=== PATIENT | male | born 1970 | race Caucasian/White ===

== ENCOUNTER 2022-10-04 13:44 | Inpatient (IN) | payer OTHER ==
--- OUTSIDE RECORDS SUMMARY | 2022-10-04 14:03 | XMS REPORT | Continuity of Care Document ---
:1970 Author Organization [facility] t Address [address] [place] [address] Care Team Providers Name Role Phone NOLOCAL, PRIMARY CARE DOC Primary Care Physician Unavailable ROLANDO GREEN Attending Clinician Unavailable SHABNAM WISEMAN Attending Clinician Unavailable Physician, No Primary or Family Admitting Clinician Unavaila ble ROLANDO GREEN Admitting Clinician Unavailable BRIAN KESSLER Admitting Clinician Unavailable Payers Payer Name Policy Type Policy Effective Date Expiration Date Sour ce Number MEDICAID NA [facility] Problems Condition Condition Condition Status Onset Resolution Last Treating Co mments Source Name Details Category Date Date Treatment Clinician Date Alcohol Alcohol Problem [facility] ([facility]F/LI V/SA) Alcohol Alcohol Problem Active [facility] intoxicati intoxicati 03-15 Ayaz kes on on 00:00: [facility] 00 [facility] (LUF/LI V/SA) Alcohol Alcohol Problem Active [facility] (LUF/LI V/SA) Allergies, Adverse Reactions, Alerts Allergy Allergy Status Severity Reaction(s) Onset Inactive Treating Comm ents Source Name Type Date Date Clinician Sulfa DA Active U [facility] ([facility]ulf[facility] 8[facility]16 [place] [facility] e Antibiot 00 [facility] ics[facility] Sulfa DA Active U UNKNOWN 2019-0 [facility] No Known DA Active U 2019-0 [facility] Allergie 8-02 [place] [facility] 00:00: [facility]a 00 [facility] No Known DA Active U 2019- [facility] Allergie 8- [place] [facility] 00:00: Regiona [facility] No Known DA Active U 2007- [facility] Contrast 7 [place] Allergie 00:00: Regiona s [facility], [facility] No Known DA Active U [facility] Drug 02-13 [place] Allergie 00:00: Regiona s [facility], [facility] No Known DA Active U [facility] Food 02-13 [place] Allergie 00:00: Regiona s [facility], [facility] No Known DA Active U 2007- [facility] Other 02-13 [place] Allergie 00:00: Regiona s [facility], [facility] Penicill DA Active Unknown [facility] (LUF[facility]LI V/SA) Social History Social Habit Start Date Stop Date Quantity Comments Source Sex Assigned At [birth year] Male Zully [facility] 00:00:00 00:00:00 Hospital Smoking Status Start Date Stop Date Source Current every day smoker [facility] (LUF/CHRISTINE/SA) Medications Ordered Filled Start Stop Current Ordering Indication Dosage Frequency Signature Comments Components Source Medication Medication Date Date Medication? Clinician (SIG) Name Name Folic Acid Folic Acid Yes [address] [facility] 1 MG Oral 1 MG Oral ONCE A DAY [facility] Tablet Tablet (DO NOT Memoria CRUSH) l (LUF/LI V/SA) multivitami multivitami Yes [address] [facility] n n ONCE A DAY [facility] (THERAGRAN (THERAGRAN Mem oria or or l STRESSTAB) STRESSTAB) (AYAZ F/LI V/SA) THIAMINE THIAMINE Yes [address] [facility] HCL HCL ONCE A DAY [facility] (LUF/LI V/SA) Vital Signs Vital Name Observation Time Observation Value Comments Source Height 2020-03-14 22:25:00 180.34 CM Weight 2020-03-14 22:25:00 82 KG Height 2020-03-07 17:29:00 180.34 CM Weight 2020-03-07 17:29:00 95.25 KG Body Temperature 2020-03-15 02:45:00 98.1 [degF] [facility] (LUF/CHRISTINE/SA) Pulse Rate 2020-03-15 02:45:00 88 /min [facility] (LUF/CHRISTINE/SA) Respiratory Rate 2020-03-15 02:45:00 16 /min [facility] ([facility]/CHRISTINE/SA) O2% BldC Oximetry 2020-03-15 02:45:00 94 % [facility] (LUF/CHRISTINE/SA) BP Systolic 2020-03-15 02:45:00 118 mm[Hg] [facility] (F/CHRISTINE/SA) BP Diastolic 2020-03-15 02:45:00 78 mm[Hg] [facility] (F/CHRISTINE/SA) Height 2020-03-14 22:25:00 71 [in_i] [facility] ([facility]/CHRISTINE/SA) Weight 2020-03-14 22:25:00 82 kg [facility] (F/CHRISTINE/SA) BMI (Body Mass Index) 2020-03-14 22:25:00 25.3 kg/m2 [facility] ([facility]/CHRISTINE/SA) Procedures Procedure Date / Time Performing Clinician Source Performed [id number] 2020-04-02 00:00:00 [facility] [id number] 2020-03-20 00:00:00 [facility] [id number] 2020-03-20 00:00:00 [facility] CBCA W/PLT & AUTO 2020-03-17 00:00:00 [facility] COMPREHENSIVE METABOLIC 2020-03-17 00:00:00 [facility] UA COMPLETE W/CULTURE 2020-03-17 00:00:00 [facility] PROTIME 2020-03-17 00:00:00 [facility] PTT 2020-03-17 00:00:00 [facility] URINE DRUG 2020-03-17 00:00:00 [facility] THYROID STIMULATING 2020-03-17 00:00:00 [facility] SERUM DRUG SCREEN 2020-03-17 00:00:00 [facility] COVID-VIRUS PCR TEST 2020-03-17 00:00:00 [facility] LIPASE 2020-03-17 00:00:00 [facility] CHEST 1 VIEW (AP) 2020-03-17 00:00:00 [facility] CT ABD & PELVIS W 2020-03-17 00:00:00 [facility] Encounters Start End Encounter Admission Attending Care Care Encounter Source Date/Time Date/Time Type Type Clinicians Facility Department ID 2022-09-04 2022-09-04 Outpatient SFA SFA [id number] Adriano 13:24:25 13:24:25 21509 F Phu 2020-08-15 2020-08-18 Inpatient [facility] [id number] [facility] 03:54:00 03:49:[address] [facility] 2020-03-17 2020-04-24 Inpatient [facility] MC [id number] [facility] 08:40:00 00:58:22 72 [facility] 2020-03-16 2020-03-17 Departed [facility] [id number] [facility] 21:25:00 02:41:[address] [facility] 2020-03-14 2020-03-15 ALCOHOL E NORMA, [facility] [id number] 22:25:00 03:49:00 [facility]END [facility] W/INTOX N, [address], (LUF[place] [address] 2020-03-07 2020-03-07 Emergency 1 STLML EMD [id number] 17:11:00 17[facility]11[facility]00 [facility]F/LI [facility]/SA) Results Test Description Test Time Test Comments Results Result Comments Source D-DIMER 2022-09-05 12:32:27 Test Item Value Reference Range Interpretation Comme nts D-DIMER (test code 0.41 UG/ML FEU See_Comment NOTE: Provided reference range is = 1405) established for evaluation of Deep Venous Thrombos is/Pulmonary Embolus (DVT/PE). Resul ts below cutoff value of <=0.49 UG/ML FEU have a high negative predic tive value forDVT/PE. No reference ra nge is established for disseminatedint ra-vascular coagulation (DI C). [Automated message] The sy stem which generated this result tra nsmitted reference range: <=0.49. The reference range was not used to interpret this result as normal/abnor mal. [id number] 06:24:48 Test Item Value Reference Range Interpretation Comments NT-proBNP 648 PG/ML SEE BELOW If NT-ProBNP i s less than 300 (test code = PG/ML, heart fa ilure is unlikely 18182) for allages. Age............ .....Heart Failure Likely <50 Years.......... .>=450 PG/ML 50-75 Years.... .....>=900 PG/ML > 75 Years..... .....>=1800 PG/ML Methodology: Ro mónica Kenyatta [employer]chem[employer] inescense Immunoassay UNL ESS OTHERWISE INDICATED, ALL TESTING PERFORMED ATCLINICAL PATH [employer] [facility], [facility]. [address] [place] [address] 4 BEAM SEALER: Axel MILLER [id number] CAP ACCREDITATION N O. [id number] 13:14:00 Test Item Value Reference Range Interpretation Comments PHOSPHORUS (test code = PHOS) 2.6 mg/dL 2.5-4.9 N [id number] 13:14:00 Test Item Value Reference Range Interpretation Comments AMYLASE (test code = JAMAAL) 54 Unit/L 25-115 N [id number] 13:14:00 Test Item Value Reference Range Interpretation Comments MAGNESIUM (test code = MAG) 1.3 mg/dL 1.8-2.4 L VITAMIN [id number] 13:14:00 Test Item Value Reference Range Interpretation Comments VITAMIN B12 (test code = VITB12) 740 pg/mL 193-986 N FOLIC [id number] 13:14:00 Test Item Value Reference Range Interpretation Comments FOLIC ACID (test code = FOL) 2.7 ng/mL 3.10-17.50 L [id number] 13:14:00 Test Item Value Reference Range Interpretation Comments ALCOHOL (test code < 3 mg/dL 0.0-3.0 N --------- --------INTERPRE = ALC) TIVE DATA NOTE: POSITIVE SCREEN ING RESULTS SHOULD BE CONSIDERED PRESUMPTIVE.WHE N COLLECTED FOR M EDICAL PURPOSES ONLY. SPECIMEN WILL NOTBE JOHNSON ECTED BY CHAIN OF CUSTOD Y.IF A CONFIRMATION OF POSITIVE RESULTS IS YAEL RED, ACONFIRMATION T EST MUST BE REQUESTED BY THE PHYSICIAN AT AN ADDITIONAL CHARGE TO THE P [facility]. [id number] 12:52:00 Test Item Value Reference Range Interpretation Comments TROPONIN-I (test 0.061 ng/mL 0-0.045 HH Results princess led to code = TROPI) [id number] by V.L AB.DC 08/15/20 1252Cr itical results verifie d and read back by Nu rse? Y COMMENTS TO SHADE HANGER: COLLECT 3 HOURS AFTER PREVIOUS SAMPLELACTIC ACID 2020-08-15 12:50:00 Test Item Value Reference Range Interpretation Comments LACTIC ACID (test code = LACT) 1.5 mmol/L 0.4-1.9 N [id number] 12:49:00 Test Item Value Reference Range Interpretation Comments AMMONIA (test code = AMM) 52 umol/L 11-32 H [id number] 10:31:00 Test Item Value Reference Range Interpretation Comments TROPONIN-I (test 0.053 ng/mL 0-0.045 HH Results princess led to code = TROPI) [id number] by V.L AB.DC 08/15/20 1031Cr itical results verifie d and read back by Nu rse? Y COMMENTS TO SHADE HANGER: COLLECT 3 HOURS AFTER PREVIOUS SAMPLEDRUGS OF ABUSE SCREEN [id number] 09:35:00 Test Item Value Reference Range Interpretation Comments UA PH DIPSTICK (test code = YINA) 6.0 5.0-8.0 URN COCAINE (test code = COCAURN) NEGATIVE <300 ng/mL URN CANNABINOIDS (test code = NEGATIVE <50 ng/mL CANNABURN) URN AMPHETAMINE (test code = NEGATIVE <1000 ng/mL AMPHETURN) URN BARBITURATE (test code = NEGATIVE <200 ng/mL BARBITURN) URN BENZODIAZEPINE (test code = NEGATIVE <200 ng/mL BENZOURN) URN OPIATES (test code = OPIATURN) NEGATIVE <300 ng/mL URN PHENCYCLIDINE (PCP) (test code = NEGATIVE <25 ng/mL PHENCURN) URN METHADONE (test code = METHAURN) NEGATIVE <300 ng/mL DRUGS OF ABUSE SCREEN [id number] 07:31:00 Test Item Value Reference Range Interpretation Comments UA PH DIPSTICK (test code = YINA) 5.0-8.0 URN COCAINE (test code = COCAURN) NEGATIVE <300 ng/mL URN CANNABINOIDS (test code = NEGATIVE <50 ng/mL CANNABURN) URN AMPHETAMINE (test code = NEGATIVE <1000 ng/mL AMPHETURN) URN BARBITURATE (test code = NEGATIVE <200 ng/mL BARBITURN) URN BENZODIAZEPINE (test code = NEGATIVE <200 ng/mL BENZOURN) URN OPIATES (test code = OPIATURN) NEGATIVE <300 ng/mL URN PHENCYCLIDINE (PCP) (test code = NEGATIVE <25 ng/mL PHENCURN) URN METHADONE (test code = METHAURN) NEGATIVE <300 ng/mL COVID 19 INHOUSE [id number] 07:23:00 Test Item Value Reference Range Interpretation Comments COVID 19 INHOUSE AG (test code = NEGATIVE [id number]) B-TYPE NATRIURETIC [id number] 06:17:00 Test Item Value Reference Range Interpretation Comments B-TYPE NATRIURETIC PEPTIDE 31.78 pgram/mL 0-100 N (test code = BNP) - CTA [id number] 05:59:00 [facility]Name: SIDNEY HALL Mila : 1970 Sex: M Name: SIDNEY HALL [facility] : 1970 Age/S: 49 / M [address] [facility] Unit #: [id number] Loc: [place] [address] Phys: Carlos Taylor MD Acct: [id number] Dis Date: Status: REG ER PHONE #: [phone] Exam Date: 08/15/2020 0594 FAX #: [phone] Reason: chest pain EXAMS: CPTCODE: [id number] CTA CHEST 16056 DICTATION LOCATION: H48 HISTORY: Male, 49 years of age with chest pain EXAM: CT ANGIOGRAPHY OF THE CHEST COMPARISON: Chest x-ray performed one hour ago TECHNIQUE: Helical axial images were obtained from thoracic inlet to upper abdomen with nonionic IV contrast using theCT angiography protocol. Image post processing with MIP and multiplanar reconstruction were performed at the advanced workstation. One or more of the following dose reduction techniques were used: Automated exposure control; adjustment of the mA and/or kV according to the patient size; and/or use of iterative reconstruction technique. STATEMENT: Exam quality is acceptable. Images are somewhat degraded by patient motion. FINDINGS: AORTA: No aneurysm or dissection. PULMONARY ARTERIES: Within normal limits size and moderately enhanced. No obvious central or subcentral pulmonary artery filling defect.Distal pulmonary arteries not well assessed due to motion and hemodilution. HEART: Heart is enlarged. Coronary artery calcifications are noted. No significant pericardial effusion. MEDIASTINUM: No pathologically enlarged lymph nodes by CT criteria. Visualized portions of thyroid gland unremarkable. PLEURA: No pleural effusions. LUNGS: Patchy reticulonodular opacities are seen in right upper lobe, right middle lobe, lingula, and both lower lobes. No diamond lobar consolidation. No significant emphysema. No tracheobronchial filling defect. OTHER: Cuts through the upper abdomen are unremarkable. IMPRESSION: 1. No obvious central or subcentral pulmonary embolism. 2. No aortic aneurysm or dissection. 3. Multilobar pneumonia, predominantly in right upper lobe and right middle lobe. PAGE 1 Signed Report (CONTINUED) Name: SIDNEY HALL [facility] : 1970 Age/S: 49 / M [address] Unit #: [id number] Loc: [place] [address] Phys: Carlos Taylor MD Acct: [id number] Dis Date: Status: REG ER PHONE #: [phone] Exam Date: 08/15/2020 0540 FAX #: [phone] Reason: chest pain EXAMS: CPT CODE: [id number] CTA CHEST 34115 <Continued> Electronically Signed by Eunice Porter 08/15/2020 at 0559 Reported and signed by: Eunice Manriquez MD CC: Carlos Taylor MD Technologist:JESSICA BLISS RT; RENATO AT CTDI: DLP: Trnscb Date/Time: 08/15/2020 (0559) [email or web address] Orig Print D/T: S: 08/15/2020 (0602) PAGE 2 Signed ReportPROTHROMBIN [id number] 05:16:00 Test Item Value Reference Range Interpretation Comments PROTHROMBIN TIME 12.1 seconds 9.0-14.0 N PATIENT (test code = PTP) INTERNATIONAL NORMAL 1.1 0.8-1.2 N The the rapeutic range RATIO (test code = for oral INR) anticoagulant t herapy formost indicat ions is an internati onal normalized rati o (INR)of between 2.0 and 3.0. The recommended therapeutic INR range for various cli nical situations is l isted below: Clinical Situat ion INR range Pulmonary embol ism treatment (2.0-3.0)Venous thrombosis treatmentVenous thrombosis prophylaxis (hi gh risk surgery)Prevent ion of systemic emboli sm from: Acute myocardial infa rction Valvular heart disease Atrial fibrillation Mechanical pros thetic heart valves (2.5-3.5) IS PATIENT ON ANTICOAGULANTS? NTHROMBOPLASTIN TIME [id number] 05:16:00 Test Item Value Reference Range Interpretation Comments THROMBOPLASTIN TIME PARTIAL 29.7 seconds 23.0-37.0 N (test code = PTT) IS PATIENT ON ANTICOAGULANTS? [id number] 05:16:00 Test Item Value Reference Range Interpretation Comments D-DIMER (test 1589.00 0-500 HH Results called to [id number] code = DDIMER) ng/mLFEU by V.LAB.GP 1 0516Critical re sults verified and re ad back by Nurse? YClinica l Cut-off value for D-Dim er is 500 ng/mL FEU. Comm ent: The 12Bis D-Dim er assay is intended for use asan aid in the diag nosis of venous thromboe mbolism (VTE)[deep vein thrombosis (DVT ) or pulmonary embol ism (PE)].The measu rement of D-Dimer should not be used as an aid inthe diagnosis of VT E, in patient with: -Therapeutic do se anticoagulant t herapy for >24 hours -Fibr inolytic therapy within previous 7 days -Trauma or surgery within previous 4 weeks -Disseminated malignancies -A ortic aneurysm -Sepsi s, severe infections, pne umonia, severe skin inf ections -Liver cirrhosi s - IS PATIENT ON ANTICOAGULANTS? NBASIC METABOLIC [id number] 05:14:00 Test Item Value Reference Range Interpretation Comments SODIUM (test code = 140 mmol/L 136-145 N NA) POTASSIUM (test code 4.2 mmol/L 3.5-5.1 N = K) CHLORIDE (test code = 106.0 mmol/L 98-107 N CL) CARBON DIOXIDE (test 23.0 mmol/L 21-32 N code = CO2) ANION GAP (test code 15.2 10-20 N = GAP) GLUCOSE (test code = 181 mg/dL 74-106 H GLU) BLOOD UREA NITROGEN 8 mg/dL 7-18 N (test code = BUN) GLOMERULAR FILTRATION > 60 mL/min >=60 Estima domitila GFR by RATE (test code = using Annie fied MDRD GFR) formula.Chronic kidney disease is defined as ei er kidney damageor GFR <60 mL/min/1.73 m2 for >3 months. CREATININE (test code 0.80 mg/dL 0.7-1.3 N = CREAT) BUN/CREATININE RATIO 10.2 10-20 N (test code = BUN/CREA) CALCIUM (test code = 7.9 mg/dL 8.5-10.1 L CA) HEPATIC FUNCTION [id number] 05:14:00 Test Item Value Reference Range Interpretation Comments TOTAL PROTEIN (test 7.0 gram/dL 6.4-8.2 N code = PROT) ALBUMIN (test code = 3.0 g/dL 3.4-5.0 L ALB) GLOBULIN (test code = 4.0 gram/dL 2.7-4.2 N GLOB) ALBUMIN/GLOBULIN RATIO 0.8 0.75-1.50 N (test code = A/G) BILIRUBIN TOTAL (test 0.50 mg/dL 0.0-1.0 N code = BILT) BILIRUBIN DIRECT (test 0.07 mg/dL 0.0-0.20 N code = BILD) SGOT/AST (test code = 32 IUnit/L 15-37 N AST) SGPT/ALT (test code = 18 IUnit/L 12-78 N ALT) ALKALINE PHOSPHATASE 92 IUnit/L 45-117 N Note change in TOTAL (test code = reference range due ALKP) to change in reagent. [id number] 05:14:00 Test Item Value Reference Range Interpretation Comments LIPASE (test code = LIP) 279 U/L 73.0-393.0 N [id number] 05:14:00 Test Item Value Reference Range Interpretation Comments MAGNESIUM (test code = MAG) 1.6 mg/dL 1.8-2.4 L [id number] 05:14:00 Test Item Value Reference Range Interpretation Comments TROPONIN-I (test code = TROPI) 0.027 ng/mL 0-0.045 N CBC W/O [id number] 04:56:00 Test Item Value Reference Range Interpretation Comments WHITE BLOOD CELL (test code = 13.6 K/mm3 4.5-12.5 H WBC) RED BLOOD CELL (test code = 5.12 mill/mm3 4.0-5.8 N RBC) HEMOGLOBIN (test code = HGB) 15.6 gram/dL 13.0-17.5 N HEMATOCRIT (test code = HCT) 46.7 % 42.0-52.0 N MEAN CELL VOLUME (test code = 91.2 fL 80-98 N MCV) MEAN CELL HGB (test code = MCH) 30.5 picogram 27.0-33.0 N MEAN CELL HGB CONCETRATION 33.4 gram/dL 33.0-36.0 N (test code = MCHC) RED CELL DISTRIBUTION WIDTH 15.0 % 11.6-16.2 N (test code = RDW) PLATELET COUNT (test code = 115 K/mm3 150-450 L PLT) MEAN PLATELET VOLUME (test code 10.1 fL 6.7-11.0 N = MPV) - XR CHEST 1 [id number] 04:46:00 [facility]Name: JENNIFERKAYSIDNEY : 1970 Sex: M FAX: Carlos Taylor MD [place]: [address]: REG Name: SIDNEY HALL [facility] : 1970 Age/S: 49/M Benjamin [facility] Unit #: [id number] Loc: [place] [address] Phys: Carlos Taylor MD Acct: [id number] Dis Date: Status: REG ER PHONE #: [phone] Exam Date: 08/15/2020424 FAX #: [phone] Reason: CHEST PAIN EXAMS: CPT CODE: [id number] XR CHEST 1 V 86337 DICTATION LOCATION: 8 HISTORY: Male, 49 years of age with CHEST PAIN EXAM: CHEST X-RAY, ONE VIEW COMPARISON: 04/22/2020 COMMENT: Frontal view of the chest is provided. Interstitial opacities are present in right perihilar distribution. Left lung is clear. No consolidation or effusion. Cardiac silhouette is enlarged and calcified plaque noted in aorta. No acute bony abnormalities. IMPRESSION: Right perihilar interstitial opacities are new since prior study. Unilateral pulmonary edema versus pneumonia. at 0446 Reported and signed by: Eunice Manriquez MD CC: Carlos Taylor MD [facility] hnologist: Lolis Go Trnmtrd Date/Time/By: 08/15/2020 (0446) : By: JoeCLW Orig Print D/T: S: 08/15/2020 (0441) PAGE 1 Signed Report- XR CHEST 1 V 2020-04-22 09:37:00 FAX: Maegan Vazquez MD [phone] [place]: St: [facility] FAX: Suly Talbot NP [phone] FAX: Sindi Cedillo [phone] FAX: Carina Francis MD [phone] Patient Name: SIDNEY HALL Unit No: [id number] EXAMS: CPT CODE: [id number] XR CHEST 1 V 10781 EXAM: - XR CHEST 1 V LOCATION: C3 HISTORY: SOB COMPARISON: 04/19/2020 FINDINGS: Single view of the chest. No indwelling lines or tubes. No pneumothorax. Improving mild right basilar infiltrate. The mediastinal contours are unremarkable/unchanged. No acute osseous findings are present. IMPRESSION: Improving mild right basilar infiltrate. at 0937 Reported and signed by: Gilles Raymond MD CC: Maegan Vazquez MD; Suly Smith NP; Sindi Gomez Dictated Date/Time: 04/22/2020 (09)Technologist: Aleksandra Esteves Transcribed Date/Time: 04/22/2020 (936) By: [email or web address] Orig Print D/T: S: 04/22/2020 (0940) E[place]NESTINE [place] NAME: SIDNEY HALL [facility] PHYS: Suly Brock NP [address] [place] [address] BLVD : 1970 AGE: 49 SEX: Chintan SCHAFFER, [place] [address] LOC: B.333 W PHONE #: [phone] EXAM DATE: 04/22/2020 STATUS: ADM IN FAX #: [phone] RADNO: DEEJAY Dt: PAGE 1 Signed ReportBASIC METABOLIC [id number] 05:54:00 Test Item Value Reference Range Interpretation Comments SODIUM (test code = 137.0 mmol/L 133-144 N NA) POTASSIUM (test code 3.5 mmol/L 3.5-5.1 N = K) CHLORIDE (test code 106 mmol/L 95-105 H = CL) CARBON DIOXIDE (test 27 mmol/L 21-32 N code = CO2) ANION GAP (test code 4.0 GAP calc 4.0-15.0 N = GAP) GLUCOSE (test code = 77 MG/DL 70-110 N GLU) BLOOD UREA NITROGEN 10 MG/DL 7-18 N (test code = BUN) CREATININE (test 0.50 MG/DL 0.55-1.30 L Results may be code = CREAT) depressed if patient is takingN-Acetylc yste ine (NAC) and Metamizole (Dipyrone). CALCIUM (test code = 8.9 MG/DL 8.5-10.1 N CA) INDEX HEMOLYSIS 1 NORMAL <10 MG 1 NORMAL (test code = Index/DL HEMINDEX) INDEX ICTERIC (test 1 NORMAL <2 MG 1 NORMAL code = ICTINDEX) Index/DL INDEX LIPEMIA (test 1 NORMAL <50 MG 1 NORMAL code = LIPINDEX) Index/DL CBC W/AUTO [id number] 05:50:00 Test Item Value Reference Range Interpretation Comments WHITE BLOOD CELL (test code = 7.4 K/mm3 4.1-12.1 N WBC) RED BLOOD CELL (test code = RBC) 3.58 M/mm3 3.8-5.5 L HEMOGLOBIN (test code = HGB) 11.5 G/DL 10.6-15.8 N HEMATOCRIT (test code = HCT) 36.0 % 31.8-47.4 N MEAN CELL VOLUME (test code = 100.6 fL 80.1-101.1 N MCV) MEAN CELL HGB (test code = MCH) 32.1 pg 25.3-35.3 N MEAN CELL HGB CONCETRATION (test 31.9 G/DL 32.7-35.1 L code = MCHC) RED CELL DISTRIBUTION WIDTH 11.7 % 12.2-16.4 L (test code = RDW) RED CELL DISTRIBUTION WIDTH 43.2 fL 35.1-43.9 N (test code = RDW-SD) PLATELET COUNT (test code = PLT) 230 K/mm3 155-337 N MEAN PLATELET VOLUME (test code 10.3 fL 7.6-10.4 N = MPV) GRANULOCYTE % (test code = GR%) 60.2 % 37.8-82.6 N IMMATURE GRANULOCYTE % (test 0.3 % 0.0-2.0 N code = IG%) LYMPHOCYTE % (test code = LY%) 24.9 % 14.1-45.4 N MONOCYTE % (test code = MO%) 12.4 % 2.5-11.7 H EOSINOPHIL % (test code = EO%) 1.8 % 0.0-6.2 N BASOPHIL % (test code = BA%) 0.4 % 0.0-2.6 N NUCLEATED RBC % (test code = 0.0 /100WBC% 0.0-1.0 N NRBC%) GRANULOCYTE # (test code = GR#) 4.44 k/mm3 2.0-13.7 N IMMATURE GRANULOCYTE # (test 0.02 K/mm3 0.00-0.03 N code = IG#) LYMPHOCYTE # (test code = LY#) 1.83 K/mm3 0.6-3.8 N MONOCYTE # (test code = MO#) 0.91 K/mm3 0.11-0.59 H EOSINOPHIL # (test code = EO#) 0.13 K/mm3 0.0-0.4 N BASOPHIL # (test code = BA#) 0.03 K/mm3 0.0-0.1 N NUCLEATED RBC # (test code = 0.00 K/mm3 0.00-0.05 N NRBC#) BASIC METABOLIC [id number] 08:26:00 Test Item Value Reference Range Interpretation Comments SODIUM (test code = 141.0 mmol/L 133-144 N NA) POTASSIUM (test code 3.6 mmol/L 3.5-5.1 N = K) CHLORIDE (test code 109 mmol/L 95-105 H = CL) CARBON DIOXIDE (test 28 mmol/L 21-32 N code = CO2) ANION GAP (test code 4.0 GAP calc 4.0-15.0 N = GAP) GLUCOSE (test code = 69 MG/DL 70-110 L GLU) BLOOD UREA NITROGEN 10 MG/DL 7-18 N (test code = BUN) CREATININE (test 0.51 MG/DL 0.55-1.30 L Results may be code = CREAT) depressed if patient is takingN-Acetylc yste ine (NAC) and Metamizole (Dipyrone). CALCIUM (test code = 9.1 MG/DL 8.5-10.1 N CA) INDEX HEMOLYSIS 1 NORMAL <10 MG 1 NORMAL (test code = Index/DL HEMINDEX) INDEX ICTERIC (test 1 NORMAL <2 MG 1 NORMAL code = ICTINDEX) Index/DL INDEX LIPEMIA (test 1 NORMAL <50 MG 1 NORMAL code = LIPINDEX) Index/DL CBC W/AUTO [id number] 08:14:00 Test Item Value Reference Range Interpretation Comments WHITE BLOOD CELL (test code = 8.2 K/mm3 4.1-12.1 N WBC) RED BLOOD CELL (test code = RBC) 3.91 M/mm3 3.8-5.5 N HEMOGLOBIN (test code = HGB) 12.8 G/DL 10.6-15.8 N HEMATOCRIT (test code = HCT) 40.6 % 31.8-47.4 N MEAN CELL VOLUME (test code = 103.8 fL 80.1-101.1 H MCV) MEAN CELL HGB (test code = MCH) 32.7 pg 25.3-35.3 N MEAN CELL HGB CONCETRATION (test 31.5 G/DL 32.7-35.1 L code = MCHC) RED CELL DISTRIBUTION WIDTH 11.9 % 12.2-16.4 L (test code = RDW) RED CELL DISTRIBUTION WIDTH 45.1 fL 35.1-43.9 H (test code = RDW-SD) PLATELET COUNT (test code = PLT) 234 K/mm3 155-337 N MEAN PLATELET VOLUME (test code 10.8 fL 7.6-10.4 H = MPV) GRANULOCYTE % (test code = GR%) 62.2 % 37.8-82.6 N IMMATURE GRANULOCYTE % (test 0.4 % 0.0-2.0 N code = IG%) LYMPHOCYTE % (test code = LY%) 23.7 % 14.1-45.4 N MONOCYTE % (test code = MO%) 11.0 % 2.5-11.7 N EOSINOPHIL % (test code = EO%) 2.2 % 0.0-6.2 N BASOPHIL % (test code = BA%) 0.5 % 0.0-2.6 N NUCLEATED RBC % (test code = 0.0 /100WBC% 0.0-1.0 N NRBC%) GRANULOCYTE # (test code = GR#) 5.13 k/mm3 2.0-13.7 N IMMATURE GRANULOCYTE # (test 0.03 K/mm3 0.00-0.03 N code = IG#) LYMPHOCYTE # (test code = LY#) 1.95 K/mm3 0.6-3.8 N MONOCYTE # (test code = MO#) 0.91 K/mm3 0.11-0.59 H EOSINOPHIL # (test code = EO#) 0.18 K/mm3 0.0-0.4 N BASOPHIL # (test code = BA#) 0.04 K/mm3 0.0-0.1 N NUCLEATED RBC # (test code = 0.00 K/mm3 0.00-0.05 N NRBC#) - XR CHEST 1 [id number] 12:01:00 FAX: Maegan Vazquez MD [phone] [place]: St: ADM FAX: Suly Talbot NP [phone] FAX: Sindi Cedillo [phone] FAX: Carina Francis MD [phone] Patient Name: SIDNEY HALL Unit No: [id number] EXAMS: CPT CODE: [id number] XR CHEST 1 V [id number] CHEST 1 VIEW CLINICAL INFORMATION: COUGH COMPARISON: April 12, 2020 FINDINGS: The lung volumes are decreased. Subsegmental atelectasis is seen in the left midlung. There is a patchy alveolar opacity in the right lower lobe as well. No pneumothorax or large pleural effusion is present. The cardiac silhouette is mildly enlarged but stable. The bones are grossly intact. IMPRESSION: 1. Shallow inspiration. 2. Subsegmental atelectasis in the left mid lung. 3.Patchy opacity in the right lung base may reflect additional atelectasis or pneumonia. LOCATION: B2 at 1201 Reported and signed by: Bret Ward MD CC: Maegan Vazquez MD; Suly Smith NP; Sindi Gomez Dictated Date/Time: 04/19/2020 (1201)Technologist: Tello Campo Transcribed Date/Time: 04/19/2020 (1201) By: [email or web address] Orig Print D/T: S: 04/19/2020 ([id number]) [facility] [place] NAME: SIDNEY HALL MEDICAL IMAGING PHYS: Suly Brock WOODWORKING MACHINIST [address] : 1970 AGE: 49 SEX: Chintan SCHAFFER, JASMYNE Castro304 LOC: Sahil Zaragoza PHONE #: [phone] EXAM DATE: 04/19/2020 STATUS: ADM IN FAX #: [phone] RAD NO: DC Dt: PAGE 1 Signed ReportBASIC METABOLIC [id number] 04:55:00 Test Item Value Reference Range Interpretation Comments SODIUM (test code = 140.0 mmol/L 133-144 N NA) POTASSIUM (test code 3.6 mmol/L 3.5-5.1 N = K) CHLORIDE (test code 107 mmol/L 95-105 H = CL) CARBON DIOXIDE (test 26 mmol/L 21-32 N code = CO2) ANION GAP (test code 7.0 GAP calc 4.0-15.0 N = GAP) GLUCOSE (test code = 76 MG/DL 70-110 N GLU) BLOOD UREA NITROGEN 16 MG/DL 7-18 N (test code = BUN) CREATININE (test 0.68 MG/DL 0.55-1.30 N Results may be code = CREAT) depressed if patient is takingN-Acetylc yste ine (NAC) and Metamizole (Dipyrone). CALCIUM (test code = 9.2 MG/DL 8.5-10.1 N CA) INDEX HEMOLYSIS 1 NORMAL <10 MG 1 NORMAL (test code = Index/DL HEMINDEX) INDEX ICTERIC (test 1 NORMAL <2 MG 1 NORMAL code = ICTINDEX) Index/DL INDEX LIPEMIA (test 1 NORMAL <50 MG 1 NORMAL code = LIPINDEX) Index/DL COMPREHENSIVE METABOLIC [id number] 04:55:00 Test Item Value Reference Range Interpretation Comments GLOMERULAR FILTRATION 123 estGFR >60 The es timated RATE (test code = glomerular filtration GFR) rate is compute d usingpatient ra ce, age, sex, and s juju creatinine. If any of theneeded data elements are mi ssing the Laboratory can notcompute an estimation of t he glomerular filt ration rate.The GFR va lue units = ml/min/ 1.73 meter squared. EstimatedGFR va lues above 60 should be interpreted as >60, not anexact num suzy.--- DRUG DOSAGE JOSELINE RT --- Drug dosage adjustments uti lize different calculationpara meters. TOTAL PROTEIN (test 7.3 G/DL 6.4-8.2 N code = PROT) ALBUMIN (test code = 3.5 G/DL 3.4-5.0 N ALB) ALBUMIN/GLOBULIN 0.9 RATIO 1.2-2.2 L RATIO (test code = A/G) BILIRUBIN TOTAL (test 0.74 MG/DL 0.00-1.00 N code = BILT) BILIRUBIN DIRECT 0.30 MG/DL 0.00-0.30 N (test code = BILD) BILIRUBIN INDIRECT 0.44 MG/DL 0.2-1.3 N (test code = BILIND) SGOT/AST (test code = 20 Unit/L 15-37 N AST) SGPT/ALT (test code = 32 Unit/L 12-78 N ALT) ALKALINE PHOSPHATASE 60 Unit/L 45-117 N TOTAL (test code = ALKP) [id number] 04:55:00 Test Item Value Reference Range Interpretation Comments LIPASE (test code = LIP) 256 Unit/L 114-286 N BASIC METABOLIC [id number] 04:49:00 Test Item Value Reference Range Interpretation Comments SODIUM (test code = NA) 140.0 mmol/L 133-144 N POTASSIUM (test code = K) 3.6 mmol/L 3.5-5.1 N CHLORIDE (test code = CL) 107 mmol/L 95-105 H CARBON DIOXIDE (test code mmol/L 21-32 = CO2) ANION GAP (test code = GAP calc 4.0-15.0 GAP) GLUCOSE (test code = GLU) MG/DL 70-110 BLOOD UREA NITROGEN (test MG/DL 7-18 code = BUN) CREATININE (test code = MG/DL 0.55-1.30 CREAT) CALCIUM (test code = CA) MG/DL 8.5-10.1 INDEX HEMOLYSIS (test 1 NORMAL <10 MG 1 NORMAL code = HEMINDEX) Index/DL INDEX ICTERIC (test code 1 NORMAL <2 MG 1 NORMAL = ICTINDEX) Index/DL INDEX LIPEMIA (test code 1 NORMAL <50 MG 1 NORMAL = LIPINDEX) Index/DL COMPREHENSIVE METABOLIC [id number] 04:49:00 Test Item Value Reference Range Interpretation Comments TOTAL PROTEIN (test code = PROT) G/DL 6.4-8.2 ALBUMIN (test code = ALB) G/DL 3.4-5.0 ALBUMIN/GLOBULIN RATIO (test code = RATIO 1.2-2.2 A/G) BILIRUBIN TOTAL (test code = BILT) MG/DL 0.00-1.00 BILIRUBIN DIRECT (test code = BILD) MG/DL 0.00-0.30 BILIRUBIN INDIRECT (test code = MG/DL 0.2-1.3 BILIND) SGOT/AST (test code = AST) Unit/L 15-37 SGPT/ALT (test code = ALT) Unit/L 12-78 ALKALINE PHOSPHATASE TOTAL (test code Unit/L 45-117 = ALKP) [id number] 04:49:00 Test Item Value Reference Range Interpretation Comments LIPASE (test code = LIP) Unit/L 114-286 CBC W/AUTO [id number] 04:26:00 Test Item Value Reference Range Interpretation Comments WHITE BLOOD CELL (test code = 7.5 K/mm3 4.1-12.1 N WBC) RED BLOOD CELL (test code = RBC) 3.74 M/mm3 3.8-5.5 L HEMOGLOBIN (test code = HGB) 12.3 G/DL 10.6-15.8 N HEMATOCRIT (test code = HCT) 37.6 % 31.8-47.4 N MEAN CELL VOLUME (test code = 100.5 fL 80.1-101.1 N MCV) MEAN CELL HGB (test code = MCH) 32.9 pg 25.3-35.3 N MEAN CELL HGB CONCETRATION (test 32.7 G/DL 32.7-35.1 N code = MCHC) RED CELL DISTRIBUTION WIDTH 11.5 % 12.2-16.4 L (test code = RDW) RED CELL DISTRIBUTION WIDTH 42.3 fL 35.1-43.9 N (test code = RDW-SD) PLATELET COUNT (test code = PLT) 246 K/mm3 155-337 N MEAN PLATELET VOLUME (test code 10.6 fL 7.6-10.4 H = MPV) GRANULOCYTE % (test code = GR%) 64.2 % 37.8-82.6 N IMMATURE GRANULOCYTE % (test 0.3 % 0.0-2.0 N code = IG%) LYMPHOCYTE % (test code = LY%) 22.2 % 14.1-45.4 N MONOCYTE % (test code = MO%) 10.5 % 2.5-11.7 N EOSINOPHIL % (test code = EO%) 2.4 % 0.0-6.2 N BASOPHIL % (test code = BA%) 0.4 % 0.0-2.6 N NUCLEATED RBC % (test code = 0.0 /100WBC% 0.0-1.0 N NRBC%) GRANULOCYTE # (test code = GR#) 4.84 k/mm3 2.0-13.7 N IMMATURE GRANULOCYTE # (test 0.02 K/mm3 0.00-0.03 N code = IG#) LYMPHOCYTE # (test code = LY#) 1.67 K/mm3 0.6-3.8 N MONOCYTE # (test code = MO#) 0.79 K/mm3 0.11-0.59 H EOSINOPHIL # (test code = EO#) 0.18 K/mm3 0.0-0.4 N BASOPHIL # (test code = BA#) 0.03 K/mm3 0.0-0.1 N NUCLEATED RBC # (test code = 0.00 K/mm3 0.00-0.05 N NRBC#) COMPREHENSIVE METABOLIC [id number] 09:02:00 Test Item Value Reference Range Interpretation Comments SODIUM (test code = 140.0 mmol/L 133-144 N NA) POTASSIUM (test code 3.2 mmol/L 3.5-5.1 L = K) CHLORIDE (test code 106 mmol/L 95-105 H = CL) CARBON DIOXIDE (test 29 mmol/L 21-32 N code = CO2) ANION GAP (test code 5.0 GAP calc 4.0-15.0 N = GAP) GLUCOSE (test code = 87 MG/DL 70-110 N GLU) BLOOD UREA NITROGEN 19 MG/DL 7-18 H (test code = BUN) GLOMERULAR 125 estGFR >60 The estimated FILTRATION RATE glomerular (test code = GFR) filtration rate is computed usingpatient ra ce, age, sex, and s juju creatinine. If any of theneeded da ta elements are mi ssing the Laboratory can notcompute an estimation of t he glomerular filtration rate .The GFR value units = ml/min/1.73 met er squared. EstimatedGFR va lues above 60 should be interpreted as >60, not anexact number.--- DRUG DOSAGE ALERT -- - Drug dosage adjustments uti lize different calculationpara meter s. CREATININE (test 0.67 MG/DL 0.55-1.30 N Results may be code = CREAT) depressed if p atient is takingN-Acetylc ystei ne (NAC) and Metamizole (Dipyrone). TOTAL PROTEIN (test 6.7 G/DL 6.4-8.2 N code = PROT) ALBUMIN (test code = 3.0 G/DL 3.4-5.0 L ALB) ALBUMIN/GLOBULIN 0.8 RATIO 1.2-2.2 L RATIO (test code = A/G) CALCIUM (test code = 9.3 MG/DL 8.5-10.1 N CA) BILIRUBIN TOTAL 0.60 MG/DL 0.00-1.00 N (test code = BILT) BILIRUBIN DIRECT 0.23 MG/DL 0.00-0.30 N (test code = BILD) BILIRUBIN INDIRECT 0.37 MG/DL 0.2-1.3 N (test code = BILIND) SGOT/AST (test code 20 Unit/L 15-37 N = AST) SGPT/ALT (test code 31 Unit/L 12-78 N = ALT) ALKALINE PHOSPHATASE 56 Unit/L 45-117 N TOTAL (test code = ALKP) INDEX HEMOLYSIS 1 NORMAL <10 1 NORMAL (test code = MG Index/DL HEMINDEX) INDEX ICTERIC (test 1 NORMAL <2 MG 1 NORMAL code = ICTINDEX) Index/DL INDEX LIPEMIA (test 1 NORMAL <50 1 NORMAL code = LIPINDEX) MG Index/DL COMPREHENSIVE METABOLIC [id number] 09:00:00 Test Item Value Reference Range Interpretation Comments SODIUM (test code = 140.0 mmol/L 133-144 N NA) POTASSIUM (test code 3.2 mmol/L 3.5-5.1 L = K) CHLORIDE (test code 106 mmol/L 95-105 H = CL) CARBON DIOXIDE (test 29 mmol/L 21-32 N code = CO2) ANION GAP (test code 5.0 GAP calc 4.0-15.0 N = GAP) GLUCOSE (test code = 87 MG/DL 70-110 N GLU) BLOOD UREA NITROGEN 19 MG/DL 7-18 H (test code = BUN) GLOMERULAR 125 estGFR >60 The estimated FILTRATION RATE glomerular (test code = GFR) filtration rate is computed usingpatient ra ce, age, sex, and s juju creatinine. If any of theneeded da ta elements are mi ssing the Laboratory can notcompute an estimation of t he glomerular filtration rate .The GFR value units = ml/min/1.73 met er squared. EstimatedGFR va lues above 60 should be interpreted as >60, not anexact number.--- DRUG DOSAGE ALERT -- - Drug dosage adjustments uti lize different calculationpara meter s. CREATININE (test 0.67 MG/DL 0.55-1.30 N Results may be code = CREAT) depressed if p atient is takingN-Acetylc ystei ne (NAC) and Metamizole (Dipyrone). TOTAL PROTEIN (test G/DL 6.4-8.2 code = PROT) ALBUMIN (test code = 3.0 G/DL 3.4-5.0 L ALB) ALBUMIN/GLOBULIN RATIO 1.2-2.2 RATIO (test code = A/G) CALCIUM (test code = 9.3 MG/DL 8.5-10.1 N CA) BILIRUBIN TOTAL MG/DL 0.00-1.00 (test code = BILT) BILIRUBIN DIRECT 0.23 MG/DL 0.00-0.30 N (test code = BILD) BILIRUBIN INDIRECT MG/DL 0.2-1.3 (test code = BILIND) SGOT/AST (test code 20 Unit/L 15-37 N = AST) SGPT/ALT (test code 31 Unit/L 12-78 N = ALT) ALKALINE PHOSPHATASE Unit/L 45-117 TOTAL (test code = ALKP) INDEX HEMOLYSIS 1 NORMAL <10 1 NORMAL (test code = MG Index/DL HEMINDEX) INDEX ICTERIC (test 1 NORMAL <2 MG 1 NORMAL code = ICTINDEX) Index/DL INDEX LIPEMIA (test 1 NORMAL <50 1 NORMAL code = LIPINDEX) MG Index/DL CBC W/MANUAL [id number] 06:05:00 Test Item Value Reference Range Interpretation Comments WHITE BLOOD CELL (test code = 6.6 K/mm3 4.1-12.1 N WBC) RED BLOOD CELL (test code = RBC) 3.59 M/mm3 3.8-5.5 L HEMOGLOBIN (test code = HGB) 12.1 G/DL 10.6-15.8 N HEMATOCRIT (test code = HCT) 37.1 % 31.8-47.4 N MEAN CELL VOLUME (test code = 103.3 fL 80.1-101.1 H MCV) MEAN CELL HGB (test code = MCH) 33.7 pg 25.3-35.3 N MEAN CELL HGB CONCETRATION (test 32.6 G/DL 32.7-35.1 L code = MCHC) RED CELL DISTRIBUTION WIDTH 11.5 % 12.2-16.4 L (test code = RDW) RED CELL DISTRIBUTION WIDTH 43.9 fL 35.1-43.9 N (test code = RDW-SD) PLATELET COUNT (test code = PLT) 212 K/mm3 155-337 N MEAN PLATELET VOLUME (test code 10.3 fL 7.6-10.4 N = MPV) GRANULOCYTE % (test code = GR%) 55.3 % 37.8-82.6 N IMMATURE GRANULOCYTE % (test 0.3 % 0.0-2.0 N code = IG%) LYMPHOCYTE % (test code = LY%) 25.9 % 14.1-45.4 N MONOCYTE % (test code = MO%) 12.9 % 2.5-11.7 H EOSINOPHIL % (test code = EO%) 5.0 % 0.0-6.2 N BASOPHIL % (test code = BA%) 0.6 % 0.0-2.6 N NUCLEATED RBC % (test code = 0.0 /100WBC% 0.0-1.0 N NRBC%) GRANULOCYTE # (test code = GR#) 3.63 k/mm3 2.0-13.7 N IMMATURE GRANULOCYTE # (test 0.02 K/mm3 0.00-0.03 N code = IG#) LYMPHOCYTE # (test code = LY#) 1.70 K/mm3 0.6-3.8 N MONOCYTE # (test code = MO#) 0.85 K/mm3 0.11-0.59 H EOSINOPHIL # (test code = EO#) 0.33 K/mm3 0.0-0.4 N BASOPHIL # (test code = BA#) 0.04 K/mm3 0.0-0.1 N NUCLEATED RBC # (test code = 0.00 K/mm3 0.00-0.05 N NRBC#) COMPREHENSIVE METABOLIC [id number] 09:27:00 Test Item Value Reference Range Interpretation Comments SODIUM (test code = 141.0 mmol/L 133-144 N NA) POTASSIUM (test code 3.4 mmol/L 3.5-5.1 L = K) CHLORIDE (test code 107 mmol/L 95-105 H = CL) CARBON DIOXIDE (test 28 mmol/L 21-32 N code = CO2) ANION GAP (test code 6.0 GAP calc 4.0-15.0 N = GAP) GLUCOSE (test code = 88 MG/DL 70-110 N GLU) BLOOD UREA NITROGEN 26 MG/DL 7-18 H (test code = BUN) GLOMERULAR 105 estGFR >60 The estimated FILTRATION RATE glomerular (test code = GFR) filtration rate is computed usingpatient ra ce, age, sex, and s juju creatinine. If any of theneeded da ta elements are mi ssing the Laboratory can notcompute an estimation of t he glomerular filtration rate .The GFR value units = ml/min/1.73 met er squared. EstimatedGFR va lues above 60 should be interpreted as >60, not anexact number.--- DRUG DOSAGE ALERT -- - Drug dosage adjustments uti lize different calculationpara meter s. CREATININE (test 0.78 MG/DL 0.55-1.30 N Results may be code = CREAT) depressed if p atient is takingN-Acetylc ystei ne (NAC) and Metamizole (Dipyrone). TOTAL PROTEIN (test 7.5 G/DL 6.4-8.2 N code = PROT) ALBUMIN (test code = 3.5 G/DL 3.4-5.0 N ALB) ALBUMIN/GLOBULIN 0.9 RATIO 1.2-2.2 L RATIO (test code = A/G) CALCIUM (test code = 9.5 MG/DL 8.5-10.1 N CA) BILIRUBIN TOTAL 0.74 MG/DL 0.00-1.00 N (test code = BILT) BILIRUBIN DIRECT 0.34 MG/DL 0.00-0.30 H (test code = BILD) BILIRUBIN INDIRECT 0.40 MG/DL 0.2-1.3 N (test code = BILIND) SGOT/AST (test code 21 Unit/L 15-37 N = AST) SGPT/ALT (test code 41 Unit/L 12-78 N = ALT) ALKALINE PHOSPHATASE 65 Unit/L 45-117 N TOTAL (test code = ALKP) INDEX HEMOLYSIS 1 NORMAL <10 1 NORMAL (test code = MG Index/DL HEMINDEX) INDEX ICTERIC (test 1 NORMAL <2 MG 1 NORMAL code = ICTINDEX) Index/DL INDEX LIPEMIA (test 1 NORMAL <50 1 NORMAL code = LIPINDEX) MG Index/DL COMPREHENSIVE METABOLIC [id number] 09:23:00 Test Item Value Reference Range Interpretation Comments SODIUM (test code = NA) 141.0 mmol/L 133-144 N POTASSIUM (test code = K) 3.4 mmol/L 3.5-5.1 L CHLORIDE (test code = CL) 107 mmol/L 95-105 H CARBON DIOXIDE (test code 28 mmol/L 21-32 N = CO2) ANION GAP (test code = 6.0 GAP calc 4.0-15.0 N GAP) GLUCOSE (test code = GLU) 88 MG/DL 70-110 N BLOOD UREA NITROGEN (test 26 MG/DL 7-18 H code = BUN) CREATININE (test code = MG/DL 0.55-1.30 CREAT) TOTAL PROTEIN (test code G/DL 6.4-8.2 = PROT) ALBUMIN (test code = ALB) 3.5 G/DL 3.4-5.0 N ALBUMIN/GLOBULIN RATIO RATIO 1.2-2.2 (test code = A/G) CALCIUM (test code = CA) 9.5 MG/DL 8.5-10.1 N BILIRUBIN TOTAL (test MG/DL 0.00-1.00 code = BILT) BILIRUBIN DIRECT (test MG/DL 0.00-0.30 code = BILD) BILIRUBIN INDIRECT (test MG/DL 0.2-1.3 code = BILIND) SGOT/AST (test code = Unit/L 15-37 AST) SGPT/ALT (test code = Unit/L 12-78 ALT) ALKALINE PHOSPHATASE Unit/L 45-117 TOTAL (test code = ALKP) INDEX HEMOLYSIS (test 1 NORMAL <10 MG 1 NORMAL code = HEMINDEX) Index/DL INDEX ICTERIC (test code 1 NORMAL <2 MG 1 NORMAL = ICTINDEX) Index/DL INDEX LIPEMIA (test code 1 NORMAL <50 MG 1 NORMAL = LIPINDEX) Index/DL CBC W/MANUAL [id number] 09:04:00 Test Item Value Reference Range Interpretation Comments WHITE BLOOD CELL (test code = 6.6 K/mm3 4.1-12.1 N WBC) RED BLOOD CELL (test code = RBC) 3.80 M/mm3 3.8-5.5 N HEMOGLOBIN (test code = HGB) 12.5 G/DL 10.6-15.8 N HEMATOCRIT (test code = HCT) 38.0 % 31.8-47.4 N MEAN CELL VOLUME (test code = 100.0 fL 80.1-101.1 N MCV) MEAN CELL HGB (test code = MCH) 32.9 pg 25.3-35.3 N MEAN CELL HGB CONCETRATION (test 32.9 G/DL 32.7-35.1 N code = MCHC) RED CELL DISTRIBUTION WIDTH 11.4 % 12.2-16.4 L (test code = RDW) RED CELL DISTRIBUTION WIDTH 41.9 fL 35.1-43.9 N (test code = RDW-SD) PLATELET COUNT (test code = PLT) 207 K/mm3 155-337 N MEAN PLATELET VOLUME (test code 10.0 fL 7.6-10.4 N = MPV) GRANULOCYTE % (test code = GR%) 65.6 % 37.8-82.6 N IMMATURE GRANULOCYTE % (test 0.5 % 0.0-2.0 N code = IG%) LYMPHOCYTE % (test code = LY%) 18.7 % 14.1-45.4 N MONOCYTE % (test code = MO%) 10.2 % 2.5-11.7 N EOSINOPHIL % (test code = EO%) 4.4 % 0.0-6.2 N BASOPHIL % (test code = BA%) 0.6 % 0.0-2.6 N NUCLEATED RBC % (test code = 0.0 /100WBC% 0.0-1.0 N NRBC%) GRANULOCYTE # (test code = GR#) 4.31 k/mm3 2.0-13.7 N IMMATURE GRANULOCYTE # (test 0.03 K/mm3 0.00-0.03 N code = IG#) LYMPHOCYTE # (test code = LY#) 1.23 K/mm3 0.6-3.8 N MONOCYTE # (test code = MO#) 0.67 K/mm3 0.11-0.59 H EOSINOPHIL # (test code = EO#) 0.29 K/mm3 0.0-0.4 N BASOPHIL # (test code = BA#) 0.04 K/mm3 0.0-0.1 N NUCLEATED RBC # (test code = 0.00 K/mm3 0.00-0.05 N NRBC#) COMPREHENSIVE METABOLIC [id number] 06:25:00 Test Item Value Reference Range Interpretation Comments SODIUM (test code = 137.0 mmol/L 133-144 N NA) POTASSIUM (test code 3.6 mmol/L 3.5-5.1 N = K) CHLORIDE (test code 101 mmol/L 95-105 N = CL) CARBON DIOXIDE (test 32 mmol/L 21-32 N code = CO2) ANION GAP (test code 4.0 GAP calc 4.0-15.0 N = GAP) GLUCOSE (test code = 70 MG/DL 70-110 N GLU) BLOOD UREA NITROGEN 25 MG/DL 7-18 H (test code = BUN) GLOMERULAR 121 estGFR >60 The estimated FILTRATION RATE glomerular (test code = GFR) filtration rate is computed usingpatient ra ce, age, sex, and s juju creatinine. If any of theneeded da ta elements are mi ssing the Laboratory can notcompute an estimation of t he glomerular filtration rate .The GFR value units = ml/min/1.73 met er squared. EstimatedGFR va lues above 60 should be interpreted as >60, not anexact number.--- DRUG DOSAGE ALERT -- - Drug dosage adjustments uti lize different calculationpara meter s. CREATININE (test 0.69 MG/DL 0.55-1.30 N Results may be code = CREAT) depressed if p atient is takingN-Acetylc ystei ne (NAC) and Metamizole (Dipyrone). TOTAL PROTEIN (test 8.0 G/DL 6.4-8.2 N code = PROT) ALBUMIN (test code = 3.5 G/DL 3.4-5.0 N ALB) ALBUMIN/GLOBULIN 0.8 RATIO 1.2-2.2 L RATIO (test code = A/G) CALCIUM (test code = 9.6 MG/DL 8.5-10.1 N CA) BILIRUBIN TOTAL 0.72 MG/DL 0.00-1.00 N (test code = BILT) BILIRUBIN DIRECT 0.34 MG/DL 0.00-0.30 H (test code = BILD) BILIRUBIN INDIRECT 0.38 MG/DL 0.2-1.3 N (test code = BILIND) SGOT/AST (test code 27 Unit/L 15-37 N = AST) SGPT/ALT (test code 45 Unit/L 12-78 N = ALT) ALKALINE PHOSPHATASE 70 Unit/L 45-117 N TOTAL (test code = ALKP) INDEX HEMOLYSIS 1 NORMAL <10 1 NORMAL (test code = MG Index/DL HEMINDEX) INDEX ICTERIC (test 1 NORMAL <2 MG 1 NORMAL code = ICTINDEX) Index/DL INDEX LIPEMIA (test 1 NORMAL <50 1 NORMAL code = LIPINDEX) MG Index/DL COMPREHENSIVE METABOLIC [id number] 06:22:00 Test Item Value Reference Range Interpretation Comments SODIUM (test code = NA) 137.0 mmol/L 133-144 N POTASSIUM (test code = K) 3.6 mmol/L 3.5-5.1 N CHLORIDE (test code = CL) 101 mmol/L 95-105 N CARBON DIOXIDE (test code mmol/L 21-32 = CO2) ANION GAP (test code = GAP calc 4.0-15.0 GAP) GLUCOSE (test code = GLU) 70 MG/DL 70-110 N BLOOD UREA NITROGEN (test 25 MG/DL 7-18 H code = BUN) CREATININE (test code = MG/DL 0.55-1.30 CREAT) TOTAL PROTEIN (test code G/DL 6.4-8.2 = PROT) ALBUMIN (test code = ALB) 3.5 G/DL 3.4-5.0 N ALBUMIN/GLOBULIN RATIO RATIO 1.2-2.2 (test code = A/G) CALCIUM (test code = CA) 9.6 MG/DL 8.5-10.1 N BILIRUBIN TOTAL (test MG/DL 0.00-1.00 code = BILT) BILIRUBIN DIRECT (test 0.34 MG/DL 0.00-0.30 H code = BILD) BILIRUBIN INDIRECT (test MG/DL 0.2-1.3 code = BILIND) SGOT/AST (test code = Unit/L 15-37 AST) SGPT/ALT (test code = Unit/L 12-78 ALT) ALKALINE PHOSPHATASE Unit/L 45-117 TOTAL (test code = ALKP) INDEX HEMOLYSIS (test 1 NORMAL <10 MG 1 NORMAL code = HEMINDEX) Index/DL INDEX ICTERIC (test code 1 NORMAL <2 MG 1 NORMAL = ICTINDEX) Index/DL INDEX LIPEMIA (test code 1 NORMAL <50 MG 1 NORMAL = LIPINDEX) Index/DL CBC W/MANUAL [id number] 06:04:00 Test Item Value Reference Range Interpretation Comments WHITE BLOOD CELL (test code = 8.7 K/mm3 4.1-12.1 N WBC) RED BLOOD CELL (test code = RBC) 3.85 M/mm3 3.8-5.5 N HEMOGLOBIN (test code = HGB) 12.9 G/DL 10.6-15.8 N HEMATOCRIT (test code = HCT) 40.0 % 31.8-47.4 N MEAN CELL VOLUME (test code = 103.9 fL 80.1-101.1 H MCV) MEAN CELL HGB (test code = MCH) 33.5 pg 25.3-35.3 N MEAN CELL HGB CONCETRATION (test 32.3 G/DL 32.7-35.1 L code = MCHC) RED CELL DISTRIBUTION WIDTH 11.7 % 12.2-16.4 L (test code = RDW) RED CELL DISTRIBUTION WIDTH 44.3 fL 35.1-43.9 H (test code = RDW-SD) PLATELET COUNT (test code = PLT) 230 K/mm3 155-337 N MEAN PLATELET VOLUME (test code 10.0 fL 7.6-10.4 N = MPV) GRANULOCYTE % (test code = GR%) 70.2 % 37.8-82.6 N IMMATURE GRANULOCYTE % (test 0.6 % 0.0-2.0 N code = IG%) LYMPHOCYTE % (test code = LY%) 14.5 % 14.1-45.4 N MONOCYTE % (test code = MO%) 8.4 % 2.5-11.7 N EOSINOPHIL % (test code = EO%) 5.6 % 0.0-6.2 N BASOPHIL % (test code = BA%) 0.7 % 0.0-2.6 N NUCLEATED RBC % (test code = 0.0 /100WBC% 0.0-1.0 N NRBC%) GRANULOCYTE # (test code = GR#) 6.12 k/mm3 2.0-13.7 N IMMATURE GRANULOCYTE # (test 0.05 K/mm3 0.00-0.03 H code = IG#) LYMPHOCYTE # (test code = LY#) 1.26 K/mm3 0.6-3.8 N MONOCYTE # (test code = MO#) 0.73 K/mm3 0.11-0.59 H EOSINOPHIL # (test code = EO#) 0.49 K/mm3 0.0-0.4 H BASOPHIL # (test code = BA#) 0.06 K/mm3 0.0-0.1 N NUCLEATED RBC # (test code = 0.00 K/mm3 0.00-0.05 N NRBC#) GLUCOSE BEDSIDE [id number] 20:20:00 Test Item Value Reference Range Interpretation Comments GLUCOSE BEDSIDE TESTING (test code = 72 MG/DL 70-119 N GLUBED) GLUCOSE BEDSIDE [id number] 16:59:00 Test Item Value Reference Range Interpretation Comments GLUCOSE BEDSIDE TESTING (test code 100 MG/DL 70-119 N = GLUBED) - XR CHEST 1 [id number] 14:19:00 FAX: Hossein Bradley MD [phone] [place]: St: [facility] FAX: Na Carnes MD [phone] FAX: Sindi Cedillo [phone] FAX: Carina Francis MD [phone] Patient Name: SIDNEY HALL Unit No: [id number] EXAMS: CPT CODE: [id number] XR CHEST 1 V [id number] EXAM: - XR CHEST 1 V Location code:C3 HISTORY: INCREASE O2 DE JUANA COMPARISON: 04/11/2020 FINDINGS: Single AP view of the chest is provided. Heart size and vascularity are within normal limits. The lungs are clear of focal consolidation. No effusion, pneumothorax, or acute osseous abnormality. IMPRESSION: 1. No radiographic evidence of acute cardiopulmonary process. at 1419 Reported and signed by: Devaughn Martines M.D. CC: Hossein Blandon MD; Sindi Gomez Dictated Date/Time: 04/12/2020 (2452)Technologist: Aldo Arellano Transcribed Date/Time: 04/12/2020 (141) By: [email or web address] Orig Print D/T: S: 04/12/2020 (4881) EARNESTINE Schaffer NAME: SIDNEY HALL [facility] PHYS: Hossein Higuera MD [address] [place] [address] : 1970 AGE: 49 SEX: Chintan SCHAFFER, [place] [id number] LOC: B.308 W PHONE #: [phone] EXAM DATE: 04/12/2020 STATUS: ADM IN FAX #: [phone] RAD NO: DC Dt: PAGE 1 Signed ReportGLUCOSE BEDSIDE [id number] 14:07:00 Test Item Value Reference Range Interpretation Comments GLUCOSE BEDSIDE TESTING (test code 116 MG/DL 70-119 N = GLUBED) COMPREHENSIVE METABOLIC [id number] 08:54:00 Test Item Value Reference Range Interpretation Comments SODIUM (test code = 137.0 mmol/L 133-144 N NA) POTASSIUM (test code 3.6 mmol/L 3.5-5.1 N = K) CHLORIDE (test code 101 mmol/L 95-105 N = CL) CARBON DIOXIDE (test 31 mmol/L 21-32 code = CO2) ANION GAP (test code 5.0 GAP calc 4.0-15.0 = GAP) GLUCOSE (test code = 80 MG/DL 70-110 N GLU) BLOOD UREA NITROGEN 22 MG/DL 7-18 H (test code = BUN) GLOMERULAR 113 estGFR >60 The estimated FILTRATION RATE glomerular (test code = GFR) filtration rate is computed usingpatient ra ce, age, sex, and s juju creatinine. If any of theneeded da ta elements are mi ssing the Laboratory can notcompute an estimation of t he glomerular filtration rate .The GFR value units = ml/min/1.73 met er squared. EstimatedGFR va lues above 60 should be interpreted as >60, not anexact number.--- DRUG DOSAGE ALERT -- - Drug dosage adjustments uti lize different calculationpara meter s. CREATININE (test 0.73 MG/DL 0.55-1.30 N Results may be code = CREAT) depressed if p atient is takingN-Acetylc ystei ne (NAC) and Metamizole (Dipyrone). TOTAL PROTEIN (test 8.2 G/DL 6.4-8.2 N code = PROT) ALBUMIN (test code = 3.5 G/DL 3.4-5.0 N ALB) ALBUMIN/GLOBULIN 0.7 RATIO 1.2-2.2 L RATIO (test code = A/G) CALCIUM (test code = 9.6 MG/DL 8.5-10.1 N CA) BILIRUBIN TOTAL 0.78 MG/DL 0.00-1.00 N (test code = BILT) BILIRUBIN DIRECT 0.34 MG/DL 0.00-0.30 H (test code = BILD) BILIRUBIN INDIRECT 0.44 MG/DL 0.2-1.3 N (test code = BILIND) SGOT/AST (test code 25 Unit/L 15-37 N = AST) SGPT/ALT (test code 43 Unit/L 12-78 N = ALT) ALKALINE PHOSPHATASE 67 Unit/L 45-117 N TOTAL (test code = ALKP) INDEX HEMOLYSIS 1 NORMAL <10 1 NORMAL (test code = MG Index/DL HEMINDEX) INDEX ICTERIC (test 1 NORMAL <2 MG 1 NORMAL code = ICTINDEX) Index/DL INDEX LIPEMIA (test 1 NORMAL <50 1 NORMAL code = LIPINDEX) MG Index/DL CBC W/MANUAL [id number] 08:24:00 Test Item Value Reference Range Interpretation Comments WHITE BLOOD CELL (test code = 8.9 K/mm3 4.1-12.1 N WBC) RED BLOOD CELL (test code = RBC) 3.34 M/mm3 3.8-5.5 L HEMOGLOBIN (test code = HGB) 11.2 G/DL 10.6-15.8 N HEMATOCRIT (test code = HCT) 34.8 % 31.8-47.4 N MEAN CELL VOLUME (test code = 104.2 fL 80.1-101.1 H MCV) MEAN CELL HGB (test code = MCH) 33.5 pg 25.3-35.3 N MEAN CELL HGB CONCETRATION (test 32.2 G/DL 32.7-35.1 L code = MCHC) RED CELL DISTRIBUTION WIDTH 11.8 % 12.2-16.4 L (test code = RDW) RED CELL DISTRIBUTION WIDTH 44.8 fL 35.1-43.9 H (test code = RDW-SD) PLATELET COUNT (test code = PLT) 251 K/mm3 155-337 N MEAN PLATELET VOLUME (test code 10.2 fL 7.6-10.4 N = MPV) GRANULOCYTE % (test code = GR%) 68.2 % 37.8-82.6 N IMMATURE GRANULOCYTE % (test 0.4 % 0.0-2.0 N code = IG%) LYMPHOCYTE % (test code = LY%) 18.5 % 14.1-45.4 N MONOCYTE % (test code = MO%) 7.6 % 2.5-11.7 N EOSINOPHIL % (test code = EO%) 5.0 % 0.0-6.2 N BASOPHIL % (test code = BA%) 0.3 % 0.0-2.6 N NUCLEATED RBC % (test code = 0.0 /100WBC% 0.0-1.0 N NRBC%) GRANULOCYTE # (test code = GR#) 6.09 k/mm3 2.0-13.7 N IMMATURE GRANULOCYTE # (test 0.04 K/mm3 0.00-0.03 H code = IG#) LYMPHOCYTE # (test code = LY#) 1.65 K/mm3 0.6-3.8 N MONOCYTE # (test code = MO#) 0.68 K/mm3 0.11-0.59 H EOSINOPHIL # (test code = EO#) 0.45 K/mm3 0.0-0.4 H BASOPHIL # (test code = BA#) 0.03 K/mm3 0.0-0.1 N NUCLEATED RBC # (test code = 0.00 K/mm3 0.00-0.05 N NRBC#) GLUCOSE BEDSIDE [id number] 05:51:00 Test Item Value Reference Range Interpretation Comments GLUCOSE BEDSIDE TESTING (test code = 83 MG/DL 70-119 N GLUBED) GLUCOSE BEDSIDE [id number] 20:41:00 Test Item Value Reference Range Interpretation Comments GLUCOSE BEDSIDE TESTING (test code = 90 MG/DL 70-119 N GLUBED) COMPREHENSIVE METABOLIC [id number] 18:56:00 Test Item Value Reference Range Interpretation Comments SODIUM (test code = 135.0 mmol/L 133-144 N NA) POTASSIUM (test code 4.3 mmol/L 3.5-5.1 N = K) CHLORIDE (test code 101 mmol/L 95-105 N = CL) CARBON DIOXIDE (test 17 mmol/L 21-32 L code = CO2) ANION GAP (test code 17.0 GAP calc 4.0-15.0 H = GAP) GLUCOSE (test code = 103 MG/DL 70-110 N GLU) BLOOD UREA NITROGEN 21 MG/DL 7-18 H (test code = BUN) GLOMERULAR 121 estGFR >60 The estimated FILTRATION RATE glomerular (test code = GFR) filtration rate is computed usingpatient ra ce, age, sex, and s juju creatinine. If any of theneeded da ta elements are mi ssing the Laboratory can notcompute an estimation of t he glomerular filtration rate .The GFR value units = ml/min/1.73 met er squared. EstimatedGFR va lues above 60 should be interpreted as >60, not anexact number.--- DRUG DOSAGE ALERT -- - Drug dosage adjustments uti lize different calculationpara meter s. CREATININE (test 0.69 MG/DL 0.55-1.30 N Results may be code = CREAT) depressed if p atient is takingN-Acetylc ystei ne (NAC) and Metamizole (Dipyrone). TOTAL PROTEIN (test 8.0 G/DL 6.4-8.2 N code = PROT) ALBUMIN (test code = 3.5 G/DL 3.4-5.0 N ALB) ALBUMIN/GLOBULIN 0.8 RATIO 1.2-2.2 L RATIO (test code = A/G) CALCIUM (test code = 9.9 MG/DL 8.5-10.1 N CA) BILIRUBIN TOTAL 0.76 MG/DL 0.00-1.00 N (test code = BILT) BILIRUBIN DIRECT 0.33 MG/DL 0.00-0.30 H (test code = BILD) BILIRUBIN INDIRECT 0.43 MG/DL 0.2-1.3 N (test code = BILIND) SGOT/AST (test code 24 Unit/L 15-37 N = AST) SGPT/ALT (test code 45 Unit/L 12-78 N = ALT) ALKALINE PHOSPHATASE 65 Unit/L 45-117 N TOTAL (test code = ALKP) INDEX HEMOLYSIS 1 NORMAL <10 1 NORMAL (test code = MG Index/DL HEMINDEX) INDEX ICTERIC (test 1 NORMAL <2 MG 1 NORMAL code = ICTINDEX) Index/DL INDEX LIPEMIA (test 1 NORMAL <50 1 NORMAL code = LIPINDEX) MG Index/DL COMPREHENSIVE METABOLIC [id number] 18:52:00 Test Item Value Reference Range Interpretation Comments SODIUM (test code = 135.0 mmol/L 133-144 N NA) POTASSIUM (test code 4.3 mmol/L 3.5-5.1 N = K) CHLORIDE (test code 101 mmol/L 95-105 N = CL) CARBON DIOXIDE (test 17 mmol/L 21-32 L code = CO2) ANION GAP (test code 17.0 GAP calc 4.0-15.0 H = GAP) GLUCOSE (test code = 103 MG/DL 70-110 N GLU) BLOOD UREA NITROGEN 21 MG/DL 7-18 H (test code = BUN) GLOMERULAR 121 estGFR >60 The estimated FILTRATION RATE glomerular (test code = GFR) filtration rate is computed usingpatient ra ce, age, sex, and s juju creatinine. If any of theneeded da ta elements are mi ssing the Laboratory can notcompute an estimation of t he glomerular filtration rate .The GFR value units = ml/min/1.73 met er squared. EstimatedGFR va lues above 60 should be interpreted as >60, not anexact number.--- DRUG DOSAGE ALERT -- - Drug dosage adjustments uti lize different calculationpara meter s. CREATININE (test 0.69 MG/DL 0.55-1.30 N Results may be code = CREAT) depressed if p atient is takingN-Acetylc ystei ne (NAC) and Metamizole (Dipyrone). TOTAL PROTEIN (test G/DL 6.4-8.2 code = PROT) ALBUMIN (test code = 3.5 G/DL 3.4-5.0 N ALB) ALBUMIN/GLOBULIN RATIO 1.2-2.2 RATIO (test code = A/G) CALCIUM (test code = 9.9 MG/DL 8.5-10.1 N CA) BILIRUBIN TOTAL MG/DL 0.00-1.00 (test code = BILT) BILIRUBIN DIRECT 0.33 MG/DL 0.00-0.30 H (test code = BILD) BILIRUBIN INDIRECT MG/DL 0.2-1.3 (test code = BILIND) SGOT/AST (test code 24 Unit/L 15-37 N = AST) SGPT/ALT (test code Unit/L 12-78 = ALT) ALKALINE PHOSPHATASE Unit/L 45-117 TOTAL (test code = ALKP) INDEX HEMOLYSIS 1 NORMAL <10 1 NORMAL (test code = MG Index/DL HEMINDEX) INDEX ICTERIC (test 1 NORMAL <2 MG 1 NORMAL code = ICTINDEX) Index/DL INDEX LIPEMIA (test 1 NORMAL <50 1 NORMAL code = LIPINDEX) MG Index/DL CBC W/MANUAL [id number] 18:32:00 Test Item Value Reference Range Interpretation Comments WHITE BLOOD CELL (test code = 10.5 K/mm3 4.1-12.1 N WBC) RED BLOOD CELL (test code = RBC) 3.76 M/mm3 3.8-5.5 L HEMOGLOBIN (test code = HGB) 12.7 G/DL 10.6-15.8 N HEMATOCRIT (test code = HCT) 39.2 % 31.8-47.4 N MEAN CELL VOLUME (test code = 104.3 fL 80.1-101.1 H MCV) MEAN CELL HGB (test code = MCH) 33.8 pg 25.3-35.3 N MEAN CELL HGB CONCETRATION (test 32.4 G/DL 32.7-35.1 L code = MCHC) RED CELL DISTRIBUTION WIDTH 11.6 % 12.2-16.4 L (test code = RDW) RED CELL DISTRIBUTION WIDTH 44.5 fL 35.1-43.9 H (test code = RDW-SD) PLATELET COUNT (test code = PLT) 277 K/mm3 155-337 N MEAN PLATELET VOLUME (test code 9.9 fL 7.6-10.4 N = MPV) GRANULOCYTE % (test code = GR%) 89.3 % 37.8-82.6 H IMMATURE GRANULOCYTE % (test 0.6 % 0.0-2.0 N code = IG%) LYMPHOCYTE % (test code = LY%) 6.1 % 14.1-45.4 L MONOCYTE % (test code = MO%) 3.5 % 2.5-11.7 N EOSINOPHIL % (test code = EO%) 0.2 % 0.0-6.2 N BASOPHIL % (test code = BA%) 0.3 % 0.0-2.6 N NUCLEATED RBC % (test code = 0.0 /100WBC% 0.0-1.0 N NRBC%) GRANULOCYTE # (test code = GR#) 9.33 k/mm3 2.0-13.7 N IMMATURE GRANULOCYTE # (test 0.06 K/mm3 0.00-0.03 H code = IG#) LYMPHOCYTE # (test code = LY#) 0.64 K/mm3 0.6-3.8 N MONOCYTE # (test code = MO#) 0.37 K/mm3 0.11-0.59 N EOSINOPHIL # (test code = EO#) 0.02 K/mm3 0.0-0.4 N BASOPHIL # (test code = BA#) 0.03 K/mm3 0.0-0.1 N NUCLEATED RBC # (test code = 0.00 K/mm3 0.00-0.05 N NRBC#) - CHEST 1 [id number] 18:23:00 FAX: Na Carnes MD [phone] [place]: St: [facility] FAX: Sindi Cedillo [phone] FAX: Carina Francis MD [phone] Patient Name: SIDNEY HALL Unit No: [id number] EXAMS: CPT CODE: [id number] XR CHEST 1 V [id number] - XR CHEST 1 V INDICATION:Intubated, aspiration LOCATION: T18 Comparison 04/10/[address] Mild cardiomegaly. Feeding tube has been removed. Mild atelectasis or infiltrates in lower lobes with trace left-sided effusion. Bony thorax unremarkable. IMPRESSION: Mild atelectasis or infiltrates lower lobes with trace left effusion. at 1823 Reported and signed by: Anatoliy Peña D.O. CC: Na Olsen MD; Sindi Gomez Dictated Date/Time: 04/11/2020 (1822)Technologist: Collette Springer Transcribed Date/Time: 04/11/2020 (1822) By: Denny Orig Print D/T: S: 04/11/2020 (1825) RAINA BlakeME: [facility] PHYS: Na Harris MD [address] [place] [address] BLVD : 1970 AGE: 49 SEX: Chintan SCHAFFRE, [place] [address] LOC: B.308 W PHONE #: [phone] EXAM DATE: 04/11/2020 STATUS: ADM IN FAX #: [phone] RAD NO: DC Dt: PAGE 1 Signed ReportGLUCOSE BEDSIDE [id number] 16:23:00 Test Item Value Reference Range Interpretation Comments GLUCOSE BEDSIDE TESTING (test code 128 MG/DL 70-119 H = GLUBED) GLUCOSE BEDSIDE [id number] 11:59:00 Test Item Value Reference Range Interpretation Comments GLUCOSE BEDSIDE TESTING (test code 100 MG/DL 70-119 N = GLUBED) GLUCOSE BEDSIDE [id number] 06:10:00 Test Item Value Reference Range Interpretation Comments GLUCOSE BEDSIDE TESTING (test code 112 MG/DL 70-119 N = GLUBED) GLUCOSE BEDSIDE [id number] 20:42:00 Test Item Value Reference Range Interpretation Comments GLUCOSE BEDSIDE TESTING (test code 120 MG/DL 70-119 H = GLUBED) GLUCOSE BEDSIDE [id number] 16:43:00 Test Item Value Reference Range Interpretation Comments GLUCOSE BEDSIDE TESTING 115 MG/DL 70-119 N Yovany vanessa Nurse~ (test code = GLUBED) - XR ABDOMEN 1 [id number] 14:40:00 FAX: Na Carnes MD [phone] [place]: St: ADM FAX: Sindi Cedillo [phone] FAX: Carina Francis MD [phone] Patient Name: SIDNEY HALL Unit No: [id number] EXAMS: CPT CODE: [id number] XR ABDOMEN 1 V 76962 REASON FOR EXAM: Dobbhoff feeding tube placement. Abdomen, single view. A Dobbhoff feeding tube is seen in the stomach with its tip pointed towards fundus. Gas pattern appearing to be intact with contrast media in the upper small bowel. Linear structure near the transverse process of the L2 lev el, of unclear significance. No free air seen. No unusual calcifications. IMPRESSION: Dobbhoff feeding tube in the upper stomach. Nondistended contrast- filled small bowel loops likely from a recent barium swallow. Wires in densities overlie the abdomen. Location: U 19 at 1440 Reported and signed by: Hugh Puentes M.D CC: Na Olsen MD; Sindi Gomez Dictated Date/Time: 04/10/2020 (7990)Technologist: Aleksandra Esteves Transcribed Date/Time: 04/10/2020 (1440) By: [email or web address] Orig Print D/T: S: 04/10/2020 (8708) EARNESTINE Schaffer NAME: S[facility] PHYS: Na Harris MD [address] [place] [address] BLVD : 04/1971 AGE: 49 SEX: Chintan SCHAFFER, [place] [address] LOC: BRossana308 W PHONE #: [phone] EXAM DATE: 04/10/2020 STATUS: ADM IN FAX #: [phone] RAD NO: DC Dt: PAGE 1 Signed Report- XR SWLW FUNC W/C [id number] 12:47:00 FAX: Na Carnes MD [phone] [place]: St: ADM FAX: Sindi Cedillo [phone] FAX: Carina Francis MD [phone] Patient Name: ISABELSIDNEY Unit No: [id number] EXAMS: CPT CODE: [id number] XR SWLW [facility] W/C V 09455 Modified barium swallow LOCATION: T18 INDICATION: Dysphagia The patient was given various consistencies of barium to swallow under fluoroscopic observation and with video recording. There wasno laryngeal penetration or aspiration. Recommendations will be made by the speech pathologist, who was present during the examination. 2 images obtained Fluoroscopy time 84 secs Cumulative dose 8.2 mGy at 1247 Reported and signed by: Anatoliy Peña D.O. CC: Na Olsen MD; Sindi Gomez Dictated Date/Time: 04/10/2020 (1840)Technologist: Aleksandra Esteves Transcribed Date/Time: 04/10/2020 (5858) By: Denny Orig Print D/T: S: 04/10/2020 (7126) [facility] Sarbjit NAME: [facility] PHYS: Na Harris MD [address] [place] [address] BLVD : 1970 AGE: 49 SEX: Chintan SCHAFFER, JASMYNE Morse LOC: B.308 W PHONE #: [phone] EXAM DATE: 04/10/2020 STATUS: ADM IN FAX #: [phone] RAD NO: DC Dt: PAGE 1 Signed ReportGLUCOSE BEDSIDE [id number] 12:41:00 Test Item Value Reference Range Interpretation Comments GLUCOSE BEDSIDE TESTING (test code 134 MG/DL 70-119 H = GLUBED) - XR CHEST 1 [id number] 12:19:00 FAX: Na Carnes MD [phone] [place]: St: ADM FAX: Sindi Cedillo [phone] FAX: Carina Francis MD [phone] Patient Name: SIDNEY HALL Unit No: [id number] EXAMS: CPT CODE: [id number] XR CHEST 1 V 81904 INDICATIONS: infiltrates COMPARISON: Comparison is made with prior study of 04/09/2020 Location: C3 A single portable AP view of the chest demonstrates tracheostomy tube above the bernabe. Nasogastric feeding tube extends the stomach. The heart is at the upper limits of normal to slightly enlarged acalcified elongated aorta. Mild vascular congestion is unchanged. No apparent pleural effusion nor pneumothorax. The visualized bony structures are unremarkable. IMPRESSIONS: 1. Pulmonary vascular congestion, unchanged. at 1219 Reported and signed by: Sebastien Paulino MD CC: Na Olsen MD; Sindi Gomez Dictated Date/Time: 04/10/2020 (1219)Technologist: Leo Goodwin Transcribed Date/Time: 04/10/2020 (6382) By: [email or web address] OrigPrint D/T: S: 04/10/2020 (0995) EARNESTINE Schaffer NAME: SIDNEY HALL [facility] PHYS: Na Harris MD [address] [place] [address] BLVD : 1970 AGE: 49 SEX: Chintan [place]AFFER, [place] [address] LOC: B.308 W PHONE #: [phone] EXAM DATE: 04/10/2020 STATUS: ADM IN FAX #: [phone] RADNO: DC Dt: PAGE 1 Signed Report COMPREHENSIVE METABOLIC [id number] 07:58:00 Test Item Value Reference Range Interpretation Comments SODIUM (test code = 136.0 mmol/L 133-144 N NA) POTASSIUM (test code 4.6 mmol/L 3.5-5.1 N = K) CHLORIDE (test code 103 mmol/L 95-105 N = CL) CARBON DIOXIDE (test 29 mmol/L 21-32 N code = CO2) ANION GAP (test code 4.0 GAP calc 4.0-15.0 N = GAP) GLUCOSE (test code = 91 MG/DL 70-110 N GLU) BLOOD UREA NITROGEN 22 MG/DL 7-18 H (test code = BUN) GLOMERULAR 134 estGFR >60 The estimated FILTRATION RATE glomerular (test code = GFR) filtration rate is computed usingpatient ra ce, age, sex, and s juju creatinine. If any of theneeded da ta elements are mi ssing the Laboratory can notcompute an estimation of t he glomerular filtration rate .The GFR value units = ml/min/1.73 met er squared. EstimatedGFR va lues above 60 should be interpreted as >60, not anexact number.--- DRUG DOSAGE ALERT -- - Drug dosage adjustments uti lize different calculationpara meter s. CREATININE (test 0.63 MG/DL 0.55-1.30 N Results may be code = CREAT) depressed if p atient is takingN-Acetylc ystei ne (NAC) and Metamizole (Dipyrone). TOTAL PROTEIN (test 7.2 G/DL 6.4-8.2 N code = PROT) ALBUMIN (test code = 3.3 G/DL 3.4-5.0 L ALB) ALBUMIN/GLOBULIN 0.8 RATIO 1.2-2.2 L RATIO (test code = A/G) CALCIUM (test code = 9.4 MG/DL 8.5-10.1 N CA) BILIRUBIN TOTAL 0.42 MG/DL 0.00-1.00 N (test code = BILT) BILIRUBIN DIRECT 0.22 MG/DL 0.00-0.30 N (test code = BILD) BILIRUBIN INDIRECT 0.20 MG/DL 0.2-1.3 N (test code = BILIND) SGOT/AST (test code 24 Unit/L 15-37 N = AST) SGPT/ALT (test code 44 Unit/L 12-78 N = ALT) ALKALINE PHOSPHATASE 63 Unit/L 45-117 N TOTAL (test code = ALKP) INDEX HEMOLYSIS 3 SMALL 25-50 1 NORMAL (test code = MG Index/DL HEMINDEX) INDEX ICTERIC (test 1 NORMAL <2 MG 1 NORMAL code = ICTINDEX) Index/DL INDEX LIPEMIA (test 1 NORMAL <50 1 NORMAL code = LIPINDEX) MG Index/DL COMPREHENSIVE METABOLIC [id number] 07:52:00 Test Item Value Reference Range Interpretation Comments SODIUM (test code = NA) 136.0 mmol/L 133-144 N POTASSIUM (test code = K) 4.6 mmol/L 3.5-5.1 N CHLORIDE (test code = CL) 103 mmol/L 95-105 N CARBON DIOXIDE (test code mmol/L 21-32 = CO2) ANION GAP (test code = GAP calc 4.0-15.0 GAP) GLUCOSE (test code = GLU) MG/DL 70-110 BLOOD UREA NITROGEN (test MG/DL 7-18 code = BUN) CREATININE (test code = MG/DL 0.55-1.30 CREAT) TOTAL PROTEIN (test code G/DL 6.4-8.2 = PROT) ALBUMIN (test code = ALB) G/DL 3.4-5.0 ALBUMIN/GLOBULIN RATIO RATIO 1.2-2.2 (test code = A/G) CALCIUM (test code = CA) MG/DL 8.5-10.1 BILIRUBIN TOTAL (test MG/DL 0.00-1.00 code = BILT) BILIRUBIN DIRECT (test MG/DL 0.00-0.30 code = BILD) BILIRUBIN INDIRECT (test MG/DL 0.2-1.3 code = BILIND) SGOT/AST (test code = Unit/L 15-37 AST) SGPT/ALT (test code = Unit/L 12-78 ALT) ALKALINE PHOSPHATASE Unit/L 45-117 TOTAL (test code = ALKP) INDEX HEMOLYSIS (test 3 SMALL 25-50 MG 1 NORMAL code = HEMINDEX) Index/DL INDEX ICTERIC (test code 1 NORMAL <2 MG 1 NORMAL = ICTINDEX) Index/DL INDEX LIPEMIA (test code 1 NORMAL <50 MG 1 NORMAL = LIPINDEX) Index/DL CBC W/MANUAL [id number] 07:30:00 Test Item Value Reference Range Interpretation Comments WHITE BLOOD CELL (test code = 10.6 K/mm3 4.1-12.1 N WBC) RED BLOOD CELL (test code = RBC) 3.30 M/mm3 3.8-5.5 L HEMOGLOBIN (test code = HGB) 11.2 G/DL 10.6-15.8 N HEMATOCRIT (test code = HCT) 35.2 % 31.8-47.4 N MEAN CELL VOLUME (test code = 106.7 fL 80.1-101.1 H MCV) MEAN CELL HGB (test code = MCH) 33.9 pg 25.3-35.3 N MEAN CELL HGB CONCETRATION (test 31.8 G/DL 32.7-35.1 L code = MCHC) RED CELL DISTRIBUTION WIDTH 12.0 % 12.2-16.4 L (test code = RDW) RED CELL DISTRIBUTION WIDTH 47.4 fL 35.1-43.9 H (test code = RDW-SD) PLATELET COUNT (test code = PLT) 317 K/mm3 155-337 N MEAN PLATELET VOLUME (test code 10.4 fL 7.6-10.4 N = MPV) GRANULOCYTE % (test code = GR%) 73.4 % 37.8-82.6 N IMMATURE GRANULOCYTE % (test 0.7 % 0.0-2.0 N code = IG%) LYMPHOCYTE % (test code = LY%) 14.3 % 14.1-45.4 N MONOCYTE % (test code = MO%) 6.0 % 2.5-11.7 N EOSINOPHIL % (test code = EO%) 5.1 % 0.0-6.2 N BASOPHIL % (test code = BA%) 0.5 % 0.0-2.6 N NUCLEATED RBC % (test code = 0.0 /100WBC% 0.0-1.0 N NRBC%) GRANULOCYTE # (test code = GR#) 7.78 k/mm3 2.0-13.7 N IMMATURE GRANULOCYTE # (test 0.07 K/mm3 0.00-0.03 H code = IG#) LYMPHOCYTE # (test code = LY#) 1.51 K/mm3 0.6-3.8 N MONOCYTE # (test code = MO#) 0.64 K/mm3 0.11-0.59 H EOSINOPHIL # (test code = EO#) 0.54 K/mm3 0.0-0.4 H BASOPHIL # (test code = BA#) 0.05 K/mm3 0.0-0.1 N NUCLEATED RBC # (test code = 0.00 K/mm3 0.00-0.05 N NRBC#) GLUCOSE BEDSIDE [id number] 05:59:00 Test Item Value Reference Range Interpretation Comments GLUCOSE BEDSIDE TESTING (test code 107 MG/DL 70-119 N = GLUBED) GLUCOSE BEDSIDE [id number] 21:00:00 Test Item Value Reference Range Interpretation Comments GLUCOSE BEDSIDE TESTING (test code 110 MG/DL 70-119 N = GLUBED) GLUCOSE BEDSIDE [id number] 16:23:00 Test Item Value Reference Range Interpretation Comments GLUCOSE BEDSIDE TESTING 104 MG/DL 70-119 N Noti fied Nurse~ (test code = GLUBED) - XR ABDOMEN 1 [id number] 15:12:00 FAX: Na Carnes MD [phone] [place]: [facility]: [facility] FAX: Sindi Cedillo [phone] FAX: Carina Francis MD [phone] Patient Name: SIDNEY HALL Unit No: [id number] EXAMS: CPT CODE: [id number] XR ABDOMEN 1 V 98464 EXAM: Abdominal x-ray Dictation location: B2 INDICATION: Dobbhoff placement COMPARISON: Abdominal x-ray performed earlier today DISCUSSION: A frontal view of the upper abdomen is submitted. TheDobbhoff tube has been advanced, with tip curling over the gastric fundus. This is adequate positioning if further advancement by several centimeters is not feasible or desired. Otherwise, no interval change. IMPRESSION: The Dobbhoff tube has been advanced, with tip curling over the gastric fundus. This is adequate positioning. at 1512 Reported and signed by: Lenny Estrada M.D. CC: Na Olsen MD; Sindi Gomez DictatedDate/Time: 04/09/2020 (1511)Technologist: Geraldine Anderson Transcribed Date/Time: 04/09/2020 (1511) By:[email or web address] Orig Print D/T: S: 04/09/2020 (1514) [facility] Sarbjit NAME: [facility] PHYS: Na Harris MD [address] [place] [address] : 1970 AGE: 49 SEX: Chintan SCHAFFER, [place] [id number] LOC: B.308 W PHONE #: [phone] EXAM DATE: 04/09/2020 STATUS: ADM IN FAX #: [phone] RAD NO: DC Dt: PAGE 1 Signed Report- XR ABDOMEN 1 [id number] 13:37:00 FAX: Na Carnes MD [phone] [place]: C St: ADM FAX: Sindi Cedillo [phone] FAX: Carina Francis MD [phone] Patient Name: SIDNEY HALL Unit No: [id number] EXAMS: CPT CODE: [id number] XR ABDOMEN 1 [id number] EXAM: Abdominal x-ray Dictation location: B2 INDICATION: Recheck NG tube placement COMPARISON:KUB performed earlier the same day DISCUSSION: Frontal views of the abdomen are submitted. The upperenteric tube tip overlies the gastric fundus, advancement by 4 to 5 cm could be considered for more optimal positioning. No gross evidence of intra-abdominal free air is seen. No acute bony abnormalities are identified. There is a prominent air- filled colon loop overlying the right mid abdomen, possibly the cecum. This is grossly unchanged from the prior exam. IMPRESSION: 1. The upper enteric tube tip overlies the gastric fundus. Advancement by 4 to 5 cm could be considered for more optimal positioning. 2. A prominent air-filled colonic loop overlies the right side of the abdomen, possibly the cecum. This is grossly unchanged from the prior exam. No gross evidence of intra-abdominal free air is seen. at 1337 Reported and signed by: Lenny Estrada M.D. CC: Na Olsen MD; Sindi Gomez Dictated Date/Time: 04/09/2020 (5364)Technologist: Bennie Forman Transcribed Date/Time: 04/09/2020 (5766) By: [email or web address] Orig PrintD/T: S: 04/09/2020 (2488) EARNESTINE Schaffer NAME: [facility] PHYS: Na Harris MD [address] [place] [address] BLVD : 1970 AGE: 49 SEX: Chintan [place], [place] [address] : [id number] PHONE #: [phone] EXAM DATE: 04/09/2020 STATUS: ADM IN FAX #: [phone] RAD NO: DC Dt: PAGE 1 Signed Report- XR CHEST 1 [id number] 11:39:00 FAX: Na Carnes MD [phone] [place]: St: ADM FAX: Sindi Cedillo [phone] FAX: Carina Francis MD [phone] Patient Name: SIDNEY HALL Unit No: [id number] EXAMS: CPT CODE: [id number] XR CHEST 1 V [id number] EXAM: - XR CHEST 1 V INDICATION: PLACEMENT OF NGTUBE Location: T 18. COMPARISON: 04/08/2020 TECHNIQUE: Frontal view of the chest. FINDINGS: Feeding tube appears to be advanced, now coiled over the gastric fundus. Tip projects just beyond the GE junction region. Small amount of bilateral lower lungopacities. Cardiomediastinal silhouette and osseous structures appear unremarkable. Unchanged appearance of tracheostomy tube. IMPRESSION: Feeding tube appears to be coiled over the gastric fundus, tipprojecting just beyond the GE junction region. Small amount of bilateral lower lung opacities, suggesting at 1139 Reported and signed by: MD Bart CC: Na Olsen MD; Sindi Gomez Dictated Date/Time: 04/09/2020 (3806)Technologist: Aleksandra Esteves Transcribed Date/Time: 04/09/2020 (1139) By: [email or web address] Orig Print D/T: S: 04/09/2020 (3885) EARNESTINE Schaffer NAME: [facility] PHYS: Na Harris MD [address] [place] [address] BLVD : 1970 AGE: 49 SEX: Chintan SCHAFFER, [place] [address] LOC: B.308 W PHONE #: [phone] EXAM DATE: 04/09/2020 STATUS: ADM IN FAX #: [phone] RAD NO: DC Dt: PAGE 1 Signed ReportGLUCOSE BEDSIDE [id number] 11:34:00 Test Item Value Reference Range Interpretation Comments GLUCOSE BEDSIDE TESTING (test code 103 MG/DL 70-119 N = GLUBED) GLUCOSE BEDSIDE [id number] 03:21:00 Test Item Value Reference Range Interpretation Comments GLUCOSE BEDSIDE TESTING (test code 108 MG/DL 70-119 N = GLUBED) - XR ABDOMEN 1 [id number] 00:51:00 FAX: Tom Garcia MD [phone] [place]: St: ADM FAX: Sindi Cedillo [phone] FAX: Carina Francis MD [phone] Patient Name: SIDNEY HALL Unit No: [id number] EXAMS: CPT CODE: [id number] XR ABDOMEN 1 V [id number] Examination: One view abdomen Location code: H60 Comparison: None Discussion: Clinical history is remarkable for nasogastric tube placement. Nasogastric tube is identified with its tip below left hemidiaphragm and presumably within stomach. There is a distended loop of bowel identified in the right lower quadrant. Abdominal series would be suggested for further evaluation. Impression: 1. Nasogastric tube identified with its tip below left hemidiaphragm and presumably coiled within the stomach. Please see above. at 0051 Reported and si gned by: Aakash Peralta MD CC: Tom Garcia MD; Sindi Gomez Dictated Date/Time: 04/09/2020(50)Technologist: Ashwin Reed Transcribed Date/Time: 04/09/2020 (50) By: [email or web address] Orig PrintD/T: S: 04/09/2020 (53) EARNESTINE Schaffer NAME: SIDNEY HALL [facility] PHYS: Tom Jackson MD [address] [place] [address] BLVD : 1970 AGE: 49 SEX: [place]MY[place] OLSEN LOC: BRossana308 W PHONE #: [phone] EXAM DATE: 04/09/2020 STATUS: ADM IN FAX #: [phone] RAD NO: DC Dt: PAGE 1 Signed ReportGLUCOSE BEDSIDE [id number] 16:39:00 Test Item Value Reference Range Interpretation Comments GLUCOSE BEDSIDE TESTING 171 MG/DL 70-119 H Noti fied Nurse~ (test code = GLUBED) GLUCOSE BEDSIDE [id number] 11:46:00 Test Item Value Reference Range Interpretation Comments GLUCOSE BEDSIDE TESTING 136 MG/DL 70-119 H Noti fied Nurse~ (test code = GLUBED) URINALYSIS [id number] 10:05:00 Test Item Value Reference Range Interpretation Comments UA COLOR (test code = YELLOW DESCRIPT YELLOW COLU) UA APPEARANCE (test code TURBID (1+)HAZY-CLDY CLEAR A = APPU) DESCRIPT UA GLUCOSE DIPSTICK (test NORMAL (0) mg/dL 0 (NORMAL) code = DGLUU) UA BILIRUBIN DIPSTICK NEGATIVE (0.0) mg/dL (NEG) 0 (test code = BILU) UA KETONE DIPSTICK (test NEGATIVE (0) mg/dL (NEG) 0 code = KETU) UA SPECIFIC GRAVITY (test 1.030 SG 1.001-1.035 code = SGU) UA BLOOD DIPSTICK (test 0.50 (2+) mg/dL 0 (NEG) A code = BREANA) UA PH DIPSTICK (test code 6.0 pH UNITS 4.6-8.0 = YINA) UA PROTEIN DIPSTICK (test 30 (1+) mg/dL <30 (1+) A code = PROU) UA UROBILINIOGEN DIPSTICK 3 (1+) mg/Dl <2.0 (1+) A (test code = URO) UA NITRITE DIPSTICK (test NEGATIVE (0) SCREEN NEG code = DOMINICK) UA LEUKOCYTE ESTERASE 75 Leuk/mcL (NEG) 0 A DIPSTICK (test code = LEUU) UA RBC (test code = RBCU) #RBC/HPF 0-3 URINALYSIS [id number] 10:05:00 Test Item Value Reference Range Interpretation Comments UA COLOR (test code = YELLOW DESCRIPT YELLOW COLU) UA APPEARANCE (test code TURBID (1+)HAZY-CLDY CLEAR A = APPU) DESCRIPT UA GLUCOSE DIPSTICK (test NORMAL (0) mg/dL 0 (NORMAL) code = DGLUU) UA BILIRUBIN DIPSTICK NEGATIVE (0.0) mg/dL (NEG) 0 (test code = BILU) UA KETONE DIPSTICK (test NEGATIVE (0) mg/dL (NEG) 0 code = KETU) UA SPECIFIC GRAVITY (test 1.030 SG 1.001-1.035 code = SGU) UA BLOOD DIPSTICK (test 0.50 (2+) mg/dL 0 (NEG) A code = BREANA) UA PH DIPSTICK (test code 6.0 pH UNITS 4.6-8.0 = YINA) UA PROTEIN DIPSTICK (test 30 (1+) mg/dL <30 (1+) A code = PROU) UA UROBILINIOGEN DIPSTICK 3 (1+) mg/Dl <2.0 (1+) A (test code = URO) UA NITRITE DIPSTICK (test NEGATIVE (0) SCREEN NEG code = DOMINICK) UA LEUKOCYTE ESTERASE 75 Leuk/mcL (NEG) 0 A DIPSTICK (test code = LEUU) UA WBC (test code = WBCU) 20-30 #WBC/HPF 0-3 A UA RBC (test code = RBCU) >100 #RBC/HPF 0-3 A UA BACTERIA (test code = FEW >1 /HPF NONE-FEW BACU) UA SQUAMOUS CELLS (test RARE >0 /UL NONE-SQepi code = SQU) UA MUCUS (test code = MOD /LPF NONE A MUCU) - XR CHEST 1 [id number] 09:11:00 FAX: Tom Garcia MD [phone] [place]: C St: ADM FAX: Sindi Cedillo [phone] FAX: Carina Francis MD [phone] Patient Name: SIDNEY HALL Unit No: [id number] EXAMS: CPT CODE: [id number] XR CHEST 1 V 42504 EXAM: - XR CHEST 1 V INDICATION: FEVER Location: T 18. COMPARISON: Chest x-ray on 04/04/2020. TECHNIQUE: Frontal view of the chest. FINDINGS: Tracheostomy tube tip projects 4.5 cm above the bernabe. Small amount of bibasilar opacity seen, decreased. Cardiomediastinal silhouette and osseous structures appear unremarkable. No pleural effusion appreciated. IMPRESSION: Small amount of bibasilar opacities, decreased, suggesting improving atelectasis or pneumonia. at 0911 Reported and signed by: Seth Willoughby MD CC: Tom Garcia MD; Sindi Gomez Dictated Date/Time: 04/08/2020 (910)Technologist: Aldo Arellano Transcribed Date/Time: 04/08/2020 (910) By: [email or web address] Orig Print D/T: S: 04/08/2020 (09) EARNESTINE Schaffer NAME: SIDNEY [facility]ALL [facility] PHYS: Tom Jackson MD [address] [place] [address] : 1970 AGE: 49 SEX: Chintan SCHAFFER, [place] [address] LOC: B.308 W PHONE #: [phone] EXAM DATE: 04/08/2020 STATUS: ADM IN FAX #: [phone] RAD NO: DC Dt: PAGE 1 Signed ReportGLUCOSE BEDSIDE [id number] 08:31:00 Test Item Value Reference Range Interpretation Comments GLUCOSE BEDSIDE TESTING (test code 100 MG/DL 70-119 N = GLUBED) BASIC METABOLIC [id number] 05:12:00 Test Item Value Reference Range Interpretation Comments SODIUM (test code = 138.0 mmol/L 133-144 N NA) POTASSIUM (test code 3.9 mmol/L 3.5-5.1 N = K) CHLORIDE (test code 103 mmol/L 95-105 N = CL) CARBON DIOXIDE (test 30 mmol/L 21-32 N code = CO2) ANION GAP (test code 5.0 GAP calc 4.0-15.0 N = GAP) GLUCOSE (test code = 111 MG/DL 70-110 H GLU) BLOOD UREA NITROGEN 21 MG/DL 7-18 H (test code = BUN) CREATININE (test 0.62 MG/DL 0.55-1.30 N Results may be code = CREAT) depressed if patient is takingN-Acetylc yste ine (NAC) and Metamizole (Dipyrone). CALCIUM (test code = 9.0 MG/DL 8.5-10.1 N CA) INDEX HEMOLYSIS 2 TRACE 10-25 1 NORMAL (test code = MG Index/DL HEMINDEX) INDEX ICTERIC (test 1 NORMAL <2 MG 1 NORMAL code = ICTINDEX) Index/DL INDEX LIPEMIA (test 1 NORMAL <50 MG 1 NORMAL code = LIPINDEX) Index/DL BASIC METABOLIC [id number] 05:11:00 Test Item Value Reference Range Interpretation Comments SODIUM (test code = NA) 138.0 mmol/L 133-144 N POTASSIUM (test code = K) 3.9 mmol/L 3.5-5.1 N CHLORIDE (test code = CL) 103 mmol/L 95-105 N CARBON DIOXIDE (test code 30 mmol/L 21-32 N = CO2) ANION GAP (test code = 5.0 GAP calc 4.0-15.0 N GAP) GLUCOSE (test code = GLU) 111 MG/DL 70-110 H BLOOD UREA NITROGEN (test 21 MG/DL 7-18 H code = BUN) CREATININE (test code = MG/DL 0.55-1.30 CREAT) CALCIUM (test code = CA) 9.0 MG/DL 8.5-10.1 N INDEX HEMOLYSIS (test 2 TRACE 10-25 MG 1 NORMAL code = HEMINDEX) Index/DL INDEX ICTERIC (test code 1 NORMAL <2 MG 1 NORMAL = ICTINDEX) Index/DL INDEX LIPEMIA (test code 1 NORMAL <50 MG 1 NORMAL = LIPINDEX) Index/DL CBC W/AUTO [id number] 05:01:00 Test Item Value Reference Range Interpretation Comments WHITE BLOOD CELL (test code = 12.1 K/mm3 4.1-12.1 N WBC) RED BLOOD CELL (test code = RBC) 3.36 M/mm3 3.8-5.5 L HEMOGLOBIN (test code = HGB) 11.3 G/DL 10.6-15.8 N HEMATOCRIT (test code = HCT) 35.5 % 31.8-47.4 N MEAN CELL VOLUME (test code = 105.7 fL 80.1-101.1 H MCV) MEAN CELL HGB (test code = MCH) 33.6 pg 25.3-35.3 N MEAN CELL HGB CONCETRATION (test 31.8 G/DL 32.7-35.1 L code = MCHC) RED CELL DISTRIBUTION WIDTH 12.3 % 12.2-16.4 N (test code = RDW) RED CELL DISTRIBUTION WIDTH 47.9 fL 35.1-43.9 H (test code = RDW-SD) PLATELET COUNT (test code = PLT) 346 K/mm3 155-337 H MEAN PLATELET VOLUME (test code 10.9 fL 7.6-10.4 H = MPV) GRANULOCYTE % (test code = GR%) 77.3 % 37.8-82.6 N IMMATURE GRANULOCYTE % (test 0.5 % 0.0-2.0 N code = IG%) LYMPHOCYTE % (test code = LY%) 14.6 % 14.1-45.4 N MONOCYTE % (test code = MO%) 5.2 % 2.5-11.7 N EOSINOPHIL % (test code = EO%) 2.2 % 0.0-6.2 N BASOPHIL % (test code = BA%) 0.2 % 0.0-2.6 N NUCLEATED RBC % (test code = 0.0 /100WBC% 0.0-1.0 N NRBC%) GRANULOCYTE # (test code = GR#) 9.33 k/mm3 2.0-13.7 N IMMATURE GRANULOCYTE # (test 0.06 K/mm3 0.00-0.03 H code = IG#) LYMPHOCYTE # (test code = LY#) 1.77 K/mm3 0.6-3.8 N MONOCYTE # (test code = MO#) 0.63 K/mm3 0.11-0.59 H EOSINOPHIL # (test code = EO#) 0.27 K/mm3 0.0-0.4 N BASOPHIL # (test code = BA#) 0.03 K/mm3 0.0-0.1 N NUCLEATED RBC # (test code = 0.00 K/mm3 0.00-0.05 N NRBC#) GLUCOSE BEDSIDE [id number] 21:35:00 Test Item Value Reference Range Interpretation Comments GLUCOSE BEDSIDE TESTING (test code 109 MG/DL 70-119 N = GLUBED) GLUCOSE BEDSIDE [id number] 16:59:00 Test Item Value Reference Range Interpretation Comments GLUCOSE BEDSIDE TESTING (test code 121 MG/DL 70-119 H = GLUBED) BASIC METABOLIC [id number] 06:58:00 Test Item Value Reference Range Interpretation Comments SODIUM (test code = 137.0 mmol/L 133-144 N NA) POTASSIUM (test code 3.7 mmol/L 3.5-5.1 N = K) CHLORIDE (test code 104 mmol/L 95-105 N = CL) CARBON DIOXIDE (test 29 mmol/L 21-32 N code = CO2) ANION GAP (test code 4.0 GAP calc 4.0-15.0 N = GAP) GLUCOSE (test code = 126 MG/DL 70-110 H GLU) BLOOD UREA NITROGEN 23 MG/DL 7-18 H (test code = BUN) CREATININE (test 0.54 MG/DL 0.55-1.30 L Results may be code = CREAT) depressed if patient is takingN-Acetylc yste ine (NAC) and Metamizole (Dipyrone). CALCIUM (test code = 8.9 MG/DL 8.5-10.1 N CA) INDEX HEMOLYSIS 2 TRACE 10-25 1 NORMAL (test code = MG Index/DL HEMINDEX) INDEX ICTERIC (test 1 NORMAL <2 MG 1 NORMAL code = ICTINDEX) Index/DL INDEX LIPEMIA (test 1 NORMAL <50 MG 1 NORMAL code = LIPINDEX) Index/DL GLUCOSE BEDSIDE [id number] 06:47:00 Test Item Value Reference Range Interpretation Comments GLUCOSE BEDSIDE TESTING 133 MG/DL 70-119 H Noti fied Nurse~ (test code = GLUBED) CBC W/AUTO [id number] 06:47:00 Test Item Value Reference Range Interpretation Comments WHITE BLOOD CELL (test code = 11.8 K/mm3 4.1-12.1 N WBC) RED BLOOD CELL (test code = RBC) 3.02 M/mm3 3.8-5.5 L HEMOGLOBIN (test code = HGB) 10.4 G/DL 10.6-15.8 L HEMATOCRIT (test code = HCT) 32.4 % 31.8-47.4 N MEAN CELL VOLUME (test code = 107.3 fL 80.1-101.1 H MCV) MEAN CELL HGB (test code = MCH) 34.4 pg 25.3-35.3 N MEAN CELL HGB CONCETRATION (test 32.1 G/DL 32.7-35.1 L code = MCHC) RED CELL DISTRIBUTION WIDTH 12.3 % 12.2-16.4 N (test code = RDW) RED CELL DISTRIBUTION WIDTH 47.9 fL 35.1-43.9 H (test code = RDW-SD) PLATELET COUNT (test code = PLT) 325 K/mm3 155-337 N MEAN PLATELET VOLUME (test code 10.4 fL 7.6-10.4 N = MPV) GRANULOCYTE % (test code = GR%) 76.5 % 37.8-82.6 N IMMATURE GRANULOCYTE % (test 0.5 % 0.0-2.0 N code = IG%) LYMPHOCYTE % (test code = LY%) 14.3 % 14.1-45.4 N MONOCYTE % (test code = MO%) 5.9 % 2.5-11.7 N EOSINOPHIL % (test code = EO%) 2.5 % 0.0-6.2 N BASOPHIL % (test code = BA%) 0.3 % 0.0-2.6 N NUCLEATED RBC % (test code = 0.0 /100WBC% 0.0-1.0 N NRBC%) GRANULOCYTE # (test code = GR#) 9.03 k/mm3 2.0-13.7 N IMMATURE GRANULOCYTE # (test 0.06 K/mm3 0.00-0.03 H code = IG#) LYMPHOCYTE # (test code = LY#) 1.69 K/mm3 0.6-3.8 N MONOCYTE # (test code = MO#) 0.70 K/mm3 0.11-0.59 H EOSINOPHIL # (test code = EO#) 0.30 K/mm3 0.0-0.4 N BASOPHIL # (test code = BA#) 0.04 K/mm3 0.0-0.1 N NUCLEATED RBC # (test code = 0.00 K/mm3 0.00-0.05 N NRBC#) ARTERIAL BLOOD [id number] 05:06:00 Test Item Value Reference Range Interpretation Comments ARTERIAL BLOOD GAS PH (test 7.52 pH units 7.35-7.45 H code = PHA) ARTERIAL BLOOD GAS PCO2 35 mmHg 35-45 N (test code = PCO2A) ARTERIAL BLOOD GAS PO2 64 mmHg 80-100 L (test code = PO2A) BICARBONATE TOTAL HCO3 28.4 mmol/L 22.0-26.0 H (test code = HCO3) BASE EXCESS (test code = 5.5 mmol/L -3.0-3.0 H REX) FIO2 (test code = FIO2A) 50 % (calc) 21-100 N MODALITY (test code = MOD) CPAP COMMENT DESCRIPTION ABG PEEP (test code = 5.0 cm H20 0.0-99.9 PEEPA) ABG PRESSURE SUPPORT (test 16.0 cm H20 >0 code = PSABG) ABG SITE (test code = RT RADIAL ARTKIT DESCRIPTION SITEA) MODIFIED ANICETO'S (test code POSITIVE Circ.CHK POSITIVE = MODALL) O2 SATURATION (test code = 95 % (calc) 95-100 N O2S/C) GLUCOSE BEDSIDE [id number] 06:50:00 Test Item Value Reference Range Interpretation Comments GLUCOSE BEDSIDE TESTING 134 MG/DL 70-119 H Noti fied Nurse~ (test code = GLUBED) GLUCOSE BEDSIDE [id number] 22:44:00 Test Item Value Reference Range Interpretation Comments GLUCOSE BEDSIDE TESTING (test code 126 MG/DL 70-119 H = GLUBED) GLUCOSE BEDSIDE [id number] 17:45:00 Test Item Value Reference Range Interpretation Comments GLUCOSE BEDSIDE TESTING (test code 136 MG/DL 70-119 H = GLUBED) GLUCOSE BEDSIDE [id number] 08:00:00 Test Item Value Reference Range Interpretation Comments GLUCOSE BEDSIDE TESTING (test code 118 MG/DL 70-119 N = GLUBED) BASIC METABOLIC [id number] 06:48:00 Test Item Value Reference Range Interpretation Comments SODIUM (test code = 139.0 mmol/L 133-144 N NA) POTASSIUM (test code 3.3 mmol/L 3.5-5.1 L = K) CHLORIDE (test code 108 mmol/L 95-105 H = CL) CARBON DIOXIDE (test 26 mmol/L 21-32 N code = CO2) ANION GAP (test code 5.0 GAP calc 4.0-15.0 N = GAP) GLUCOSE (test code = 123 MG/DL 70-110 H GLU) BLOOD UREA NITROGEN 25 MG/DL 7-18 H (test code = BUN) CREATININE (test 0.56 MG/DL 0.55-1.30 N Results may be code = CREAT) depressed if patient is takingN-Acetylc yste ine (NAC) and Metamizole (Dipyrone). CALCIUM (test code = 9.0 MG/DL 8.5-10.1 N CA) INDEX HEMOLYSIS 1 NORMAL <10 MG 1 NORMAL (test code = Index/DL HEMINDEX) INDEX ICTERIC (test 1 NORMAL <2 MG 1 NORMAL code = ICTINDEX) Index/DL INDEX LIPEMIA (test 1 NORMAL <50 MG 1 NORMAL code = LIPINDEX) Index/DL CBC W/AUTO [id number] 06:43:00 Test Item Value Reference Range Interpretation Comments WHITE BLOOD CELL (test code = 15.8 K/mm3 4.1-12.1 H WBC) RED BLOOD CELL (test code = RBC) 3.26 M/mm3 3.8-5.5 L HEMOGLOBIN (test code = HGB) 11.1 G/DL 10.6-15.8 N HEMATOCRIT (test code = HCT) 34.9 % 31.8-47.4 N MEAN CELL VOLUME (test code = 107.1 fL 80.1-101.1 H MCV) MEAN CELL HGB (test code = MCH) 34.0 pg 25.3-35.3 N MEAN CELL HGB CONCETRATION (test 31.8 G/DL 32.7-35.1 L code = MCHC) RED CELL DISTRIBUTION WIDTH 12.5 % 12.2-16.4 N (test code = RDW) RED CELL DISTRIBUTION WIDTH 49.2 fL 35.1-43.9 H (test code = RDW-SD) PLATELET COUNT (test code = PLT) 348 K/mm3 155-337 H MEAN PLATELET VOLUME (test code 10.9 fL 7.6-10.4 H = MPV) GRANULOCYTE % (test code = GR%) 79.9 % 37.8-82.6 N IMMATURE GRANULOCYTE % (test 0.6 % 0.0-2.0 N code = IG%) LYMPHOCYTE % (test code = LY%) 7.7 % 14.1-45.4 L MONOCYTE % (test code = MO%) 10.0 % 2.5-11.7 N EOSINOPHIL % (test code = EO%) 1.5 % 0.0-6.2 N BASOPHIL % (test code = BA%) 0.3 % 0.0-2.6 N NUCLEATED RBC % (test code = 0.0 /100WBC% 0.0-1.0 N NRBC%) GRANULOCYTE # (test code = GR#) 12.62 k/mm3 2.0-13.7 N IMMATURE GRANULOCYTE # (test 0.09 K/mm3 0.00-0.03 H code = IG#) LYMPHOCYTE # (test code = LY#) 1.22 K/mm3 0.6-3.8 N MONOCYTE # (test code = MO#) 1.58 K/mm3 0.11-0.59 H EOSINOPHIL # (test code = EO#) 0.23 K/mm3 0.0-0.4 N BASOPHIL # (test code = BA#) 0.05 K/mm3 0.0-0.1 N NUCLEATED RBC # (test code = 0.00 K/mm3 0.00-0.05 N NRBC#) ARTERIAL BLOOD [id number] 03:23:00 Test Item Value Reference Range Interpretation Comments ARTERIAL BLOOD GAS 7.50 pH units 7.35-7.45 H PH (test code = PHA) ARTERIAL BLOOD GAS 31 mmHg 35-45 L PCO2 (test code = PCO2A) ARTERIAL BLOOD GAS 60 mmHg 80-100 L ON AT PO2 (test code = 0323, B.CPS .MTM1 PO2A) CALLED TO DANK DE JESUS RN. seb report was confirmed by re ad back protocols Y,N: Y. BICARBONATE TOTAL 24.4 mmol/L 22.0-26.0 HCO3 (test code = HCO3) BASE EXCESS (test 1.3 mmol/L -3.0-3.0 N code = REX) FIO2 (test code = 60 % (calc) 21-100 N FIO2A) MODALITY (test code CPAP COMMENT DESCRIPTION = MOD) ABG L/M (test code = 0 L/MIN >0 L/M) ABG PEEP (test code 5.0 cm H20 0.0-99.9 = PEEPA) ABG PRESSURE SUPPORT 16.0 cm H20 >0 (test code = PSABG) ABG SITE (test code RT RADIAL ARTKIT DESCRIPTION = SITEA) MODIFIED ANICETO'S POSITIVE Circ.CHK POSITIVE (test code = MODALL) O2 SATURATION (test 94 % (calc) 95-100 L code = O2S/C) GLUCOSE BEDSIDE [id number] 22:04:00 Test Item Value Reference Range Interpretation Comments GLUCOSE BEDSIDE TESTING (test code 107 MG/DL 70-119 N = GLUBED) GLUCOSE BEDSIDE [id number] 14:31:00 Test Item Value Reference Range Interpretation Comments GLUCOSE BEDSIDE TESTING (test code 136 MG/DL 70-119 H = GLUBED) [id number] 08:23:00 Test Item Value Reference Range Interpretation Comments POTASSIUM (test code = K) 3.7 mmol/L 3.5-5.1 N GLUCOSE BEDSIDE [id number] 08:20:00 Test Item Value Reference Range Interpretation Comments GLUCOSE BEDSIDE TESTING (test code 118 MG/DL 70-119 N = GLUBED) - XR CHEST 1 [id number] 08:16:00 FAX: Hossein Bradley MD [phone] [place]: St: ADM FAX: Alyssa Lyon MD FAX: Sindi Cedillo [phone] FAX: Carina Francis MD [phone] Patient Name: SIDNEY HALL Unit No: [id number] EXAMS: CPT CODE: [id number] XR CHEST 1 V [id number] EXAM: - XR CHEST 1 V INDICATION: PT VENTED Location: T 18. COMP ARISON: radiograph performed the previous day TECHNIQUE: Frontal view of the chest. FINDINGS: Small amount of bibasilar opacities, slightly increased. Cardiomediastinal silhouette and osseous structures appear unremarkable. No pleural effusion appreciated. Unchanged appearance of tracheostomy tube, right- sided central line, and NG tube. IMPRESSION: Bibasilar opacities, either atelectasis or pneumonia, slightly. at 0816 Reported and signed by: Seth Willoughby MD CC: Hossein Blandon MD; Sindi Gomez Dictated Date/Time: 04/04/2020 (08)Technologist: Francois Ring Transcribed Date/Time: 04/04/2020 (815) By: [email or web address] Orig Print D/T: S: 04/04/2020 (08) EARNESTINE Schaffer NAME: SIDNEY HALL [facility] PHYS: Hossein Higuera MD [address] [place] [address] BLVD : 1970 AGE: 49 SEX: Chintan SCHAFFER, [place] [address] LOC: B.CCU32 D PHONE #: [phone] EXAM DATE: 04/04/2020 STATUS: ADM IN FAX #: [phone] RAD NO: DCDt: PAGE 1 Signed [id number] 05:45:00 Test Item Value Reference Range Interpretation Comments MAGNESIUM (test code = MAG) 2.1 MG/DL 1.6-2.6 N Specimen comments: PLEASE USE AM BLOOD IN LAB THANKSARTERIAL BLOOD [id number] 04:28:00 Test Item Value Reference Range Interpretation Comments ARTERIAL BLOOD GAS 7.47 pH units 7.35-7.45 H PH (test code = PHA) ARTERIAL BLOOD GAS 37 mmHg 35-45 N PCO2 (test code = PCO2A) ARTERIAL BLOOD GAS 58 mmHg 80-100 LL ON AT PO2 (test code = 0427, B.CPS .KP1 PO2A) CALLED TO RO MOTA. Th e report was confirmed by re ad back protocols Y,N: Y. BICARBONATE TOTAL 26.6 mmol/L 22.0-26.0 H HCO3 (test code = HCO3) BASE EXCESS (test 2.9 mmol/L -3.0-3.0 N code = REX) FIO2 (test code = 60 % (calc) 21-100 N FIO2A) MODALITY (test code CPAP COMMENT DESCRIPTION = MOD) ABG PEEP (test code 5.0 cm H20 0.0-99.9 = PEEPA) ABG PRESSURE SUPPORT 16.0 cm H20 >0 (test code = PSABG) ABG SITE (test code RT BRACHIAL DESCRIPTION = SITEA) ARTKIT MODIFIED ANICETO'S POSITIVE Circ.CHK POSITIVE (test code = MODALL) O2 SATURATION (test 92 % (calc) 95-100 L code = O2S/C) HOLD IN OE? NCAMPUS: CIs this a LINE draw? NBASIC METABOLIC [id number] 03:48:00 Test Item Value Reference Range Interpretation Comments SODIUM (test code = 139.0 mmol/L 133-144 N NA) POTASSIUM (test code 3.5 mmol/L 3.5-5.1 N = K) CHLORIDE (test code 107 mmol/L 95-105 H = CL) CARBON DIOXIDE (test 29 mmol/L 21-32 N code = CO2) ANION GAP (test code 3.0 GAP calc 4.0-15.0 L = GAP) GLUCOSE (test code = 106 MG/DL 70-110 N GLU) BLOOD UREA NITROGEN 26 MG/DL 7-18 H (test code = BUN) CREATININE (test 0.52 MG/DL 0.55-1.30 L Results may be code = CREAT) depressed if patient is takingN-Acetylc yste ine (NAC) and Metamizole (Dipyrone). CALCIUM (test code = 9.1 MG/DL 8.5-10.1 N CA) INDEX HEMOLYSIS 1 NORMAL <10 MG 1 NORMAL (test code = Index/DL HEMINDEX) INDEX ICTERIC (test 1 NORMAL <2 MG 1 NORMAL code = ICTINDEX) Index/DL INDEX LIPEMIA (test 1 NORMAL <50 MG 1 NORMAL code = LIPINDEX) Index/DL CBC W/AUTO [id number] 03:27:00 Test Item Value Reference Range Interpretation Comments WHITE BLOOD CELL (test code = 21.6 K/mm3 4.1-12.1 H WBC) RED BLOOD CELL (test code = RBC) 3.36 M/mm3 3.8-5.5 L HEMOGLOBIN (test code = HGB) 11.6 G/DL 10.6-15.8 N HEMATOCRIT (test code = HCT) 36.7 % 31.8-47.4 N MEAN CELL VOLUME (test code = 109.2 fL 80.1-101.1 H MCV) MEAN CELL HGB (test code = MCH) 34.5 pg 25.3-35.3 N MEAN CELL HGB CONCETRATION (test 31.6 G/DL 32.7-35.1 L code = MCHC) RED CELL DISTRIBUTION WIDTH 12.9 % 12.2-16.4 N (test code = RDW) RED CELL DISTRIBUTION WIDTH 51.6 fL 35.1-43.9 H (test code = RDW-SD) PLATELET COUNT (test code = PLT) 329 K/mm3 155-337 N MEAN PLATELET VOLUME (test code 10.8 fL 7.6-10.4 H = MPV) GRANULOCYTE % (test code = GR%) 83.4 % 37.8-82.6 H IMMATURE GRANULOCYTE % (test 0.9 % 0.0-2.0 N code = IG%) LYMPHOCYTE % (test code = LY%) 6.8 % 14.1-45.4 L MONOCYTE % (test code = MO%) 7.7 % 2.5-11.7 N EOSINOPHIL % (test code = EO%) 1.0 % 0.0-6.2 N BASOPHIL % (test code = BA%) 0.2 % 0.0-2.6 N NUCLEATED RBC % (test code = 0.0 /100WBC% 0.0-1.0 N NRBC%) GRANULOCYTE # (test code = GR#) 18.00 k/mm3 2.0-13.7 H IMMATURE GRANULOCYTE # (test 0.19 K/mm3 0.00-0.03 H code = IG#) LYMPHOCYTE # (test code = LY#) 1.46 K/mm3 0.6-3.8 N MONOCYTE # (test code = MO#) 1.67 K/mm3 0.11-0.59 H EOSINOPHIL # (test code = EO#) 0.21 K/mm3 0.0-0.4 N BASOPHIL # (test code = BA#) 0.05 K/mm3 0.0-0.1 N NUCLEATED RBC # (test code = 0.00 K/mm3 0.00-0.05 N NRBC#) GLUCOSE BEDSIDE [id number] 21:14:00 Test Item Value Reference Range Interpretation Comments GLUCOSE BEDSIDE TESTING (test code = 96 MG/DL 70-119 N GLUBED) GLUCOSE BEDSIDE [id number] 18:39:00 Test Item Value Reference Range Interpretation Comments GLUCOSE BEDSIDE TESTING (test code 124 MG/DL 70-119 H = GLUBED) - XR CHEST 1 [id number] 12:43:00 FAX: Mark Levi [phone] [place]: St: ADM FAX: Alyssa Lyon MD FAX:Sindi Cedillo [phone] FAX: Carina Francis MD [phone] Patient Name: SIDNEY HALL Unit No: [id number] EXAMS: CPT CODE: [id number] XR CHEST 1 V [id number] Site ID: [id number] EXAMINATION: - XR CHEST 1 V. HISTORY: VENT. COMPARISON: One day earlier. Findings: Feeding tube projects over the stomach. There is an ET tube and right IJ line and both are stable. There is bibasilar atelectasis or infiltrate similar to the previous exam. There is left basilar infiltrate or atelectasis. The heart size is at the upper limitsof normal. There is no effusion or pneumothorax. The mediastinum and narinder appear unremarkable. Impression: Bibasilar infiltrates or atelectasis. at 1243 Reported and signed by: Anthony Guzman CC: Mark Sagastume MD; Sindi Gomez Dictated Date/Time: 04/03/2020 (9503)Technologist: Wilner Fitzpatrick Transcribed Date/Time: 04/03/2020 (3267) By: Yola Orig Print D/T: S: 04/03/2020 (6733) EARNESTINE Schaffer NAME: SIDNEY HALL [facility] PHYS: Mark De La Cruz [address] : 1970 AGE: 49 SEX: Chintan [place], [place] [id number] LOC: [id number] D PHONE #: [phone] EXAM DATE: 04/03/2020 STATUS: ADM IN FAX #: [phone] RAD NO: DC Dt: PAGE 1 Signed ReportGLUCOSE BEDSIDE TESTING 2020-04-03 12:17:00 Test Item Value Reference Range Interpretation Comments GLUCOSE BEDSIDE TESTING (test code 151 MG/DL 70-119 H = GLUBED) GLUCOSE BEDSIDE [id number] 08:41:00 Test Item Value Reference Range Interpretation Comments GLUCOSE BEDSIDE TESTING (test code 143 MG/DL 70-119 H = GLUBED) CBC W/AUTO [id number] 05:51:00 Test Item Value Reference Range Interpretation Comments WHITE BLOOD CELL (test 26.7 K/mm3 4.1-12.1 H code = WBC) RED BLOOD CELL (test code 3.52 M/mm3 3.8-5.5 L = RBC) HEMOGLOBIN (test code = 12.1 G/DL 10.6-15.8 N HGB) HEMATOCRIT (test code = 37.3 % 31.8-47.4 N HCT) MEAN CELL VOLUME (test 106.0 fL 80.1-101.1 H code = MCV) MEAN CELL HGB (test code 34.4 pg 25.3-35.3 N = MCH) MEAN CELL HGB 32.4 G/DL 32.7-35.1 L CONCETRATION (test code = MCHC) RED CELL DISTRIBUTION 13.3 % 12.2-16.4 N WIDTH (test code = RDW) RED CELL DISTRIBUTION 51.5 fL 35.1-43.9 H WIDTH (test code = RDW-SD) PLATELET COUNT (test code 339 K/mm3 155-337 H = PLT) MEAN PLATELET VOLUME 10.9 fL 7.6-10.4 H (test code = MPV) GRANULOCYTE % (test code 86.8 % 37.8-82.6 H = GR%) IMMATURE GRANULOCYTE % 0.9 % 0.0-2.0 N (test code = IG%) LYMPHOCYTE % (test code = 4.5 % 14.1-45.4 L LY%) MONOCYTE % (test code = 6.9 % 2.5-11.7 N MO%) EOSINOPHIL % (test code = 0.7 % 0.0-6.2 N EO%) BASOPHIL % (test code = 0.2 % 0.0-2.6 N BA%) NUCLEATED RBC % (test 0.0 /100WBC% 0.0-1.0 N code = NRBC%) GRANULOCYTE # (test code 23.14 k/mm3 2.0-13.7 H = GR#) IMMATURE GRANULOCYTE # 0.24 K/mm3 0.00-0.03 H (test code = IG#) LYMPHOCYTE # (test code = 1.20 K/mm3 0.6-3.8 N LY#) MONOCYTE # (test code = 1.85 K/mm3 0.11-0.59 H MO#) EOSINOPHIL # (test code = 0.19 K/mm3 0.0-0.4 N EO#) BASOPHIL # (test code = 0.06 K/mm3 0.0-0.1 N BA#) NUCLEATED RBC # (test 0.00 K/mm3 0.00-0.05 N code = NRBC#) MANUAL DIFF REQUIRED CRITERIA (SCAN) CRITERIA (test code = MDIFF) DIFF/SCN DIFFERENTIAL [id number] 05:51:00 Test Item Value Reference Range Interpretation Comments DIFFERENTIAL COMMENT AUTO DIFF CONFIRMED SCAN COMM (test code = DC) COMMENT POLYCHROMASIA (test code SLIGHT ON SCAN NONE = POLC) HYPOCHROMIA (test code = SLIGHT ON SCAN NONE HYPO) MACROCYTOSIS (test code = SLIGHT ON SCAN NONE MACR) STOMATOCYTES (test code = FEW ON SCAN NONE STO) DOHLE BODIES (test code = SLIGHT ON SCAN NONE A DB) PLATELET ESTIMATE (test SL INCR ON SCAN ADEQUATE code = PLTEST) ARTERIAL BLOOD [id number] 04:34:00 Test Item Value Reference Range Interpretation Comments ARTERIAL BLOOD GAS PH (test 7.51 pH units 7.35-7.45 H code = PHA) ARTERIAL BLOOD GAS PCO2 33 mmHg 35-45 L (test code = PCO2A) ARTERIAL BLOOD GAS PO2 123 mmHg 80-100 H (test code = PO2A) BICARBONATE TOTAL HCO3 26.3 mmol/L 22.0-26.0 H (test code = HCO3) BASE EXCESS (test code = 3.2 mmol/L -3.0-3.0 H REX) FIO2 (test code = FIO2A) 60 % (calc) 21-100 N MODALITY (test code = MOD) CMV COMMENT DESCRIPTION ABG PATIENT RESP RATE (test 14 /MIN PT RespRate code = RRPATA) ABG TIDAL VOLUME (test code 500 ML = TVA) ABG PEEP (test code = 5.0 cm H20 0.0-99.9 PEEPA) ABG SITE (test code = RT RADIAL ARTKIT DESCRIPTION SITEA) MODIFIED ANICETO'S (test code POSITIVE Circ.CHK POSITIVE = MODALL) O2 SATURATION (test code = 92 % (calc) 95-100 L O2S/C) HOLD IN OE? NCAMPUS: CIs this a LINE draw? NBASIC METABOLIC [id number] 03:24:00 Test Item Value Reference Range Interpretation Comments SODIUM (test code = 142.0 mmol/L 133-144 N NA) POTASSIUM (test code 3.5 mmol/L 3.5-5.1 N = K) CHLORIDE (test code 107 mmol/L 95-105 H = CL) CARBON DIOXIDE (test 29 mmol/L 21-32 N code = CO2) ANION GAP (test code 6.0 GAP calc 4.0-15.0 N = GAP) GLUCOSE (test code = 122 MG/DL 70-110 H GLU) BLOOD UREA NITROGEN 27 MG/DL 7-18 H (test code = BUN) CREATININE (test 0.60 MG/DL 0.55-1.30 N Results may be code = CREAT) depressed if patient is takingN-Acetylc yste ine (NAC) and Metamizole (Dipyrone). CALCIUM (test code = 9.0 MG/DL 8.5-10.1 N CA) INDEX HEMOLYSIS 1 NORMAL <10 MG 1 NORMAL (test code = Index/DL HEMINDEX) INDEX ICTERIC (test 1 NORMAL <2 MG 1 NORMAL code = ICTINDEX) Index/DL INDEX LIPEMIA (test 1 NORMAL <50 MG 1 NORMAL code = LIPINDEX) Index/DL THROMBOPLASTIN TIME [id number] 03:17:00 Test Item Value Reference Interpretation Comments Range THROMBOPLASTIN TIME 40.2 SECONDS 24-37.7 H THERAPEU TIC RANGE FOR PARTIAL (test code UNFRACTIO NATED HEPARIN = = PTT) 50.5-83.6 SEC T his test is not recommen ded to monitor low molecularweight heparin or danaparoid. Order LMWH test COLLECTION THROUGH LINES THAT HAVE BEEN PREVIOUSLY FLUS HEDWITH HEPARIN SHOULD BE AVOIDED DUE TO POSSIBLE HEPARINCONTAMIN ATION Is this a LINE draw? YANTICOAGULANT THERAPY [Y,N]: YESANTICOAGULANT [H,C]: HEPARINCBC W/AUTO [id number] 03:15:00 Test Item Value Reference Range Interpretation Comments WHITE BLOOD CELL (test 26.7 K/mm3 4.1-12.1 H code = WBC) RED BLOOD CELL (test code 3.52 M/mm3 3.8-5.5 L = RBC) HEMOGLOBIN (test code = 12.1 G/DL 10.6-15.8 N HGB) HEMATOCRIT (test code = 37.3 % 31.8-47.4 N HCT) MEAN CELL VOLUME (test 106.0 fL 80.1-101.1 H code = MCV) MEAN CELL HGB (test code 34.4 pg 25.3-35.3 N = MCH) MEAN CELL HGB 32.4 G/DL 32.7-35.1 L CONCETRATION (test code = MCHC) RED CELL DISTRIBUTION 13.3 % 12.2-16.4 N WIDTH (test code = RDW) RED CELL DISTRIBUTION 51.5 fL 35.1-43.9 H WIDTH (test code = RDW-SD) PLATELET COUNT (test code 339 K/mm3 155-337 H = PLT) MEAN PLATELET VOLUME 10.9 fL 7.6-10.4 H (test code = MPV) GRANULOCYTE % (test code 86.8 % 37.8-82.6 H = GR%) IMMATURE GRANULOCYTE % 0.9 % 0.0-2.0 N (test code = IG%) LYMPHOCYTE % (test code = 4.5 % 14.1-45.4 L LY%) MONOCYTE % (test code = 6.9 % 2.5-11.7 N MO%) EOSINOPHIL % (test code = 0.7 % 0.0-6.2 N EO%) BASOPHIL % (test code = 0.2 % 0.0-2.6 N BA%) NUCLEATED RBC % (test 0.0 /100WBC% 0.0-1.0 N code = NRBC%) GRANULOCYTE # (test code 23.14 k/mm3 2.0-13.7 H = GR#) IMMATURE GRANULOCYTE # 0.24 K/mm3 0.00-0.03 H (test code = IG#) LYMPHOCYTE # (test code = 1.20 K/mm3 0.6-3.8 N LY#) MONOCYTE # (test code = 1.85 K/mm3 0.11-0.59 H MO#) EOSINOPHIL # (test code = 0.19 K/mm3 0.0-0.4 N EO#) BASOPHIL # (test code = 0.06 K/mm3 0.0-0.1 N BA#) NUCLEATED RBC # (test 0.00 K/mm3 0.00-0.05 N code = NRBC#) MANUAL DIFF REQUIRED CRITERIA (SCAN) CRITERIA (test code = MDIFF) DIFF/SCN DIFFERENTIAL [id number] 03:15:00 Test Item Value Reference Range Interpretation Comments MORPHOLOGY COMMENT (test code = MOC) ON SCAN NORMAL RBCS PLATELET ESTIMATE (test code = ON SCAN ADEQUATE PLTEST) CBC W/AUTO [id number] 03:15:00 Test Item Value Reference Range Interpretation Comments WHITE BLOOD CELL (test 26.7 K/mm3 4.1-12.1 H code = WBC) RED BLOOD CELL (test code 3.52 M/mm3 3.8-5.5 L = RBC) HEMOGLOBIN (test code = 12.1 G/DL 10.6-15.8 N HGB) HEMATOCRIT (test code = 37.3 % 31.8-47.4 N HCT) MEAN CELL VOLUME (test 106.0 fL 80.1-101.1 H code = MCV) MEAN CELL HGB (test code 34.4 pg 25.3-35.3 N = MCH) MEAN CELL HGB 32.4 G/DL 32.7-35.1 L CONCETRATION (test code = MCHC) RED CELL DISTRIBUTION 13.3 % 12.2-16.4 N WIDTH (test code = RDW) RED CELL DISTRIBUTION 51.5 fL 35.1-43.9 H WIDTH (test code = RDW-SD) PLATELET COUNT (test code 339 K/mm3 155-337 H = PLT) MEAN PLATELET VOLUME 10.9 fL 7.6-10.4 H (test code = MPV) GRANULOCYTE % (test code 86.8 % 37.8-82.6 H = GR%) IMMATURE GRANULOCYTE % 0.9 % 0.0-2.0 N (test code = IG%) LYMPHOCYTE % (test code = 4.5 % 14.1-45.4 L LY%) MONOCYTE % (test code = 6.9 % 2.5-11.7 N MO%) EOSINOPHIL % (test code = 0.7 % 0.0-6.2 N EO%) BASOPHIL % (test code = 0.2 % 0.0-2.6 N BA%) NUCLEATED RBC % (test 0.0 /100WBC% 0.0-1.0 N code = NRBC%) GRANULOCYTE # (test code 23.14 k/mm3 2.0-13.7 H = GR#) IMMATURE GRANULOCYTE # 0.24 K/mm3 0.00-0.03 H (test code = IG#) LYMPHOCYTE # (test code = 1.20 K/mm3 0.6-3.8 N LY#) MONOCYTE # (test code = 1.85 K/mm3 0.11-0.59 H MO#) EOSINOPHIL # (test code = 0.19 K/mm3 0.0-0.4 N EO#) BASOPHIL # (test code = 0.06 K/mm3 0.0-0.1 N BA#) NUCLEATED RBC # (test 0.00 K/mm3 0.00-0.05 N code = NRBC#) MANUAL DIFF REQUIRED CRITERIA (SCAN) CRITERIA (test code = MDIFF) DIFF/SCN DIFFERENTIAL [id number] 03:15:00 Test Item Value Reference Range Interpretation Comments MORPHOLOGY COMMENT (test code = MOC) ON SCAN NORMAL RBCS PLATELET ESTIMATE (test code = ON SCAN ADEQUATE PLTEST) GLUCOSE BEDSIDE [id number] 01:25:00 Test Item Value Reference Range Interpretation Comments GLUCOSE BEDSIDE TESTING (test code 129 MG/DL 70-119 H = GLUBED) GLUCOSE BEDSIDE [id number] 21:32:00 Test Item Value Reference Range Interpretation Comments GLUCOSE BEDSIDE TESTING (test code = 76 MG/DL 70-119 N GLUBED) THROMBOPLASTIN TIME [id number] 20:09:00 Test Item Value Reference Interpretation Comments Range THROMBOPLASTIN TIME 26.7 SECONDS 24-37.7 N THERAPEU TIC RANGE FOR PARTIAL (test code UNFRACTIO NATED HEPARIN = = PTT) 50.5-83.6 SEC T his test is not recommen ded to monitor low molecularweight heparin or danaparoid. Order LMWH test COLLECTION THROUGH LINES THAT HAVE BEEN PREVIOUSLY FLUS HEDWITH HEPARIN SHOULD BE AVOIDED DUE TO POSSIBLE HEPARINCONTAMIN ATION Is this a LINE draw? YANTICOAGULANT THERAPY [Y,N]: NOGLUCOSE BEDSIDE TESTING 2020-04-02 15:06:00 Test Item Value Reference Range Interpretation Comments GLUCOSE BEDSIDE TESTING 120 MG/DL 70-119 H Noti fied Nurse~ (test code = GLUBED) - XR ABDOMEN 1 [id number] 14:01:00 FAX: Hossein Bradley MD [phone] [place]: St: ADM FAX: Alyssa Lyon MD FAX: Sindi Cedillo [phone] FAX: Carina Francis MD [phone] Patient Name: SIDNEY HALL Unit No: [id number] EXAMS: CPT CODE: [id number] XR ABDOMEN 1 V [id number] LOCATION: T18 EXAM: - XR ABDOMEN 1 V INDICATION: DUBHOFF TUBE PLACEMENT, COMPARISON: Chest x-ray April 02, 2020. TECHNIQUE: AP radiographs of the abdomen FINDINGS: Dobbhoff tube placed with tip in stomach. Bowel gas pattern is within normal limits. No bowel obstruction is seen. IMPRESSION: Dobbhoff tube tip within stomach. at 1401 Reported and signed by: Sukhdev Sutton MD CC: Hossein Blandon MD; Sindi Gomez Dictated Date/Time: 04/02/2020 (4497)Technologist: Bennie Forman Transcribed Date/Time: 04/02/2020 (8521) By: [email or web address] Orig Print D/T: S: 04/02/2020 (5273) EARNESTINE Schaffer NAME: SIDNEY HALL [facility] PHYS: Hossein Higuera MD [address] [place] [address] BLVD : 1970 AGE: 49 SEX: Chintan SCHAFFER, [place] [address] LOC: B.[id number] D PHONE #: [phone] EXAM DATE: 04/02/2020 STATUS: ADM IN FAX #: [phone] RAD NO: DC Dt: PAGE 1 Signed ReportGLUCOSE BEDSIDE [id number] 08:37:00 Test Item Value Reference Range Interpretation Comments GLUCOSE BEDSIDE TESTING 142 MG/DL 70-119 H Noti fied Nurse~ (test code = GLUBED) - XR CHEST 1 [id number] 07:04:00 FAX: Mark Levi [phone] [place]: St: ADM FAX: Alyssa Lyon MD FAX:Sindi Cedillo [phone] FAX: Carina Francis MD [phone] Patient Name: ISABELSIDNEY Unit No: [id number] EXAMS: CPT CODE: [id number] XR CHEST 1 V [id number] EXAM: - XR CHEST 1 V INDICATION: VENT Location: T 18. COMPARISON: radiograph performed the previous day TECHNIQUE: Frontal view of the chest. FINDINGS: Unchanged appearance of endotracheal tube, right-sided central line, and visualized NG tube. Slightly increased bilateral lower lung opacities. Cardiomediastinal silhouette and osseous structures appear unremarkable. IMPRESSION: Bilateral opacities again seen, slightly increased. at 0704 Reported and signed by: Seth Willoughby MD CC: Mark Sagastume MD; Sindi Gomez Dictated Date/Time: 04/02/2020 (703)Technologist: Francois Ring Transcribed Date/Time: 04/02/2020 (703) By: [email or web address] Orig Print D/T: S: 04/02/2020 (706) [facility] [place] NAME: SIDNEY HALL [facility] PHYS: Mark De La Cruz [address] [place], [place] [address]BLVD : 1970 AGE: 49 SEX: Chintan SCHAFFER, [place] [address] LOC: B.CCU32 D PHONE #: [phone] EXAM DATE: 04/02/2020 STATUS: ADM IN FAX #: [phone] RAD NO: DC Dt: PAGE 1 SignedReportBASIC METABOLIC [id number] 06:29:00 Test Item Value Reference Range Interpretation Comments SODIUM (test code = 143.0 mmol/L 133-144 N NA) POTASSIUM (test code 3.5 mmol/L 3.5-5.1 N = K) CHLORIDE (test code 109 mmol/L 95-105 H = CL) CARBON DIOXIDE (test 30 mmol/L 21-32 N code = CO2) ANION GAP (test code 4.0 GAP calc 4.0-15.0 N = GAP) GLUCOSE (test code = 104 MG/DL 70-110 N GLU) BLOOD UREA NITROGEN 26 MG/DL 7-18 H (test code = BUN) CREATININE (test 0.54 MG/DL 0.55-1.30 L Results may be code = CREAT) depressed if patient is takingN-Acetylc yste ine (NAC) and Metamizole (Dipyrone). CALCIUM (test code = 8.7 MG/DL 8.5-10.1 N CA) INDEX HEMOLYSIS 1 NORMAL <10 MG 1 NORMAL (test code = Index/DL HEMINDEX) INDEX ICTERIC (test 1 NORMAL <2 MG 1 NORMAL code = ICTINDEX) Index/DL INDEX LIPEMIA (test 1 NORMAL <50 MG 1 NORMAL code = LIPINDEX) Index/DL CBC W/AUTO [id number] 06:17:00 Test Item Value Reference Range Interpretation Comments WHITE BLOOD CELL (test code = 15.3 K/mm3 4.1-12.1 H WBC) RED BLOOD CELL (test code = RBC) 3.38 M/mm3 3.8-5.5 L HEMOGLOBIN (test code = HGB) 11.4 G/DL 10.6-15.8 N HEMATOCRIT (test code = HCT) 35.8 % 31.8-47.4 N MEAN CELL VOLUME (test code = 105.9 fL 80.1-101.1 H MCV) MEAN CELL HGB (test code = MCH) 33.7 pg 25.3-35.3 N MEAN CELL HGB CONCETRATION (test 31.8 G/DL 32.7-35.1 L code = MCHC) RED CELL DISTRIBUTION WIDTH 13.2 % 12.2-16.4 N (test code = RDW) RED CELL DISTRIBUTION WIDTH 51.2 fL 35.1-43.9 H (test code = RDW-SD) PLATELET COUNT (test code = PLT) 282 K/mm3 155-337 N MEAN PLATELET VOLUME (test code 11.3 fL 7.6-10.4 H = MPV) GRANULOCYTE % (test code = GR%) 76.7 % 37.8-82.6 N IMMATURE GRANULOCYTE % (test 1.2 % 0.0-2.0 N code = IG%) LYMPHOCYTE % (test code = LY%) 11.6 % 14.1-45.4 L MONOCYTE % (test code = MO%) 8.6 % 2.5-11.7 N EOSINOPHIL % (test code = EO%) 1.8 % 0.0-6.2 N BASOPHIL % (test code = BA%) 0.1 % 0.0-2.6 N NUCLEATED RBC % (test code = 0.0 /100WBC% 0.0-1.0 N NRBC%) GRANULOCYTE # (test code = GR#) 11.75 k/mm3 2.0-13.7 N IMMATURE GRANULOCYTE # (test 0.19 K/mm3 0.00-0.03 H code = IG#) LYMPHOCYTE # (test code = LY#) 1.78 K/mm3 0.6-3.8 N MONOCYTE # (test code = MO#) 1.32 K/mm3 0.11-0.59 H EOSINOPHIL # (test code = EO#) 0.28 K/mm3 0.0-0.4 N BASOPHIL # (test code = BA#) 0.02 K/mm3 0.0-0.1 N NUCLEATED RBC # (test code = 0.00 K/mm3 0.00-0.05 N NRBC#) ARTERIAL BLOOD [id number] 04:46:00 Test Item Value Reference Range Interpretation Comments ARTERIAL BLOOD GAS 7.44 pH units 7.35-7.45 N PH (test code = PHA) ARTERIAL BLOOD GAS 43 mmHg 35-45 N PCO2 (test code = PCO2A) ARTERIAL BLOOD GAS 60 mmHg 80-100 L ON AT PO2 (test code = 0444, B.CPS .JTW PO2A) CALLED TO [facility] RN. The report was confirmed by re ad back protocols Y,N: Y. BICARBONATE TOTAL 29.0 mmol/L 22.0-26.0 H HCO3 (test code = HCO3) BASE EXCESS (test 4.8 mmol/L -3.0-3.0 H code = REX) FIO2 (test code = 75 % (calc) 21-100 N FIO2A) MODALITY (test code CMV COMMENT DESCRIPTION = MOD) ABG PATIENT RESP 18 /MIN PT RespRate RATE (test code = RRPATA) ABG TIDAL VOLUME 600 ML (test code = TVA) ABG PEEP (test code 5.0 cm H20 0.0-99.9 = PEEPA) ABG SITE (test code RT RADIAL ARTKIT DESCRIPTION = SITEA) MODIFIED ANICETO'S POSITIVE Circ.CHK POSITIVE (test code = MODALL) O2 SATURATION (test 92 % (calc) 95-100 L code = O2S/C) GLUCOSE BEDSIDE [id number] 01:23:00 Test Item Value Reference Range Interpretation Comments GLUCOSE BEDSIDE TESTING (test code = 97 MG/DL 70-119 N GLUBED) GLUCOSE BEDSIDE [id number] 21:02:00 Test Item Value Reference Range Interpretation Comments GLUCOSE BEDSIDE TESTING (test code = 83 MG/DL 70-119 N GLUBED) COVID 19 Asymptomatic IH [id number] 20:46:00 Test Item Value Reference Range Interpretation Comments COVID 19 Asymptomatic IH AG (test Negative Neg code = COVNONPUIAG) PT AND [id number] 13:01:00 Test Item Value Reference Interpretation Comments Range PT PATIENT (test 13.1 SECONDS 9.4-12.5 H code = PTP) INTERNATIONAL 1.14 INR 0.88-1.13 H NORMAL RATIO (test Unit --------- code = INR) ---------Therap eutic range for INR i s dependent upon the situation.2.0-3 .0 Prophylaxis / v enous thromboembolism , Treatment of DV T, Acute myocardial infa rction stroke preventi on, Systemic emboli sm prevention in fibrillation3.0 -4.5 AMI recurrence prev ention, Systemic emboli sm prevention in p rosthetic heart 3.0-5.4 A MO mortality reduc tion THROMBOPLASTIN TIME 45.0 SECONDS 24-37.7 H THERAPEU TIC RANGE FOR PARTIAL (test code UNFRACTIO NATED HEPARIN = = PTT) 50.5-83.6 SEC T his test is not recommen ded to monitor low molecularweight heparin or danaparoid. Order LMWH test COLLECTION THROUGH LINES THAT HAVE BEEN PREVIOUSLY FLUS HEDWITH HEPARIN SHOULD BE AVOIDED DUE TO POSSIBLE HEPARINCONTAMIN ATION ANTICOAGULANT THERAPY [Y,N]: YESANTICOAGULANT [H,C]: HEPARINGLUCOSE BEDSIDE [id number] 12:21:00 Test Item Value Reference Range Interpretation Comments GLUCOSE BEDSIDE TESTING (test code 167 MG/DL 70-119 H = GLUBED) - XR CHEST 1 [id number] 09:52:00 FAX: Fransico Begum MD [phone] [place]: C St: ADM FAX: Mark Levi [phone] FAX: Sindi Cedillo [phone] FAX: Carina Francis MD [phone] Patient Name: SIDNEY HALL Unit No: [id number] EXAMS: CPT CODE: [id number] XR CHEST 1 V [id number] EXAM: - XR CHEST 1 V INDICATION: VENT Location: T 18. COMPARISON: Chest CT on 03/31/2020. TECHNIQUE: Frontal view of the chest. FINDINGS: Bibasilar opacities, as well as a rounded opacity in the right lung base laterally appear unchanged, consistent with known combination of consolidation or pleural effusions. Cardiomediastinal silhouette and osseous structures appear unremarkable. Right-sided central line, endotracheal tube, and NG tube appear un changed. IMPRESSION: Unchanged bilateral opacities. at 0952 Reported and signed by: Seth Willoughby MD CC: Fransico Boogie MD; Mark Sagastuem MD; Sindi Gomez Dictated Date/Time: 04/01/2020 (951)Technologist: Aldo Arellano Transcribed Date/Time: 04/01/2020 (951) By: [email or web address] Orig Print D/T: S: 04/01/2020 (0956) EARNESTINE Sarbjit NAME: SIDNEY HALL [facility] PHYS: Mark De La Cruz [address] [place] [address] BLVD : 1970 AGE: 49 SEX: Chintan [place], [place] [address] LOC: B.CCU32 D PHONE #: [phone] EXAM DATE: 04/01/2020 STATUS: ADM IN FAX #: [phone] RAD NO: DC Dt: PAGE 1 Signed [facility] [id number] 04:47:00 Test Item Value Reference Range Interpretation Comments ARTERIAL BLOOD GAS PH 7.44 pH units 7.35-7.45 N (test code = PHA) ARTERIAL BLOOD GAS PCO2 44 mmHg 35-45 N (test code = PCO2A) ARTERIAL BLOOD GAS PO2 72 mmHg 80-100 L PF RA AMELIA=96 (test code = PO2A) BICARBONATE TOTAL HCO3 30.1 mmol/L 22.0-26.0 H (test code = HCO3) BASE EXCESS (test code = 5.9 mmol/L -3.0-3.0 H REX) FIO2 (test code = FIO2A) 75 % (calc) 21-100 N MODALITY (test code = AC COMMENT DESCRIPTION MOD) ABG PATIENT RESP RATE 18 /MIN PT RespRate (test code = RRPATA) ABG TIDAL VOLUME (test 600 ML code = TVA) ABG PEEP (test code = 5 cm H20 0.0-99.9 PEEPA) ABG SITE (test code = RT RADIAL ARTKIT DESCRIPTION SITEA) MODIFIED ANICETO'S (test POSITIVE Circ.CHK POSITIVE code = MODALL) O2 SATURATION (test code 96 % (calc) 95-100 N = O2S/C) PT AND [id number] 04:05:00 Test Item Value Reference Interpretation Comments Range PT PATIENT (test 13.0 SECONDS 9.4-12.5 H code = PTP) INTERNATIONAL 1.13 INR 0.88-1.13 N NORMAL RATIO (test Unit --------- code = INR) ---------Therap eutic range for INR i s dependent upon the situation.2.0-3 .0 Prophylaxis / v enous thromboembolism , Treatment of DV T, Acute myocardial infa rction stroke preventi on, Systemic emboli sm prevention in fibrillation3.0 -4.5 AMI recurrence prev ention, Systemic emboli sm prevention in p rosthetic heart 3.0-5.4 A MO mortality reduc tion THROMBOPLASTIN TIME 24.3 SECONDS 24-37.7 N THERAPEU TIC RANGE FOR PARTIAL (test code UNFRACTIO NATED HEPARIN = = PTT) 50.5-83.6 SEC T his test is not recommen ded to monitor low molecularweight heparin or danaparoid. Order LMWH test COLLECTION THROUGH LINES THAT HAVE BEEN PREVIOUSLY FLUS HEDWITH HEPARIN SHOULD BE AVOIDED DUE TO POSSIBLE HEPARINCONTAMIN ATION ANTICOAGULANT THERAPY [Y,N]: YESANTICOAGULANT [H,C]: OTHERBASIC METABOLIC PANEL 2020-04-01 04:03:00 Test Item Value Reference Range Interpretation Comments SODIUM (test code = 144.0 mmol/L 133-144 N NA) POTASSIUM (test code 3.3 mmol/L 3.5-5.1 L = K) CHLORIDE (test code 107 mmol/L 95-105 H = CL) CARBON DIOXIDE (test 31 mmol/L 21-32 N code = CO2) ANION GAP (test code 6.0 GAP calc 4.0-15.0 N = GAP) GLUCOSE (test code = 90 MG/DL 70-110 N GLU) BLOOD UREA NITROGEN 30 MG/DL 7-18 H (test code = BUN) CREATININE (test 0.64 MG/DL 0.55-1.30 N Results may be code = CREAT) depressed if patient is takingN-Acetylc yste ine (NAC) and Metamizole (Dipyrone). CALCIUM (test code = 9.0 MG/DL 8.5-10.1 N CA) INDEX HEMOLYSIS 1 NORMAL <10 MG 1 NORMAL (test code = Index/DL HEMINDEX) INDEX ICTERIC (test 1 NORMAL <2 MG 1 NORMAL code = ICTINDEX) Index/DL INDEX LIPEMIA (test 1 NORMAL <50 MG 1 NORMAL code = LIPINDEX) Index/DL Is this a LINE draw? [id number] 04:03:00 Test Item Value Reference Range Interpretation Comments TRIGLYCERIDES (test code 129 MG/DL 0-150 N Res ults may be = TRIG) depressed if bill rowe is takingN-Acetylc ystei ne (NAC) and Metamizole (Dipyrone). Is this a LINE draw? YCBC W/AUTO [id number] 03:53:00 Test Item Value Reference Range Interpretation Comments WHITE BLOOD CELL (test code = 17.6 K/mm3 4.1-12.1 H WBC) RED BLOOD CELL (test code = RBC) 3.48 M/mm3 3.8-5.5 L HEMOGLOBIN (test code = HGB) 12.1 G/DL 10.6-15.8 N HEMATOCRIT (test code = HCT) 37.9 % 31.8-47.4 N MEAN CELL VOLUME (test code = 108.9 fL 80.1-101.1 H MCV) MEAN CELL HGB (test code = MCH) 34.8 pg 25.3-35.3 N MEAN CELL HGB CONCETRATION (test 31.9 G/DL 32.7-35.1 L code = MCHC) RED CELL DISTRIBUTION WIDTH 13.5 % 12.2-16.4 N (test code = RDW) RED CELL DISTRIBUTION WIDTH 54.5 fL 35.1-43.9 H (test code = RDW-SD) PLATELET COUNT (test code = PLT) 280 K/mm3 155-337 N MEAN PLATELET VOLUME (test code 10.9 fL 7.6-10.4 H = MPV) GRANULOCYTE % (test code = GR%) 78.5 % 37.8-82.6 N IMMATURE GRANULOCYTE % (test 1.6 % 0.0-2.0 N code = IG%) LYMPHOCYTE % (test code = LY%) 10.3 % 14.1-45.4 L MONOCYTE % (test code = MO%) 8.0 % 2.5-11.7 N EOSINOPHIL % (test code = EO%) 1.4 % 0.0-6.2 N BASOPHIL % (test code = BA%) 0.2 % 0.0-2.6 N NUCLEATED RBC % (test code = 0.0 /100WBC% 0.0-1.0 N NRBC%) GRANULOCYTE # (test code = GR#) 13.86 k/mm3 2.0-13.7 H IMMATURE GRANULOCYTE # (test 0.28 K/mm3 0.00-0.03 H code = IG#) LYMPHOCYTE # (test code = LY#) 1.81 K/mm3 0.6-3.8 N MONOCYTE # (test code = MO#) 1.42 K/mm3 0.11-0.59 H EOSINOPHIL # (test code = EO#) 0.24 K/mm3 0.0-0.4 N BASOPHIL # (test code = BA#) 0.03 K/mm3 0.0-0.1 N NUCLEATED RBC # (test code = 0.00 K/mm3 0.00-0.05 N NRBC#) GLUCOSE BEDSIDE [id number] 00:12:00 Test Item Value Reference Range Interpretation Comments GLUCOSE BEDSIDE TESTING (test code = 95 MG/DL 70-119 N GLUBED) GLUCOSE BEDSIDE [id number] 18:26:00 Test Item Value Reference Range Interpretation Comments GLUCOSE BEDSIDE TESTING (test code 109 MG/DL 70-119 N = GLUBED) - CT ANGIO [id number] 15:17:00 Patient Name: SIDNEY HALL Unit No: [id number] EXAMS: CPT CODE: [id number] CT ANGIO CHEST 19387 Examination: CTA chest with contrast. Location code: 60. TECHNIQUE: Multiple axial images of the chest were obtained after intravenous administration of contrast with sagittal and coronal reconstructions. MIP images were obtained in the sagittal and coronal format. CT examination was performed usingautomated dose reduction. 100 mL of Isovue-370 contrast was injected intravenously. Creatinine measures 0.69. GFR measures 139. Discussion: Clinical history significant for shortness of breath. There is an excellent contrast bolus. No filling defects are identified within the main pulmonary artery, right pulmonary artery, left pulmonary artery or their first-order branches to suggest the presence of p ulmonary embolism. However filling defect is identified in the distal branch of a right lower lobe branch of the right lung suspicious for a small embolism. A triangular-shaped densities identified just adjacent to this filling defect suggest the presence of a small infarct in the right lower lobe. Noenlarged mediastinal, hilar or axillary lymphadenopathy is noted. Confluent areas of atelectasis areidentified in both lower lobes. Small pleural effusions are present as well. The remainder the lungsare unremarkable. No pulmonary masses are identified. Images through the upper abdomen are grossly unremarkable. IMPRESSION: 1. Findings suspicious for small pulmonary embolism involving the distal branches of a right lower lobe pulmonary artery just adjacent and area of triangular opacification suspicious for pulmonary infarct. 2. Confluent areas of atelectasis are identified in both lower lobes associated with small pleural effusions. at 1517 Reported and signed by: Aakash Peralta MD CC: Fransico Boogie MD; Mark Sagastume MD; Sindi Gomez Dictated Date/Time: 03/31/2020 (8857) Technologist: Trinidad Farris CTDI: 17.61 DLP: 427.21 Trnscrpt: 03/31/2020 (1517) [email or web address] EARNESTINE Schaffer NAME: SIDNEY HALL [facility] : 1970 AGE: 49 SEX: [place] [id number] LOC: [id number] D PHONE #: [phone] EXAM DATE: 03/31/2020 STATUS: ADM IN FAX #: [phone] RAD #: D/C DT PAGE 1 Signed Report Patient Name: SIDNEY HALL Unit No: [id number] EXAMS: CPT CODE: [id number] CT ANGIO CHEST [id number] (Continued) Orig Print D/T: S: 03/31/2020 (1520) EARNESTINE Schaffer NAME: SIDNEY HALL [facility] [facility] 1970 AGE: 49 SEX: [place] [address] LOC: B.CCU32 D PHONE #: [phone] EXAM DATE: 03/31/2020 STATUS: ADM IN FAX #: [phone] RAD #: D/C DT PAGE 2 Signed Report GLUCOSE BEDSIDE [id number] 11:50:00 Test Item Value Reference Range Interpretation Comments GLUCOSE BEDSIDE TESTING (test code 121 MG/DL 70-119 H = GLUBED) - XR CHEST 1 [id number] 11:00:00 FAX: Fransico Begum MD [phone] [place]: C St: ADM FAX: Mark Levi [facility] Chintan [phone] FAX: Sindi Cedillo [phone] FAX: Carina Francis MD [phone] Patient Name: SIDNEY HALL Unit No: [id number] EXAMS: CPT CODE: [id number] XR CHEST 1 V [id number] EXAM: - XR CHEST 1 V Location: W1 HISTORY: Ventilated patient COMPARISON: 03/30/2020 FINDINGS: Frontal view of the chest is submitted. Endotracheal tube, enteric tube, and right-sided central venous catheter are unchanged. Stable cardiomegaly is seen. Mild basilar opacities blunting the CP angles persist. There is no new consolidation. No pneumothorax is seen. The osseous structures are unremarkable. IMPRESSION: 1. Unchanged trace effusions withcardiomegaly. 2. Stable support lines and tubes. at 1100 Reported and signed by: Renata Florez MD CC: Fransico Boogie MD; Mark Sagastume MD; Snidi Gomez Dictated Date/Time: 03/31/2020 (1100)Technologist: Collette Springer Transcribed Date/Time: 03/31/2020 (1100) By: [email or web address] Orig Print D/T: S: 03/31/2020 (1105) EARNESTINE Schaffer NAME: SIDNEY HALL MED[facility] PHYS: Mark De La Cruz [address] [place] [address] BLVD : 1970 AGE: 49 SEX: Chintan [place], [place] [address] LOC: Herman.CCU32 D PHONE #: [phone] EXAM DATE: 03/31/2020 STATUS: ADM IN FAX #: [phone] RAD NO: DC Dt: PAGE 1 Signed ReportVANCOMYCIN [id number] 09:31:00 Test Item Value Reference Range Interpretation Comments VANCOMYCIN TROUGH 17.5 mcG/ML 10-20 N (test code = VANCT) -------- VANCO MYCIN TROUGH MONITORI NG GOALS:. Vancomy ana paula trough should b e obtained prior to 4th dose with Q 8H and Q 12H intervals.. Vancomycin trou gh should be obtai mayra prior to 3rd do se with Q 24H and Q 48H intervals.. Vancomycin peak s are not recommended for routine monitoring.---- ------ ----- ------ Indication Trou gh Goal (mcg/mL)------- ------ -- ------ Bacteremia, Endocarditis, 1 5-20 Osteomyelitis, MRSA pneumonia, heal thcare acquired pneumo mauro, meningitis, cul tures with NILAM of 2 f or Vancomycin----- ------ ------ ------ Cellulitis, emp irical coverage 05-30 ------ - ------ UTI, pediatric patient 05-30 ------ - ------ Renal Function Note - Serum creatinin e and blood urea nitr ogen should be monit ored at baseline and every 48H while on Vancomycin. BASIC METABOLIC [id number] 04:28:00 Test Item Value Reference Range Interpretation Comments SODIUM (test code = 142.0 mmol/L 133-144 N NA) POTASSIUM (test code 3.9 mmol/L 3.5-5.1 N = K) CHLORIDE (test code 106 mmol/L 95-105 H = CL) CARBON DIOXIDE (test 32 mmol/L 21-32 N code = CO2) ANION GAP (test code 4.0 GAP calc 4.0-15.0 N = GAP) GLUCOSE (test code = 152 MG/DL 70-110 H GLU) BLOOD UREA NITROGEN 30 MG/DL 7-18 H (test code = BUN) CREATININE (test 0.65 MG/DL 0.55-1.30 N Results may be code = CREAT) depressed if patient is takingN-Acetylc yste ine (NAC) and Metamizole (Dipyrone). CALCIUM (test code = 8.9 MG/DL 8.5-10.1 N CA) INDEX HEMOLYSIS 1 NORMAL <10 MG 1 NORMAL (test code = Index/DL HEMINDEX) INDEX ICTERIC (test 1 NORMAL <2 MG 1 NORMAL code = ICTINDEX) Index/DL INDEX LIPEMIA (test 1 NORMAL <50 MG 1 NORMAL code = LIPINDEX) Index/DL BASIC METABOLIC [id number] 04:27:00 Test Item Value Reference Range Interpretation Comments SODIUM (test code = NA) 142.0 mmol/L 133-144 N POTASSIUM (test code = K) 3.9 mmol/L 3.5-5.1 N CHLORIDE (test code = CL) 106 mmol/L 95-105 H CARBON DIOXIDE (test code 32 mmol/L 21-32 N = CO2) ANION GAP (test code = 4.0 GAP calc 4.0-15.0 N GAP) GLUCOSE (test code = GLU) 152 MG/DL 70-110 H BLOOD UREA NITROGEN (test 30 MG/DL 7-18 H code = BUN) CREATININE (test code = MG/DL 0.55-1.30 CREAT) CALCIUM (test code = CA) 8.9 MG/DL 8.5-10.1 N INDEX HEMOLYSIS (test 1 NORMAL <10 MG 1 NORMAL code = HEMINDEX) Index/DL INDEX ICTERIC (test code 1 NORMAL <2 MG 1 NORMAL = ICTINDEX) Index/DL INDEX LIPEMIA (test code 1 NORMAL <50 MG 1 NORMAL = LIPINDEX) Index/DL ARTERIAL BLOOD [id number] 03:26:00 Test Item Value Reference Range Interpretation Comments ARTERIAL BLOOD GAS 7.48 pH units 7.35-7.45 H PH (test code = PHA) ARTERIAL BLOOD GAS 43 mmHg 35-45 N PCO2 (test code = PCO2A) ARTERIAL BLOOD GAS 58 mmHg 80-100 LL ON AT PO2 (test code = 0325, B.CPS .MTM1 PO2A) CALLED TO VINAYAK DAWSON RN . The report was confirmed by re ad back protocols Y,N: Y. BICARBONATE TOTAL 32.2 mmol/L 22.0-26.0 H HCO3 (test code = HCO3) BASE EXCESS (test 8.7 mmol/L -3.0-3.0 H code = REX) FIO2 (test code = 65 % (calc) 21-100 N FIO2A) MODALITY (test code CMV COMMENT DESCRIPTION = MOD) ABG PATIENT RESP 18 /MIN PT RespRate RATE (test code = RRPATA) ABG TIDAL VOLUME 600 ML (test code = TVA) ABG PEEP (test code 5.0 cm H20 0.0-99.9 = PEEPA) ABG SITE (test code RT RADIAL ARTKIT DESCRIPTION = SITEA) MODIFIED ANICETO'S POSITIVE Circ.CHK POSITIVE (test code = MODALL) O2 SATURATION (test 92 % (calc) 95-100 L code = O2S/C) GLUCOSE BEDSIDE [id number] 00:12:00 Test Item Value Reference Range Interpretation Comments GLUCOSE BEDSIDE TESTING (test code 159 MG/DL 70-119 H = GLUBED) GLUCOSE BEDSIDE [id number] 00:12:00 Test Item Value Reference Range Interpretation Comments GLUCOSE BEDSIDE TESTING (test code 159 MG/DL 70-119 H = GLUBED) GLUCOSE BEDSIDE [id number] 17:13:00 Test Item Value Reference Range Interpretation Comments GLUCOSE BEDSIDE TESTING (test code 150 MG/DL 70-119 H = GLUBED) VANCOMYCIN [id number] 17:12:00 Test Item Value Reference Range Interpretation Comments VANCOMYCIN TROUGH 13.2 mcG/ML 10-20 N (test code = VANCT) -------- VANCO MYCIN TROUGH MONITORI NG GOALS:. Vancomy ana paula trough should b e obtained prior to 4th dose with Q 8H and Q 12H intervals.. Vancomycin trou gh should be obtai mayra prior to 3rd do se with Q 24H and Q 48H intervals.. Vancomycin peak s are not recommended for routine monitoring.---- ------ ----- ------ Indication Trou gh Goal (mcg/mL)------- ------ -- ------ Bacteremia, Endocarditis, 1 5-20 Osteomyelitis, MRSA pneumonia, heal thcare acquired pneumo mauro, meningitis, cul tures with NILAM of 2 f or Vancomycin----- ------ ------ ------ Cellulitis, emp irical coverage 05-30 ------ - ------ UTI, pediatric patient 05-30 ------ - ------ Renal Function Note - Serum creatinin e and blood urea nitr ogen should be monit ored at baseline and every 48H while on Vancomycin. GLUCOSE BEDSIDE [id number] 11:27:00 Test Item Value Reference Range Interpretation Comments GLUCOSE BEDSIDE TESTING (test code = 92 MG/DL 70-119 N GLUBED) - XR CHEST 1 [id number] 11:22:00 FAX: Fransico Begum MD [phone] [place]: C St: ADM FAX: Mark Levi [phone] FAX: Sindi Cedillo [phone] FAX: Carina Francis MD [phone] Patient Name: SIDNEY HALL Unit No: [id number] EXAMS: CPT CODE: [id number] XR CHEST 1 V [id number] EXAM: - XR CHEST 1 V Location: H49 HISTORY: Continued patient COMPARISON: 03/28/2020 FINDINGS: Frontal view of the chest is submitted. Endotrachealtube, enteric tube, and right-sided central venous catheter are unchanged. Stable Cardiomegaly is seen. Basilar opacities blunting the CP angles persist. There is no new consolidation. No pneumothorax is seen. The osseous structures are unremarkable. IMPRESSION: 1. Unchanged trace effusions with cardiomegaly. 2. Stable support lines and tubes. at 1122 Reported and signed by: Renata Florez MD CC: Fransico Boogie MD; Mark Sagastume MD; Sindi Gomez Dictated Date/Time: 03/30/2020 (112)Technologist:Leo Goodwin Transcribed Date/Time: 03/30/2020 (112) By: [email or web address] Orig Print D/T: S: 03/30/2020 (1125) [facility] Sarbjit NAME: SIDNEY HALL MEDICAL IMAGING PHYS: Mark De La Cruz [address] [place] [address] : 1970 AGE: 49 SEX: Chintan [place], [place] [address] LOC: B.CCU32 D PHONE #: [phone] EXAM DATE: 03/30/2020 STATUS: ADM IN FAX #: [phone] RAD NO: DC Dt: PAGE 1 Signed ReportCOMPREHENSIVE METABOLIC [id number] 11:01:00 Test Item Value Reference Range Interpretation Comments SODIUM (test code = 142.0 mmol/L 133-144 N NA) POTASSIUM (test code 3.3 mmol/L 3.5-5.1 L = K) CHLORIDE (test code 106 mmol/L 95-105 H = CL) CARBON DIOXIDE (test 35 mmol/L 21-32 H code = CO2) ANION GAP (test code 1.0 GAP calc 4.0-15.0 L = GAP) GLUCOSE (test code = 134 MG/DL 70-110 H GLU) BLOOD UREA NITROGEN 31 MG/DL 7-18 H (test code = BUN) GLOMERULAR 139 estGFR >60 The estimated FILTRATION RATE glomerular (test code = GFR) filtration rate is computed usingpatient ra ce, age, sex, and s juju creatinine. If any of theneeded da ta elements are mi ssing the Laboratory can notcompute an estimation of t he glomerular filtration rate .The GFR value units = ml/min/1.73 met er squared. EstimatedGFR va lues above 60 should be interpreted as >60, not anexact number.--- DRUG DOSAGE ALERT -- - Drug dosage adjustments uti lize different calculationpara meter s. CREATININE (test 0.61 MG/DL 0.55-1.30 N Results may be code = CREAT) depressed if p atient is takingN-Acetylc ystei ne (NAC) and Metamizole (Dipyrone). TOTAL PROTEIN (test 6.5 G/DL 6.4-8.2 N code = PROT) ALBUMIN (test code = 3.6 G/DL 3.4-5.0 N ALB) ALBUMIN/GLOBULIN 1.2 RATIO 1.2-2.2 N RATIO (test code = A/G) CALCIUM (test code = 8.5 MG/DL 8.5-10.1 N CA) BILIRUBIN TOTAL 0.82 MG/DL 0.00-1.00 N (test code = BILT) BILIRUBIN DIRECT 0.39 MG/DL 0.00-0.30 H (test code = BILD) BILIRUBIN INDIRECT 0.43 MG/DL 0.2-1.3 N (test code = BILIND) SGOT/AST (test code 25 Unit/L 15-37 N = AST) SGPT/ALT (test code 45 Unit/L 12-78 N = ALT) ALKALINE PHOSPHATASE 55 Unit/L 45-117 N TOTAL (test code = ALKP) INDEX HEMOLYSIS 1 NORMAL <10 1 NORMAL (test code = MG Index/DL HEMINDEX) INDEX ICTERIC (test 1 NORMAL <2 MG 1 NORMAL code = ICTINDEX) Index/DL INDEX LIPEMIA (test 1 NORMAL <50 1 NORMAL code = LIPINDEX) MG Index/DL [id number] 11:01:00 Test Item Value Reference Range Interpretation Comments AMYLASE (test code = JAMAAL) 42 Unit/L 25-115 N [id number] 11:01:00 Test Item Value Reference Range Interpretation Comments LIPASE (test code = LIP) 150 Unit/L 114-286 N COMPREHENSIVE METABOLIC [id number] 10:57:00 Test Item Value Reference Range Interpretation Comments SODIUM (test code = NA) 142.0 mmol/L 133-144 N POTASSIUM (test code = K) 3.3 mmol/L 3.5-5.1 L CHLORIDE (test code = CL) 106 mmol/L 95-105 H CARBON DIOXIDE (test code 35 mmol/L 21-32 H = CO2) ANION GAP (test code = 1.0 GAP calc 4.0-15.0 L GAP) GLUCOSE (test code = GLU) 134 MG/DL 70-110 H BLOOD UREA NITROGEN (test 31 MG/DL 7-18 H code = BUN) CREATININE (test code = MG/DL 0.55-1.30 CREAT) TOTAL PROTEIN (test code G/DL 6.4-8.2 = PROT) ALBUMIN (test code = ALB) 3.6 G/DL 3.4-5.0 N ALBUMIN/GLOBULIN RATIO RATIO 1.2-2.2 (test code = A/G) CALCIUM (test code = CA) 8.5 MG/DL 8.5-10.1 N BILIRUBIN TOTAL (test MG/DL 0.00-1.00 code = BILT) BILIRUBIN DIRECT (test MG/DL 0.00-0.30 code = BILD) BILIRUBIN INDIRECT (test MG/DL 0.2-1.3 code = BILIND) SGOT/AST (test code = Unit/L 15-37 AST) SGPT/ALT (test code = Unit/L 12-78 ALT) ALKALINE PHOSPHATASE Unit/L 45-117 TOTAL (test code = ALKP) INDEX HEMOLYSIS (test 1 NORMAL <10 MG 1 NORMAL code = HEMINDEX) Index/DL INDEX ICTERIC (test code 1 NORMAL <2 MG 1 NORMAL = ICTINDEX) Index/DL INDEX LIPEMIA (test code 1 NORMAL <50 MG 1 NORMAL = LIPINDEX) Index/DL [id number] 10:57:00 Test Item Value Reference Range Interpretation Comments AMYLASE (test code = JAMAAL) 42 Unit/L 25-115 N [id number] 10:57:00 Test Item Value Reference Range Interpretation Comments LIPASE (test code = LIP) 150 Unit/L 114-286 N BASIC METABOLIC [id number] 05:24:00 Test Item Value Reference Range Interpretation Comments SODIUM (test code = 143.0 mmol/L 133-144 N NA) POTASSIUM (test code 3.3 mmol/L 3.5-5.1 L = K) CHLORIDE (test code 105 mmol/L 95-105 N = CL) CARBON DIOXIDE (test 34 mmol/L 21-32 H code = CO2) ANION GAP (test code 4.0 GAP calc 4.0-15.0 N = GAP) GLUCOSE (test code = 164 MG/DL 70-110 H GLU) BLOOD UREA NITROGEN 35 MG/DL 7-18 H (test code = BUN) CREATININE (test 0.72 MG/DL 0.55-1.30 N Results may be code = CREAT) depressed if patient is takingN-Acetylc yste ine (NAC) and Metamizole (Dipyrone). CALCIUM (test code = 9.0 MG/DL 8.5-10.1 N CA) INDEX HEMOLYSIS 1 NORMAL <10 MG 1 NORMAL (test code = Index/DL HEMINDEX) INDEX ICTERIC (test 1 NORMAL <2 MG 1 NORMAL code = ICTINDEX) Index/DL INDEX LIPEMIA (test 1 NORMAL <50 MG 1 NORMAL code = LIPINDEX) Index/DL BASIC METABOLIC [id number] 05:20:00 Test Item Value Reference Range Interpretation Comments SODIUM (test code = NA) 143.0 mmol/L 133-144 N POTASSIUM (test code = K) 3.3 mmol/L 3.5-5.1 L CHLORIDE (test code = CL) 105 mmol/L 95-105 N CARBON DIOXIDE (test code mmol/L 21-32 = CO2) ANION GAP (test code = GAP calc 4.0-15.0 GAP) GLUCOSE (test code = GLU) MG/DL 70-110 BLOOD UREA NITROGEN (test MG/DL 7-18 code = BUN) CREATININE (test code = MG/DL 0.55-1.30 CREAT) CALCIUM (test code = CA) MG/DL 8.5-10.1 INDEX HEMOLYSIS (test 1 NORMAL <10 MG 1 NORMAL code = HEMINDEX) Index/DL INDEX ICTERIC (test code 1 NORMAL <2 MG 1 NORMAL = ICTINDEX) Index/DL INDEX LIPEMIA (test code 1 NORMAL <50 MG 1 NORMAL = LIPINDEX) Index/DL ARTERIAL BLOOD [id number] 04:51:00 Test Item Value Reference Range Interpretation Comments ARTERIAL BLOOD GAS 7.49 pH units 7.35-7.45 H PH (test code = PHA) ARTERIAL BLOOD GAS 46 mmHg 35-45 H PCO2 (test code = PCO2A) ARTERIAL BLOOD GAS 50 mmHg 80-100 LL ON AT PO2 (test code = 0450, B.CPS .MTM1 PO2A) CALLED TO KEMI CASTANON RN. The report was confirmed by re ad back protocols Y,N: Y. BICARBONATE TOTAL 34.5 mmol/L 22.0-26.0 H HCO3 (test code = HCO3) BASE EXCESS (test 11.2 mmol/L -3.0-3.0 H code = REX) FIO2 (test code = 55 % (calc) 21-100 N FIO2A) MODALITY (test code CMV COMMENT DESCRIPTION = MOD) ABG PATIENT RESP 18 /MIN PT RespRate RATE (test code = RRPATA) ABG TIDAL VOLUME 600 ML (test code = TVA) ABG PEEP (test code 5.0 cm H20 0.0-99.9 = PEEPA) ABG SITE (test code RT RADIAL ARTKIT DESCRIPTION = SITEA) MODIFIED ANICETO'S POSITIVE Circ.CHK POSITIVE (test code = MODALL) O2 SATURATION (test 87 % (calc) 95-100 L code = O2S/C) CAMPUS: CIs this a LINE draw? NGLUCOSE BEDSIDE [id number] 04:48:00 Test Item Value Reference Range Interpretation Comments GLUCOSE BEDSIDE TESTING (test code 176 MG/DL 70-119 H = GLUBED) GLUCOSE BEDSIDE [id number] 20:26:00 Test Item Value Reference Range Interpretation Comments GLUCOSE BEDSIDE TESTING (test code 192 MG/DL 70-119 H = GLUBED) GLUCOSE BEDSIDE [id number] 16:41:00 Test Item Value Reference Range Interpretation Comments GLUCOSE BEDSIDE TESTING (test code 161 MG/DL 70-119 H = GLUBED) GLUCOSE BEDSIDE [id number] 12:15:00 Test Item Value Reference Range Interpretation Comments GLUCOSE BEDSIDE TESTING (test code 181 MG/DL 70-119 H = GLUBED) BASIC METABOLIC [id number] 09:33:00 Test Item Value Reference Range Interpretation Comments SODIUM (test code = 143.0 mmol/L 133-144 N NA) POTASSIUM (test code 3.3 mmol/L 3.5-5.1 L = K) CHLORIDE (test code 104 mmol/L 95-105 N = CL) CARBON DIOXIDE (test 35 mmol/L 21-32 H code = CO2) ANION GAP (test code 4.0 GAP calc 4.0-15.0 N = GAP) GLUCOSE (test code = 159 MG/DL 70-110 H GLU) BLOOD UREA NITROGEN 39 MG/DL 7-18 H (test code = BUN) CREATININE (test 0.75 MG/DL 0.55-1.30 N Results may be code = CREAT) depressed if patient is takingN-Acetylc yste ine (NAC) and Metamizole (Dipyrone). CALCIUM (test code = 8.9 MG/DL 8.5-10.1 N CA) INDEX HEMOLYSIS 4 SMALL 50-200 1 NORMAL A (test code = MG Index/DL HEMINDEX) INDEX ICTERIC (test 1 NORMAL <2 MG 1 NORMAL code = ICTINDEX) Index/DL INDEX LIPEMIA (test 1 NORMAL <50 MG 1 NORMAL code = LIPINDEX) Index/DL CBC W/AUTO [id number] 09:07:00 Test Item Value Reference Range Interpretation Comments WHITE BLOOD CELL (test code = 16.1 K/mm3 4.1-12.1 H WBC) RED BLOOD CELL (test code = RBC) 3.34 M/mm3 3.8-5.5 L HEMOGLOBIN (test code = HGB) 11.5 G/DL 10.6-15.8 N HEMATOCRIT (test code = HCT) 36.5 % 31.8-47.4 N MEAN CELL VOLUME (test code = 109.3 fL 80.1-101.1 H MCV) MEAN CELL HGB (test code = MCH) 34.4 pg 25.3-35.3 N MEAN CELL HGB CONCETRATION (test 31.5 G/DL 32.7-35.1 L code = MCHC) RED CELL DISTRIBUTION WIDTH 13.9 % 12.2-16.4 N (test code = RDW) RED CELL DISTRIBUTION WIDTH 56.2 fL 35.1-43.9 H (test code = RDW-SD) PLATELET COUNT (test code = PLT) 251 K/mm3 155-337 N MEAN PLATELET VOLUME (test code 10.8 fL 7.6-10.4 H = MPV) GRANULOCYTE % (test code = GR%) 87.8 % 37.8-82.6 H IMMATURE GRANULOCYTE % (test 1.9 % 0.0-2.0 N code = IG%) LYMPHOCYTE % (test code = LY%) 4.6 % 14.1-45.4 L MONOCYTE % (test code = MO%) 5.5 % 2.5-11.7 N EOSINOPHIL % (test code = EO%) 0.0 % 0.0-6.2 N BASOPHIL % (test code = BA%) 0.2 % 0.0-2.6 N NUCLEATED RBC % (test code = 0.0 /100WBC% 0.0-1.0 N NRBC%) GRANULOCYTE # (test code = GR#) 14.18 k/mm3 2.0-13.7 H IMMATURE GRANULOCYTE # (test 0.30 K/mm3 0.00-0.03 H code = IG#) LYMPHOCYTE # (test code = LY#) 0.74 K/mm3 0.6-3.8 N MONOCYTE # (test code = MO#) 0.88 K/mm3 0.11-0.59 H EOSINOPHIL # (test code = EO#) 0.00 K/mm3 0.0-0.4 N BASOPHIL # (test code = BA#) 0.03 K/mm3 0.0-0.1 N NUCLEATED RBC # (test code = 0.00 K/mm3 0.00-0.05 N NRBC#) ARTERIAL BLOOD [id number] 03:41:00 Test Item Value Reference Range Interpretation Comments ARTERIAL BLOOD GAS 7.49 pH units 7.35-7.45 H PH (test code = PHA) ARTERIAL BLOOD GAS 47 mmHg 35-45 H PCO2 (test code = PCO2A) ARTERIAL BLOOD GAS 49 mmHg 80-100 LL ON AT PO2 (test code = 0341, B.CPS .MTM1 PO2A) CALLED TO KEMI CASTANON RN. The report was confirmed by re ad back protocols Y,N: Y. BICARBONATE TOTAL 35.7 mmol/L 22.0-26.0 H HCO3 (test code = HCO3) BASE EXCESS (test 12.4 mmol/L -3.0-3.0 H code = REX) FIO2 (test code = 55 % (calc) 21-100 N FIO2A) MODALITY (test code CMV COMMENT DESCRIPTION = MOD) ABG PATIENT RESP 18 /MIN PT RespRate RATE (test code = RRPATA) ABG TIDAL VOLUME 600 ML (test code = TVA) ABG PEEP (test code 5.0 cm H20 0.0-99.9 = PEEPA) ABG SITE (test code RT RADIAL ARTKIT DESCRIPTION = SITEA) MODIFIED ANICETO'S POSITIVE Circ.CHK POSITIVE (test code = MODALL) O2 SATURATION (test 87 % (calc) 95-100 L code = O2S/C) HOLD IN OE? NCAMPUS: CGLUCOSE BEDSIDE [id number] 20:44:00 Test Item Value Reference Range Interpretation Comments GLUCOSE BEDSIDE TESTING (test code 176 MG/DL 70-119 H = GLUBED) GLUCOSE BEDSIDE [id number] 14:28:00 Test Item Value Reference Range Interpretation Comments GLUCOSE BEDSIDE TESTING (test code 101 MG/DL 70-119 N = GLUBED) - XR CHEST 1 [id number] 07:22:00 FAX: Hossein Bradley MD [phone] [place]: C St: ADM FAX: Sindi Cedillo [phone] FAX: Lorene Rodgers MD [phone] FAX: Carina Francis MD [phone] Patient Name: SIDNEY HALL Unit No: [id number] EXAMS: CPT CODE: [id number] XR CHEST 1 V [id number] EXAM: - XR CHEST 1 V Location code:C3 HISTORY: respiratoryfailure COMPARISON: 03/25/2020 FINDINGS: Single AP view of the chest is provided. Endotracheal tube, enteric tube, and right-sided vascular catheter are unchanged. Cardiomegaly is seen. Basilar opacities blunting the CP angles persist. There is no new consolidation. No pneumothorax is seen. IMPRESSION: 1. Unchanged trace effusions with cardiomegaly. at 0722 Reported and signed by: Devaughn Martines M.D. CC: Kayla PEREZ; Sindi Gomez Dictated Date/Time: 03/28/2020 (721)Technologist: Leo Goodwin Transcribed Date/Time: 03/28/2020 (721) By: [email or web address] Orig Print D/T: S: 03/28/2020 (725) EARNESTINE Sarbjit NAME: SIDNEY HALL [facility] PHYS: Hossein Higuera MD [address] [place] [address] BLVD : 1970 AGE: 49 SEX: Chintan [place], [place] [address] LOC: Herman.CCU32 D PHONE #: [phone] EXAM DATE: 03/28/2020 STATUS: ADM IN FAX #: [phone] RAD NO: DC Dt: PAGE 1 Signed ReportCBC W/MANUAL DIFF 2020-03-28 07:11:00 Test Item Value Reference Range Interpretation Comments WHITE BLOOD CELL 12.0 K/mm3 4.1-12.1 N (test code = WBC) RED BLOOD CELL (test 3.35 M/mm3 3.8-5.5 L code = RBC) HEMOGLOBIN (test 11.4 G/DL 10.6-15.8 N code = HGB) HEMATOCRIT (test 35.6 % 31.8-47.4 N code = HCT) MEAN CELL VOLUME 106.3 fL 80.1-101.1 H (test code = MCV) MEAN CELL HGB (test 34.0 pg 25.3-35.3 N code = MCH) MEAN CELL HGB 32.0 G/DL 32.7-35.1 L CONCETRATION (test code = MCHC) RED CELL 14.2 % 12.2-16.4 N DISTRIBUTION WIDTH (test code = RDW) RED CELL 55.1 fL 35.1-43.9 H DISTRIBUTION WIDTH (test code = RDW-SD) PLATELET COUNT (test 268 K/mm3 155-337 N code = PLT) MEAN PLATELET VOLUME 11.0 fL 7.6-10.4 H (test code = MPV) GRANULOCYTE % (test 82.6 % 37.8-82.6 N code = GR%) IMMATURE GRANULOCYTE 5.2 % 0.0-2.0 H % (test code = IG%) LYMPHOCYTE % (test 5.4 % 14.1-45.4 L code = LY%) MONOCYTE % (test 6.5 % 2.5-11.7 N code = MO%) EOSINOPHIL % (test 0.1 % 0.0-6.2 N code = EO%) BASOPHIL % (test 0.2 % 0.0-2.6 N code = BA%) NUCLEATED RBC % 0.0 /100WBC% 0.0-1.0 N (test code = NRBC%) GRANULOCYTE # (test 9.88 k/mm3 2.0-13.7 N code = GR#) IMMATURE GRANULOCYTE 0.62 K/mm3 0.00-0.03 H # (test code = IG#) LYMPHOCYTE # (test 0.64 K/mm3 0.6-3.8 N code = LY#) MONOCYTE # (test 0.78 K/mm3 0.11-0.59 H code = MO#) EOSINOPHIL # (test 0.01 K/mm3 0.0-0.4 N code = EO#) BASOPHIL # (test 0.02 K/mm3 0.0-0.1 N code = BA#) NUCLEATED RBC # 0.00 K/mm3 0.00-0.05 N (test code = NRBC#) MANUAL DIFF REQUIRED MAN DIFF CRITERIA Previou sly (test code = MDIFF) INDICATED reported result: DIFF/SCN CRITERIA (SCAN) DIFF/SCNEdited by: MATTHEW on 20:0552 WBC [id number] 07:11:00 Test Item Value Reference Range Interpretation Comments TOTAL CELLS COUNTED (test code 100 #CELLS >100 = TCC) SEGMENTED NEUTROPHILS (test 86 % 40-75 H code = SEG) LYMPHOCYTE (test code = LYMPH) 6 % 12.6-43.5 L MONOCYTE (test code = MON) 5 % 4.2-12.7 N METAMYELOCYTE (test code = 2 % 0-2 N META) MYELOCYTE (test code = MYELO) 1 % 0-1 N HYPOCHROMIA (test code = HYPO) SLIGHT ON SCAN NONE ANISOCYTOSIS (test code = SLIGHT ON SCAN NONE ANISO) TOXIC GRANULATION (test code = SLIGHT ON SCAN NONE TOX) PLATELET ESTIMATE (test code = ADEQ ON SCAN ADEQUATE PLTEST) BASIC METABOLIC [id number] 06:12:00 Test Item Value Reference Range Interpretation Comments SODIUM (test code = 139.0 mmol/L 133-144 N NA) POTASSIUM (test code 5.1 mmol/L 3.5-5.1 N = K) CHLORIDE (test code 103 mmol/L 95-105 N = CL) CARBON DIOXIDE (test 35 mmol/L 21-32 H code = CO2) ANION GAP (test code 1.0 GAP calc 4.0-15.0 L = GAP) GLUCOSE (test code = 180 MG/DL 70-110 H GLU) BLOOD UREA NITROGEN 31 MG/DL 7-18 H (test code = BUN) CREATININE (test 0.64 MG/DL 0.55-1.30 N Results may be code = CREAT) depressed if patient is takingN-Acetylc yste ine (NAC) and Metamizole (Dipyrone). CALCIUM (test code = 9.0 MG/DL 8.5-10.1 N CA) INDEX HEMOLYSIS 5 MOD 200-300 1 NORMAL A (test code = MG Index/DL HEMINDEX) INDEX ICTERIC (test 1 NORMAL <2 MG 1 NORMAL code = ICTINDEX) Index/DL INDEX LIPEMIA (test 1 NORMAL <50 MG 1 NORMAL code = LIPINDEX) Index/DL CBC W/MANUAL [id number] 05:53:00 Test Item Value Reference Range Interpretation Comments WHITE BLOOD CELL 12.0 K/mm3 4.1-12.1 N (test code = WBC) RED BLOOD CELL (test 3.35 M/mm3 3.8-5.5 L code = RBC) HEMOGLOBIN (test 11.4 G/DL 10.6-15.8 N code = HGB) HEMATOCRIT (test 35.6 % 31.8-47.4 N code = HCT) MEAN CELL VOLUME 106.3 fL 80.1-101.1 H (test code = MCV) MEAN CELL HGB (test 34.0 pg 25.3-35.3 N code = MCH) MEAN CELL HGB 32.0 G/DL 32.7-35.1 L CONCETRATION (test code = MCHC) RED CELL 14.2 % 12.2-16.4 N DISTRIBUTION WIDTH (test code = RDW) RED CELL 55.1 fL 35.1-43.9 H DISTRIBUTION WIDTH (test code = RDW-SD) PLATELET COUNT (test 268 K/mm3 155-337 N code = PLT) MEAN PLATELET VOLUME 11.0 fL 7.6-10.4 H (test code = MPV) GRANULOCYTE % (test 82.6 % 37.8-82.6 N code = GR%) IMMATURE GRANULOCYTE 5.2 % 0.0-2.0 H % (test code = IG%) LYMPHOCYTE % (test 5.4 % 14.1-45.4 L code = LY%) MONOCYTE % (test 6.5 % 2.5-11.7 N code = MO%) EOSINOPHIL % (test 0.1 % 0.0-6.2 N code = EO%) BASOPHIL % (test 0.2 % 0.0-2.6 N code = BA%) NUCLEATED RBC % 0.0 /100WBC% 0.0-1.0 N (test code = NRBC%) GRANULOCYTE # (test 9.88 k/mm3 2.0-13.7 N code = GR#) IMMATURE GRANULOCYTE 0.62 K/mm3 0.00-0.03 H # (test code = IG#) LYMPHOCYTE # (test 0.64 K/mm3 0.6-3.8 N code = LY#) MONOCYTE # (test 0.78 K/mm3 0.11-0.59 H code = MO#) EOSINOPHIL # (test 0.01 K/mm3 0.0-0.4 N code = EO#) BASOPHIL # (test 0.02 K/mm3 0.0-0.1 N code = BA#) NUCLEATED RBC # 0.00 K/mm3 0.00-0.05 N (test code = NRBC#) MANUAL DIFF REQUIRED MAN DIFF CRITERIA Previou sly (test code = MDIFF) INDICATED reported result: DIFF/SCN CRITERIA (SCAN) DIFF/SCNEdited by: MATTHEW on 20:0552 DIFFERENTIAL [id number] 05:53:00 Test Item Value Reference Range Interpretation Comments MORPHOLOGY COMMENT (test code = MOC) ON SCAN NORMAL RBCS PLATELET ESTIMATE (test code = ON SCAN ADEQUATE PLTEST) WBC [id number] 05:53:00 Test Item Value Reference Range Interpretation Comments TOTAL CELLS COUNTED (test code = TCC) #CELLS >100 SEGMENTED NEUTROPHILS (test code = % 40-75 SEG) LYMPHOCYTE (test code = LYMPH) % 12.6-43.5 CBC W/MANUAL [id number] 05:53:00 Test Item Value Reference Range Interpretation Comments WHITE BLOOD CELL 12.0 K/mm3 4.1-12.1 N (test code = WBC) RED BLOOD CELL (test 3.35 M/mm3 3.8-5.5 L code = RBC) HEMOGLOBIN (test 11.4 G/DL 10.6-15.8 N code = HGB) HEMATOCRIT (test 35.6 % 31.8-47.4 N code = HCT) MEAN CELL VOLUME 106.3 fL 80.1-101.1 H (test code = MCV) MEAN CELL HGB (test 34.0 pg 25.3-35.3 N code = MCH) MEAN CELL HGB 32.0 G/DL 32.7-35.1 L CONCETRATION (test code = MCHC) RED CELL 14.2 % 12.2-16.4 N DISTRIBUTION WIDTH (test code = RDW) RED CELL 55.1 fL 35.1-43.9 H DISTRIBUTION WIDTH (test code = RDW-SD) PLATELET COUNT (test 268 K/mm3 155-337 N code = PLT) MEAN PLATELET VOLUME 11.0 fL 7.6-10.4 H (test code = MPV) GRANULOCYTE % (test 82.6 % 37.8-82.6 N code = GR%) IMMATURE GRANULOCYTE 5.2 % 0.0-2.0 H % (test code = IG%) LYMPHOCYTE % (test 5.4 % 14.1-45.4 L code = LY%) MONOCYTE % (test 6.5 % 2.5-11.7 N code = MO%) EOSINOPHIL % (test 0.1 % 0.0-6.2 N code = EO%) BASOPHIL % (test 0.2 % 0.0-2.6 N code = BA%) NUCLEATED RBC % 0.0 /100WBC% 0.0-1.0 N (test code = NRBC%) GRANULOCYTE # (test 9.88 k/mm3 2.0-13.7 N code = GR#) IMMATURE GRANULOCYTE 0.62 K/mm3 0.00-0.03 H # (test code = IG#) LYMPHOCYTE # (test 0.64 K/mm3 0.6-3.8 N code = LY#) MONOCYTE # (test 0.78 K/mm3 0.11-0.59 H code = MO#) EOSINOPHIL # (test 0.01 K/mm3 0.0-0.4 N code = EO#) BASOPHIL # (test 0.02 K/mm3 0.0-0.1 N code = BA#) NUCLEATED RBC # 0.00 K/mm3 0.00-0.05 N (test code = NRBC#) MANUAL DIFF REQUIRED MAN DIFF CRITERIA Previou mary kate (test code = MDIFF) INDICATED reported result: DIFF/SCN CRITERIA (SCAN) DIFF/SCNEdited by: MATTHEW on 20:0552 DIFFERENTIAL [id number] 05:53:00 Test Item Value Reference Range Interpretation Comments MORPHOLOGY COMMENT (test code = MOC) ON SCAN NORMAL RBCS PLATELET ESTIMATE (test code = ON SCAN ADEQUATE PLTEST) WBC [id number] 05:53:00 Test Item Value Reference Range Interpretation Comments TOTAL CELLS COUNTED (test code = TCC) #CELLS >100 SEGMENTED NEUTROPHILS (test code = % 40-75 SEG) LYMPHOCYTE (test code = LYMPH) % 12.6-43.5 CBC W/AUTO [id number] 05:52:00 Test Item Value Reference Range Interpretation Comments WHITE BLOOD CELL (test 12.0 K/mm3 4.1-12.1 N code = WBC) RED BLOOD CELL (test code 3.35 M/mm3 3.8-5.5 L = RBC) HEMOGLOBIN (test code = 11.4 G/DL 10.6-15.8 N HGB) HEMATOCRIT (test code = 35.6 % 31.8-47.4 N HCT) MEAN CELL VOLUME (test 106.3 fL 80.1-101.1 H code = MCV) MEAN CELL HGB (test code 34.0 pg 25.3-35.3 N = MCH) MEAN CELL HGB 32.0 G/DL 32.7-35.1 L CONCETRATION (test code = MCHC) RED CELL DISTRIBUTION 14.2 % 12.2-16.4 N WIDTH (test code = RDW) RED CELL DISTRIBUTION 55.1 fL 35.1-43.9 H WIDTH (test code = RDW-SD) PLATELET COUNT (test code 268 K/mm3 155-337 N = PLT) MEAN PLATELET VOLUME 11.0 fL 7.6-10.4 H (test code = MPV) GRANULOCYTE % (test code 82.6 % 37.8-82.6 N = GR%) IMMATURE GRANULOCYTE % 5.2 % 0.0-2.0 H (test code = IG%) LYMPHOCYTE % (test code = 5.4 % 14.1-45.4 L LY%) MONOCYTE % (test code = 6.5 % 2.5-11.7 N MO%) EOSINOPHIL % (test code = 0.1 % 0.0-6.2 N EO%) BASOPHIL % (test code = 0.2 % 0.0-2.6 N BA%) NUCLEATED RBC % (test 0.0 /100WBC% 0.0-1.0 N code = NRBC%) GRANULOCYTE # (test code 9.88 k/mm3 2.0-13.7 N = GR#) IMMATURE GRANULOCYTE # 0.62 K/mm3 0.00-0.03 H (test code = IG#) LYMPHOCYTE # (test code = 0.64 K/mm3 0.6-3.8 N LY#) MONOCYTE # (test code = 0.78 K/mm3 0.11-0.59 H MO#) EOSINOPHIL # (test code = 0.01 K/mm3 0.0-0.4 N EO#) BASOPHIL # (test code = 0.02 K/mm3 0.0-0.1 N BA#) NUCLEATED RBC # (test 0.00 K/mm3 0.00-0.05 N code = NRBC#) MANUAL DIFF REQUIRED CRITERIA (SCAN) CRITERIA (test code = MDIFF) DIFF/SCN DIFFERENTIAL [id number] 05:52:00 Test Item Value Reference Range Interpretation Comments MORPHOLOGY COMMENT (test code = MOC) ON SCAN NORMAL RBCS PLATELET ESTIMATE (test code = ON SCAN ADEQUATE PLTEST) CBC W/AUTO [id number] 05:52:00 Test Item Value Reference Range Interpretation Comments WHITE BLOOD CELL (test 12.0 K/mm3 4.1-12.1 N code = WBC) RED BLOOD CELL (test code 3.35 M/mm3 3.8-5.5 L = RBC) HEMOGLOBIN (test code = 11.4 G/DL 10.6-15.8 N HGB) HEMATOCRIT (test code = 35.6 % 31.8-47.4 N HCT) MEAN CELL VOLUME (test 106.3 fL 80.1-101.1 H code = MCV) MEAN CELL HGB (test code 34.0 pg 25.3-35.3 N = MCH) MEAN CELL HGB 32.0 G/DL 32.7-35.1 L CONCETRATION (test code = MCHC) RED CELL DISTRIBUTION 14.2 % 12.2-16.4 N WIDTH (test code = RDW) RED CELL DISTRIBUTION 55.1 fL 35.1-43.9 H WIDTH (test code = RDW-SD) PLATELET COUNT (test code 268 K/mm3 155-337 N = PLT) MEAN PLATELET VOLUME 11.0 fL 7.6-10.4 H (test code = MPV) GRANULOCYTE % (test code 82.6 % 37.8-82.6 N = GR%) IMMATURE GRANULOCYTE % 5.2 % 0.0-2.0 H (test code = IG%) LYMPHOCYTE % (test code = 5.4 % 14.1-45.4 L LY%) MONOCYTE % (test code = 6.5 % 2.5-11.7 N MO%) EOSINOPHIL % (test code = 0.1 % 0.0-6.2 N EO%) BASOPHIL % (test code = 0.2 % 0.0-2.6 N BA%) NUCLEATED RBC % (test 0.0 /100WBC% 0.0-1.0 N code = NRBC%) GRANULOCYTE # (test code 9.88 k/mm3 2.0-13.7 N = GR#) IMMATURE GRANULOCYTE # 0.62 K/mm3 0.00-0.03 H (test code = IG#) LYMPHOCYTE # (test code = 0.64 K/mm3 0.6-3.8 N LY#) MONOCYTE # (test code = 0.78 K/mm3 0.11-0.59 H MO#) EOSINOPHIL # (test code = 0.01 K/mm3 0.0-0.4 N EO#) BASOPHIL # (test code = 0.02 K/mm3 0.0-0.1 N BA#) NUCLEATED RBC # (test 0.00 K/mm3 0.00-0.05 N code = NRBC#) MANUAL DIFF REQUIRED CRITERIA (SCAN) CRITERIA (test code = MDIFF) DIFF/SCN DIFFERENTIAL [id number] 05:52:00 Test Item Value Reference Range Interpretation Comments MORPHOLOGY COMMENT (test code = MOC) ON SCAN NORMAL RBCS PLATELET ESTIMATE (test code = ON SCAN ADEQUATE PLTEST) GLUCOSE BEDSIDE [id number] 05:27:00 Test Item Value Reference Range Interpretation Comments GLUCOSE BEDSIDE TESTING (test code 191 MG/DL 70-119 H = GLUBED) ARTERIAL BLOOD [id number] 03:27:00 Test Item Value Reference Range Interpretation Comments ARTERIAL BLOOD GAS PH (test 7.51 pH units 7.35-7.45 H code = PHA) ARTERIAL BLOOD GAS PCO2 46 mmHg 35-45 H (test code = PCO2A) ARTERIAL BLOOD GAS PO2 62 mmHg 80-100 L (test code = PO2A) BICARBONATE TOTAL HCO3 36.4 mmol/L 22.0-26.0 H (test code = HCO3) BASE EXCESS (test code = 13.3 mmol/L -3.0-3.0 H REX) FIO2 (test code = FIO2A) 75 % (calc) 21-100 N MODALITY (test code = MOD) CMV COMMENT DESCRIPTION ABG PATIENT RESP RATE (test 18 /MIN PT RespRate code = RRPATA) ABG TIDAL VOLUME (test code 700 ML = TVA) ABG PEEP (test code = 7.0 cm H20 0.0-99.9 PEEPA) ABG SITE (test code = RT RADIAL ARTKIT DESCRIPTION SITEA) MODIFIED ANICETO'S (test code POSITIVE Circ.CHK POSITIVE = MODALL) O2 SATURATION (test code = 94 % (calc) 95-100 L O2S/C) HOLD IN OE? NCAMPUS: CGLUCOSE BEDSIDE [id number] 20:30:00 Test Item Value Reference Range Interpretation Comments GLUCOSE BEDSIDE TESTING (test code 157 MG/DL 70-119 H = GLUBED) GLUCOSE BEDSIDE [id number] 14:53:00 Test Item Value Reference Range Interpretation Comments GLUCOSE BEDSIDE TESTING (test code 147 MG/DL 70-119 H = GLUBED) GLUCOSE BEDSIDE [id number] 12:32:00 Test Item Value Reference Range Interpretation Comments GLUCOSE BEDSIDE TESTING (test code 174 MG/DL 70-119 H = GLUBED) [id number] 11:14:00 Test Item Value Reference Range Interpretation Comments AMMONIA (test code = AMM) 15.0 mcMOL/L 11.0-32.0 N GLUCOSE BEDSIDE [id number] 08:20:00 Test Item Value Reference Range Interpretation Comments GLUCOSE BEDSIDE TESTING (test code 163 MG/DL 70-119 H = GLUBED) CBC W/MANUAL [id number] 07:00:00 Test Item Value Reference Range Interpretation Comments WHITE BLOOD CELL (test 13.4 K/mm3 4.1-12.1 H code = WBC) RED BLOOD CELL (test 3.44 M/mm3 3.8-5.5 L code = RBC) HEMOGLOBIN (test code = 11.6 G/DL 10.6-15.8 N HGB) HEMATOCRIT (test code = 37.6 % 31.8-47.4 N HCT) MEAN CELL VOLUME (test 109.3 fL 80.1-101.1 H code = MCV) MEAN CELL HGB (test code 33.7 pg 25.3-35.3 N = MCH) MEAN CELL HGB 30.9 G/DL 32.7-35.1 L CONCETRATION (test code = MCHC) RED CELL DISTRIBUTION 14.6 % 12.2-16.4 N WIDTH (test code = RDW) RED CELL DISTRIBUTION 58.6 fL 35.1-43.9 H WIDTH (test code = RDW-SD) PLATELET COUNT (test 293 K/mm3 155-337 N code = PLT) MEAN PLATELET VOLUME 10.5 fL 7.6-10.4 H (test code = MPV) GRANULOCYTE % (test code 79.5 % 37.8-82.6 N = GR%) IMMATURE GRANULOCYTE % 7.7 % 0.0-2.0 H (test code = IG%) LYMPHOCYTE % (test code 4.4 % 14.1-45.4 L = LY%) MONOCYTE % (test code = 8.0 % 2.5-11.7 N MO%) EOSINOPHIL % (test code 0.0 % 0.0-6.2 N = EO%) BASOPHIL % (test code = 0.4 % 0.0-2.6 N BA%) NUCLEATED RBC % (test 0.0 /100WBC% 0.0-1.0 N code = NRBC%) GRANULOCYTE # (test code 10.69 k/mm3 2.0-13.7 N = GR#) IMMATURE GRANULOCYTE # 1.03 K/mm3 0.00-0.03 H (test code = IG#) LYMPHOCYTE # (test code 0.59 K/mm3 0.6-3.8 L = LY#) MONOCYTE # (test code = 1.08 K/mm3 0.11-0.59 H MO#) EOSINOPHIL # (test code 0.00 K/mm3 0.0-0.4 N = EO#) BASOPHIL # (test code = 0.05 K/mm3 0.0-0.1 N BA#) NUCLEATED RBC # (test 0.00 K/mm3 0.00-0.05 N code = NRBC#) MANUAL DIFF REQUIRED MAN DIFF INDICATED CRITERIA (test code = MDIFF) DIFF/SCN WBC [id number] 07:00:00 Test Item Value Reference Range Interpretation Comments TOTAL CELLS COUNTED (test 100 #CELLS >100 code = TCC) SEGMENTED NEUTROPHILS (test 78 % 40-75 H code = SEG) LYMPHOCYTE (test code = 4 % 12.6-43.5 L LYMPH) MONOCYTE (test code = MON) 7 % 4.2-12.7 N METAMYELOCYTE (test code = 4 % 0-2 H META) MYELOCYTE (test code = 7 % 0-1 H MYELO) BASOPHILIC STIPPLING (test FEW ON SCAN NONE code = STP) ANISOCYTOSIS (test code = SLIGHT ON SCAN NONE ANISO) MACROCYTOSIS (test code = MODERATE ON SCAN NONE A MACR) STOMATOCYTES (test code = MOD ON SCAN NONE A STO) TOXIC GRANULATION (test code MODERATE ON SCAN NONE A = TOX) PLATELET ESTIMATE (test code ADEQ ON SCAN ADEQUATE = PLTEST) BASIC METABOLIC [id number] 05:36:00 Test Item Value Reference Range Interpretation Comments SODIUM (test code = 143.0 mmol/L 133-144 N NA) POTASSIUM (test code 3.2 mmol/L 3.5-5.1 L = K) CHLORIDE (test code 103 mmol/L 95-105 N = CL) CARBON DIOXIDE (test 37 mmol/L 21-32 H code = CO2) ANION GAP (test code 3.0 GAP calc 4.0-15.0 L = GAP) GLUCOSE (test code = 188 MG/DL 70-110 H GLU) BLOOD UREA NITROGEN 31 MG/DL 7-18 H (test code = BUN) CREATININE (test 0.75 MG/DL 0.55-1.30 N Results may be code = CREAT) depressed if patient is takingN-Acetylc yste ine (NAC) and Metamizole (Dipyrone). CALCIUM (test code = 9.5 MG/DL 8.5-10.1 N CA) INDEX HEMOLYSIS 1 NORMAL <10 MG 1 NORMAL (test code = Index/DL HEMINDEX) INDEX ICTERIC (test 1 NORMAL <2 MG 1 NORMAL code = ICTINDEX) Index/DL INDEX LIPEMIA (test 1 NORMAL <50 MG 1 NORMAL code = LIPINDEX) Index/DL Comments to Composition [employer]: POTASSIUM ELECTROLYTE REPLACED ASIC METABOLIC [id number] 05:27:00 Test Item Value Reference Range Interpretation Comments SODIUM (test code = NA) 143.0 mmol/L 133-144 N POTASSIUM (test code = K) 3.2 mmol/L 3.5-5.1 L CHLORIDE (test code = CL) 103 mmol/L 95-105 N CARBON DIOXIDE (test code mmol/L 21-32 = CO2) ANION GAP (test code = GAP calc 4.0-15.0 GAP) GLUCOSE (test code = GLU) MG/DL 70-110 BLOOD UREA NITROGEN (test MG/DL 7-18 code = BUN) CREATININE (test code = MG/DL 0.55-1.30 CREAT) CALCIUM (test code = CA) MG/DL 8.5-10.1 INDEX HEMOLYSIS (test 1 NORMAL <10 MG 1 NORMAL code = HEMINDEX) Index/DL INDEX ICTERIC (test code 1 NORMAL <2 MG 1 NORMAL = ICTINDEX) Index/DL INDEX LIPEMIA (test code 1 NORMAL <50 MG 1 NORMAL = LIPINDEX) Index/DL Comments to Composition [employer]: POTASSIUM ELECTROLYTE REPLACED 8/11CBC W/MANUAL DIFF 2020-03-27 05:24:00 Test Item Value Reference Range Interpretation Comments WHITE BLOOD CELL (test 13.4 K/mm3 4.1-12.1 H code = WBC) RED BLOOD CELL (test 3.44 M/mm3 3.8-5.5 L code = RBC) HEMOGLOBIN (test code = 11.6 G/DL 10.6-15.8 N HGB) HEMATOCRIT (test code = 37.6 % 31.8-47.4 N HCT) MEAN CELL VOLUME (test 109.3 fL 80.1-101.1 H code = MCV) MEAN CELL HGB (test code 33.7 pg 25.3-35.3 N = MCH) MEAN CELL HGB 30.9 G/DL 32.7-35.1 L CONCETRATION (test code = MCHC) RED CELL DISTRIBUTION 14.6 % 12.2-16.4 N WIDTH (test code = RDW) RED CELL DISTRIBUTION 58.6 fL 35.1-43.9 H WIDTH (test code = RDW-SD) PLATELET COUNT (test 293 K/mm3 155-337 N code = PLT) MEAN PLATELET VOLUME 10.5 fL 7.6-10.4 H (test code = MPV) GRANULOCYTE % (test code 79.5 % 37.8-82.6 N = GR%) IMMATURE GRANULOCYTE % 7.7 % 0.0-2.0 H (test code = IG%) LYMPHOCYTE % (test code 4.4 % 14.1-45.4 L = LY%) MONOCYTE % (test code = 8.0 % 2.5-11.7 N MO%) EOSINOPHIL % (test code 0.0 % 0.0-6.2 N = EO%) BASOPHIL % (test code = 0.4 % 0.0-2.6 N BA%) NUCLEATED RBC % (test 0.0 /100WBC% 0.0-1.0 N code = NRBC%) GRANULOCYTE # (test code 10.69 k/mm3 2.0-13.7 N = GR#) IMMATURE GRANULOCYTE # 1.03 K/mm3 0.00-0.03 H (test code = IG#) LYMPHOCYTE # (test code 0.59 K/mm3 0.6-3.8 L = LY#) MONOCYTE # (test code = 1.08 K/mm3 0.11-0.59 H MO#) EOSINOPHIL # (test code 0.00 K/mm3 0.0-0.4 N = EO#) BASOPHIL # (test code = 0.05 K/mm3 0.0-0.1 N BA#) NUCLEATED RBC # (test 0.00 K/mm3 0.00-0.05 N code = NRBC#) MANUAL DIFF REQUIRED MAN DIFF INDICATED CRITERIA (test code = MDIFF) DIFF/SCN WBC [id number] 05:24:00 Test Item Value Reference Range Interpretation Comments TOTAL CELLS COUNTED (test code = #CELLS >100 TCC) SEGMENTED NEUTROPHILS (test code = % 40-75 SEG) LYMPHOCYTE (test code = LYMPH) % 12.6-43.5 MORPHOLOGY COMMENT (test code = MOC) ON SCAN NORMAL RBCS PLATELET ESTIMATE (test code = ON SCAN ADEQUATE PLTEST) CBC W/MANUAL [id number] 05:24:00 Test Item Value Reference Range Interpretation Comments WHITE BLOOD CELL (test 13.4 K/mm3 4.1-12.1 H code = WBC) RED BLOOD CELL (test 3.44 M/mm3 3.8-5.5 L code = RBC) HEMOGLOBIN (test code = 11.6 G/DL 10.6-15.8 N HGB) HEMATOCRIT (test code = 37.6 % 31.8-47.4 N HCT) MEAN CELL VOLUME (test 109.3 fL 80.1-101.1 H code = MCV) MEAN CELL HGB (test code 33.7 pg 25.3-35.3 N = MCH) MEAN CELL HGB 30.9 G/DL 32.7-35.1 L CONCETRATION (test code = MCHC) RED CELL DISTRIBUTION 14.6 % 12.2-16.4 N WIDTH (test code = RDW) RED CELL DISTRIBUTION 58.6 fL 35.1-43.9 H WIDTH (test code = RDW-SD) PLATELET COUNT (test 293 K/mm3 155-337 N code = PLT) MEAN PLATELET VOLUME 10.5 fL 7.6-10.4 H (test code = MPV) GRANULOCYTE % (test code 79.5 % 37.8-82.6 N = GR%) IMMATURE GRANULOCYTE % 7.7 % 0.0-2.0 H (test code = IG%) LYMPHOCYTE % (test code 4.4 % 14.1-45.4 L = LY%) MONOCYTE % (test code = 8.0 % 2.5-11.7 N MO%) EOSINOPHIL % (test code 0.0 % 0.0-6.2 N = EO%) BASOPHIL % (test code = 0.4 % 0.0-2.6 N BA%) NUCLEATED RBC % (test 0.0 /100WBC% 0.0-1.0 N code = NRBC%) GRANULOCYTE # (test code 10.69 k/mm3 2.0-13.7 N = GR#) IMMATURE GRANULOCYTE # 1.03 K/mm3 0.00-0.03 H (test code = IG#) LYMPHOCYTE # (test code 0.59 K/mm3 0.6-3.8 L = LY#) MONOCYTE # (test code = 1.08 K/mm3 0.11-0.59 H MO#) EOSINOPHIL # (test code 0.00 K/mm3 0.0-0.4 N = EO#) BASOPHIL # (test code = 0.05 K/mm3 0.0-0.1 N BA#) NUCLEATED RBC # (test 0.00 K/mm3 0.00-0.05 N code = NRBC#) MANUAL DIFF REQUIRED MAN DIFF INDICATED CRITERIA (test code = MDIFF) DIFF/SCN WBC [id number] 05:24:00 Test Item Value Reference Range Interpretation Comments TOTAL CELLS COUNTED (test code = #CELLS >100 TCC) SEGMENTED NEUTROPHILS (test code = % 40-75 SEG) LYMPHOCYTE (test code = LYMPH) % 12.6-43.5 MORPHOLOGY COMMENT (test code = MOC) ON SCAN NORMAL RBCS PLATELET ESTIMATE (test code = ON SCAN ADEQUATE PLTEST) ARTERIAL BLOOD [id number] 04:29:00 Test Item Value Reference Range Interpretation Comments ARTERIAL BLOOD GAS PH 7.45 pH units 7.35-7.45 N (test code = PHA) ARTERIAL BLOOD GAS PCO2 56 mmHg 35-45 H (test code = PCO2A) ARTERIAL BLOOD GAS PO2 71 mmHg 80-100 L PF RA AMELIA 78 (test code = PO2A) BICARBONATE TOTAL HCO3 38.4 mmol/L 22.0-26.0 H (test code = HCO3) BASE EXCESS (test code 14.3 mmol/L -3.0-3.0 H = REX) FIO2 (test code = 90 % (calc) 21-100 N FIO2A) MODALITY (test code = VENT COMMENT DESCRIPTION MOD) ABG PATIENT RESP RATE 22 /MIN PT RespRate (test code = RRPATA) ABG TIDAL VOLUME (test 500 ML code = TVA) ABG PEEP (test code = 10.0 cm H20 0.0-99.9 PEEPA) ABG SITE (test code = LEFT RADIAL ARTKIT DESCRIPTION SITEA) MODIFIED ANICETO'S (test N/A Circ.CHK POSITIVE code = MODALL) O2 SATURATION (test 96 % (calc) 95-100 N code = O2S/C) HOLD IN OE? NCAMPUS: CGLUCOSE BEDSIDE [id number] 04:29:00 Test Item Value Reference Range Interpretation Comments GLUCOSE BEDSIDE TESTING (test code 200 MG/DL 70-119 H = GLUBED) GLUCOSE BEDSIDE [id number] 00:31:00 Test Item Value Reference Range Interpretation Comments GLUCOSE BEDSIDE TESTING (test code 221 MG/DL 70-119 H = GLUBED) GLUCOSE BEDSIDE [id number] 18:14:00 Test Item Value Reference Range Interpretation Comments GLUCOSE BEDSIDE TESTING (test code 207 MG/DL 70-119 H = GLUBED) CBC W/MANUAL [id number] 11:11:00 Test Item Value Reference Range Interpretation Comments WHITE BLOOD CELL (test 12.5 K/mm3 4.1-12.1 H code = WBC) RED BLOOD CELL (test 3.37 M/mm3 3.8-5.5 L code = RBC) HEMOGLOBIN (test code = 11.4 G/DL 10.6-15.8 N HGB) HEMATOCRIT (test code = 36.6 % 31.8-47.4 N HCT) MEAN CELL VOLUME (test 108.6 fL 80.1-101.1 H code = MCV) MEAN CELL HGB (test code 33.8 pg 25.3-35.3 N = MCH) MEAN CELL HGB 31.1 G/DL 32.7-35.1 L CONCETRATION (test code = MCHC) RED CELL DISTRIBUTION 14.4 % 12.2-16.4 N WIDTH (test code = RDW) RED CELL DISTRIBUTION 57.0 fL 35.1-43.9 H WIDTH (test code = RDW-SD) PLATELET COUNT (test 281 K/mm3 155-337 N code = PLT) MEAN PLATELET VOLUME 10.3 fL 7.6-10.4 N (test code = MPV) GRANULOCYTE % (test code 73.7 % 37.8-82.6 N = GR%) IMMATURE GRANULOCYTE % 8.8 % 0.0-2.0 H (test code = IG%) LYMPHOCYTE % (test code 7.1 % 14.1-45.4 L = LY%) MONOCYTE % (test code = 10.1 % 2.5-11.7 N MO%) EOSINOPHIL % (test code 0.1 % 0.0-6.2 N = EO%) BASOPHIL % (test code = 0.2 % 0.0-2.6 N BA%) NUCLEATED RBC % (test 0.2 /100WBC% 0.0-1.0 N code = NRBC%) GRANULOCYTE # (test code 9.24 k/mm3 2.0-13.7 N = GR#) IMMATURE GRANULOCYTE # 1.10 K/mm3 0.00-0.03 H (test code = IG#) LYMPHOCYTE # (test code 0.89 K/mm3 0.6-3.8 N = LY#) MONOCYTE # (test code = 1.26 K/mm3 0.11-0.59 H MO#) EOSINOPHIL # (test code 0.01 K/mm3 0.0-0.4 N = EO#) BASOPHIL # (test code = 0.03 K/mm3 0.0-0.1 N BA#) NUCLEATED RBC # (test 0.02 K/mm3 0.00-0.05 N code = NRBC#) MANUAL DIFF REQUIRED MAN DIFF INDICATED CRITERIA (test code = MDIFF) DIFF/SCN WBC [id number] 11:11:00 Test Item Value Reference Range Interpretation Comments TOTAL CELLS COUNTED (test code 100 #CELLS >100 = TCC) SEGMENTED NEUTROPHILS (test 77 % 40-75 H code = SEG) LYMPHOCYTE (test code = LYMPH) 9 % 12.6-43.5 L MONOCYTE (test code = MON) 10 % 4.2-12.7 N METAMYELOCYTE (test code = 1 % 0-2 N META) MYELOCYTE (test code = MYELO) 3 % 0-1 H POLYCHROMASIA (test code = SLIGHT ON SCAN NONE POLC) BASOPHILIC STIPPLING (test FEW ON SCAN NONE code = STP) ANISOCYTOSIS (test code = SLIGHT ON SCAN NONE ANISO) MACROCYTOSIS (test code = SLIGHT ON SCAN NONE MACR) STOMATOCYTES (test code = STO) MOD ON SCAN NONE A TOXIC GRANULATION (test code = SLIGHT ON SCAN NONE TOX) PLATELET ESTIMATE (test code = ADEQ ON SCAN ADEQUATE PLTEST) GLUCOSE BEDSIDE [id number] 09:41:00 Test Item Value Reference Range Interpretation Comments GLUCOSE BEDSIDE TESTING (test code 163 MG/DL 70-119 H = GLUBED) CBC W/MANUAL [id number] 09:39:00 Test Item Value Reference Range Interpretation Comments WHITE BLOOD CELL (test 12.5 K/mm3 4.1-12.1 H code = WBC) RED BLOOD CELL (test 3.37 M/mm3 3.8-5.5 L code = RBC) HEMOGLOBIN (test code = 11.4 G/DL 10.6-15.8 N HGB) HEMATOCRIT (test code = 36.6 % 31.8-47.4 N HCT) MEAN CELL VOLUME (test 108.6 fL 80.1-101.1 H code = MCV) MEAN CELL HGB (test code 33.8 pg 25.3-35.3 N = MCH) MEAN CELL HGB 31.1 G/DL 32.7-35.1 L CONCETRATION (test code = MCHC) RED CELL DISTRIBUTION 14.4 % 12.2-16.4 N WIDTH (test code = RDW) RED CELL DISTRIBUTION 57.0 fL 35.1-43.9 H WIDTH (test code = RDW-SD) PLATELET COUNT (test 281 K/mm3 155-337 N code = PLT) MEAN PLATELET VOLUME 10.3 fL 7.6-10.4 N (test code = MPV) GRANULOCYTE % (test code 73.7 % 37.8-82.6 N = GR%) IMMATURE GRANULOCYTE % 8.8 % 0.0-2.0 H (test code = IG%) LYMPHOCYTE % (test code 7.1 % 14.1-45.4 L = LY%) MONOCYTE % (test code = 10.1 % 2.5-11.7 N MO%) EOSINOPHIL % (test code 0.1 % 0.0-6.2 N = EO%) BASOPHIL % (test code = 0.2 % 0.0-2.6 N BA%) NUCLEATED RBC % (test 0.2 /100WBC% 0.0-1.0 N code = NRBC%) GRANULOCYTE # (test code 9.24 k/mm3 2.0-13.7 N = GR#) IMMATURE GRANULOCYTE # 1.10 K/mm3 0.00-0.03 H (test code = IG#) LYMPHOCYTE # (test code 0.89 K/mm3 0.6-3.8 N = LY#) MONOCYTE # (test code = 1.26 K/mm3 0.11-0.59 H MO#) EOSINOPHIL # (test code 0.01 K/mm3 0.0-0.4 N = EO#) BASOPHIL # (test code = 0.03 K/mm3 0.0-0.1 N BA#) NUCLEATED RBC # (test 0.02 K/mm3 0.00-0.05 N code = NRBC#) MANUAL DIFF REQUIRED MAN DIFF INDICATED CRITERIA (test code = MDIFF) DIFF/SCN WBC [id number] 09:39:00 Test Item Value Reference Range Interpretation Comments TOTAL CELLS COUNTED (test code = #CELLS >100 TCC) SEGMENTED NEUTROPHILS (test code = % 40-75 SEG) LYMPHOCYTE (test code = LYMPH) % 12.6-43.5 MORPHOLOGY COMMENT (test code = MOC) ON SCAN NORMAL RBCS PLATELET ESTIMATE (test code = ON SCAN ADEQUATE PLTEST) CBC W/MANUAL [id number] 09:39:00 Test Item Value Reference Range Interpretation Comments WHITE BLOOD CELL (test 12.5 K/mm3 4.1-12.1 H code = WBC) RED BLOOD CELL (test 3.37 M/mm3 3.8-5.5 L code = RBC) HEMOGLOBIN (test code = 11.4 G/DL 10.6-15.8 N HGB) HEMATOCRIT (test code = 36.6 % 31.8-47.4 N HCT) MEAN CELL VOLUME (test 108.6 fL 80.1-101.1 H code = MCV) MEAN CELL HGB (test code 33.8 pg 25.3-35.3 N = MCH) MEAN CELL HGB 31.1 G/DL 32.7-35.1 L CONCETRATION (test code = MCHC) RED CELL DISTRIBUTION 14.4 % 12.2-16.4 N WIDTH (test code = RDW) RED CELL DISTRIBUTION 57.0 fL 35.1-43.9 H WIDTH (test code = RDW-SD) PLATELET COUNT (test 281 K/mm3 155-337 N code = PLT) MEAN PLATELET VOLUME 10.3 fL 7.6-10.4 N (test code = MPV) GRANULOCYTE % (test code 73.7 % 37.8-82.6 N = GR%) IMMATURE GRANULOCYTE % 8.8 % 0.0-2.0 H (test code = IG%) LYMPHOCYTE % (test code 7.1 % 14.1-45.4 L = LY%) MONOCYTE % (test code = 10.1 % 2.5-11.7 N MO%) EOSINOPHIL % (test code 0.1 % 0.0-6.2 N = EO%) BASOPHIL % (test code = 0.2 % 0.0-2.6 N BA%) NUCLEATED RBC % (test 0.2 /100WBC% 0.0-1.0 N code = NRBC%) GRANULOCYTE # (test code 9.24 k/mm3 2.0-13.7 N = GR#) IMMATURE GRANULOCYTE # 1.10 K/mm3 0.00-0.03 H (test code = IG#) LYMPHOCYTE # (test code 0.89 K/mm3 0.6-3.8 N = LY#) MONOCYTE # (test code = 1.26 K/mm3 0.11-0.59 H MO#) EOSINOPHIL # (test code 0.01 K/mm3 0.0-0.4 N = EO#) BASOPHIL # (test code = 0.03 K/mm3 0.0-0.1 N BA#) NUCLEATED RBC # (test 0.02 K/mm3 0.00-0.05 N code = NRBC#) MANUAL DIFF REQUIRED MAN DIFF INDICATED CRITERIA (test code = MDIFF) DIFF/SCN WBC [id number] 09:39:00 Test Item Value Reference Range Interpretation Comments TOTAL CELLS COUNTED (test code = #CELLS >100 TCC) SEGMENTED NEUTROPHILS (test code = % 40-75 SEG) LYMPHOCYTE (test code = LYMPH) % 12.6-43.5 MORPHOLOGY COMMENT (test code = MOC) ON SCAN NORMAL RBCS PLATELET ESTIMATE (test code = ON SCAN ADEQUATE PLTEST) BASIC METABOLIC [id number] 09:38:00 Test Item Value Reference Range Interpretation Comments SODIUM (test code = 143.0 mmol/L 133-144 N NA) POTASSIUM (test code 3.6 mmol/L 3.5-5.1 N = K) CHLORIDE (test code 103 mmol/L 95-105 N = CL) CARBON DIOXIDE (test 40 mmol/L 21-32 H code = CO2) ANION GAP (test code 0.0 GAP calc 4.0-15.0 L = GAP) GLUCOSE (test code = 139 MG/DL 70-110 H GLU) BLOOD UREA NITROGEN 28 MG/DL 7-18 H (test code = BUN) CREATININE (test 0.62 MG/DL 0.55-1.30 N Results may be code = CREAT) depressed if patient is takingN-Acetylc yste ine (NAC) and Metamizole (Dipyrone). CALCIUM (test code = 9.2 MG/DL 8.5-10.1 N CA) INDEX HEMOLYSIS 1 NORMAL <10 MG 1 NORMAL (test code = Index/DL HEMINDEX) INDEX ICTERIC (test 1 NORMAL <2 MG 1 NORMAL code = ICTINDEX) Index/DL INDEX LIPEMIA (test 1 NORMAL <50 MG 1 NORMAL code = LIPINDEX) Index/DL ARTERIAL BLOOD [id number] 05:27:00 Test Item Value Reference Range Interpretation Comments ARTERIAL BLOOD GAS 7.43 pH units 7.35-7.45 N PH (test code = PHA) ARTERIAL BLOOD GAS 61 mmHg 35-45 HH ON AT PCO2 (test code = 0526, B.CP S.CC PCO2A) CALLED TO RO OZUNA. The repo rt was confirmed b y read back protocols Y,N: Y. ARTERIAL BLOOD GAS 87 mmHg 80-100 N P/F RATIO 109 PO2 (test code = PO2A) BICARBONATE TOTAL 40.5 mmol/L 22.0-26.0 H HCO3 (test code = HCO3) BASE EXCESS (test 16.2 mmol/L -3.0-3.0 H code = REX) FIO2 (test code = 80 % (calc) 21-100 N FIO2A) MODALITY (test code VENT COMMENT DESCRIPTION = MOD) ABG PATIENT RESP 20 /MIN PT RespRate RATE (test code = RRPATA) ABG TIDAL VOLUME 500 ML (test code = TVA) ABG PEEP (test code 10.0 cm H20 0.0-99.9 = PEEPA) ABG SITE (test code LEFT RADIAL DESCRIPTION = SITEA) ARTKIT MODIFIED ANICETO'S N/A Circ.CHK POSITIVE (test code = MODALL) O2 SATURATION (test 98 % (calc) 95-100 N code = O2S/C) GLUCOSE BEDSIDE [id number] 04:58:00 Test Item Value Reference Range Interpretation Comments GLUCOSE BEDSIDE TESTING (test code 229 MG/DL 70-119 H = GLUBED) GLUCOSE BEDSIDE [id number] 21:48:00 Test Item Value Reference Range Interpretation Comments GLUCOSE BEDSIDE TESTING (test code 192 MG/DL 70-119 H = GLUBED) GLUCOSE BEDSIDE [id number] 15:05:00 Test Item Value Reference Range Interpretation Comments GLUCOSE BEDSIDE TESTING (test code 184 MG/DL 70-119 H = GLUBED) COVID 19 Asymptomatic IH [id number] 13:34:00 Test Item Value Reference Range Interpretation Comments COVID 19 Asymptomatic IH AG (test Negative Neg code = COVNONPUIAG) GLUCOSE BEDSIDE [id number] 11:29:00 Test Item Value Reference Range Interpretation Comments GLUCOSE BEDSIDE TESTING (test code 152 MG/DL 70-119 H = GLUBED) GLUCOSE BEDSIDE [id number] 09:02:00 Test Item Value Reference Range Interpretation Comments GLUCOSE BEDSIDE TESTING (test code 146 MG/DL 70-119 H = GLUBED) CBC W/MANUAL [id number] 07:07:00 Test Item Value Reference Range Interpretation Comments WHITE BLOOD CELL (test 14.2 K/mm3 4.1-12.1 H code = WBC) RED BLOOD CELL (test 3.57 M/mm3 3.8-5.5 L code = RBC) HEMOGLOBIN (test code = 12.1 G/DL 10.6-15.8 N HGB) HEMATOCRIT (test code = 38.8 % 31.8-47.4 N HCT) MEAN CELL VOLUME (test 108.7 fL 80.1-101.1 H code = MCV) MEAN CELL HGB (test code 33.9 pg 25.3-35.3 N = MCH) MEAN CELL HGB 31.2 G/DL 32.7-35.1 L CONCETRATION (test code = MCHC) RED CELL DISTRIBUTION 14.6 % 12.2-16.4 N WIDTH (test code = RDW) RED CELL DISTRIBUTION 58.3 fL 35.1-43.9 H WIDTH (test code = RDW-SD) PLATELET COUNT (test 263 K/mm3 155-337 N code = PLT) MEAN PLATELET VOLUME 10.3 fL 7.6-10.4 N (test code = MPV) GRANULOCYTE % (test code 70.0 % 37.8-82.6 N = GR%) IMMATURE GRANULOCYTE % 9.3 % 0.0-2.0 H (test code = IG%) LYMPHOCYTE % (test code 6.3 % 14.1-45.4 L = LY%) MONOCYTE % (test code = 14.2 % 2.5-11.7 H MO%) EOSINOPHIL % (test code 0.1 % 0.0-6.2 N = EO%) BASOPHIL % (test code = 0.1 % 0.0-2.6 N BA%) NUCLEATED RBC % (test 0.4 /100WBC% 0.0-1.0 N code = NRBC%) GRANULOCYTE # (test code 9.96 k/mm3 2.0-13.7 N = GR#) IMMATURE GRANULOCYTE # 1.33 K/mm3 0.00-0.03 H (test code = IG#) LYMPHOCYTE # (test code 0.90 K/mm3 0.6-3.8 N = LY#) MONOCYTE # (test code = 2.02 K/mm3 0.11-0.59 H MO#) EOSINOPHIL # (test code 0.01 K/mm3 0.0-0.4 N = EO#) BASOPHIL # (test code = 0.01 K/mm3 0.0-0.1 N BA#) NUCLEATED RBC # (test 0.06 K/mm3 0.00-0.05 H code = NRBC#) MANUAL DIFF REQUIRED MAN DIFF INDICATED CRITERIA (test code = MDIFF) DIFF/SCN WBC [id number] 07:07:00 Test Item Value Reference Range Interpretation Comments TOTAL CELLS COUNTED (test code 100 #CELLS >100 = TCC) SEGMENTED NEUTROPHILS (test 71 % 40-75 N code = SEG) LYMPHOCYTE (test code = LYMPH) 6 % 12.6-43.5 L MONOCYTE (test code = MON) 13 % 4.2-12.7 H METAMYELOCYTE (test code = 2 % 0-2 N META) MYELOCYTE (test code = MYELO) 8 % 0-1 H NUCLEATED RED BLOOD CELL (test 1.00 #/100WBC 0-0.5 H code = NRBC) POLYCHROMASIA (test code = SLIGHT ON SCAN NONE POLC) BASOPHILIC STIPPLING (test FEW ON SCAN NONE code = STP) ANISOCYTOSIS (test code = SLIGHT ON SCAN NONE ANISO) MACROCYTOSIS (test code = SLIGHT ON SCAN NONE MACR) STOMATOCYTES (test code = STO) MOD ON SCAN NONE A TOXIC GRANULATION (test code = SLIGHT ON SCAN NONE TOX) VACUOLATED NEUTROPHILS (test SLIGHT ON SCAN NONE code = VN) PLATELET ESTIMATE (test code = ADEQ ON SCAN ADEQUATE PLTEST) - XR CHEST 1 [id number] 06:22:00 FAX: Juan Luis Munguia MD [phone] [place]: St: ADM FAX: Sindi Cedillo [phone] FAX:Lorene Rodgers MD [phone] FAX: Carina Francis MD [phone] Patient Name: SIDNEY HALL Unit No: [id number] EXAMS: CPT CODE: [id number] XR CHEST 1 V [id number] Location: R16 EXAM: XR CHEST 1 VIEW INDICATION: Ventilated p atient COMPARISON: Chest radiograph dated 03/24/2020 TECHNIQUE: AP chest FINDINGS: Lines, tubes and hardware: Enteric tube tip and side-port overlie the expected location of the gastric body. Right-sidedcentral venous catheter tip overlies the expected location of the cavoatrial junction. Lungs and pleura: There is left lower lobe/retrocardiac opacity. No focal consolidation on the right. No pneumothorax. The bilateral costophrenic sulci are sharp. Heart and mediastinum: The cardiomediastinal silhouette is stable. Bones: No acute bony abnormality is identified. IMPRESSION: Lines and tubes, as above. Persistent left lower lobe/retrocardiac opacities, which may reflect atelectasis and/or consolidation. at 0622 Reported and signedby: Catracho Evans MD CC: Juan Luis Munguia MD; Sindi Gomez Dictated Date/Time: 03/25/2020 (621)Technologist: Leo Goodwin Transcribed Date/Time: 03/25/2020 (621) By: [email or web address] Orig Print D/T: S: 03/25/2020 (624) EARNESTINE Schaffer NAME: SIDNEY HALL [facility] PHYS: AHMRA.[id number] - Juan Luis Munguia MD [address] [place] [address] : 1970 AGE: 49 SEX: Chintan SCHAFFER, [place] [address] LOC: B.[id number] D PHONE #: [phone] EXAM DATE: 03/25/2020 STATUS: ADM IN FAX #: [phone] RAD NO: DC Dt: PAGE 1 Signed ReportGLUCOSE BEDSIDE [id number] 06:18:00 Test Item Value Reference Range Interpretation Comments GLUCOSE BEDSIDE TESTING (test code 173 MG/DL 70-119 H = GLUBED) BASIC METABOLIC [id number] 05:46:00 Test Item Value Reference Range Interpretation Comments SODIUM (test code = 142.0 mmol/L 133-144 N NA) POTASSIUM (test code 3.6 mmol/L 3.5-5.1 N = K) CHLORIDE (test code 102 mmol/L 95-105 N = CL) CARBON DIOXIDE (test 38 mmol/L 21-32 H code = CO2) ANION GAP (test code 2.0 GAP calc 4.0-15.0 L = GAP) GLUCOSE (test code = 197 MG/DL 70-110 H GLU) BLOOD UREA NITROGEN 23 MG/DL 7-18 H (test code = BUN) CREATININE (test 0.70 MG/DL 0.55-1.30 N Results may be code = CREAT) depressed if patient is takingN-Acetylc yste ine (NAC) and Metamizole (Dipyrone). CALCIUM (test code = 9.2 MG/DL 8.5-10.1 N CA) INDEX HEMOLYSIS 1 NORMAL <10 MG 1 NORMAL (test code = Index/DL HEMINDEX) INDEX ICTERIC (test 1 NORMAL <2 MG 1 NORMAL code = ICTINDEX) Index/DL INDEX LIPEMIA (test 1 NORMAL <50 MG 1 NORMAL code = LIPINDEX) Index/DL BASIC METABOLIC [id number] 05:43:00 Test Item Value Reference Range Interpretation Comments SODIUM (test code = NA) 142.0 mmol/L 133-144 N POTASSIUM (test code = K) 3.6 mmol/L 3.5-5.1 N CHLORIDE (test code = CL) 102 mmol/L 95-105 N CARBON DIOXIDE (test code 38 mmol/L 21-32 H = CO2) ANION GAP (test code = 2.0 GAP calc 4.0-15.0 L GAP) GLUCOSE (test code = GLU) MG/DL 70-110 BLOOD UREA NITROGEN (test MG/DL 7-18 code = BUN) CREATININE (test code = MG/DL 0.55-1.30 CREAT) CALCIUM (test code = CA) 9.2 MG/DL 8.5-10.1 N INDEX HEMOLYSIS (test 1 NORMAL <10 MG 1 NORMAL code = HEMINDEX) Index/DL INDEX ICTERIC (test code 1 NORMAL <2 MG 1 NORMAL = ICTINDEX) Index/DL INDEX LIPEMIA (test code 1 NORMAL <50 MG 1 NORMAL = LIPINDEX) Index/DL CBC W/MANUAL [id number] 05:26:00 Test Item Value Reference Range Interpretation Comments WHITE BLOOD CELL (test 14.2 K/mm3 4.1-12.1 H code = WBC) RED BLOOD CELL (test 3.57 M/mm3 3.8-5.5 L code = RBC) HEMOGLOBIN (test code = 12.1 G/DL 10.6-15.8 N HGB) HEMATOCRIT (test code = 38.8 % 31.8-47.4 N HCT) MEAN CELL VOLUME (test 108.7 fL 80.1-101.1 H code = MCV) MEAN CELL HGB (test code 33.9 pg 25.3-35.3 N = MCH) MEAN CELL HGB 31.2 G/DL 32.7-35.1 L CONCETRATION (test code = MCHC) RED CELL DISTRIBUTION 14.6 % 12.2-16.4 N WIDTH (test code = RDW) RED CELL DISTRIBUTION 58.3 fL 35.1-43.9 H WIDTH (test code = RDW-SD) PLATELET COUNT (test 263 K/mm3 155-337 N code = PLT) MEAN PLATELET VOLUME 10.3 fL 7.6-10.4 N (test code = MPV) GRANULOCYTE % (test code 70.0 % 37.8-82.6 N = GR%) IMMATURE GRANULOCYTE % 9.3 % 0.0-2.0 H (test code = IG%) LYMPHOCYTE % (test code 6.3 % 14.1-45.4 L = LY%) MONOCYTE % (test code = 14.2 % 2.5-11.7 H MO%) EOSINOPHIL % (test code 0.1 % 0.0-6.2 N = EO%) BASOPHIL % (test code = 0.1 % 0.0-2.6 N BA%) NUCLEATED RBC % (test 0.4 /100WBC% 0.0-1.0 N code = NRBC%) GRANULOCYTE # (test code 9.96 k/mm3 2.0-13.7 N = GR#) IMMATURE GRANULOCYTE # 1.33 K/mm3 0.00-0.03 H (test code = IG#) LYMPHOCYTE # (test code 0.90 K/mm3 0.6-3.8 N = LY#) MONOCYTE # (test code = 2.02 K/mm3 0.11-0.59 H MO#) EOSINOPHIL # (test code 0.01 K/mm3 0.0-0.4 N = EO#) BASOPHIL # (test code = 0.01 K/mm3 0.0-0.1 N BA#) NUCLEATED RBC # (test 0.06 K/mm3 0.00-0.05 H code = NRBC#) MANUAL DIFF REQUIRED MAN DIFF INDICATED CRITERIA (test code = MDIFF) DIFF/SCN WBC [id number] 05:26:00 Test Item Value Reference Range Interpretation Comments TOTAL CELLS COUNTED (test code = #CELLS >100 TCC) SEGMENTED NEUTROPHILS (test code = % 40-75 SEG) LYMPHOCYTE (test code = LYMPH) % 12.6-43.5 MORPHOLOGY COMMENT (test code = MOC) ON SCAN NORMAL RBCS PLATELET ESTIMATE (test code = ON SCAN ADEQUATE PLTEST) CBC W/MANUAL [id number] 05:26:00 Test Item Value Reference Range Interpretation Comments WHITE BLOOD CELL (test 14.2 K/mm3 4.1-12.1 H code = WBC) RED BLOOD CELL (test 3.57 M/mm3 3.8-5.5 L code = RBC) HEMOGLOBIN (test code = 12.1 G/DL 10.6-15.8 N HGB) HEMATOCRIT (test code = 38.8 % 31.8-47.4 N HCT) MEAN CELL VOLUME (test 108.7 fL 80.1-101.1 H code = MCV) MEAN CELL HGB (test code 33.9 pg 25.3-35.3 N = MCH) MEAN CELL HGB 31.2 G/DL 32.7-35.1 L CONCETRATION (test code = MCHC) RED CELL DISTRIBUTION 14.6 % 12.2-16.4 N WIDTH (test code = RDW) RED CELL DISTRIBUTION 58.3 fL 35.1-43.9 H WIDTH (test code = RDW-SD) PLATELET COUNT (test 263 K/mm3 155-337 N code = PLT) MEAN PLATELET VOLUME 10.3 fL 7.6-10.4 N (test code = MPV) GRANULOCYTE % (test code 70.0 % 37.8-82.6 N = GR%) IMMATURE GRANULOCYTE % 9.3 % 0.0-2.0 H (test code = IG%) LYMPHOCYTE % (test code 6.3 % 14.1-45.4 L = LY%) MONOCYTE % (test code = 14.2 % 2.5-11.7 H MO%) EOSINOPHIL % (test code 0.1 % 0.0-6.2 N = EO%) BASOPHIL % (test code = 0.1 % 0.0-2.6 N BA%) NUCLEATED RBC % (test 0.4 /100WBC% 0.0-1.0 N code = NRBC%) GRANULOCYTE # (test code 9.96 k/mm3 2.0-13.7 N = GR#) IMMATURE GRANULOCYTE # 1.33 K/mm3 0.00-0.03 H (test code = IG#) LYMPHOCYTE # (test code 0.90 K/mm3 0.6-3.8 N = LY#) MONOCYTE # (test code = 2.02 K/mm3 0.11-0.59 H MO#) EOSINOPHIL # (test code 0.01 K/mm3 0.0-0.4 N = EO#) BASOPHIL # (test code = 0.01 K/mm3 0.0-0.1 N BA#) NUCLEATED RBC # (test 0.06 K/mm3 0.00-0.05 H code = NRBC#) MANUAL DIFF REQUIRED MAN DIFF INDICATED CRITERIA (test code = MDIFF) DIFF/SCN WBC [id number] 05:26:00 Test Item Value Reference Range Interpretation Comments TOTAL CELLS COUNTED (test code = #CELLS >100 TCC) SEGMENTED NEUTROPHILS (test code = % 40-75 SEG) LYMPHOCYTE (test code = LYMPH) % 12.6-43.5 MORPHOLOGY COMMENT (test code = MOC) ON SCAN NORMAL RBCS PLATELET ESTIMATE (test code = ON SCAN ADEQUATE PLTEST) ARTERIAL BLOOD [id number] 02:57:00 Test Item Value Reference Range Interpretation Comments ARTERIAL BLOOD GAS PH (test 7.46 pH units 7.35-7.45 H code = PHA) ARTERIAL BLOOD GAS PCO2 56 mmHg 35-45 H (test code = PCO2A) ARTERIAL BLOOD GAS PO2 (test 78 mmHg 80-100 L code = PO2A) BICARBONATE TOTAL HCO3 (test 39.3 mmol/L 22.0-26.0 H code = HCO3) BASE EXCESS (test code = 15.5 mmol/L -3.0-3.0 H REX) FIO2 (test code = FIO2A) 85 % (calc) 21-100 N MODALITY (test code = MOD) AC COMMENT DESCRIPTION ABG TIDAL VOLUME (test code 500 ML = TVA) ABG PEEP (test code = PEEPA) 10.0 cm H20 0.0-99.9 ABG SITE (test code = SITEA) RT RADIAL ARTKIT DESCRIPTION MODIFIED ANICETO'S (test code N/A Circ.CHK POSITIVE = MODALL) O2 SATURATION (test code = 97 % (calc) 95-100 N O2S/C) GLUCOSE BEDSIDE [id number] 20:42:00 Test Item Value Reference Range Interpretation Comments GLUCOSE BEDSIDE TESTING (test code 161 MG/DL 70-119 H = GLUBED) GLUCOSE BEDSIDE [id number] 16:34:00 Test Item Value Reference Range Interpretation Comments GLUCOSE BEDSIDE TESTING (test code 194 MG/DL 70-119 H = GLUBED) - CTA CHEST FOR [id number] 13:16:00 Patient Name: SIDNEY HALL Unit No: [id number] EXAMS: CPT CODE: [id number] [place] [id number] [place] angiography of the chest with IV contrast INDICATION: Intubated, respiratory distress LOCATION: T [address] images of the chest were obtained with IV contrast at 2.5 mm slice thickness. Isovue 370 was used, 95ml. Multiplanar 3-D reconstruction and MIP images also provided forinterpretation. Up to date CT and radiation dose reduction techniques were utilized. Automatic exposure control was also used. Support apparatus in satisfactory position, unchanged from chest radiograph from earlier today. The pulmonary arteries and thoracic aorta appear normal. There is no evidence of pulmonary embolism, aortic aneurysm or dissection. There is no significant axillary, hilar or mediastinal lymphadenopathy. No pericardial or pleural effusion. Heart size normal. There is subsegmentalconsolidation posteriorly in both lower lobes, left greater than right, with air bronchograms. Do not see a centrally obstructing lesion. The visualized portions of the upper abdomen are unremarkable. Fatty liver noted. IMPRESSION: 1. No evidence of pulmonary embolism. 2. Subsegmental consolidation posteriorly at lung bases with air bronchograms, left greater than right. at 1316 Reported and signed by: Anatoliy Peña D.O. CC: Juan Luis Munguia MD; Sindi Gomez Dictated Date/Time: 03/24/2020 (1316) Technologist: Diamond lemus CTDI: 10.96 DLP: 492.46 Trnscrpt: 03/24/2020 (1316) Denny [facility] Sarbjit NAME: BRIE HALL [facility] PHYS: AHMRA.[id number] - Juan Luis Munguia MD [address] [place] [address] : 1970 AGE: 49 SEX: [address]intan [address]: [id number] LOC: B.CCU32 D PHONE #: [phone] EXAM DATE: 03/24/2020 STATUS: ADM IN FAX #: [phone] RAD #: D/C DT PAGE 1 Signed Report Patient Name: SIDNEY HALL Unit No: [id number] EXAMS: CPT CODE: [id number] [place] [address] (Continued) Orig Print D/T:S: 03/24/2020 (1319) [facility] Schaffer NAME: SIDNEY HALL MED[facility] PHYS: AHMRA.03 - med,[address] : 1970 AGE: 49 SEX: Chintan SCHAFFER [place] [address] LOC: Herman.CCU32 D PHONE #: [phone] EXAM DATE: 03/24/2020 STATUS: ADM IN FAX #: [phone] RAD #:D/C DT PAGE 2 Signed ReportCBC W/MANUAL DIFF 2020-03-24 11:32:00 Test Item Value Reference Range Interpretation Comments WHITE BLOOD CELL (test 10.4 K/mm3 4.1-12.1 N code = WBC) RED BLOOD CELL (test 3.56 M/mm3 3.8-5.5 L code = RBC) HEMOGLOBIN (test code = 12.0 G/DL 10.6-15.8 N HGB) HEMATOCRIT (test code = 38.0 % 31.8-47.4 N HCT) MEAN CELL VOLUME (test 106.7 fL 80.1-101.1 H code = MCV) MEAN CELL HGB (test code 33.7 pg 25.3-35.3 N = MCH) MEAN CELL HGB 31.6 G/DL 32.7-35.1 L CONCETRATION (test code = MCHC) RED CELL DISTRIBUTION 14.6 % 12.2-16.4 N WIDTH (test code = RDW) RED CELL DISTRIBUTION 57.8 fL 35.1-43.9 H WIDTH (test code = RDW-SD) PLATELET COUNT (test 248 K/mm3 155-337 N code = PLT) MEAN PLATELET VOLUME 10.4 fL 7.6-10.4 N (test code = MPV) GRANULOCYTE % (test code 66.9 % 37.8-82.6 N = GR%) IMMATURE GRANULOCYTE % 5.3 % 0.0-2.0 H (test code = IG%) LYMPHOCYTE % (test code 9.3 % 14.1-45.4 L = LY%) MONOCYTE % (test code = 17.9 % 2.5-11.7 H MO%) EOSINOPHIL % (test code 0.1 % 0.0-6.2 N = EO%) BASOPHIL % (test code = 0.5 % 0.0-2.6 N BA%) NUCLEATED RBC % (test 0.5 /100WBC% 0.0-1.0 N code = NRBC%) GRANULOCYTE # (test code 6.95 k/mm3 2.0-13.7 N = GR#) IMMATURE GRANULOCYTE # 0.55 K/mm3 0.00-0.03 H (test code = IG#) LYMPHOCYTE # (test code 0.97 K/mm3 0.6-3.8 N = LY#) MONOCYTE # (test code = 1.86 K/mm3 0.11-0.59 H MO#) EOSINOPHIL # (test code 0.01 K/mm3 0.0-0.4 N = EO#) BASOPHIL # (test code = 0.05 K/mm3 0.0-0.1 N BA#) NUCLEATED RBC # (test 0.05 K/mm3 0.00-0.05 N code = NRBC#) MANUAL DIFF REQUIRED MAN DIFF INDICATED CRITERIA (test code = MDIFF) DIFF/SCN WBC [id number] 11:32:00 Test Item Value Reference Range Interpretation Comments TOTAL CELLS COUNTED (test code 100 #CELLS >100 = TCC) SEGMENTED NEUTROPHILS (test 78 % 40-75 H code = SEG) LYMPHOCYTE (test code = LYMPH) 7 % 12.6-43.5 L ATYPICAL LYMPH (test code = 1 % 0-0 H ALYMPH) MONOCYTE (test code = MON) 10 % 4.2-12.7 N MYELOCYTE (test code = MYELO) 4 % 0-1 H NUCLEATED RED BLOOD CELL (test 1.00 #/100WBC 0-0.5 H code = NRBC) POLYCHROMASIA (test code = SLIGHT ON SCAN NONE POLC) BASOPHILIC STIPPLING (test RARE ON SCAN NONE code = STP) ANISOCYTOSIS (test code = SLIGHT ON SCAN NONE ANISO) MACROCYTOSIS (test code = SLIGHT ON SCAN NONE MACR) STOMATOCYTES (test code = STO) FEW ON SCAN NONE TOXIC GRANULATION (test code = SLIGHT ON SCAN NONE TOX) VACUOLATED NEUTROPHILS (test SLIGHT ON SCAN NONE code = VN) PLATELET ESTIMATE (test code = ADEQ ON SCAN ADEQUATE PLTEST) GLUCOSE BEDSIDE [id number] 08:38:00 Test Item Value Reference Range Interpretation Comments GLUCOSE BEDSIDE TESTING (test code 145 MG/DL 70-119 H = GLUBED) CBC W/MANUAL [id number] 07:10:00 Test Item Value Reference Range Interpretation Comments WHITE BLOOD CELL (test 10.4 K/mm3 4.1-12.1 N code = WBC) RED BLOOD CELL (test 3.56 M/mm3 3.8-5.5 L code = RBC) HEMOGLOBIN (test code = 12.0 G/DL 10.6-15.8 N HGB) HEMATOCRIT (test code = 38.0 % 31.8-47.4 N HCT) MEAN CELL VOLUME (test 106.7 fL 80.1-101.1 H code = MCV) MEAN CELL HGB (test code 33.7 pg 25.3-35.3 N = MCH) MEAN CELL HGB 31.6 G/DL 32.7-35.1 L CONCETRATION (test code = MCHC) RED CELL DISTRIBUTION 14.6 % 12.2-16.4 N WIDTH (test code = RDW) RED CELL DISTRIBUTION 57.8 fL 35.1-43.9 H WIDTH (test code = RDW-SD) PLATELET COUNT (test 248 K/mm3 155-337 N code = PLT) MEAN PLATELET VOLUME 10.4 fL 7.6-10.4 N (test code = MPV) GRANULOCYTE % (test code 66.9 % 37.8-82.6 N = GR%) IMMATURE GRANULOCYTE % 5.3 % 0.0-2.0 H (test code = IG%) LYMPHOCYTE % (test code 9.3 % 14.1-45.4 L = LY%) MONOCYTE % (test code = 17.9 % 2.5-11.7 H MO%) EOSINOPHIL % (test code 0.1 % 0.0-6.2 N = EO%) BASOPHIL % (test code = 0.5 % 0.0-2.6 N BA%) NUCLEATED RBC % (test 0.5 /100WBC% 0.0-1.0 N code = NRBC%) GRANULOCYTE # (test code 6.95 k/mm3 2.0-13.7 N = GR#) IMMATURE GRANULOCYTE # 0.55 K/mm3 0.00-0.03 H (test code = IG#) LYMPHOCYTE # (test code 0.97 K/mm3 0.6-3.8 N = LY#) MONOCYTE # (test code = 1.86 K/mm3 0.11-0.59 H MO#) EOSINOPHIL # (test code 0.01 K/mm3 0.0-0.4 N = EO#) BASOPHIL # (test code = 0.05 K/mm3 0.0-0.1 N BA#) NUCLEATED RBC # (test 0.05 K/mm3 0.00-0.05 N code = NRBC#) MANUAL DIFF REQUIRED MAN DIFF INDICATED CRITERIA (test code = MDIFF) DIFF/SCN WBC [id number] 07:10:00 Test Item Value Reference Range Interpretation Comments TOTAL CELLS COUNTED (test code = #CELLS >100 TCC) SEGMENTED NEUTROPHILS (test code = % 40-75 SEG) LYMPHOCYTE (test code = LYMPH) % 12.6-43.5 MORPHOLOGY COMMENT (test code = MOC) ON SCAN NORMAL RBCS PLATELET ESTIMATE (test code = ON SCAN ADEQUATE PLTEST) CBC W/MANUAL [id number] 07:10:00 Test Item Value Reference Range Interpretation Comments WHITE BLOOD CELL (test 10.4 K/mm3 4.1-12.1 N code = WBC) RED BLOOD CELL (test 3.56 M/mm3 3.8-5.5 L code = RBC) HEMOGLOBIN (test code = 12.0 G/DL 10.6-15.8 N HGB) HEMATOCRIT (test code = 38.0 % 31.8-47.4 N HCT) MEAN CELL VOLUME (test 106.7 fL 80.1-101.1 H code = MCV) MEAN CELL HGB (test code 33.7 pg 25.3-35.3 N = MCH) MEAN CELL HGB 31.6 G/DL 32.7-35.1 L CONCETRATION (test code = MCHC) RED CELL DISTRIBUTION 14.6 % 12.2-16.4 N WIDTH (test code = RDW) RED CELL DISTRIBUTION 57.8 fL 35.1-43.9 H WIDTH (test code = RDW-SD) PLATELET COUNT (test 248 K/mm3 155-337 N code = PLT) MEAN PLATELET VOLUME 10.4 fL 7.6-10.4 N (test code = MPV) GRANULOCYTE % (test code 66.9 % 37.8-82.6 N = GR%) IMMATURE GRANULOCYTE % 5.3 % 0.0-2.0 H (test code = IG%) LYMPHOCYTE % (test code 9.3 % 14.1-45.4 L = LY%) MONOCYTE % (test code = 17.9 % 2.5-11.7 H MO%) EOSINOPHIL % (test code 0.1 % 0.0-6.2 N = EO%) BASOPHIL % (test code = 0.5 % 0.0-2.6 N BA%) NUCLEATED RBC % (test 0.5 /100WBC% 0.0-1.0 N code = NRBC%) GRANULOCYTE # (test code 6.95 k/mm3 2.0-13.7 N = GR#) IMMATURE GRANULOCYTE # 0.55 K/mm3 0.00-0.03 H (test code = IG#) LYMPHOCYTE # (test code 0.97 K/mm3 0.6-3.8 N = LY#) MONOCYTE # (test code = 1.86 K/mm3 0.11-0.59 H MO#) EOSINOPHIL # (test code 0.01 K/mm3 0.0-0.4 N = EO#) BASOPHIL # (test code = 0.05 K/mm3 0.0-0.1 N BA#) NUCLEATED RBC # (test 0.05 K/mm3 0.00-0.05 N code = NRBC#) MANUAL DIFF REQUIRED MAN DIFF INDICATED CRITERIA (test code = MDIFF) DIFF/SCN WBC [id number] 07:10:00 Test Item Value Reference Range Interpretation Comments TOTAL CELLS COUNTED (test code = #CELLS >100 TCC) SEGMENTED NEUTROPHILS (test code = % 40-75 SEG) LYMPHOCYTE (test code = LYMPH) % 12.6-43.5 MORPHOLOGY COMMENT (test code = MOC) ON SCAN NORMAL RBCS PLATELET ESTIMATE (test code = ON SCAN ADEQUATE PLTEST) BASIC METABOLIC [id number] 07:03:00 Test Item Value Reference Range Interpretation Comments SODIUM (test code = 143.0 mmol/L 133-144 N NA) POTASSIUM (test code 3.8 mmol/L 3.5-5.1 N = K) CHLORIDE (test code 104 mmol/L 95-105 N = CL) CARBON DIOXIDE (test 38 mmol/L 21-32 H code = CO2) ANION GAP (test code 1.0 GAP calc 4.0-15.0 L = GAP) GLUCOSE (test code = 156 MG/DL 70-110 H GLU) BLOOD UREA NITROGEN 21 MG/DL 7-18 H (test code = BUN) CREATININE (test 0.65 MG/DL 0.55-1.30 N Results may be code = CREAT) depressed if patient is takingN-Acetylc yste ine (NAC) and Metamizole (Dipyrone). CALCIUM (test code = 9.3 MG/DL 8.5-10.1 N CA) INDEX HEMOLYSIS 1 NORMAL <10 MG 1 NORMAL (test code = Index/DL HEMINDEX) INDEX ICTERIC (test 1 NORMAL <2 MG 1 NORMAL code = ICTINDEX) Index/DL INDEX LIPEMIA (test 1 NORMAL <50 MG 1 NORMAL code = LIPINDEX) Index/DL [id number] 07:03:00 Test Item Value Reference Range Interpretation Comments TRIGLYCERIDES (test code 134 MG/DL 0-150 N Res ults may be = TRIG) depressed if bill rowe is takingN-Acetylc ystei ne (NAC) and Metamizole (Dipyrone). GLUCOSE BEDSIDE [id number] 06:58:00 Test Item Value Reference Range Interpretation Comments GLUCOSE BEDSIDE TESTING (test code 141 MG/DL 70-119 H = GLUBED) - XR CHEST 1 [id number] 06:57:00 FAX: Juan Luis Munguia MD [phone] [place]: C St: ADM FAX: Sindi Cedillo [phone] FAX:Lorene Rodgers MD [phone] FAX: Carina Francis MD [phone] Patient Name: SIDNEY HALL Unit No: [id number] EXAMS: CPT CODE: [id number] XR CHEST 1 V [id number] EXAM: - XR CHEST 1 V 03/24/2020 6:00 AM Location code:C3 HISTORY: 49 years-old Male with vent TECHNIQUE: Frontal portable view of the chest COMPARISON: Chest x-ray performed on 03/24/2020 FINDINGS: Lines and tubes: There is an endotracheal tube and enteric tube instable position. There is a right IJ line in stable position. Cardiomediastinal: The cardiomediastinal silhouette is unchanged. Lungs and pleura: The lungs are hyperinflated with bilateral lower lung airspace opacities, either edema or infiltrate, that appear unchanged in extent compared to prior imaging. No evidence of pneumothorax. Musculoskeletal: No significant skeletal abnormality. IMPRESSION: Hyperinflated lungs with stable bilateral lower lung airspace opacities, either edema or infiltrate. Lines and tubes in stable position. at 0657 Reported and signed by: Long Morris M.D. CC: Juan Luis Munguia MD; Sindi Gomez Dictated Date/Time: 03/24/2020 (0657)Technologist: Francois Ring Transcribed Date/Time: 03/24/2020 (0657) By: [email or web address] Orig Print D/T: S: 03/24/2020 (0700) EARNESTINE Sarbjit NAME: SIDNEY HALL [facility] PHYS: [id number] - Juan Luis Munguia MD [address] [place] [address] : 1970 AGE: 49 SEX: [place] [address] LOC: Herman.CCU32 D PHONE #: [phone] EXAM DATE: 03/24/2020 STATUS: ADM IN FAX #: [phone] RAD NO: DC Dt: PAGE 1 Signed ReportARTERIAL BLOOD [id number] 03:44:00 Test Item Value Reference Range Interpretation Comments ARTERIAL BLOOD GAS PH (test 7.45 pH units 7.35-7.45 N code = PHA) ARTERIAL BLOOD GAS PCO2 55 mmHg 35-45 H (test code = PCO2A) ARTERIAL BLOOD GAS PO2 64 mmHg 80-100 L P/F 6 4 (test code = PO2A) BICARBONATE TOTAL HCO3 38.1 mmol/L 22.0-26.0 H (test code = HCO3) BASE EXCESS (test code = 14.0 mmol/L -3.0-3.0 H REX) FIO2 (test code = FIO2A) 100 % (calc) 21-100 N MODALITY (test code = MOD) SIMV COMMENT DESCRIPTION ABG PATIENT RESP RATE (test 20 /MIN PT RespRate code = RRPATA) ABG TIDAL VOLUME (test code 500 ML = TVA) ABG PEEP (test code = 12.0 cm H20 0.0-99.9 PEEPA) ABG PRESSURE SUPPORT (test 8.0 cm H20 >0 code = PSABG) ABG SITE (test code = RT RADIAL ARTKIT DESCRIPTION SITEA) MODIFIED ANICETO'S (test code POSITIVE Circ.CHK POSITIVE = MODALL) O2 SATURATION (test code = 95 % (calc) 95-100 N O2S/C) - XR CHEST 1 [id number] 00:56:00 FAX: Juan Luis Munguia MD [phone] [place]: St: [facility] FAX: Sindi Cedillo [phone] FAX:Lorene Rodgers MD [phone] FAX: Carina Francis MD [phone] Patient Name: SIDNEY HALL Unit No: [id number] EXAMS:CPT CODE: [id number] XR CHEST 1 V [id number] HISTORY: Follow-up Location: C3 COMPARISON:03/23/2020 FINDINGS: Endotracheal tube and nasogastric tube as well as right IJ central line are again noted. Patchy basilar opacities are noted. No pneumothorax. No other changes. IMPRESSION: 1. Bibasilar opacities suggesting atelectasis and/or pneumonia increased from prior study. at 0056 Reported and signed by: Hugh Badillo M.D. CC: Juan Luis Munguia MD; Sindi Gomez Dictated Date/Time: 03/24/2020 (55)Technologist: Leo Goodwin Transcribed Date/Time: 03/24/2020 (55) By: [email or web address] Orig Print D/T: S: 03/24/2020 (58) EARNESTINE Schaffer NAME: SIDNEY ALFONSO [facility] PHYS: AHMRA.[id number] - Juan Luis Munguia MD [address] [place] [address] BLVD : 1970 AGE: 49 SEX: Chintan SCHAFFER, [place] [address] LOC: B.CCU32 D PHONE #: [phone] EXAM DATE: 03/24/2020 STATUS: ADM IN FAX #: [phone] RAD NO: DC Dt: PAGE 1 Signed ReportGLUCOSE BEDSIDE TESTING 2020-03-23 21:56:00 Test Item Value Reference Range Interpretation Comments GLUCOSE BEDSIDE TESTING (test code 200 MG/DL 70-119 H = GLUBED) GLUCOSE BEDSIDE [id number] 13:36:00 Test Item Value Reference Range Interpretation Comments GLUCOSE BEDSIDE TESTING (test code 198 MG/DL 70-119 H = GLUBED) GLUCOSE BEDSIDE [id number] 08:36:00 Test Item Value Reference Range Interpretation Comments GLUCOSE BEDSIDE TESTING (test code 189 MG/DL 70-119 H = GLUBED) GLUCOSE BEDSIDE [id number] 06:50:00 Test Item Value Reference Range Interpretation Comments GLUCOSE BEDSIDE TESTING (test code 237 MG/DL 70-119 H = GLUBED) - XR CHEST 1 [id number] 06:24:00 FAX: Hossein Bradley MD [phone] [place]: C St: ADM FAX: Sindi Cedillo [phone] FAX: Lorene Rodgers MD [phone] FAX: Carina Francis MD [phone] Patient Name: SIDNEY HALL Unit No: [id number] EXAMS: CPT CODE: [id number] XR CHEST 1 V [id number] LOCATION: T18 EXAM: CHEST 1 VIEW INDICATION: , respiratory failure. COMPARISON: Chest x-ray March 22, 2020 TECHNIQUE: AP chest radiograph. FINDINGS: Life support tubes and lines are unchanged. Improved aeration of the lungs with only mild persistent perihilaropacity remaining. No pleural effusion is seen. Heart is normal in size. Bones and peripheral soft tissues are unchanged. IMPRESSION: Significant improved aeration of the lungs with only mild persistent perihilar opacities remaining. Life support tubes and lines are unchanged. at 0624 Reported and signed by: Sukhdev Sutton MD CC: Hossein Blandon MD; Sindi Reardon [facility] Dictated Date/Time: 03/23/2020 (623)Technologist: Leo Goodwin Transcribed Date/Time: 03/23/2020 (623) By: [email or web address] Orig Print D/T: S: 03/23/2020 (0627) EARNESTINE grigsby NAME: SIDNEY HALL [facility] PHYS: Hossein Higuera MD [address] [place] [address] BLVD : 1970 AGE: 49 SEX: Chintan [place], [place] [address] LOC: Herman.CCU32 D PHONE #: [phone] EXAM DATE: 03/23/2020 STATUS: ADM IN FAX #: [phone] RAD NO: DC Dt: PAGE 1 Signed ReportARTERIAL BLOOD GAS 2020-03-23 05:29:00 Test Item Value Reference Range Interpretation Comments ARTERIAL BLOOD GAS PH (test 7.41 pH units 7.35-7.45 N code = PHA) ARTERIAL BLOOD GAS PCO2 52 mmHg 35-45 H (test code = PCO2A) ARTERIAL BLOOD GAS PO2 67 mmHg 80-100 L (test code = PO2A) BICARBONATE TOTAL HCO3 32.8 mmol/L 22.0-26.0 H (test code = HCO3) BASE EXCESS (test code = 8.1 mmol/L -3.0-3.0 H REX) FIO2 (test code = FIO2A) 60 % (calc) 21-100 N MODALITY (test code = MOD) CMV COMMENT DESCRIPTION ABG PATIENT RESP RATE (test 20 /MIN PT RespRate code = RRPATA) ABG TIDAL VOLUME (test code 500 ML = TVA) ABG PEEP (test code = 8.0 cm H20 0.0-99.9 PEEPA) ABG SITE (test code = RT RADIAL ARTKIT DESCRIPTION SITEA) MODIFIED ANICETO'S (test code POSITIVE Circ.CHK POSITIVE = MODALL) O2 SATURATION (test code = 95 % (calc) 95-100 N O2S/C) HOLD IN OE? NCAMPUS: CIs this a LINE draw? NGLUCOSE BEDSIDE [id number] 20:56:00 Test Item Value Reference Range Interpretation Comments GLUCOSE BEDSIDE TESTING (test code 181 MG/DL 70-119 H = GLUBED) - XR CHEST 1 [id number] 19:06:00 FAX: Hossein Bradley MD [phone] [place]: C St: ADM FAX: Sindi Cedillo [phone] FAX: Lorene Rodgers MD [phone] FAX: Carina Francis MD [phone] Patient Name: SIDNEY HALL Unit No: [id number] EXAMS: CPT CODE: [id number] XR CHEST 1 V 94418 AP VIEW OF THE CHEST LOCATION: R16 CLINICAL HISTORY: ET tube placement verification. COMPARISON: Chest radiograph 03/21/2020. FINDINGS: Since the previous examdated 03/21/2020, the ET tube has been repositioned, now with the tip projecting approximately 3.5 cm above the bernabe. The NG tube and right central venous catheter have remained stable in positions. The cardiomediastinal shadow is within normal limits. Pulmonary vascular congestion is seen. Minimal right basilar atelectasis is present. No appreciable pleural fluids. Degenerative bony changes are noted. No acute bony abnormality is found. IMPRESSION: The ET tube tip projects approximately 3.5 cm above the bernabe. Pulmonary vascular congestion. Minimal right basilar atelectasis. at 1906 Reported and signed by: Missy Gann MD CC: Hossein Blandon MD; Sindi Gomez Dictated Date/Time: 03/22/2020 (1905)Technologist: Collette Springer Transcribed Date/Time: 03/22/2020 (1905) By: Ady Orig Print D/T: S: 03/22/2020 (1908)EARNESTINE Schaffer NAME: SIDNEY AHLL MED[facility] IMAG[facility] PHYS: Hossein Higuera MD [address] [place] [address] BLVD : 1970 AGE: 49 SEX: Chintan SCHAFFER, [place] [address] LOC: B.CCU32 D PHONE #:[phone] EXAM DATE: 03/22/2020 STATUS: ADM IN FAX #: [phone] RAD NO: DC Dt: PAGE 1 Signed ReportGLUCOSE BEDSIDE [id number] 18:16:00 Test Item Value Reference Range Interpretation Comments GLUCOSE BEDSIDE TESTING (test code 235 MG/DL 70-119 H = GLUBED) GLUCOSE BEDSIDE [id number] 06:51:00 Test Item Value Reference Range Interpretation Comments GLUCOSE BEDSIDE TESTING (test code 185 MG/DL 70-119 H = GLUBED) ARTERIAL BLOOD [id number] 04:15:00 Test Item Value Reference Range Interpretation Comments ARTERIAL BLOOD GAS PH 7.43 pH units 7.35-7.45 N (test code = PHA) ARTERIAL BLOOD GAS PCO2 48 mmHg 35-45 H (test code = PCO2A) ARTERIAL BLOOD GAS PO2 61 mmHg 80-100 L (test code = PO2A) BICARBONATE TOTAL HCO3 31.8 mmol/L 22.0-26.0 H (test code = HCO3) BASE EXCESS (test code = 7.4 mmol/L -3.0-3.0 H REX) FIO2 (test code = FIO2A) 60 % (calc) 21-100 N MODALITY (test code = MOD) CMV COMMENT DESCRIPTION ABG PATIENT RESP RATE 20 /MIN PT RespRate (test code = RRPATA) ABG TIDAL VOLUME (test 500 ML code = TVA) ABG PEEP (test code = 5.0 cm H20 0.0-99.9 PEEPA) ABG SITE (test code = RT BRACHIAL ARTKIT DESCRIPTION SITEA) MODIFIED ANICETO'S (test POSITIVE Circ.CHK POSITIVE code = MODALL) O2 SATURATION (test code = 94 % (calc) 95-100 L O2S/C) GLUCOSE BEDSIDE [id number] 17:58:00 Test Item Value Reference Range Interpretation Comments GLUCOSE BEDSIDE TESTING (test code 147 MG/DL 70-119 H = GLUBED) - XR CHEST 1 [id number] 08:46:00 FAX: Hossein Bradley MD [phone] [place]: St: [facility] FAX: Sindi Cedillo [phone] FAX: Lorene Rodgers MD [phone] FAX: Carina Francis MD [phone] Patient Name: SIDNEY HALL Unit No: [id number] EXAMS: CPT CODE: [id number] XR CHEST 1 V 31574 Location of dictation: B2 Portable chest one view. HISTORY: INTUBATED COMMENT: Compared to one day prior. Support lines and catheters including ET tube remainin good positions. Cardiac silhouette is stable. There is improved aeration of right lung with residual bibasilar infiltrates. No pneumothorax or effusion seen. Visualized soft tissues and skeletal structures are unremarkable. IMPRESSION: 1. Lines and catheters including ET tube in good positions. 2. Improved aeration of the right lower lobe with patchy bibasilar infiltrates likely atelectasis. at 0846 Reported and signed by: Suzette Serrano M.D. CC: Hossein Blandon MD; Sindi Gomez Dictated Date/Time: 03/21/2020 (0846)Technologist: Bennie Forman Transcribed Date/Time: 03/21/2020 (0846) By: JoeSHRINERS HOSPITALS FOR CHILDREN Orig Print D/T: S: 03/21/2020 (0849) EARNESTINE [place] NAME: SIDNEY HALL [facility] PHYS: Hossein Higuera MD [address] [place] [address] BLVD : 1970 AGE: 49 SEX: Chintan [place], [place] [address] LOC: B.CCU32 D PHONE #: [phone] EXAM DATE: 03/21/2020 STATUS: ADM IN FAX #: [phone] RAD NO: DC Dt: PAGE 1 Signed ReportCBC W/MANUAL [id number] 06:46:00 Test Item Value Reference Range Interpretation Comments WHITE BLOOD CELL (test 9.8 K/mm3 4.1-12.1 N code = WBC) RED BLOOD CELL (test 3.71 M/mm3 3.8-5.5 L code = RBC) HEMOGLOBIN (test code = 13.0 G/DL 10.6-15.8 N HGB) HEMATOCRIT (test code = 39.4 % 31.8-47.4 N HCT) MEAN CELL VOLUME (test 106.2 fL 80.1-101.1 H code = MCV) MEAN CELL HGB (test code 35.0 pg 25.3-35.3 N = MCH) MEAN CELL HGB 33.0 G/DL 32.7-35.1 N CONCETRATION (test code = MCHC) RED CELL DISTRIBUTION 14.0 % 12.2-16.4 N WIDTH (test code = RDW) RED CELL DISTRIBUTION 54.6 fL 35.1-43.9 H WIDTH (test code = RDW-SD) PLATELET COUNT (test 121 K/mm3 155-337 L code = PLT) MEAN PLATELET VOLUME 11.1 fL 7.6-10.4 H (test code = MPV) GRANULOCYTE % (test code 89.1 % 37.8-82.6 H = GR%) IMMATURE GRANULOCYTE % 0.4 % 0.0-2.0 N (test code = IG%) LYMPHOCYTE % (test code 2.6 % 14.1-45.4 L = LY%) MONOCYTE % (test code = 7.8 % 2.5-11.7 N MO%) EOSINOPHIL % (test code 0.0 % 0.0-6.2 N = EO%) BASOPHIL % (test code = 0.1 % 0.0-2.6 N BA%) NUCLEATED RBC % (test 0.0 /100WBC% 0.0-1.0 N code = NRBC%) GRANULOCYTE # (test code 8.73 k/mm3 2.0-13.7 N = GR#) IMMATURE GRANULOCYTE # 0.04 K/mm3 0.00-0.03 H (test code = IG#) LYMPHOCYTE # (test code 0.25 K/mm3 0.6-3.8 L = LY#) MONOCYTE # (test code = 0.76 K/mm3 0.11-0.59 H MO#) EOSINOPHIL # (test code 0.00 K/mm3 0.0-0.4 N = EO#) BASOPHIL # (test code = 0.01 K/mm3 0.0-0.1 N BA#) NUCLEATED RBC # (test 0.00 K/mm3 0.00-0.05 N code = NRBC#) MANUAL DIFF REQUIRED MAN DIFF INDICATED CRITERIA (test code = MDIFF) DIFF/SCN WBC [id number] 06:46:00 Test Item Value Reference Range Interpretation Comments TOTAL CELLS COUNTED (test 100 #CELLS >100 code = TCC) SEGMENTED NEUTROPHILS (test 92 % 40-75 H code = SEG) LYMPHOCYTE (test code = 2 % 12.6-43.5 L LYMPH) MONOCYTE (test code = MON) 6 % 4.2-12.7 N MACROCYTOSIS (test code = MODERATE ON SCAN NONE A MACR) PLATELET ESTIMATE (test code SL DECR ON SCAN ADEQUATE = PLTEST) COMPREHENSIVE METABOLIC [id number] 06:31:00 Test Item Value Reference Range Interpretation Comments SODIUM (test code = 136.0 mmol/L 133-144 N NA) POTASSIUM (test code 3.5 mmol/L 3.5-5.1 N = K) CHLORIDE (test code 104 mmol/L 95-105 N = CL) CARBON DIOXIDE (test 27 mmol/L 21-32 N code = CO2) ANION GAP (test code 5.0 GAP calc 4.0-15.0 N = GAP) GLUCOSE (test code = 181 MG/DL 70-110 H GLU) BLOOD UREA NITROGEN 16 MG/DL 7-18 N (test code = BUN) GLOMERULAR 134 estGFR >60 The estimated FILTRATION RATE glomerular (test code = GFR) filtration rate is computed usingpatient ra ce, age, sex, and s juju creatinine. If any of theneeded da ta elements are mi ssing the Laboratory can notcompute an estimation of t he glomerular filtration rate .The GFR value units = ml/min/1.73 met er squared. EstimatedGFR va lues above 60 should be interpreted as >60, not anexact number.--- DRUG DOSAGE ALERT -- - Drug dosage adjustments uti lize different calculationpara meter s. CREATININE (test 0.63 MG/DL 0.55-1.30 N Results may be code = CREAT) depressed if p atient is takingN-Acetylc ystei ne (NAC) and Metamizole (Dipyrone). TOTAL PROTEIN (test 6.0 G/DL 6.4-8.2 L code = PROT) ALBUMIN (test code = 2.2 G/DL 3.4-5.0 L ALB) ALBUMIN/GLOBULIN 0.6 RATIO 1.2-2.2 L RATIO (test code = A/G) CALCIUM (test code = 7.9 MG/DL 8.5-10.1 L CA) BILIRUBIN TOTAL 3.93 MG/DL 0.00-1.00 H (test code = BILT) BILIRUBIN DIRECT 3.24 MG/DL 0.00-0.30 H (test code = BILD) BILIRUBIN INDIRECT 0.69 MG/DL 0.2-1.3 N (test code = BILIND) SGOT/AST (test code 257 Unit/L 15-37 H = AST) SGPT/ALT (test code 184 Unit/L 12-78 H = ALT) ALKALINE PHOSPHATASE 147 Unit/L 45-117 H TOTAL (test code = ALKP) INDEX HEMOLYSIS 2 TRACE 10-25 1 NORMAL (test code = MG Index/DL HEMINDEX) INDEX ICTERIC (test 2 TRACE 2-5 MG 1 NORMAL code = ICTINDEX) Index/DL INDEX LIPEMIA (test 1 NORMAL <50 1 NORMAL code = LIPINDEX) MG Index/DL COMPREHENSIVE METABOLIC [id number] 06:23:00 Test Item Value Reference Range Interpretation Comments SODIUM (test code = NA) 136.0 mmol/L 133-144 N POTASSIUM (test code = K) 3.5 mmol/L 3.5-5.1 N CHLORIDE (test code = CL) 104 mmol/L 95-105 N CARBON DIOXIDE (test code mmol/L 21-32 = CO2) ANION GAP (test code = GAP calc 4.0-15.0 GAP) GLUCOSE (test code = GLU) 181 MG/DL 70-110 H BLOOD UREA NITROGEN (test MG/DL 7-18 code = BUN) CREATININE (test code = MG/DL 0.55-1.30 CREAT) TOTAL PROTEIN (test code G/DL 6.4-8.2 = PROT) ALBUMIN (test code = ALB) G/DL 3.4-5.0 ALBUMIN/GLOBULIN RATIO RATIO 1.2-2.2 (test code = A/G) CALCIUM (test code = CA) 7.9 MG/DL 8.5-10.1 L BILIRUBIN TOTAL (test MG/DL 0.00-1.00 code = BILT) BILIRUBIN DIRECT (test MG/DL 0.00-0.30 code = BILD) BILIRUBIN INDIRECT (test MG/DL 0.2-1.3 code = BILIND) SGOT/AST (test code = Unit/L 15-37 AST) SGPT/ALT (test code = Unit/L 12-78 ALT) ALKALINE PHOSPHATASE Unit/L 45-117 TOTAL (test code = ALKP) INDEX HEMOLYSIS (test 2 TRACE 10-25 MG 1 NORMAL code = HEMINDEX) Index/DL INDEX ICTERIC (test code 2 TRACE 2-5 MG 1 NORMAL = ICTINDEX) Index/DL INDEX LIPEMIA (test code 1 NORMAL <50 MG 1 NORMAL = LIPINDEX) Index/DL CBC W/MANUAL [id number] 06:10:00 Test Item Value Reference Range Interpretation Comments WHITE BLOOD CELL (test 9.8 K/mm3 4.1-12.1 N code = WBC) RED BLOOD CELL (test 3.71 M/mm3 3.8-5.5 L code = RBC) HEMOGLOBIN (test code = 13.0 G/DL 10.6-15.8 N HGB) HEMATOCRIT (test code = 39.4 % 31.8-47.4 N HCT) MEAN CELL VOLUME (test 106.2 fL 80.1-101.1 H code = MCV) MEAN CELL HGB (test code 35.0 pg 25.3-35.3 N = MCH) MEAN CELL HGB 33.0 G/DL 32.7-35.1 N CONCETRATION (test code = MCHC) RED CELL DISTRIBUTION 14.0 % 12.2-16.4 N WIDTH (test code = RDW) RED CELL DISTRIBUTION 54.6 fL 35.1-43.9 H WIDTH (test code = RDW-SD) PLATELET COUNT (test 121 K/mm3 155-337 L code = PLT) MEAN PLATELET VOLUME 11.1 fL 7.6-10.4 H (test code = MPV) GRANULOCYTE % (test code 89.1 % 37.8-82.6 H = GR%) IMMATURE GRANULOCYTE % 0.4 % 0.0-2.0 N (test code = IG%) LYMPHOCYTE % (test code 2.6 % 14.1-45.4 L = LY%) MONOCYTE % (test code = 7.8 % 2.5-11.7 N MO%) EOSINOPHIL % (test code 0.0 % 0.0-6.2 N = EO%) BASOPHIL % (test code = 0.1 % 0.0-2.6 N BA%) NUCLEATED RBC % (test 0.0 /100WBC% 0.0-1.0 N code = NRBC%) GRANULOCYTE # (test code 8.73 k/mm3 2.0-13.7 N = GR#) IMMATURE GRANULOCYTE # 0.04 K/mm3 0.00-0.03 H (test code = IG#) LYMPHOCYTE # (test code 0.25 K/mm3 0.6-3.8 L = LY#) MONOCYTE # (test code = 0.76 K/mm3 0.11-0.59 H MO#) EOSINOPHIL # (test code 0.00 K/mm3 0.0-0.4 N = EO#) BASOPHIL # (test code = 0.01 K/mm3 0.0-0.1 N BA#) NUCLEATED RBC # (test 0.00 K/mm3 0.00-0.05 N code = NRBC#) MANUAL DIFF REQUIRED MAN DIFF INDICATED CRITERIA (test code = MDIFF) DIFF/SCN WBC [id number] 06:10:00 Test Item Value Reference Range Interpretation Comments TOTAL CELLS COUNTED (test code = #CELLS >100 TCC) SEGMENTED NEUTROPHILS (test code = % 40-75 SEG) LYMPHOCYTE (test code = LYMPH) % 12.6-43.5 MORPHOLOGY COMMENT (test code = MOC) ON SCAN NORMAL RBCS PLATELET ESTIMATE (test code = ON SCAN ADEQUATE PLTEST) CBC W/MANUAL [id number] 06:10:00 Test Item Value Reference Range Interpretation Comments WHITE BLOOD CELL (test 9.8 K/mm3 4.1-12.1 N code = WBC) RED BLOOD CELL (test 3.71 M/mm3 3.8-5.5 L code = RBC) HEMOGLOBIN (test code = 13.0 G/DL 10.6-15.8 N HGB) HEMATOCRIT (test code = 39.4 % 31.8-47.4 N HCT) MEAN CELL VOLUME (test 106.2 fL 80.1-101.1 H code = MCV) MEAN CELL HGB (test code 35.0 pg 25.3-35.3 N = MCH) MEAN CELL HGB 33.0 G/DL 32.7-35.1 N CONCETRATION (test code = MCHC) RED CELL DISTRIBUTION 14.0 % 12.2-16.4 N WIDTH (test code = RDW) RED CELL DISTRIBUTION 54.6 fL 35.1-43.9 H WIDTH (test code = RDW-SD) PLATELET COUNT (test 121 K/mm3 155-337 L code = PLT) MEAN PLATELET VOLUME 11.1 fL 7.6-10.4 H (test code = MPV) GRANULOCYTE % (test code 89.1 % 37.8-82.6 H = GR%) IMMATURE GRANULOCYTE % 0.4 % 0.0-2.0 N (test code = IG%) LYMPHOCYTE % (test code 2.6 % 14.1-45.4 L = LY%) MONOCYTE % (test code = 7.8 % 2.5-11.7 N MO%) EOSINOPHIL % (test code 0.0 % 0.0-6.2 N = EO%) BASOPHIL % (test code = 0.1 % 0.0-2.6 N BA%) NUCLEATED RBC % (test 0.0 /100WBC% 0.0-1.0 N code = NRBC%) GRANULOCYTE # (test code 8.73 k/mm3 2.0-13.7 N = GR#) IMMATURE GRANULOCYTE # 0.04 K/mm3 0.00-0.03 H (test code = IG#) LYMPHOCYTE # (test code 0.25 K/mm3 0.6-3.8 L = LY#) MONOCYTE # (test code = 0.76 K/mm3 0.11-0.59 H MO#) EOSINOPHIL # (test code 0.00 K/mm3 0.0-0.4 N = EO#) BASOPHIL # (test code = 0.01 K/mm3 0.0-0.1 N BA#) NUCLEATED RBC # (test 0.00 K/mm3 0.00-0.05 N code = NRBC#) MANUAL DIFF REQUIRED MAN DIFF INDICATED CRITERIA (test code = MDIFF) DIFF/SCN WBC [id number] 06:10:00 Test Item Value Reference Range Interpretation Comments TOTAL CELLS COUNTED (test code = #CELLS >100 TCC) SEGMENTED NEUTROPHILS (test code = % 40-75 SEG) LYMPHOCYTE (test code = LYMPH) % 12.6-43.5 MORPHOLOGY COMMENT (test code = MOC) ON SCAN NORMAL RBCS PLATELET ESTIMATE (test code = ON SCAN ADEQUATE PLTEST) ARTERIAL BLOOD [id number] 04:21:00 Test Item Value Reference Range Interpretation Comments ARTERIAL BLOOD GAS PH 7.34 pH units 7.35-7.45 L (test code = PHA) ARTERIAL BLOOD GAS PCO2 49 mmHg 35-45 H (test code = PCO2A) ARTERIAL BLOOD GAS PO2 87 mmHg 80-100 N (test code = PO2A) BICARBONATE TOTAL HCO3 26.3 mmol/L 22.0-26.0 H (test code = HCO3) BASE EXCESS (test code = 0.5 mmol/L -3.0-3.0 N REX) FIO2 (test code = FIO2A) 40 % (calc) 21-100 N MODALITY (test code = MOD) CMV COMMENT DESCRIPTION ABG PATIENT RESP RATE 20 /MIN PT RespRate (test code = RRPATA) ABG TIDAL VOLUME (test 500 ML code = TVA) ABG PEEP (test code = 5.0 cm H20 0.0-99.9 PEEPA) ABG SITE (test code = RT BRACHIAL ARTKIT DESCRIPTION SITEA) MODIFIED ANICETO'S (test POSITIVE Circ.CHK POSITIVE code = MODALL) O2 SATURATION (test code = 98 % (calc) 95-100 N O2S/C) BASIC METABOLIC [id number] 21:06:00 Test Item Value Reference Range Interpretation Comments SODIUM (test code = 135.0 mmol/L 133-144 N NA) POTASSIUM (test code 4.1 mmol/L 3.5-5.1 N = K) CHLORIDE (test code 102 mmol/L 95-105 N = CL) CARBON DIOXIDE (test 24 mmol/L 21-32 N code = CO2) ANION GAP (test code 9.0 GAP calc 4.0-15.0 N = GAP) GLUCOSE (test code = 126 MG/DL 70-110 H GLU) BLOOD UREA NITROGEN 17 MG/DL 7-18 N (test code = BUN) CREATININE (test 0.68 MG/DL 0.55-1.30 N Results may be code = CREAT) depressed if patient is takingN-Acetylc yste ine (NAC) and Metamizole (Dipyrone). CALCIUM (test code = 7.9 MG/DL 8.5-10.1 L CA) INDEX HEMOLYSIS 3 SMALL 25-50 1 NORMAL (test code = MG Index/DL HEMINDEX) INDEX ICTERIC (test 3 SMALL 5-10 MG 1 NORMAL code = ICTINDEX) Index/DL INDEX LIPEMIA (test 1 NORMAL <50 MG 1 NORMAL code = LIPINDEX) Index/DL COMPREHENSIVE METABOLIC [id number] 21:06:00 Test Item Value Reference Range Interpretation Comments GLOMERULAR FILTRATION 123 estGFR >60 The es timated RATE (test code = glomerular filtration GFR) rate is compute d usingpatient ra ce, age, sex, and s juju creatinine. If any of theneeded data elements are mi ssing the Laboratory can notcompute an estimation of t he glomerular filt ration rate.The GFR va lue units = ml/min/ 1.73 meter squared. EstimatedGFR va lues above 60 should be interpreted as >60, not anexact num suzy.--- DRUG DOSAGE JOSELINE RT --- Drug dosage adjustments uti lize different calculationpara meters. TOTAL PROTEIN (test 6.1 G/DL 6.4-8.2 L code = PROT) ALBUMIN (test code = 2.1 G/DL 3.4-5.0 L ALB) ALBUMIN/GLOBULIN 0.5 RATIO 1.2-2.2 L RATIO (test code = A/G) BILIRUBIN TOTAL (test 5.84 MG/DL 0.00-1.00 H code = BILT) BILIRUBIN DIRECT 4.88 MG/DL 0.00-0.30 H (test code = BILD) BILIRUBIN INDIRECT 0.96 MG/DL 0.2-1.3 N (test code = BILIND) SGOT/AST (test code = 348 Unit/L 15-37 H AST) SGPT/ALT (test code = 199 Unit/L 12-78 H ALT) ALKALINE PHOSPHATASE 159 Unit/L 45-117 H TOTAL (test code = ALKP) BASIC METABOLIC [id number] 20:58:00 Test Item Value Reference Range Interpretation Comments SODIUM (test code = NA) 135.0 mmol/L 133-144 N POTASSIUM (test code = K) 4.1 mmol/L 3.5-5.1 N CHLORIDE (test code = CL) 102 mmol/L 95-105 N CARBON DIOXIDE (test code 24 mmol/L 21-32 N = CO2) ANION GAP (test code = 9.0 GAP calc 4.0-15.0 N GAP) GLUCOSE (test code = GLU) 126 MG/DL 70-110 H BLOOD UREA NITROGEN (test 17 MG/DL 7-18 N code = BUN) CREATININE (test code = MG/DL 0.55-1.30 CREAT) CALCIUM (test code = CA) 7.9 MG/DL 8.5-10.1 L INDEX HEMOLYSIS (test 3 SMALL 25-50 MG 1 NORMAL code = HEMINDEX) Index/DL INDEX ICTERIC (test code 3 SMALL 5-10 MG 1 NORMAL = ICTINDEX) Index/DL INDEX LIPEMIA (test code 1 NORMAL <50 MG 1 NORMAL = LIPINDEX) Index/DL COMPREHENSIVE METABOLIC [id number] 20:58:00 Test Item Value Reference Range Interpretation Comments TOTAL PROTEIN (test code = PROT) G/DL 6.4-8.2 ALBUMIN (test code = ALB) 2.1 G/DL 3.4-5.0 L ALBUMIN/GLOBULIN RATIO (test code = RATIO 1.2-2.2 A/G) BILIRUBIN TOTAL (test code = BILT) MG/DL 0.00-1.00 BILIRUBIN DIRECT (test code = BILD) MG/DL 0.00-0.30 BILIRUBIN INDIRECT (test code = MG/DL 0.2-1.3 BILIND) SGOT/AST (test code = AST) Unit/L 15-37 SGPT/ALT (test code = ALT) Unit/L 12-78 ALKALINE PHOSPHATASE TOTAL (test Unit/L 45-117 code = ALKP) - XR CHEST 1 [id number] 18:46:00 FAX: Sindi Cedillo [phone] [place]: St: [facility] FAX: Lorene Rodgers MD [phone] FAX: Carina Francis MD [phone] Patient Name: SIDNEY HALL Unit No: [id number] EXAMS: CPT CODE: [id number] XR CHEST 1 V 13666 Chest one views Dictation location N 13 Dictation location N 13 Clinical history status postIJ placement TECHNIQUE: Single frontal view the chest was obtained and compared to prior study March 20, 2020 at 1707 hours FINDINGS: ET tube projects over the trachea in satisfactory position. NG tube is seen extending into the stomach in satisfactory position. There is a new right IJ central line with its tip projecting at the SVC in satisfactory position. There is right lower lobe atelectasis versus infiltrate. No pleural effusion or pneumothorax. IMPRESSION: Right IJ central line projects in satisfactory position. No pneumothorax. at 1846 Reported and signed by: Marylu Hunt M.D. CC: Sindi Gomez; Lorene Rodgers MD Dictated Date/Time: 03/20/2020 (1845)Technologist: Geraldine Anderson Transcribed Date/Time: 03/20/2020 (1845) By: JoeMVNayan Orig Print D/T: S: 03/20/2020 (185) [facility] Sarbjit NAME: ISABELSIDNEY Zaragoza MEDICAL IMAGING PHYS: Lorene Pressley MD [address] [place] [address] BLVD : 1970 AGE: 49 SEX: Chintan [place], [place] [address] LOC: [id number] D PHONE #: [phone] EXAM DATE: 03/20/2020 STATUS: ADMIN FAX #: [phone] RAD NO: DC Dt: PAGE 1 Signed ReportUA RFLX MICR CULT IF [id number] 18:00:00 Test Item Value Reference Range Interpretation Comments UA COLOR (test code = YELLOW DESCRIPT YELLOW COLU) UA APPEARANCE (test code CLEAR DESCRIPT CLEAR = APPU) UA GLUCOSE DIPSTICK (test NORMAL (0) mg/dL 0 (NORMAL) code = DGLUU) UA BILIRUBIN DIPSTICK 1.0 (1+) mg/dL (NEG) 0 A (test code = BILU) UA KETONE DIPSTICK (test 10 (1+) mg/dL (NEG) 0 A code = KETU) UA SPECIFIC GRAVITY (test 1.011 SG 1.001-1.035 code = SGU) UA BLOOD DIPSTICK (test 0.03 (TRACE) mg/dL 0 (NEG) A code = BREANA) UA PH DIPSTICK (test code 5.5 pH UNITS 4.6-8.0 = YINA) UA PROTEIN DIPSTICK (test 30 (1+) mg/dL <30 (1+) A code = PROU) UA UROBILINIOGEN DIPSTICK 6 (2+) mg/Dl <2.0 (1+) A (test code = URO) UA NITRITE DIPSTICK (test NEGATIVE (0) SCREEN NEG code = DOMINICK) UA LEUKOCYTE ESTERASE NEGATIVE (0) (NEG) 0 DIPSTICK (test code = Leuk/mcL LEUU) UA COMMENT (test code = CATHETER SPEC SpecComment COMU) NoteSPEC UA WBC (test code = WBCU) 0-3 #WBC/HPF 0-3 UA RBC (test code = RBCU) 0-3 #RBC/HPF 0-3 UA SQUAMOUS CELLS (test RARE >0 /UL NONE-SQepi code = SQU) UA HYALINE CAST (test 5-10 #/LPF 0-3 A code = HYALU) UA MUCUS (test code = RARE /LPF NONE MUCU) UA CULTURE NEEDED? (test Crit NOTmet CULT-N/A Cult byWBC code = UACULT) Criteria Indication for culture: Sev. Sepsis-no other src- XR CHEST 1 [id number] 17:37:00 FAX: Mahdi INESSA Bateman [phone] [place]: St: ADM FAX: Sindi Cedillo [phone] FAX: Lorene Rodgers MD [phone] FAX: Carina Francis MD [phone] Patient Name: SIDNEY HALL Unit No: [id number] EXAMS: CPT CODE: [id number] XR CHEST 1 V [id number] EXAM: - XR CHEST 1 V COMPARISON: 03/20/2020 LOCATION: H57 HISTORY: 49 years-old Male with INTUBATION AND OGT FINDINGS: Endotracheal tube terminates 8.2 cm above the bernabe. Esophagogastric tube is positioned in the stomach. The cardiomediastinal silhouette is within normal limits. Redemonstration of patchy bilateral lower lobe opacities.. No large pneumothorax or pleural effusion. Osseous structures and soft tissues demonstrate no acute findings. The visualized upper abdomen is unremarkable. IMPRESSION: 1. Endotracheal tube terminates 8.2 cm above the bernabe. 2. Esophagogastric tube is positioned in the stomach. 3. Patchy bilateral lower lobe opacities may represent atelectasis or infiltrate. [id number] Reported and signed by: Wilner Richardson MD CC: [place] [id number] Alyssaricardo DO; Sindivlad Reardon Patricia Dictated Date/Time: 03/20/2020 (173)Technologist: Geraldine Anderson Transcribed Date/Time: 03/20/2020 (173) By: [email or web address] Orig Print D/T: S: 03/20/2020 (3200) EARNESTINE Schaffer NAME: ISABELSIDNEY Mila MEDICAL IMAGING PHYS: ALYSSASOHAM. [address]Mahdi [address] 1970 AGE: 49 SEX: M [place] , [place] [address] LOC: [id number] D PHONE #: [phone] EXAM DATE: 03/20/2020 STATUS: ADM IN FAX #: [phone] RAD NO: DC Dt: PAGE 1 Signed ReportARTERIAL BLOOD [id number] 16:36:00 Test Item Value Reference Range Interpretation Comments ARTERIAL BLOOD GAS 7.11 pH units 7.35-7.45 LL ON 03/20 AT PH (test code = PHA) 1635, B .CPS.JW CALLED TO RAUL CORREIA RN. The report was confirmed by re ad back protocols Y,N: Y. ARTERIAL BLOOD GAS 89 mmHg 35-45 HH ON AT PCO2 (test code = 1635, B.CP S.JW PCO2A) CALLED TO RAUL CORREIA RN . e report was confirmed by re ad back protocols Y,N: Y. ARTERIAL BLOOD GAS 118 mmHg 80-100 H PO2 (test code = PO2A) BICARBONATE TOTAL 28.4 mmol/L 22.0-26.0 H HCO3 (test code = HCO3) BASE EXCESS (test -1.1 mmol/L -3.0-3.0 N code = REX) FIO2 (test code = 90 % (calc) 21-100 N FIO2A) MODALITY (test code BIPAP 07/21 DESCRIPTION = MOD) COMMENT ABG PATIENT RESP 14 /MIN PT RespRate RATE (test code = RRPATA) ABG SITE (test code RT RADIAL ARTKIT DESCRIPTION = SITEA) MODIFIED ANICETO'S POSITIVE Circ.CHK POSITIVE (test code = MODALL) O2 SATURATION (test 98 % (calc) 95-100 N code = O2S/C) CAMPUS: C- XR CHEST 1 [id number] 12:43:00 FAX: Sindi Cedillo [phone] [place]: C St: ADM FAX: Lorene Rodgers MD [phone] FAX: Carina Francis MD [phone] Patient Name: SIDNEY HALL Unit No: [id number] EXAMS: CPT CODE: [id number] XR CHEST 1 V [id number] - XR CHEST 1 V INDICATION:Pulmonary edema, hepatitis LOCATION: T18 No prior studies for comparison purposes The heart is enlarged. There are vague airspace opacities in the medial aspect of both lower lobes, left greater than right. This could represent pneumonia, atelectasis or edema. There is no pneumothorax or significant effusion. Moderate thoracic spondylosis. IMPRESSION: Mild nonspecific bibasilar airspace opacities. at 1243 Reported and signed by: Anatoliy Peña D.O. CC: Sindi Gomez; Lorene Rodgers MD Dictated Date/Time: 03/20/2020 (8283)Technologist: Nhung Subramanian Transcribed Date/Time: 03/20/2020 (1243) By: Denny Orig Print D/T: S: 03/20/2020 (9225) EARNESTINE Schaffer NAME: SIDNEY HALL MEDICAL IMAGING PHYS: QAMMU - Vishal,Paulson MD [address] [place] [address] BLVD : 1970 AGE: 49 SEX: Chintan [place], [place] [address] LOC: [id number] D PHONE #: [phone] EXAM DATE: 03/20/2020 STATUS: ADM IN FAX #: [phone] RAD NO: DC Dt: PAGE 1 Signed ReportAMMONIA 2020-03-20 10:41:00 Test Item Value Reference Range Interpretation Comments AMMONIA (test code = AMM) <10 mcMOL/L 11.0-32.0 L COMPREHENSIVE METABOLIC [id number] 04:30:00 Test Item Value Reference Range Interpretation Comments SODIUM (test code = 133.0 mmol/L 133-144 N NA) POTASSIUM (test code 3.7 mmol/L 3.5-5.1 N = K) CHLORIDE (test code 101 mmol/L 95-105 N = CL) CARBON DIOXIDE (test 22 mmol/L 21-32 N code = CO2) ANION GAP (test code 10.0 GAP calc 4.0-15.0 N = GAP) GLUCOSE (test code = 73 MG/DL 70-110 N GLU) BLOOD UREA NITROGEN 13 MG/DL 7-18 N (test code = BUN) GLOMERULAR 171 estGFR >60 The estimated FILTRATION RATE glomerular (test code = GFR) filtration rate is computed usingpatient ra ce, age, sex, and s juju creatinine. If any of theneeded da ta elements are mi ssing the Laboratory can notcompute an estimation of t he glomerular filtration rate .The GFR value units = ml/min/1.73 met er squared. EstimatedGFR va lues above 60 should be interpreted as >60, not anexact number.--- DRUG DOSAGE ALERT -- - Drug dosage adjustments uti lize different calculationpara meter s. CREATININE (test 0.51 MG/DL 0.55-1.30 L Results may be code = CREAT) depressed if p atient is takingN-Acetylc ystei ne (NAC) and Metamizole (Dipyrone). TOTAL PROTEIN (test 6.3 G/DL 6.4-8.2 L code = PROT) ALBUMIN (test code = 2.3 G/DL 3.4-5.0 L ALB) ALBUMIN/GLOBULIN 0.6 RATIO 1.2-2.2 L RATIO (test code = A/G) CALCIUM (test code = 7.8 MG/DL 8.5-10.1 L CA) BILIRUBIN TOTAL 4.25 MG/DL 0.00-1.00 H (test code = BILT) BILIRUBIN DIRECT 3.56 MG/DL 0.00-0.30 H (test code = BILD) BILIRUBIN INDIRECT 0.69 MG/DL 0.2-1.3 N (test code = BILIND) SGOT/AST (test code 246 Unit/L 15-37 H = AST) SGPT/ALT (test code 180 Unit/L 12-78 H = ALT) ALKALINE PHOSPHATASE 196 Unit/L 45-117 H TOTAL (test code = ALKP) INDEX HEMOLYSIS 2 TRACE 10-25 1 NORMAL (test code = MG Index/DL HEMINDEX) INDEX ICTERIC (test 2 TRACE 2-5 MG 1 NORMAL code = ICTINDEX) Index/DL INDEX LIPEMIA (test 1 NORMAL <50 1 NORMAL code = LIPINDEX) MG Index/DL [id number] 04:30:00 Test Item Value Reference Range Interpretation Comments LIPASE (test code = 1652 Unit/L 114-286 H REPORTED RESULTS LIP) VERIFIED WITH AUTO-DILUTION PROCEDURES. COMPREHENSIVE METABOLIC [id number] 04:24:00 Test Item Value Reference Range Interpretation Comments SODIUM (test code = NA) 133.0 mmol/L 133-144 N POTASSIUM (test code = K) 3.7 mmol/L 3.5-5.1 N CHLORIDE (test code = CL) 101 mmol/L 95-105 N CARBON DIOXIDE (test code 22 mmol/L 21-32 N = CO2) ANION GAP (test code = 10.0 GAP calc 4.0-15.0 N GAP) GLUCOSE (test code = GLU) 73 MG/DL 70-110 N BLOOD UREA NITROGEN (test 13 MG/DL 7-18 N code = BUN) CREATININE (test code = MG/DL 0.55-1.30 CREAT) TOTAL PROTEIN (test code G/DL 6.4-8.2 = PROT) ALBUMIN (test code = ALB) 2.3 G/DL 3.4-5.0 L ALBUMIN/GLOBULIN RATIO RATIO 1.2-2.2 (test code = A/G) CALCIUM (test code = CA) 7.8 MG/DL 8.5-10.1 L BILIRUBIN TOTAL (test MG/DL 0.00-1.00 code = BILT) BILIRUBIN DIRECT (test MG/DL 0.00-0.30 code = BILD) BILIRUBIN INDIRECT (test MG/DL 0.2-1.3 code = BILIND) SGOT/AST (test code = Unit/L 15-37 AST) SGPT/ALT (test code = Unit/L 12-78 ALT) ALKALINE PHOSPHATASE Unit/L 45-117 TOTAL (test code = ALKP) INDEX HEMOLYSIS (test 2 TRACE 10-25 MG 1 NORMAL code = HEMINDEX) Index/DL INDEX ICTERIC (test code 2 TRACE 2-5 MG 1 NORMAL = ICTINDEX) Index/DL INDEX LIPEMIA (test code 1 NORMAL <50 MG 1 NORMAL = LIPINDEX) Index/DL [id number] 04:24:00 Test Item Value Reference Range Interpretation Comments LIPASE (test code = LIP) Unit/L 114-286 CBC W/AUTO [id number] 04:11:00 Test Item Value Reference Range Interpretation Comments WHITE BLOOD CELL (test code = 10.7 K/mm3 4.1-12.1 N WBC) RED BLOOD CELL (test code = RBC) 4.28 M/mm3 3.8-5.5 N HEMOGLOBIN (test code = HGB) 14.5 G/DL 10.6-15.8 N HEMATOCRIT (test code = HCT) 43.4 % 31.8-47.4 N MEAN CELL VOLUME (test code = 101.4 fL 80.1-101.1 H MCV) MEAN CELL HGB (test code = MCH) 33.9 pg 25.3-35.3 N MEAN CELL HGB CONCETRATION (test 33.4 G/DL 32.7-35.1 N code = MCHC) RED CELL DISTRIBUTION WIDTH 14.4 % 12.2-16.4 N (test code = RDW) RED CELL DISTRIBUTION WIDTH 53.1 fL 35.1-43.9 H (test code = RDW-SD) PLATELET COUNT (test code = PLT) 69 K/mm3 155-337 L MEAN PLATELET VOLUME (test code 12.3 fL 7.6-10.4 H = MPV) GRANULOCYTE % (test code = GR%) 84.6 % 37.8-82.6 H IMMATURE GRANULOCYTE % (test 0.7 % 0.0-2.0 N code = IG%) LYMPHOCYTE % (test code = LY%) 4.0 % 14.1-45.4 L MONOCYTE % (test code = MO%) 10.4 % 2.5-11.7 N EOSINOPHIL % (test code = EO%) 0.1 % 0.0-6.2 N BASOPHIL % (test code = BA%) 0.2 % 0.0-2.6 N NUCLEATED RBC % (test code = 0.0 /100WBC% 0.0-1.0 N NRBC%) GRANULOCYTE # (test code = GR#) 9.05 k/mm3 2.0-13.7 N IMMATURE GRANULOCYTE # (test 0.07 K/mm3 0.00-0.03 H code = IG#) LYMPHOCYTE # (test code = LY#) 0.43 K/mm3 0.6-3.8 L MONOCYTE # (test code = MO#) 1.11 K/mm3 0.11-0.59 H EOSINOPHIL # (test code = EO#) 0.01 K/mm3 0.0-0.4 N BASOPHIL # (test code = BA#) 0.02 K/mm3 0.0-0.1 N NUCLEATED RBC # (test code = 0.00 K/mm3 0.00-0.05 N NRBC#) COMPREHENSIVE METABOLIC [id number] 05:51:00 Test Item Value Reference Range Interpretation Comments SODIUM (test code = 131.0 mmol/L 133-144 L NA) POTASSIUM (test code 3.5 mmol/L 3.5-5.1 N = K) CHLORIDE (test code 98 mmol/L 95-105 N = CL) CARBON DIOXIDE (test 23 mmol/L 21-32 N code = CO2) ANION GAP (test code 10.0 GAP calc 4.0-15.0 N = GAP) GLUCOSE (test code = 84 MG/DL 70-110 N GLU) BLOOD UREA NITROGEN 11 MG/DL 7-18 N (test code = BUN) GLOMERULAR 175 estGFR >60 The estimated FILTRATION RATE glomerular (test code = GFR) filtration rate is computed usingpatient ra ce, age, sex, and s juju creatinine. If any of theneeded da ta elements are mi ssing the Laboratory can notcompute an estimation of t he glomerular filtration rate .The GFR value units = ml/min/1.73 met er squared. EstimatedGFR va lues above 60 should be interpreted as >60, not anexact number.--- DRUG DOSAGE ALERT -- - Drug dosage adjustments uti lize different calculationpara meter s. CREATININE (test 0.50 MG/DL 0.55-1.30 L Results may be code = CREAT) depressed if p atient is takingN-Acetylc ystei ne (NAC) and Metamizole (Dipyrone). TOTAL PROTEIN (test 6.2 G/DL 6.4-8.2 L code = PROT) ALBUMIN (test code = 2.4 G/DL 3.4-5.0 L ALB) ALBUMIN/GLOBULIN 0.6 RATIO 1.2-2.2 L RATIO (test code = A/G) CALCIUM (test code = 8.1 MG/DL 8.5-10.1 L CA) BILIRUBIN TOTAL 3.48 MG/DL 0.00-1.00 H (test code = BILT) BILIRUBIN DIRECT 2.68 MG/DL 0.00-0.30 H (test code = BILD) BILIRUBIN INDIRECT 0.80 MG/DL 0.2-1.3 N (test code = BILIND) SGOT/AST (test code 376 Unit/L 15-37 H = AST) SGPT/ALT (test code 220 Unit/L 12-78 H = ALT) ALKALINE PHOSPHATASE 212 Unit/L 45-117 H TOTAL (test code = ALKP) INDEX HEMOLYSIS 2 TRACE 10-25 1 NORMAL (test code = MG Index/DL HEMINDEX) INDEX ICTERIC (test 2 TRACE 2-5 MG 1 NORMAL code = ICTINDEX) Index/DL INDEX LIPEMIA (test 1 NORMAL <50 1 NORMAL code = LIPINDEX) MG Index/DL [id number] 05:51:00 Test Item Value Reference Range Interpretation Comments PHOSPHOROUS (test code = PHOS) 3.1 MG/DL 2.5-4.9 N [id number] 05:51:00 Test Item Value Reference Range Interpretation Comments MAGNESIUM (test code = MAG) 2.2 MG/DL 1.6-2.6 N CBC W/AUTO [id number] 05:20:00 Test Item Value Reference Range Interpretation Comments WHITE BLOOD CELL 8.4 K/mm3 4.1-12.1 N (test code = WBC) RED BLOOD CELL (test 4.56 M/mm3 3.8-5.5 N code = RBC) HEMOGLOBIN (test 15.3 G/DL 10.6-15.8 N code = HGB) HEMATOCRIT (test 44.7 % 31.8-47.4 N code = HCT) MEAN CELL VOLUME 98.0 fL 80.1-101.1 N (test code = MCV) MEAN CELL HGB (test 33.6 pg 25.3-35.3 N code = MCH) MEAN CELL HGB 34.2 G/DL 32.7-35.1 N CONCETRATION (test code = MCHC) RED CELL 13.8 % 12.2-16.4 N DISTRIBUTION WIDTH (test code = RDW) RED CELL 50.2 fL 35.1-43.9 H DISTRIBUTION WIDTH (test code = RDW-SD) PLATELET COUNT (test 49 K/mm3 155-337 LL Critica l values after code = PLT) the first occur rence are excluded fr omcall documentation requirements fo r this analyte due to thepatient diag nosis or therapy prot ocols. MEAN PLATELET VOLUME 12.4 fL 7.6-10.4 H (test code = MPV) GRANULOCYTE % (test 83.2 % 37.8-82.6 H code = GR%) IMMATURE GRANULOCYTE 0.5 % 0.0-2.0 N % (test code = IG%) LYMPHOCYTE % (test 6.9 % 14.1-45.4 L code = LY%) MONOCYTE % (test 8.4 % 2.5-11.7 N code = MO%) EOSINOPHIL % (test 0.6 % 0.0-6.2 N code = EO%) BASOPHIL % (test 0.4 % 0.0-2.6 N code = BA%) NUCLEATED RBC % 0.0 /100WBC% 0.0-1.0 N (test code = NRBC%) GRANULOCYTE # (test 7.03 k/mm3 2.0-13.7 N code = GR#) IMMATURE GRANULOCYTE 0.04 K/mm3 0.00-0.03 H # (test code = IG#) LYMPHOCYTE # (test 0.58 K/mm3 0.6-3.8 L code = LY#) MONOCYTE # (test 0.71 K/mm3 0.11-0.59 H code = MO#) EOSINOPHIL # (test 0.05 K/mm3 0.0-0.4 N code = EO#) BASOPHIL # (test 0.03 K/mm3 0.0-0.1 N code = BA#) NUCLEATED RBC # 0.00 K/mm3 0.00-0.05 N (test code = NRBC#) AB HEPATITIS A [id number] 07:41:00 Test Item Value Reference Range Interpretation Comments AB HEPATITIS A IGM (test NonReactive SCREEN Nonreactive code = HAVMAB) AG HEPATITIS B [id number] 07:41:00 Test Item Value Reference Range Interpretation Comments AG HEPATITIS B SURFACE NEG-NONREAC SCREEN Nonreactive (test code = HBSAG) AB HEPATITIS B CORE [id number] 07:41:00 Test Item Value Reference Range Interpretation Comments AB HEPATITIS B CORE IGM NonReactive SCREEN Nonreactive (test code = HBCMAB) AB HEPATITIS [id number] 07:41:00 Test Item Value Reference Range Interpretation Comments AB HEPATITIS C (test code = HCVAB) NR SCREEN Nonreactive CBC W/AUTO [id number] 06:21:00 Test Item Value Reference Range Interpretation Comments WHITE BLOOD CELL (test 4.8 K/mm3 4.1-12.1 N code = WBC) RED BLOOD CELL (test 4.23 M/mm3 3.8-5.5 N code = RBC) HEMOGLOBIN (test code 14.3 G/DL 10.6-15.8 N = HGB) HEMATOCRIT (test code 41.2 % 31.8-47.4 N = HCT) MEAN CELL VOLUME (test 97.4 fL 80.1-101.1 N code = MCV) MEAN CELL HGB (test 33.8 pg 25.3-35.3 N code = MCH) MEAN CELL HGB 34.7 G/DL 32.7-35.1 N CONCETRATION (test code = MCHC) RED CELL DISTRIBUTION 14.0 % 12.2-16.4 N WIDTH (test code = RDW) RED CELL DISTRIBUTION 49.4 fL 35.1-43.9 H WIDTH (test code = RDW-SD) PLATELET COUNT (test 32 K/mm3 155-337 LL ON 11/02 AT code = PLT) 0504, B.LAB.MEB CALLED TO [facility] IN [facility]. The rep ort was confirmed b y read back protocols Y,N: Y. MEAN PLATELET VOLUME 12.0 fL 7.6-10.4 H (test code = MPV) GRANULOCYTE % (test 74.6 % 37.8-82.6 N code = GR%) IMMATURE GRANULOCYTE % 0.4 % 0.0-2.0 N (test code = IG%) LYMPHOCYTE % (test 11.5 % 14.1-45.4 L code = LY%) MONOCYTE % (test code 12.5 % 2.5-11.7 H = MO%) EOSINOPHIL % (test 0.2 % 0.0-6.2 N code = EO%) BASOPHIL % (test code 0.8 % 0.0-2.6 N = BA%) NUCLEATED RBC % (test 0.0 /100WBC% 0.0-1.0 N code = NRBC%) GRANULOCYTE # (test 3.58 k/mm3 2.0-13.7 N code = GR#) IMMATURE GRANULOCYTE # 0.02 K/mm3 0.00-0.03 N (test code = IG#) LYMPHOCYTE # (test 0.55 K/mm3 0.6-3.8 L code = LY#) MONOCYTE # (test code 0.60 K/mm3 0.11-0.59 H = MO#) EOSINOPHIL # (test 0.01 K/mm3 0.0-0.4 N code = EO#) BASOPHIL # (test code 0.04 K/mm3 0.0-0.1 N = BA#) NUCLEATED RBC # (test 0.00 K/mm3 0.00-0.05 N code = NRBC#) MANUAL DIFF REQUIRED PLT (SCAN) CRITERIA (test code = MDIFF) DIFF/SCN DIFFERENTIAL [id number] 06:21:00 Test Item Value Reference Range Interpretation Comments TARGET CELLS (test code = FEW ON SCAN NONE TGT) STOMATOCYTES (test code = FEW ON SCAN NONE STO) PLATELET ESTIMATE (test code MRK DECR ON SCAN ADEQUATE A = PLTEST) COMPREHENSIVE METABOLIC [id number] 05:28:00 Test Item Value Reference Range Interpretation Comments SODIUM (test code = 132.0 mmol/L 133-144 L NA) POTASSIUM (test code 3.3 mmol/L 3.5-5.1 L = K) CHLORIDE (test code 98 mmol/L 95-105 N = CL) CARBON DIOXIDE (test 27 mmol/L 21-32 N code = CO2) ANION GAP (test code 7.0 GAP calc 4.0-15.0 N = GAP) GLUCOSE (test code = 92 MG/DL 70-110 N GLU) BLOOD UREA NITROGEN 6 MG/DL 7-18 L (test code = BUN) GLOMERULAR 234 estGFR >60 The estimated FILTRATION RATE glomerular (test code = GFR) filtration rate is computed usingpatient ra ce, age, sex, and s juju creatinine. If any of theneeded da ta elements are mi ssing the Laboratory can notcompute an estimation of t he glomerular filtration rate .The GFR value units = ml/min/1.73 met er squared. EstimatedGFR va lues above 60 should be interpreted as >60, not anexact number.--- DRUG DOSAGE ALERT -- - Drug dosage adjustments uti lize different calculationpara meter s. CREATININE (test 0.39 MG/DL 0.55-1.30 L Results may be code = CREAT) depressed if p atient is takingN-Acetylc ystei ne (NAC) and Metamizole (Dipyrone). TOTAL PROTEIN (test 5.9 G/DL 6.4-8.2 L code = PROT) ALBUMIN (test code = 2.5 G/DL 3.4-5.0 L ALB) ALBUMIN/GLOBULIN 0.7 RATIO 1.2-2.2 L RATIO (test code = A/G) CALCIUM (test code = 7.9 MG/DL 8.5-10.1 L CA) BILIRUBIN TOTAL 2.57 MG/DL 0.00-1.00 H (test code = BILT) BILIRUBIN DIRECT 1.93 MG/DL 0.00-0.30 H (test code = BILD) BILIRUBIN INDIRECT 0.64 MG/DL 0.2-1.3 N (test code = BILIND) SGOT/AST (test code 627 Unit/L 15-37 H = AST) SGPT/ALT (test code 265 Unit/L 12-78 H = ALT) ALKALINE PHOSPHATASE 213 Unit/L 45-117 H TOTAL (test code = ALKP) INDEX HEMOLYSIS 1 NORMAL <10 1 NORMAL (test code = MG Index/DL HEMINDEX) INDEX ICTERIC (test 2 TRACE 2-5 MG 1 NORMAL code = ICTINDEX) Index/DL INDEX LIPEMIA (test 1 NORMAL <50 1 NORMAL code = LIPINDEX) MG Index/DL [id number] 05:28:00 Test Item Value Reference Range Interpretation Comments LIPASE (test code = 3394 Unit/L 114-286 H REPORTED RESULTS LIP) VERIFIED WITH MANUAL-DILUTION PROCEDURES. CBC W/AUTO [id number] 05:04:00 Test Item Value Reference Range Interpretation Comments WHITE BLOOD CELL (test 4.8 K/mm3 4.1-12.1 N code = WBC) RED BLOOD CELL (test 4.23 M/mm3 3.8-5.5 N code = RBC) HEMOGLOBIN (test code 14.3 G/DL 10.6-15.8 N = HGB) HEMATOCRIT (test code 41.2 % 31.8-47.4 N = HCT) MEAN CELL VOLUME (test 97.4 fL 80.1-101.1 N code = MCV) MEAN CELL HGB (test 33.8 pg 25.3-35.3 N code = MCH) MEAN CELL HGB 34.7 G/DL 32.7-35.1 N CONCETRATION (test code = MCHC) RED CELL DISTRIBUTION 14.0 % 12.2-16.4 N WIDTH (test code = RDW) RED CELL DISTRIBUTION 49.4 fL 35.1-43.9 H WIDTH (test code = RDW-SD) PLATELET COUNT (test 32 K/mm3 155-337 LL ON 11/02 AT code = PLT) 0504, B.LAB.MEB CALLED TO [facility] IN [facility]. The rep ort was confirmed b y read back protocols Y,N: Y. MEAN PLATELET VOLUME 12.0 fL 7.6-10.4 H (test code = MPV) GRANULOCYTE % (test 74.6 % 37.8-82.6 N code = GR%) IMMATURE GRANULOCYTE % 0.4 % 0.0-2.0 N (test code = IG%) LYMPHOCYTE % (test 11.5 % 14.1-45.4 L code = LY%) MONOCYTE % (test code 12.5 % 2.5-11.7 H = MO%) EOSINOPHIL % (test 0.2 % 0.0-6.2 N code = EO%) BASOPHIL % (test code 0.8 % 0.0-2.6 N = BA%) NUCLEATED RBC % (test 0.0 /100WBC% 0.0-1.0 N code = NRBC%) GRANULOCYTE # (test 3.58 k/mm3 2.0-13.7 N code = GR#) IMMATURE GRANULOCYTE # 0.02 K/mm3 0.00-0.03 N (test code = IG#) LYMPHOCYTE # (test 0.55 K/mm3 0.6-3.8 L code = LY#) MONOCYTE # (test code 0.60 K/mm3 0.11-0.59 H = MO#) EOSINOPHIL # (test 0.01 K/mm3 0.0-0.4 N code = EO#) BASOPHIL # (test code 0.04 K/mm3 0.0-0.1 N = BA#) NUCLEATED RBC # (test 0.00 K/mm3 0.00-0.05 N code = NRBC#) MANUAL DIFF REQUIRED PLT (SCAN) CRITERIA (test code = MDIFF) DIFF/SCN DIFFERENTIAL [id number] 05:04:00 Test Item Value Reference Range Interpretation Comments MORPHOLOGY COMMENT (test code = MOC) ON SCAN NORMAL RBCS PLATELET ESTIMATE (test code = ON SCAN ADEQUATE PLTEST) CBC W/AUTO [id number] 05:04:00 Test Item Value Reference Range Interpretation Comments WHITE BLOOD CELL (test 4.8 K/mm3 4.1-12.1 N code = WBC) RED BLOOD CELL (test 4.23 M/mm3 3.8-5.5 N code = RBC) HEMOGLOBIN (test code 14.3 G/DL 10.6-15.8 N = HGB) HEMATOCRIT (test code 41.2 % 31.8-47.4 N = HCT) MEAN CELL VOLUME (test 97.4 fL 80.1-101.1 N code = MCV) MEAN CELL HGB (test 33.8 pg 25.3-35.3 N code = MCH) MEAN CELL HGB 34.7 G/DL 32.7-35.1 N CONCETRATION (test code = MCHC) RED CELL DISTRIBUTION 14.0 % 12.2-16.4 N WIDTH (test code = RDW) RED CELL DISTRIBUTION 49.4 fL 35.1-43.9 H WIDTH (test code = RDW-SD) PLATELET COUNT (test 32 K/mm3 155-337 LL ON 11/02 AT code = PLT) 0504, B.LAB.MEB CALLED TO [facility] IN [facility]. The rep ort was confirmed b y read back protocols Y,N: Y. MEAN PLATELET VOLUME 12.0 fL 7.6-10.4 H (test code = MPV) GRANULOCYTE % (test 74.6 % 37.8-82.6 N code = GR%) IMMATURE GRANULOCYTE % 0.4 % 0.0-2.0 N (test code = IG%) LYMPHOCYTE % (test 11.5 % 14.1-45.4 L code = LY%) MONOCYTE % (test code 12.5 % 2.5-11.7 H = MO%) EOSINOPHIL % (test 0.2 % 0.0-6.2 N code = EO%) BASOPHIL % (test code 0.8 % 0.0-2.6 N = BA%) NUCLEATED RBC % (test 0.0 /100WBC% 0.0-1.0 N code = NRBC%) GRANULOCYTE # (test 3.58 k/mm3 2.0-13.7 N code = GR#) IMMATURE GRANULOCYTE # 0.02 K/mm3 0.00-0.03 N (test code = IG#) LYMPHOCYTE # (test 0.55 K/mm3 0.6-3.8 L code = LY#) MONOCYTE # (test code 0.60 K/mm3 0.11-0.59 H = MO#) EOSINOPHIL # (test 0.01 K/mm3 0.0-0.4 N code = EO#) BASOPHIL # (test code 0.04 K/mm3 0.0-0.1 N = BA#) NUCLEATED RBC # (test 0.00 K/mm3 0.00-0.05 N code = NRBC#) MANUAL DIFF REQUIRED PLT (SCAN) CRITERIA (test code = MDIFF) DIFF/SCN DIFFERENTIAL [id number] 05:04:00 Test Item Value Reference Range Interpretation Comments MORPHOLOGY COMMENT (test code = MOC) ON SCAN NORMAL RBCS PLATELET ESTIMATE (test code = ON SCAN ADEQUATE PLTEST) UA RFLX MICR CULT IF [id number] 17:15:00 Test Item Value Reference Range Interpretation Comments UA COLOR (test code = DARK-YELLOW DESCRIPT YELLOW COLU) UA APPEARANCE (test code CLEAR DESCRIPT CLEAR = APPU) UA GLUCOSE DIPSTICK (test NORMAL (0) mg/dL 0 (NORMAL) code = DGLUU) UA BILIRUBIN DIPSTICK 1.0 (1+) mg/dL (NEG) 0 A (test code = BILU) UA KETONE DIPSTICK (test NEGATIVE (0) mg/dL (NEG) 0 code = KETU) UA SPECIFIC GRAVITY (test 1.032 SG 1.001-1.035 code = SGU) UA BLOOD DIPSTICK (test 0.20 (2+) mg/dL 0 (NEG) A code = BREANA) UA PH DIPSTICK (test code 6.5 pH UNITS 4.6-8.0 = YINA) UA PROTEIN DIPSTICK (test 100 (2+) mg/dL <30 (1+) A code = PROU) UA UROBILINIOGEN DIPSTICK OVER >12 (4+) mg/Dl <2.0 (1+) A (test code = URO) UA NITRITE DIPSTICK (test NEGATIVE (0) SCREEN NEG code = DOMINICK) UA LEUKOCYTE ESTERASE NEGATIVE (0) (NEG) 0 DIPSTICK (test code = Leuk/mcL LEUU) UA COMMENT (test code = CLEAN CATCH SPEC SpecComment COMU) NoteSPEC UA WBC (test code = WBCU) 5-10 #WBC/HPF 0-3 A UA RBC (test code = RBCU) >100 #RBC/HPF 0-3 A UA SQUAMOUS CELLS (test RARE >0 /UL NONE-SQepi code = SQU) UA MUCUS (test code = RARE /LPF NONE MUCU) UA CULTURE NEEDED? (test Crit NOTmet CULT-N/A Cult byWBC code = UACULT) Criteria Indication for culture: Delirium-if no other [id number] 11:04:00 Test Item Value Reference Range Interpretation Comments AMMONIA (test code = AMM) 39.0 mcMOL/L 11.0-32.0 H CBC W/O [id number] 10:10:00 Test Item Value Reference Range Interpretation Comments WHITE BLOOD CELL (test code = WBC) 4.7 K/mm3 4.1-12.1 N RED BLOOD CELL (test code = RBC) 4.52 M/mm3 3.8-5.5 N HEMOGLOBIN (test code = HGB) 14.9 G/DL 10.6-15.8 N HEMATOCRIT (test code = HCT) 43.9 % 31.8-47.4 N MEAN CELL VOLUME (test code = MCV) 97.1 fL 80.1-101.1 N MEAN CELL HGB (test code = MCH) 33.0 pg 25.3-35.3 N MEAN CELL HGB CONCETRATION (test 33.9 G/DL 32.7-35.1 N code = MCHC) RED CELL DISTRIBUTION WIDTH (test 14.3 % 12.2-16.4 N code = RDW) PLATELET COUNT (test code = PLT) 58 K/mm3 155-337 L MEAN PLATELET VOLUME (test code = 12.1 fL 7.6-10.4 H MPV) DIFFERENTIAL [id number] 10:10:00 Test Item Value Reference Range Interpretation Comments PLATELET ESTIMATE (test code MOD DECR ON SCAN ADEQUATE A = PLTEST) CBC W/O [id number] 10:09:00 Test Item Value Reference Range Interpretation Comments WHITE BLOOD CELL (test code = WBC) 4.7 K/mm3 4.1-12.1 N RED BLOOD CELL (test code = RBC) 4.52 M/mm3 3.8-5.5 N HEMOGLOBIN (test code = HGB) 14.9 G/DL 10.6-15.8 N HEMATOCRIT (test code = HCT) 43.9 % 31.8-47.4 N MEAN CELL VOLUME (test code = MCV) 97.1 fL 80.1-101.1 N MEAN CELL HGB (test code = MCH) 33.0 pg 25.3-35.3 N MEAN CELL HGB CONCETRATION (test 33.9 G/DL 32.7-35.1 N code = MCHC) RED CELL DISTRIBUTION WIDTH (test 14.3 % 12.2-16.4 N code = RDW) PLATELET COUNT (test code = PLT) 58 K/mm3 155-337 L MEAN PLATELET VOLUME (test code = 12.1 fL 7.6-10.4 H MPV) DIFFERENTIAL [id number] 10:09:00 Test Item Value Reference Range Interpretation Comments MORPHOLOGY COMMENT (test code = MOC) ON SCAN NORMAL RBCS PLATELET ESTIMATE (test code = ON SCAN ADEQUATE PLTEST) CBC W/O [id number] 10:08:00 Test Item Value Reference Range Interpretation Comments WHITE BLOOD CELL (test code = WBC) 4.7 K/mm3 4.1-12.1 N RED BLOOD CELL (test code = RBC) 4.52 M/mm3 3.8-5.5 N HEMOGLOBIN (test code = HGB) 14.9 G/DL 10.6-15.8 N HEMATOCRIT (test code = HCT) 43.9 % 31.8-47.4 N MEAN CELL VOLUME (test code = MCV) 97.1 fL 80.1-101.1 N MEAN CELL HGB (test code = MCH) 33.0 pg 25.3-35.3 N MEAN CELL HGB CONCETRATION (test 33.9 G/DL 32.7-35.1 N code = MCHC) RED CELL DISTRIBUTION WIDTH (test 14.3 % 12.2-16.4 N code = RDW) PLATELET COUNT (test code = PLT) 58 K/mm3 155-337 L MEAN PLATELET VOLUME (test code = 12.1 fL 7.6-10.4 H MPV) BASIC METABOLIC [id number] 10:04:00 Test Item Value Reference Range Interpretation Comments SODIUM (test code = 135.0 mmol/L 133-144 N NA) POTASSIUM (test code 4.0 mmol/L 3.5-5.1 N = K) CHLORIDE (test code 101 mmol/L 95-105 N = CL) CARBON DIOXIDE (test 26 mmol/L 21-32 N code = CO2) ANION GAP (test code 8.0 GAP calc 4.0-15.0 N = GAP) GLUCOSE (test code = 77 MG/DL 70-110 N GLU) BLOOD UREA NITROGEN 9 MG/DL 7-18 N (test code = BUN) CREATININE (test 0.48 MG/DL 0.55-1.30 L Results may be code = CREAT) depressed if patient is takingN-Acetylc yste ine (NAC) and Metamizole (Dipyrone). CALCIUM (test code = 7.4 MG/DL 8.5-10.1 L CA) INDEX HEMOLYSIS 3 SMALL 25-50 1 NORMAL (test code = MG Index/DL HEMINDEX) INDEX ICTERIC (test 2 TRACE 2-5 MG 1 NORMAL code = ICTINDEX) Index/DL INDEX LIPEMIA (test 1 NORMAL <50 MG 1 NORMAL code = LIPINDEX) Index/DL HEPATIC FUNCTION [id number] 10:04:00 Test Item Value Reference Range Interpretation Comments TOTAL PROTEIN (test code = PROT) 6.2 G/DL 6.4-8.2 L ALBUMIN (test code = ALB) 2.7 G/DL 3.4-5.0 L BILIRUBIN TOTAL (test code = BILT) 2.54 MG/DL 0.00-1.00 H BILIRUBIN DIRECT (test code = 2.07 MG/DL 0.00-0.30 H BILD) BILIRUBIN INDIRECT (test code = 0.47 MG/DL 0.2-1.3 N BILIND) SGOT/AST (test code = AST) 667 Unit/L 15-37 H SGPT/ALT (test code = ALT) 272 Unit/L 12-78 H ALKALINE PHOSPHATASE TOTAL (test 204 Unit/L 45-117 H code = ALKP) [id number] 10:04:00 Test Item Value Reference Range Interpretation Comments LIPASE (test code = 3143 Unit/L 114-286 H REPORTED RESULTS LIP) VERIFIED WITH MANUAL-DILUTION PROCEDURES. [id number] 10:04:00 Test Item Value Reference Range Interpretation Comments ALCOHOL (test code = 353 MG/DL 0-10 H REPORTE D RESULTS ALC) VERIFIED WITH AUTO-DILUTION PROCEDURES.[facility] ALCOHOL RESULTS . SITE WAS PREPPED WIT H BETADINE. <10 M G/DL ARE CONSIDERED NEGA TIVE. >400 MG/DL MAY BE FATAL.RESULTS F OR MEDICAL USE ONL Y. NOT TO BE USED FOR FORENSIC PURPOSES. - CT HEAD/BRAIN W/O [id number] 09:45:00 Patient Name: SIDNEY HALL Unit No: [id number] EXAMS: CPT CODE: [id number] CT HEAD/BRAIN W/O [id number] Dictation location: H37. CT HEAD WITHOUT CONTRAST. HISTORY: fall ams etoh COMPARISON: No comparison is available. TECHNIQUE: Axial CT images of the head were obtained with coronal and/or sagittal reformatted views. Automated exposure control, iterative reconstruction technique, and/or adjustment of mA and/or kV according to patient's size was utilized for radiation dose reduction. IV CONTRAST:None. FINDINGS: Mild amount of periventricular and deep white matter hypodensities are seen, these are most commonly associated with chronic, microvascular ischemic changes. Mild generalized atrophy isnoted. Atherosclerotic calcifications affect the carotid siphons. No other intracranial abnormalities such as hemorrhage, mass, mass effect, hydrocephalus, midline shift, extra-axial fluid collection or secondary signs of an acute infarct are noted. The calvarium and skull base are intact. Probable small bilateral mucous retention cysts in the maxillary sinuses. The mastoid air cells are clear. IMPRESSION: No evidence of acute intracranial abnormality. Mild chronic microvascular ischemic changes and atrophy. at 0945 Reported and signed by: Haydee Kirkpatrick MD CC: Carina Rojo MD Dictated Date/Time: 03/17/2020 (944) Technologist: Diamond Rogers CTDI: 45.89 DLP: 874.85 Trnscrpt: 03/17/2020 (45) [email or web address] EARNESTINE Schaffer NAME: SIDNEY HALL [address] [place] [address] PHYS: Carina [place] [address] : 1970 AGE: 49 SEX: M LOC: B.ERS PHONE #: [phone] EXAM DATE: 03/17/2020 STATUS: REG ER FAX #: [phone] RAD #: D/C DT PAGE 1 Signed Report Patient Name: SIDNEY HALL Unit No: [id number] EXAMS: CPT CODE: [id number] CT HEAD/BRAIN W/O CONT [id number] (Continued) Orig Print D/T:S: 03/17/2020 (0948) EARNESTINE Schaffer NAME: SIDNEY HALL [address] [place] [address] PHYS: Carina Ramos [place] [address] : 1970 AGE: 49 SEX: M LOC: B.ERS PHONE #: [phone] EXAM DATE: 03/17/2020 STATUS: REG ER FAX #: [phone] RAD #: D/C DT PAGE 2 Signed [id number] 09:44:00 Test Item Value Reference Range Interpretation Comments MAGNESIUM (test code = MAG) 1.6 MG/DL 1.6-2.6 N BASIC METABOLIC [id number] 09:44:00 Test Item Value Reference Range Interpretation Comments SODIUM (test code = NA) 135.0 mmol/L 133-144 N POTASSIUM (test code = K) 4.0 mmol/L 3.5-5.1 N CHLORIDE (test code = CL) 101 mmol/L 95-105 N CARBON DIOXIDE (test code 26 mmol/L 21-32 N = CO2) ANION GAP (test code = 8.0 GAP calc 4.0-15.0 N GAP) GLUCOSE (test code = GLU) 77 MG/DL 70-110 N BLOOD UREA NITROGEN (test 9 MG/DL 7-18 N code = BUN) CREATININE (test code = MG/DL 0.55-1.30 CREAT) CALCIUM (test code = CA) 7.4 MG/DL 8.5-10.1 L INDEX HEMOLYSIS (test 3 SMALL 25-50 MG 1 NORMAL code = HEMINDEX) Index/DL INDEX ICTERIC (test code 2 TRACE 2-5 MG 1 NORMAL = ICTINDEX) Index/DL INDEX LIPEMIA (test code 1 NORMAL <50 MG 1 NORMAL = LIPINDEX) Index/DL HEPATIC FUNCTION [id number] 09:44:00 Test Item Value Reference Range Interpretation Comments TOTAL PROTEIN (test code = PROT) G/DL 6.4-8.2 ALBUMIN (test code = ALB) 2.7 G/DL 3.4-5.0 L BILIRUBIN TOTAL (test code = BILT) MG/DL 0.00-1.00 BILIRUBIN DIRECT (test code = BILD) MG/DL 0.00-0.30 BILIRUBIN INDIRECT (test code = MG/DL 0.2-1.3 BILIND) SGOT/AST (test code = AST) Unit/L 15-37 SGPT/ALT (test code = ALT) Unit/L 12-78 ALKALINE PHOSPHATASE TOTAL (test Unit/L 45-117 code = ALKP) [id number] 09:44:00 Test Item Value Reference Range Interpretation Comments LIPASE (test code = LIP) Unit/L 114-286 PT AND [id number] 09:39:00 Test Item Value Reference Interpretation Comments Range PT PATIENT (test 11.3 SECONDS 9.4-12.5 N code = PTP) INTERNATIONAL 0.98 INR 0.88-1.13 N NORMAL RATIO (test Unit --------- code = INR) ---------Therap eutic range for INR i s dependent upon the situation.2.0-3 .0 Prophylaxis / v enous thromboembolism , Treatment of DV T, Acute myocardial infa rction stroke preventi on, Systemic emboli sm prevention in fibrillation3.0 -4.5 AMI recurrence prev ention, Systemic emboli sm prevention in p rosthetic heart 3.0-5.4 A MO mortality reduc tion THROMBOPLASTIN TIME 32.4 SECONDS 24-37.7 N THERAPEU TIC RANGE FOR PARTIAL (test code UNFRACTIO NATED HEPARIN = = PTT) 50.5-83.6 SEC T his test is not recommen ded to monitor low molecularweight heparin or danaparoid. Order LMWH test COLLECTION THROUGH LINES THAT HAVE BEEN PREVIOUSLY FLUS HEDWITH HEPARIN SHOULD BE AVOIDED DUE TO POSSIBLE HEPARINCONTAMIN ATION - US ABDOMEN [id number] 09:35:00 Patient Name: SIDNEY HALL Unit No: [id number] EXAMS: CPT CODE: [id number] US ABDOMEN LTD 60205 EXAM: - US ABDOMEN LTD HISTORY: Pancreatitis Location code:C3 COMPARISON: 04/04/2020 TECHNIQUE: Grayscale B-mode and color Doppler sonographic images of the right upper quadrant were obtained. FINDINGS: Liver: Right hepatic lobe length: 19.3 cm Parenchyma/Contour: Marked increase echogenicity diffusely to the hepatic parenchyma is seen. Main portal vein: Patent with normal (hepatopetal) flow. Biliary ducts: No intrahepatic biliary ductal dilation. Common duct measures 4 mm in diameter at the jazmine hepatis. Gallbladder: Unremarkable. No cholelithiasis. No gallbladder wall thickening or pericholecysticfluid. Pancreas: Not visualized Right Kidney: The right kidney has a normal sonographic appearance. No solid mass lesion is seen. No hydronephrosis is present. Renal cortical thickness and echogenicityis within normal limits. Length: 12.1 cm Other: No ascites in the visualized abdomen. IMPRESSION: 1.Hepatomegaly with marked fatty infiltration of the liver. 2. The pancreas was obscured by bowel gas. at 0935 Reported and signed by: Devaughn Martines M.D. CC: Carina Rojo MD Technologist: Amna Simeon Trnscrbd D/ (0935) [email or web address] Probe: Orig Print D/T: S: 03/17/2020 (0938) Probe: EARNESTINE Schaffer NAME: JENNIFERSIDNEY VILLANUEVA [address] [place] [address] PHYS: RAMESH. Carina Rojo MD, [place] [address] : 1970 AGE: 49 SEX: M LOC: [facility] PHONE #: [phone] EXAM DATE: 03/17/2020 STATUS: REG ER FAX #: [phone] RAD NO: Page 1 Signed ReportUrine Cannabinoids [id number] 01:19:00 Test Item Value Reference Range Interpretation Comments Urine Cannabinoids Screen (test code POSITIVE NEGATIVE = 77146-7) [facility]hencyclidine (PCP) [id number] 01:19:00 Test Item Value Reference Range Interpretation Comments Phencyclidine (PCP) Screen (test NEGATIVE NEGATIVE code = Phencyclidine (PCP) Screen) [facility]stCocaine [id number] 01:19:00 Test Item Value Reference Range Interpretation Comments Cocaine Screen (test code = 3397-7) NEGATIVE NEGATIVE [facility]stUrine Methamphetamines [id number] 01:19:00 Test Item Value Reference Range Interpretation Comments Urine Methamphetamines Screen (test NEGATIVE NEGATIVE code = 24146-6) [facility]stOpiates [id number] 01:19:00 Test Item Value Reference Range Interpretation Comments Opiates Screen (test code = 90595-8) NEGATIVE NEGATIVE [facility]stUrine Amphetamines [id number] 01:19:00 Test Item Value Reference Range Interpretation Comments Urine Amphetamines Screen (test code NEGATIVE NEGATIVE = 26956-9) [facility]stBenzodiazepines [id number] 01:19:00 Test Item Value Reference Range Interpretation Comments Benzodiazepines Screen (test code = POSITIVE NEGATIVE 86113-6) [facility]stTricyclic Antidepressants [id number] 01:19:00 Test Item Value Reference Range Interpretation Comments Tricyclic Antidepressants Screen NEGATIVE NEGATIVE (test code = 20943-2) [facility]stMethadone [id number] 01:19:00 Test Item Value Reference Range Interpretation Comments Methadone Screen (test code = NEGATIVE NEGATIVE 74371-1) [facility]stUrine Barbiturates [id number] 01:19:00 Test Item Value Reference Range Interpretation Comments Urine Barbiturates Screen (test code NEGATIVE NEGATIVE = 30642-4) [facility]stOxycodone [id number] 01:19:00 Test Item Value Reference Range Interpretation Comments Oxycodone Screen (test code = NEGATIVE NEGATIVE 51095-6) [facility]stPropoxyphene [id number] 01:19:00 Test Item Value Reference Range Interpretation Comments Propoxyphene Screen (test code = NEGATIVE NEGATIVE 41997-9) [facility]stUrine Buprenorphine [id number] 01:19:00 Test Item Value Reference Range Interpretation Comments Urine Buprenorphine Screen (test NEGATIVE NEGATIVE code = 3414-0) CUT OFF CONCENTRATIONS:AMPHETAMINE 500 ng/mlBARBITURATES 200 ng/mlBENZODIAZEPINES 150 ng/mlBUPRENORPHINE 10 ng/mlCOCAINE 150 ng/mlMETHAMPHETAMINE 500 ng/mlMETHADONE 200 ng/mlOPIATES 100 ng/mlOXYCODONE 100 ng/mlPHENCYCLIDINE 25 ng/mlPROPOXYPHENE 300 ng/mlCANNIBINOIDS 50 ng/mlTRICYCLIC VJEOYPEHRUNRUAQ637 ng/ml ATTENTION:It is important to remember that the PollfishTOX device, likeother instant drug testing immunoassays are screening testsand they give a preliminary result. A presumptive positiveresult(s) should be explored for possible alternativeexplanations- i.e. known related/unrelated cross reactivecompounds, etc. Alternative, more specific methods likeGC/MS OR LC/MS should be utilized to obtain adefinitiveconfirmed quantitative result. A presumptive positive result for any drug does not indicatethe level of intoxication, administration route orconcentration of that drug in the urine specimen. A negative result may not necessarily indicate drug-freeurine. Negative results can be obtained when drug is presentbut below the cut-off level of the test.[facility] [id number] 01:19:00 Test Item Value Reference Range Interpretation Comments Urine Color (test code = 69478-8) Marilynn YELLOW Substances that cause abnormal urine color may affect thereadability of test pads on urinalysis reagent strips. Thesesubstances include visible levels of blood or bilirubin anddrugs containing dyes (e.g., Pyridium, Azo Gantrisin, AzoGantanol), nitrofurantion (Macrodantin, Furadantin), orriboflavin.[facility] [id number] 01:19:00 Test Item Value Reference Range Interpretation Comments Urine Clarity (test code = 80405-8) Clear CLEAR [facility] [id number] 01:19:00 Test Item Value Reference Range Interpretation Comments Urine Glucose (test code = 5792-7) NEGATIVE NEGATIVE [facility] [id number] 01:19:00 Test Item Value Reference Range Interpretation Comments Urine Bilirubin (test code = 5770-3) MODERATE NEGATIVE [facility] [id number] 01:19:00 Test Item Value Reference Range Interpretation Comments Urine Ketones (test code = 5797-6) NEGATIVE NEGATIVE [facility] Specific [id number] 01:19:00 Test Item Value Reference Range Interpretation Comments Urine Specific [place] (test code = 1.035 1.002-1.030 5811-5) [facility] [id number] 01:19:00 Test Item Value Reference Range Interpretation Comments Urine Blood (test code = 18083-1) SMALL NEGATIVE [facility] [id number] 01:19:00 Test Item Value Reference Range Interpretation Comments Urine pH (test code = 5803-2) 6 5.0-8.0 [facility] [id number] 01:19:00 Test Item Value Reference Range Interpretation Comments Urine Protein (test code = 5804-0) 100 NEGATIVE [facility] [id number] 01:19:00 Test Item Value Reference Range Interpretation Comments Urine Urobilinogen (test code = 4.0 NEGATIVE 82286-7) [facility] [id number] 01:19:00 Test Item Value Reference Range Interpretation Comments Urine Nitrite (test code = 5802-4) NEGATIVE NEGATIVE [facility] Leukocyte [id number] 01:19:00 Test Item Value Reference Range Interpretation Comments Urine Leukocyte Esterase (test code NEGATIVE NEGATIVE = 99416-7) [facility] [id number] 01:19:00 Test Item Value Reference Range Interpretation Comments Urine RBC (test code = 11442-2) 6-14 0-2 [facility] [id number] 01:19:00 Test Item Value Reference Range Interpretation Comments Urine WBC (test code = 01987-4) 3-5 0-5 [facility] Squamous Epithelial [id number] 01:19:00 Test Item Value Reference Range Interpretation Comments Urine Squamous Epithelial Cells (test 0-2 0-5 code = 31242-5) [facility] [id number] 01:19:00 Test Item Value Reference Range Interpretation Comments Urine Bacteria (test code = 54506-9) RARE NEGATIVE [facility] Hyaline [id number] 01:19:00 Test Item Value Reference Range Interpretation Comments Urine Hyaline Casts (test code = 0-2 0-2 27602-8) [facility] WBC [id number] 01:19:00 Test Item Value Reference Range Interpretation Comments Urine WBC Clumps (test code = 13935-4) 6-14 NEGATIVE [facility] [id number] 01:19:00 Test Item Value Reference Range Interpretation Comments Urine Mucus (test code = 74759-4) 2+ NEGATIVE [facility] Hill[facility]stLipase2020-08-01 22:59:00 Test Item Value Reference Range Interpretation Comments Lipase (test code = 3040-3) 451 22-51 [facility] Hill[facility]stTotal [id number] 22:30:00 Test Item Value Reference Range Interpretation Comments Total Protein (test code = 2885-2) 6.0 6.5-8.1 [facility] HillcrestAlanine Aminotransferase (ALT/SGPT)2020-03-16 22:30:00 Test Item Value Reference Range Interpretation Comments Alanine Aminotransferase (ALT/SGPT) 219 7-55 (test code = 1742-6) [facility] HillcrestAspartate Amino Transf (AST/SGOT)2020-03-16 22:30:00 Test Item Value Reference Range Interpretation Comments Aspartate Amino Transf (AST/SGOT) (test 591 15-41 code = 1920-8) [facility]stGlobulin2020-08-01 22:30:00 Test Item Value Reference Range Interpretation Comments Globulin (test code = 97036-3) 3.1 2.3-3.5 [facility] Hill[facility]stAlbumin/Globulin [id number] 22:30:00 Test Item Value Reference Range Interpretation Comments Albumin/Globulin Ratio (test code = 0.9 1.2-2.2 1759-0) [facility] HillcrestAlcohols2020-08-01 22:30:00 Test Item Value Reference Range Interpretation Comments Alcohols (test code = 5643-2) 499 0-5 Critical Result S_ETOH:499 Called to and read back by: TAVARES ORNELAS at: 03/17/2020 05:16:38 by:IRENE BRYANKnapp Medical CenterAcetaminophen [id number] 22:30:00 Test Item Value Reference Range Interpretation Comments Acetaminophen Level (test code = < 10 10-30 3298-7) THERAPEUTIC: 10-30 ug/mLPOTENTIAL HEPATIC TOXICITY: >150-200 ug/mL Consult appropriate nomogram (for acute ingestion only) forprobability of hepatic toxicity. Blood samples should not beobtained earlier than 4 hours after ingestion to ensurecomplete absorption. If the time of ingestion is unknown or unreliable, or if extended release preparations have beeningested, or if there has been co-ingestionof drugs thatmay delay gastric emptying, serial determinations of serumlevels taken 2-3 hours apart are recommended to estimate theacetaminophen elimination half-life. Hepatotoxicty is moreprobable when the half-life is greater than 4 hours andhepatic coma is likely when the half-life is greater than 12hours.[facility] Hospitalalicylates [id number] 22:30:00 Test Item Value Reference Range Interpretation Comments Salicylates Level (test code = 4024-6) < 4 4-29 [facility] HillcrestThyroid Stimulating Hormone (TSH)2020-03-16 22:30:00 Test Item Value Reference Range Interpretation Comments Thyroid Stimulating Hormone (TSH) (test 2.08 0.34-5.6 code = 3015-5) [facility] Blood [id number] 22:30:00 Test Item Value Reference Range Interpretation Comments White Blood Count (test code = 6690-2) 4.7 3.9-11.8 [facility] HillcrestRed Blood [id number] 22:30:00 Test Item Value Reference Range Interpretation Comments Red Blood Count (test code = 789-8) 4.62 4.18-5.86 [facility]stHemoglobin2020-08-01 22:30:00 Test Item Value Reference Range Interpretation Comments Hemoglobin (test code = 718-7) 15.9 13.1-17.5 [facility]stHematocrit2020-08-01 22:30:00 Test Item Value Reference Range Interpretation Comments Hematocrit (test code = 84994-9) 46.8 38.7-51.4 [facility] Corpuscular [id number] 22:30:00 Test Item Value Reference Range Interpretation Comments Mean Corpuscular Volume (test code = 101.4 79.8-99.1 80665-8) 1+ [facility]CROCYTOSISMem[facility] Corpuscular Sqafxtqgpi3379-81-20 22:30:00 Test Item Value Reference Range Interpretation Comments Mean Corpuscular Hemoglobin (test code 34.4 26.3-34.0 = 66929-7) [facility] Corpuscular Hgb Concent [id number] 22:30:00 Test Item Value Reference Range Interpretation Comments Mean Corpuscular Hgb Concent Diff (test 33.9 32.0-36.0 code = 39665-4) [facility]stRed Cell Distribution [id number] 22:30:00 Test Item Value Reference Range Interpretation Comments Red Cell Distribution Width (test code 15.0 11.4-14.5 = 15722-6) [facility] HillcrestPlatelet [id number] 22:30:00 Test Item Value Reference Range Interpretation Comments Platelet Count (test code = 777-3) 41 152-386 [facility] HillcrestMe Platelet [id number] 22:30:00 Test Item Value Reference Range Interpretation Comments Mean Platelet Volume (test code = 8.5 6.8-10.1 16707-6) [facility] HillcrestGranulocytes (%)2020-03-16 22:30:00 Test Item Value Reference Range Interpretation Comments Granulocytes (%) (test code = 42540-2) 70.7 37.8-74.6 [facility]stLymphocytes %2020-03-16 22:30:00 Test Item Value Reference Range Interpretation Comments Lymphocytes % (test code = 736-9) 13.3 16.1-47.9 [facility]stMonocytes %2020-03-16 22:30:00 Test Item Value Reference Range Interpretation Comments Monocytes % (test code = 5905-5) 14.7 4.4-13.5 [facility] HospitalEosinophils %2020-03-16 22:30:00 Test Item Value Reference Range Interpretation Comments Eosinophils % (test code = 713-8) 0.4 0.7-8.5 [facility]stBasophils %2020-03-16 22:30:00 Test Item Value Reference Range Interpretation Comments Basophils % (test code = 23235-4) 0.9 0.0-2.0 [facility]stGranulocytes #2020-03-16 22:30:00 Test Item Value Reference Range Interpretation Comments Granulocytes # (test code = 48150-0) 3.3 1.5-8.8 [facility]stLymphocytes #2020-03-16 22:30:00 Test Item Value Reference Range Interpretation Comments Lymphocytes # (test code = 89133-0) 0.6 0.6-5.7 [facility] #2020-03-16 22:30:00 Test Item Value Reference Range Interpretation Comments Monocytes # (test code = 742-7) 0.7 0.2-1.6 [facility]stEosinophils #2020-03-16 22:30:00 Test Item Value Reference Range Interpretation Comments Eosinophils # (test code = 711-2) 0.0 0.0-1.0 [facility]stBasophils #2020-03-16 22:30:00 Test Item Value Reference Range Interpretation Comments Basophils # (test code = 71816-8) 0.0 0.0-0.2 [facility]stManual [id number] 22:30:00 Test Item Value Reference Range Interpretation Comments Manual Differential (test code = Manual NO Differential) [facility]stPlatelet [id number] 22:30:00 Test Item Value Reference Range Interpretation Comments Platelet Estimate (test code = DECREASED ADEQUATE 43942-6) [facility]stPlatelet [id number] 22:30:00 Test Item Value Reference Range Interpretation Comments Platelet Morphology (test code = NORMAL NORMAL 21804-1) [facility] Hill[id number] 22:30:00 Test Item Value Reference Range Interpretation Comments Macrocytosis (test code = 738-5) 1+ NONE [facility]stTear Drop [id number] 22:30:00 Test Item Value Reference Range Interpretation Comments Tear Drop Cells (test code = 29954-9) 1+ NONE [facility]stProthrombin [id number] 22:30:00 Test Item Value Reference Range Interpretation Comments Prothrombin Time (test code = 5964-2) 11.8 10.0-12.9 [facility]stINR International Normalized [id number] 22:30:00 Test Item Value Reference Range Interpretation Comments INR International Normalized Ratio 1.0 0.91-1.15 (test code = 6301-6) THE INR IS TO BE USED ONLY FOR MONITORING ORAL ANTICOAGULANTTHERAPY. INDICATION INR VALUE 1. Prophylaxis of venous thrombosis 2.0-3.0 (high-risk surgery) Treatment of venous thrombosis Treatment of PE Prevention of systemic embolism Tissue heart valves AMI (to prevent systemic embolism) Valvular heart disease Atrial fibrillation Bileaflet mechanical valve in aortic position 2. Mechanical prostheticheart valves (high risk) 2.5-3.5 Thrombosis and Antiphospholipid syndrome Prevention of recurrent MISixth ACCP Consensus Conference on Antithrombotic Therapy,Chest 2001; 119:Supplement 8-21.[facility]stActivated Partial Thromboplast [id number] 22:30:00 Test Item Value Reference Range Interpretation Comments Activated Partial Thromboplast Time 31.1 25.1-36.5 (test code = 3173-2) [facility] [id number] 22:30:00 Test Item Value Reference Range Interpretation Comments Sodium Level (test code = 2951-2) 138 135-144 [facility]stPotassium [id number] 22:30:00 Test Item Value Reference Range Interpretation Comments Potassium Level (test code = 2823-3) 3.9 3.5-5.1 [facility]stChloride [id number] 22:30:00 Test Item Value Reference Range Interpretation Comments Chloride Level (test code = 2075-0) 100 101-111 [facility]stCarbon Dioxide [id number] 22:30:00 Test Item Value Reference Range Interpretation Comments Carbon Dioxide Level (test code = 23 -32 8-9) [facility] HillcrestAnion [id number] 22:30:00 Test Item Value Reference Range Interpretation Comments Anion Gap (test code = 56702-5) 18.9 10-20 [facility]stGlucose [id number] 22:30:00 Test Item Value Reference Range Interpretation Comments Glucose Level (test code = 2345-7) 99 65-99 Prediabetes 100 to 125 mg/dlDiabetes 126mg/dl or higher Prediabetes refers to individuals with plasma glucose levelsintermediate between those considered normal and thoseconsidered diabetic and is also referred to as impairedglucose tolerance (IGT) or impaired fasting glucose (IFG). [facility] Hill[facility]stBlood Urea [id number] 22:30:00 Test Item Value Reference Range Interpretation Comments Blood Urea Nitrogen (test code = 10 04-10 3094-0) [facility] Hill[facility]stCreatinine2020-08-01 22:30:00 Test Item Value Reference Range Interpretation Comments Creatinine (test code = 2160-0) 0.5 0.61-1.24 [facility]stEGFR [id number] 22:30:00 Test Item Value Reference Range Interpretation Comments EGFR Note (test code = 67513-4) 123.4 59.3-175.8 eGFR (Estimated Glomerular Filtration Rate) eGFR calculation value obtained using the Hca Florida University HospitalQuadratic (Q) equation. The reportable reference range isrecommended to be greater than 60 ml/min/1.73m. This is anestimation of the patient's GFR and clinical correlation isrecommended. This eGFR calculation does not account for race. This resultmay differ from other equations available. [facility]stCalcium [id number] 22:30:00 Test Item Value Reference Range Interpretation Comments Calcium Level (test code = 00344-0) 7.1 8.9-10.3 [facility] HillcrestAlbumin2020-08-01 22:30:00 Test Item Value Reference Range Interpretation Comments Albumin (test code = 1751-7) 2.9 3.5-5.0 [facility] Hill[facility]stTotal [id number] 22:30:00 Test Item Value Reference Range Interpretation Comments Total Bilirubin (test code = 1975-2) 2.4 0.2-1.2 [facility] Hill[facility]stAlkaline [id number] 22:30:00 Test Item Value Reference Range Interpretation Comments Alkaline Phosphatase (test code = 172 32-91 6768-6) [facility] Hill[facility]stALCOHOL, [id number] 00:22:00 Test Item Value Reference Range Interpretation Comments Alcohol % (test code = 0.45 % 0.00-0.00 H Yunior ol % 0.00 - 0.10 ALCPC) Sub-clinical 0. 11 - 0.20 Emotional Insta bility 0.21 - 0.30 Con fusion 0.31 - 0.40 Ryan por 0.41 - 0.50 Coma >.50 Fatal [facility] WITH AUTO [id number] 00:21:00 Test Item Value Reference Range Interpretation Comments WBC (test code = 4.76 10\\S\\3/ul 4.80-10.80 L WBC) RBC (test code = 4.56 10\\S\\6/ul 4.70-6.10 L RBC) Hemoglobin (test 15.4 gm/dl 14.0-18.0 code = HGB) Hematocrit (test 44.0 % 42.0-50.0 code = HCT) MCV (test code = 96.5 fL 80.0-94.0 H MCV) MCH (test code = 33.8 pg 27.0-31.0 H MCH) MCHC (test code = 35.0 gm/dl 33.0-37.0 MCHC) RDW (test code = 14.1 % 11.5-14.5 RDWVC) Platelet (test code 49 10\\S\\3/ul 130-400 LL = PLT) MPV (test code = 9.8 fL 7.4-10.4 A "NOT MEASUR ED" MPV) RESULTS ARE DIS PLAYED WHEN THE INSTRU MENT HAS A SUPPRESSE D OR UNREPORTABLE RE SULT. THIS WILL MOST OFTEN HAPPEN WITH THE MPV WHEN THERE IS A N ABNORMAL PLATEL ET DISTRIBUTION DU E TO A CRITICAL LOW VA LUE OR PLATELET CLUMPI NG. THE RDW MAY BE SUPPRESSED IF T HERE ARE MULTIPLE PE AKS PRESENT ON THE RBC HISTOGRAM. IN T HIS CASE, A MANUAL REVIEW OF THE SLIDE WI LL BE PERFORMED, AND RBC MORPHOLOGY WILL BE NOTED ON THE RE PORT. NE% (test code = 74.8 % 42.0-75.0 NE) LY% (test code = 12.0 % 13.0-42.0 L LY) MO% (test code = 11.8 % 4.0-14.0 MO) EO% (test code = 0.2 % 1.0-5.0 L EO) BA% (test code = 0.8 % 0.0-3.0 BA) IG% (test code = 0.4 % 0.0-0.4 IG%) Critical values were called to Silvano He RN by [id number] on 03/15/20 00:21 CDT. Results were readback by Silvano He RN.[facility] CenterCMP2020-07-31 00:21:00 Test Item Value Reference Range Interpretation Comments Glucose (test code 128 mg/dl 75-110 H = GLU) BUN (test code = 13.0 mg/dl 6.0-17.0 BUN) Creatinine (test 0.5 mg/dl 0.4-1.2 code = CREA) Sodium (test code = 142 mmol/l 137-145 NA) Potassium (test 3.7 mmol/l 3.5-5.0 code = K) Chloride (test code 107 mmol/l 98-107 = CL) CO2 (test code = 23 mmol/l 22-30 CO2) Calcium (test code 7.3 mg/dl 8.4-10.2 L = CALC) T Protein (test 6.3 gm/dl 5.1-8.7 code = TP) Albumin (test code 2.7 gm/dl 3.5-4.6 L = ALB) A/G Ratio (test 0.8 % 1.1-2.2 L code = AGRAT) AST (SGOT) (test 642 U/L 11-36 H code = AST) ALT (SGPT) (test 262 U/L 11-40 H code = ALT) Alkaline Phos (test 193 U/L 47-114 H code = ALKP) Total Bilirubin 1.5 mg/dl 0.2-1.2 H (test code = TBIL) Globulin (test code 3.6 gm/dl 2.3-3.5 H = GLOBU) Calcium, Corrected 8.3 mg/dl 8.4-10.2 L Various f ormulas exist (test code = for corrected s juju CALCCORR) calcium results , each yielding differ ent values. This co rrected result was base d on the formula: Co rrected Calcium = Serum Calcium + [0.8 * ( 4 - SerumAlbumin)] EGFR if >60 Dutch (test code mL/min/1.73m\\ = EGFRAA) S\\2 EGFR if Non- >60 Estimate d Glomerular Dutch (test code mL/min/1.73m\\ Filtrat ion Rate (eGFR) = EGFRNA) S\\2 Reference Inter vals Decision Points for 18 years and older and average body ma ss: >= 60 Does not exc lude kidney disease. 30 - 59 Suggests mod erate chronic kidney disease and indicates t he need for further investigation including asses sment of proteinuria and cardiovascular factors. < 30 U sually indicates a nee d for referral for assessment and management of c hronic kidney failure. [facility] WITH AUTO [id number] 07:04:00 Test Item Value Reference Range Interpretation Comments WBC (test code = 7.94 10\\S\\3/ul 4.80-10.80 WBC) RBC (test code = 4.20 10\\S\\6/ul 4.70-6.10 L RBC) Hemoglobin (test 14.3 gm/dl 14.0-18.0 code = HGB) Hematocrit (test 42.6 % 42.0-50.0 code = HCT) MCV (test code = 101.4 fL 80.0-94.0 H MCV) MCH (test code = 34.0 pg 27.0-31.0 H MCH) MCHC (test code = 33.6 gm/dl 33.0-37.0 MCHC) RDW (test code = 12.3 % 11.5-14.5 RDWVC) Platelet (test code 85 10\\S\\3/ul 130-400 L = PLT) MPV (test code = 11.2 fL 7.4-10.4 A "NOT MEASUR ED" MPV) RESULTS ARE DISPLAYED WHEN THE INSTRUMENT HAS A SUPPRESSED OR UNREPORTABLE RE SULT. THIS WILL MOST OFTEN HAPPEN WITH THE MPV WHEN THERE IS A N ABNORMAL PLATEL ET DISTRIBUTION DU E TO A CRITICAL LOW VALUE OR PLATELET CLUMPING. THE R DW MAY BE SUPPRESS ED IF THERE ARE MULTI PLE PEAKS PRESENT O N THE RBC HISTOGRAM. IN THIS CASE, A SOHAM BOLDEN REVIEW OF THE S LIDE WILL BE PERFORM ED, AND RBC MORPHOL OGY WILL BE NOTED O N THE REPORT. NE% (test code = NE) 64.9 % 42.0-75.0 LY% (test code = LY) 12.5 % 13.0-42.0 L MO% (test code = MO) 20.4 % 4.0-14.0 H EO% (test code = EO) 1.4 % 1.0-5.0 BA% (test code = BA) 0.5 % 0.0-3.0 IG% (test code = 0.3 % 0.0-0.4 IG%) Neutrophils (test 63 10\\S\\3/ul 42-75 No previou s value code = NEUTR) was reported. A value of 63 was entered by [id number] on 09/27/2019 07:0 4 Bands (test code = 1 % 0-2 No previo us value BANDM) was reported. A value of 1 was entered by [email or web address] on 09/27/2019 07:0 4 Lymphocytes (test 20 % 13-42 No previou s value code = LYMPH) was reported. A value of 20 was entered by [email or web address] on 09/27/2019 07:0 4 Monocytes (test code 15 % 4-14 H No prev ious value = MONOS) was reported. A value of 15 was entered by RS Dialogfeed on 09/27/2019 07:0 4 Eosinophils (test 1 % 1-3 No previou s value code = EOS) was reported. A value of 1 was entered by [employer] on 09/27/2019 07:0 4 [facility]-[id number] 06:33:00 Test Item Value Reference Range Interpretation Comments Sodium (test code = 141 mmol/l 137-145 NA) Potassium (test 3.7 mmol/l 3.5-5.1 code = K) Chloride (test code 112 mmol/l 98-107 H = CL) Calcium (test code 8.6 mg/dl 8.5-10.1 = CALC) CO2 (test code = 24 mmol/l 21-32 CO2) Glucose (test code 116 mg/dl 74-106 H = GLU) BUN (test code = 8.0 mg/dl 7.0-18.0 BUN) Creatinine (test 0.6 mg/dl 0.5-1.3 code = CREA) EGFR if >60 Dutch (test code mL/min/1.73m\\ = EGFRAA) S\\2 EGFR if Non- >60 Estimate d Glomerular Dutch (test code mL/min/1.73m\\ Filtrat ion Rate (eGFR) = EGFRNA) S\\2 Reference Inter vals Decision Points for 18 years and older and average body ma ss: >= 60 Does not exc lude kidney disease. 30 - 59 Suggests mod erate chronic kidney disease and indicates t he need for further investigation including asses sment of proteinuria and cardiovascular factors. < 30 U sually indicates a nee d for referral for assessment and management of c hronic kidney failure. [facility] HospitalTufgqj-[id number] 15:57:00 Test Item Value Reference Range Interpretation Comments Potassium (test code = K) 3.8 mmol/l 3.5-5.1 [facility]-[id number] 06:56:00 Test Item Value Reference Range Interpretation Comments Sodium (test code = 140 mmol/l 137-145 NA) Potassium (test 3.3 mmol/l 3.5-5.1 L code = K) Chloride (test code 109 mmol/l 98-107 H = CL) Calcium (test code 8.5 mg/dl 8.5-10.1 = CALC) CO2 (test code = 24 mmol/l 21-32 CO2) Glucose (test code 114 mg/dl 74-106 H = GLU) BUN (test code = 10.0 mg/dl 7.0-18.0 BUN) Creatinine (test 0.7 mg/dl 0.5-1.3 code = CREA) T Protein (test 7.1 gm/dl 6.4-8.2 code = TP) Albumin (test code 3.4 gm/dl 3.4-5.0 = ALB) A/G Ratio (test 0.9 % 1.1-2.2 L code = AGRAT) AST (SGOT) (test 51 U/L 15-37 H code = AST) ALT (SGPT) (test 59 U/L 13-61 code = ALT) Alkaline Phos (test 63 U/L 45-117 code = ALKP) Total Bilirubin 1.1 mg/dl 0.2-1.0 H (test code = TBIL) Globulin (test code 3.7 gm/dl 2.3-3.5 H = GLOBU) Calcium, Corrected 9.0 mg/dl 8.4-10.2 Various f ormulas exist (test code = for corrected s juju CALCCORR) calcium results , each yielding differ ent values. This co rrected result was base d on the formula: Co rrected Calcium = Serum Calcium + [0.8 * ( 4 - SerumAlbumin)] EGFR if >60 Dutch (test code mL/min/1.73m\\ = EGFRAA) S\\2 EGFR if Non- >60 Estimate d Glomerular Dutch (test code mL/min/1.73m\\ Filtrat ion Rate (eGFR) = EGFRNA) S\\2 Reference Inter vals Decision Points for 18 years and older and average body ma ss: >= 60 Does not exc lude kidney disease. 30 - 59 Suggests mod erate chronic kidney disease and indicates t he need for further investigation including asses sment of proteinuria and cardiovascular factors. < 30 U sually indicates a nee d for referral for assessment and management of c hronic kidney failure. [facility] Centerkin[facility] WITH AUTO [id number] 06:39:00 Test Item Value Reference Range Interpretation Comments WBC (test code = 5.89 10\\S\\3/ul 4.80-10.80 WBC) RBC (test code = 4.33 10\\S\\6/ul 4.70-6.10 L RBC) Hemoglobin (test 14.5 gm/dl 14.0-18.0 code = HGB) Hematocrit (test 43.2 % 42.0-50.0 code = HCT) MCV (test code = 99.8 fL 80.0-94.0 H MCV) MCH (test code = 33.5 pg 27.0-31.0 H MCH) MCHC (test code = 33.6 gm/dl 33.0-37.0 MCHC) RDW (test code = 12.2 % 11.5-14.5 RDWVC) Platelet (test code 73 10\\S\\3/ul 130-400 L = PLT) MPV (test code = 10.9 fL 7.4-10.4 A "NOT MEASUR ED" MPV) RESULTS ARE DIS PLAYED WHEN THE INSTRU MENT HAS A SUPPRESSE D OR UNREPORTABLE RE SULT. THIS WILL MOST OFTEN HAPPEN WITH THE MPV WHEN THERE IS A N ABNORMAL PLATEL ET DISTRIBUTION DU E TO A CRITICAL LOW VA LUE OR PLATELET CLUMPI NG. THE RDW MAY BE SUPPRESSED IF T HERE ARE MULTIPLE PE AKS PRESENT ON THE RBC HISTOGRAM. IN T HIS CASE, A MANUAL REVIEW OF THE SLIDE WI LL BE PERFORMED, AND RBC MORPHOLOGY WILL BE NOTED ON THE RE PORT. NE% (test code = 69.8 % 42.0-75.0 NE) LY% (test code = 14.1 % 13.0-42.0 LY) MO% (test code = 13.9 % 4.0-14.0 MO) EO% (test code = 1.2 % 1.0-5.0 EO) BA% (test code = 0.5 % 0.0-3.0 BA) IG% (test code = 0.5 % 0.0-0.4 H IG%) [facility] CenterkinDRUG SCREEN [id number] 05:05:00 Test Item Value Reference Range Interpretation Comments Amphetamines (test code NEG = AMPHET) BARBITUATES (test code = NEG GISSELLE) Benzodiazepines (test POS code = BENZO) Cocaine (test code = NEG RADHA) Methadone (test code = NEG MTD) Opiates (test code = NEG OPIAT) PHENCYCLIDINE, PCP (test NEG The following table code = PCP) provides an int erpretive guide for the D rugs of Abuse ran on e Siemens Dolphin analyzer listed there in: Amph etamines < 1000 ng/ml = Negative Barbituates < 2 00 ng/ml = Negative Benzodiazapines < 200 ngml = Negative Cocaine < 300 ng/ml = N egative Methadone < 300 ng/ml = Negative Opiate < 300 ng/ml = Negativ e PCP < 25 ng/ml = Nega tive THC < 50 ng/ml = Ne gative Results equal t o or greater than th e above cut-off values = Presumptive Pos itive. Confirmation of Presumptive Pos itive results are martin ilable upon request. Cannabinoids, THC (test POS code = THC) [facility] CenterkinSTAT LAB [id number] 04:56:00 Test Item Value Reference Range Interpretation Comments Troponin-I (test 0.07 ng/ml 0.00-0.08 The 99th Pe rcentile URL is code = TROP) 0.08 ng/mL for the [place] iStat Troponin I. The Joint Society of Cardiology/Amer ican College of Card iology (ESC/ACC) and t patience National Academy of Clin ical Biochemistry [facility] of Laboratory Prac tices (NACB) recommen ds that the diagnosis of AM I includes the presence of clinical history suggest rachael of Acute Coronary Syndrome (ACS) and a max imum concentration o f cardiac troponin exceed ing the 99th percentile of a normal referenc e population [upp er reference limit (URL)] on at least one oc casion during the firs t 24 hours after the clini princess event. [facility] LAB URINALYSIS WITHOUT [id number] 04:46:00 Test Item Value Reference Range Interpretation Comments Color (test code = UCOLR) Marilynn Lt. Yellow A Clarity (test code = UCLAR) Clear Glucose (test code = UGLUC) Negative Negative N Bilirubin (test code = UBILI) Small Negative A Ketones (test code = UKET) Negative Negative N Specific [place] (test code = >=1.030 1.005-1.030 A USPGR) Blood (test code = UBLD) Trace-intact Negative A PH (test code = UPH) 5.5 4.5-8.0 A Protein (test code = UPROT) 100 Negative A Urobilinogen (test code = U 2.0 >0.2 A UROB) Nitrite (test code = UNITR) Negative Negative N Leukocyte Esterase (test code = Negative Negative N ULEUK) [facility] LAB CBC WITH AUTO [id number] 03:57:00 Test Item Value Reference Range Interpretation Comments WBC (test code = 9.26 10\\S\\3/ul 4.80-10.80 WBC) RBC (test code = 4.57 10\\S\\6/ul 4.70-6.10 L RBC) Hemoglobin (test 15.2 gm/dl 14.0-18.0 code = HGB) Hematocrit (test 44.7 % 42.0-50.0 code = HCT) MCV (test code = 97.8 fL 80.0-94.0 H MCV) MCH (test code = 33.3 pg 27.0-31.0 H MCH) Platelet (test 69 10\\S\\3/ul 130-400 L Specimen redr awn, code = PLT) citrate tube wa s clotted, redraw slightly higher results. Slide reviewed. RB MCHC (test code = 34.0 gm/dl 33.0-37.0 MCHC) RDW (test code = 12.7 % 11.5-14.5 RDWVC) MPV (test code = 12.5 fL 7.4-10.4 A "NOT MEASUR ED" MPV) RESULTS ARE DISPLAYED WHEN THE INSTRUMENT HAS A SUPPRESSED OR UNREPORTABLE RESULT. THIS WI LL MOST OFTEN HAPP EN WITH THE MPV WH EN THERE IS AN ABNORMAL PLATEL ET DISTRIBUTION DU E TO A CRITICAL LOW VALUE OR PLATEL ET CLUMPING. THE R DW MAY BE SUPPRESS ED IF THERE ARE MULTIPLE PEAKS PRESENT ON THE RBC HISTOGRAM. IN T HIS CASE, A MANUAL REVIEW OF THE S LIDE WILL BE PERFORM ED, AND RBC MORPHOL OGY WILL BE NOTED O N THE REPORT. NE% (test code = 75.1 % 42.0-75.0 H NE) LY% (test code = 12.4 % 13.0-42.0 L LY) MO% (test code = 10.6 % 4.0-14.0 MO) EO% (test code = 0.9 % 1.0-5.0 L EO) BA% (test code = 0.4 % 0.0-3.0 BA) IG% (test code = 0.6 % 0.0-0.4 H IG%) NRBC, Auto (test 0 /100WBC 0-2 code = NRBC_AUTO) Platelet Occ large No previous rio ue Morphology (test platelet observed was re ported. A code = PLTMORPH) Decreased value of Oc c large platelets platelet observ ed Decreased plate lets was entered by [id number] on 09/25/2019 03:5 7 [facility]-AyazKenroy AND [id number] 03:45:00 Test Item Value Reference Range Interpretation Comments Protime (test code 10.7 seconds 9.5-12.1 = PT) INR (test code = 1.0 0.9-1.1 INR results are INR) intended ONLY t o monitor Oral Anticoagulant t herapy in stablized pa tients. The INR Therape utic Range is 2.0 - 3.0 Patients with a mechanical hear t, the INR Range is 2. 5 - 3.5 [facility] CenterkinPTT2020-02-10 03:45:00 Test Item Value Reference Range Interpretation Comments aPTT (test code = PTT) 24.8 seconds 23.9-30.7 [facility] ClinicsTROPONIN-I [id number] 03:24:00 Test Item Value Reference Range Interpretation Comments Troponin-I (test 0.067 ng/ml 0.000-0.045 HH The 99[address] Pe rcentile URL code = TROP) is 0.045 ng/mL for the Siemens Dolphin T roponin I. The Joint Europ [facility] Society of Cardiology/Amer [facility] College of Card iology (ESC/ACC) and t [facility] Clinical [facility] franko Standards of La boratory Practices (NACB ) recommends that the diagnosis of AM I includes the presence of clinical history suggest rachael of Acute Coronary Syndrome (ACS) and a max imum concentration o f cardiac troponin exceed ing the 99th percentile of a normal referenc e population [upp er reference limit (URL)] on at least one oc casion during the firs t 24 hours after the clini princess event. Critical values were called to julisa maier by [id number] on 09/25/19 03:24 [employer]ANT UTILITY PERSON. Results were read back by julisa maier.[facility]-OmahaHEPATIC FUNCTION PANEL (LIVER)2019-09-25 03:24:00 Test Item Value Reference Range Interpretation Comments T Protein (test code = TP) 7.7 gm/dl 6.4-8.2 Albumin (test code = ALB) 4.0 gm/dl 3.4-5.0 AST (SGOT) (test code = AST) 80 U/L 15-37 H ALT (SGPT) (test code = ALT) 77 U/L 13-61 H Alkaline Phos (test code = ALKP) 67 U/L 45-117 Total Bilirubin (test code = TBIL) 1.4 mg/dl 0.2-1.0 H Direct Bilirubin (test code = DBIL) 0.5 mg/dl 0.0-0.3 H Indirect Bilirubin (test code = 0.9 mg/dl 0.0-1.1 IBIL) [facility] HospitalQzmkvl-[id number] 03:24:00 Test Item Value Reference Range Interpretation Comments Magnesium (test code = MG) 1.6 mg/dl 1.6-2.6 [facility]-[id number] 03:24:00 Test Item Value Reference Range Interpretation Comments Sodium (test code = 140 mmol/l 137-145 NA) Potassium (test 3.5 mmol/l 3.5-5.1 code = K) Chloride (test code 107 mmol/l 98-107 = CL) Calcium (test code 9.0 mg/dl 8.5-10.1 = CALC) CO2 (test code = 24 mmol/l 21-32 CO2) Glucose (test code 90 mg/dl 74-106 = GLU) BUN (test code = 26.0 mg/dl 7.0-18.0 H BUN) Creatinine (test 1.2 mg/dl 0.5-1.3 code = CREA) EGFR if >60 Dutch (test code mL/min/1.73m\\ = EGFRAA) S\\2 EGFR if Non- >60 Estimate d Glomerular Dutch (test code mL/min/1.73m\\ Filtrat ion Rate (eGFR) = EGFRNA) S\\2 Reference Inter vals Decision Points for 18 years and older and average body ma ss: >= 60 Does not exc lude kidney disease. 30 - 59 Suggests mod erate chronic kidney disease and indicates the need for furthe r investigation including asses sment of proteinuria and cardiovascular factors. < 30 U sually indicates a nee d for referral for assessment and management of c hronic kidney failure. [facility] CenterkinTSH (Ultra Sensitive)2019-09-25 03:24:00 Test Item Value Reference Range Interpretation Comments TSH (test code = TSH) 2.06 mIU/L 0.35-3.74 [facility] HospitalRcwovj-[id number] 03:24:00 Test Item Value Reference Range Interpretation Comments Lipase (test code = LIPA) 205 U/L 73-393 [facility] CenterkinACETAMINOPHEN (Tyenol)2019-09-25 03:20:00 Test Item Value Reference Range Interpretation Comments Acetaminophen (test code = ACET) <10 ug/ml 10-30 L [facility] Medical CenterkinSALICYLATES (Aspirin)2019-09-25 03:20:00 Test Item Value Reference Range Interpretation Comments Salicylate (test code 3.6 mg/dl 2.8-20.0 Salicy lates Reference = SALI) Ranges: Therape utic 15 - 30 mg/dl [place] >30 mg/dl Nancy l >70 mg/dl [facility]-LufkinXR CHEST AP/PA 1 [id number] 03:15:43PROCEDURE INFORMATION:Exam: XR Chest, 1 ViewExam date and time: 09/25/2019 2:24 AMAge: 49 years oldClinical indication: Cough and shortness of breath; Chest pain; Patient HX:SmokerTECHNIQUE:Imaging protocol: XR of the chestViews: 1 view.COMPARISON:No relevant prior studies available.FINDINGS:Lungs: Unremarkable. No consolidation.Pleural space: Unremarkable. No pleural effusion. No pneumothorax.Heart/Mediastinum: Unremarkable. No cardiomegaly.Bones/joints: Unremarkable.IMPRESSION:No acute findings.This Final report was electronically signed by Erlinda Fitzpatrick MD on 3:15 AM CDT.Dictated By:ERLINDA FITZPATRICKDate: 09/25/2019 03:15[facility], [id number] 03:15:00 Test Item Value Reference Range Interpretation Comments Alcohol % (test code = 0 % 0.00-0.00 N Yunior ol % 0.00 - 0.10 [facility]) Sub-clinical 0. 11 - 0.20 Emotional Insta bility 0.21 - 0.30 Confusio n 0.31 - 0.40 Stupor 0.4 1 - 0.50 Coma >.50 [id number] 03:11:00 Test Item Value Reference Range Interpretation Comments Ammonia (test code = PETE) 37 umol/L 9-33 [facility] [id number] 02:57:00 Test Item Value Reference Range Interpretation Comments B-Peptide (test code = BNP) 447 pg/ml 0-100 H [facility]
[2022-10-04] MEDS ORDERED: LORAZEPAM 1 MG TABLET ONE (14:31)
[2022-10-04 15:05] LABS: Absolute Lymphocytes (CBC) 1.9 K/uL (0.7-4.9); Lymphocytes % 16.4 % (15.3-44.8); MCV 84.9 fL (80-100); MPV 7.9 fL (7.6-11.3); RBC Red Blood Cell Count 5.66 M/uL (4.33-5.43)
[2022-10-04 15:06] LABS: Protime INR 1.01
[2022-10-04 15:19] LABS: ALT/SGPT 22 U/L (16-61); AST/SGOT 18 U/L (15-37); Albumin 3.5 g/dL (3.4-5.0); Alkaline Phosphatase 89 U/L (45-117); BUN Blood Urea Nitrogen 15 mg/dL (7-18); Bicarbonate 27 mmol/L (21-32); Bilirubin Total 0.3 mg/dL (0.2-1.0); Glomerular Filtration Rate 93 ml/min (=/>90); Glucose Level 107 mg/dL (74-106); NT PRO-BNP 721 pg/mL (<125); Potassium 4.8 mmol/L (3.5-5.1); Protein, Total 7.4 g/dL (6.4-8.2); Sodium Level 135 mmol/L (136-145)
[2022-10-04 15:20] LABS: Bilirubin Direct < 0.1 mg/dL (0-0.2)
[2022-10-04 15:22] LABS: Troponin High Sensitivity 113.3 pg/mL (<58.9)
--- NOTE | 2022-10-04 16:22 | RAD REPORT ---
EXAM DESCRIPTION: Maggie Single View10/04/2022 3:47 pm CLINICAL HISTORY: sob COMPARISON: none FINDINGS: The lungs appear clear of acute infiltrate. The heart is moderately enlarged IMPRESSION: No acute abnormalities displayed
--- NOTE | 2022-10-04 16:26 | RAD REPORT ---
EXAM DESCRIPTION: USExtrem Venous W Compress Bil10/04/2022 3:46 pm CLINICAL HISTORY: Leg swelling COMPARISON: none FINDINGS: The common femoral, superficial femoral, greater saphenous, popliteal and posterior tibial veins bilaterally are compressible and demonstrate augmentation. Doppler demonstrates good flow. Grayscale, color and spectral analysis performed on all vessels IMPRESSION: No evidence of deep venous thrombosis involving either lower extremity.
--- NOTE | 2022-10-04 16:41 | ER ---
Nurse's Notes [facility] Name: Gabino Kraft Age: 52 yrs Sex: Male : 1970 Arrival Date: 10/04/2022 Time: 14:01 Bed 20 Private MD: Diagnosis: New Onset Congestive Heart Failure;Elevated Troponin Presentation: 10/04 14:16 Chief complaint: Patient states: yamel lower leg swelling that began 1 month ago. Reports aa5 baseline SOB from "smoking". Coronavirus screen: At this time, the client does not indicate any symptoms associated with coronavirus-19. Ebola Screen: Patient denies travel to an Ebola-affected area in the 21 days before illness onset. Initial Sepsis Screen: Does the patient meet any 2 criteria? No. Patient's initial sepsis screen is negative. Does the patient have a suspected source of infection? No. Patient's initial sepsis screen is negative. Risk Assessment: Do you want to hurt yourself or someone else? Patient reports no desire to harm self or others. Onset of symptoms was September 2022. 14:16 Method Of Arrival: Ambulatory aa5 14:16 Acuity: ASHER 3 aa5 Historical: - Allergies: 14:23 PENICILLINS; aa5 - Home Meds: 14:23 None [Active]; aa5 - PMHx: 14:23 Hypertensive disorder; COPD; aa5 - Immunization history:: Adult Immunizations unknown. - Social history:: Smoking status: Patient reports the use of cigarette tobacco products. Screenin:46 [facility] ED Fall Risk Assessment (Adult) History of falling in the last 3 months, jb4 including since admission No falls in past 3 months (0 pts). Abuse screen: Denies threats or abuse. Nutritional screening: No deficits noted. Tuberculosis screening: No symptoms or risk factors identified. Assessment: 16:03 General: Appears. General: Appears in no apparent distress. comfortable, Behavior is kr3 calm, cooperative, appropriate for age. Neuro: Level of Consciousness is awake, alert, obeys commands, Oriented to person, place, time, situation. Cardiovascular: Patient's skin is warm and dry. Respiratory: Airway is patent Respiratory effort is even, unlabored, Respiratory pattern is regular, symmetrical. GI: No signs and/or symptoms were reported involving the gastrointestinal system. : No signs and/or symptoms were reported regarding the genitourinary system. EENT: No signs and/or symptoms were reported regarding the EENT system. Derm: No signs and/or symptoms reported regarding the dermatologic system. Musculoskeletal: Swelling present in right leg, lateral aspect of left calf, left lateral ankle, lateral aspect of left foot, left calf, left Achilles, left heel, medial aspect of left calf, left medial ankle, medial aspect of left foot, left martell, anterior aspect of left ankle and dorsum of left foot. 19:07 Reassessment: Patient appears in no apparent distress at this time. Patient and/or jb4 family updated on plan of care and expected duration. Pain level reassessed. Patient is alert, oriented x 3, equal unlabored respirations, skin warm/dry/pink. Vital Signs: 14:16 BP 155 / 93; Pulse 100; Resp 18 S; Temp 97.6(TE); Pulse Ox 99% on R/A; Weight 122.47 kg aa5 (R); Height 5 ft. 11 in. (180.34 cm) (R); 19:07 BP 136 / 59; Pulse 87; Resp 16; Pulse Ox 96% on R/A; jb4 14:16 Body Mass Index 37.66 (122.47 kg, 180.34 cm) aa5 ED Course: 14:01 Patient arrived in ED. am2 14:01 [facility] 14:01 Jose Eduardo Sotelo MD is Attending Physician. 7 14:16 Triage completed. aa5 14:16 Arm band placed on. aa5 14:50 Initial lab(s) drawn, by ok, sent to lab. Inserted saline lock: 20 gauge in right aa5 wrist, using aseptic technique. Blood collected. 16:01 Carey Elliott, RO is Primary Nurse. kr3 16:39 Rigo Sahni MD is Hospitalizing Provider. [facility] 19:46 Patient has correct armband on for positive identification. Bed in low position. Call jb4 light in reach. Side rails up X 1. Client placed on continuous cardiac and pulse oximetry monitoring. NIBP monitoring applied. 19:46 No provider procedures requiring assistance completed. Patient admitted, IV remains in jb4 place. Administered Medications: 17:55 Drug: Nicotine Patch 21 mg/24 hr 1 patches {Note: Right upper arm.} Route: Transdermal; vg1 Site: affected area; Medication: 19:46 VIS not applicable for this client. jb4 Outcome: 16:41 Decision to Hospitalize by Provider. caryl 19:46 Admitted to Med/surg accompanied by tech, via wheelchair, room 207, with chart, Report jb4 called to RO Asencio 19:46 Condition: stable 19:46 Discharge instructions given to patient, Instructed on the need for admit, Demonstrated understanding of instructions. 19:47 Patient left the ED. jb4 Signatures: Maria G Huang, RN RN aa5 Ino Mccrary, RN RN jb4 Christie Alanis am2 Jody Montelongo RN RN vg1 Antonette Chávez, EXTRUSION LINE OPERATOR EXTRUSION LINE OPERATOR jh7 Carey Elliott RN RN kr3 Corrections: (The following items were deleted from the chart) 14:23 14:16 BP 155 / 93; Pulse 100bpm; Resp 18bpm; Spontaneous; Pulse Ox 99% RA; Temp 97.6F aa5 Temporal; aa5 16:11 16:00 General: Appears kr3 kr3
--- NOTE | 2022-10-04 16:41 | EDPHYS ---
Physician Documentation [facility] Name: Gabino Kraft Age: 52 yrs Sex: Male : 1970 Arrival Date: 10/04/2022 Time: 14:01 Bed 20 Private MD: ED Physician Jose Eduardo Sotelo HPI: 10/04 14:17 This 52 yrs old Male presents to ER via Ambulatory with complaints of Feet Swelling, jh7 Leg Swelling. 14:17 The patient presents with swelling. The complaints affect the lateral aspect of left jh7 calf, left lateral ankle, lateral aspect of left foot, left calf, left Achilles, left heel, medial aspect of left calf, left medial ankle, medial aspect of left foot, left martell, anterior aspect of left ankle and dorsum of left foot. Onset: The symptoms/episode began/occurred 1 month(s) ago, and became worse. Associated signs and symptoms: Pertinent positives: swelling, SOB, Pertinent negatives calf tenderness, fever, numbness. hx of COPD. Historical: - Allergies: 14:23 PENICILLINS; aa5 - Home Meds: 14:23 None [Active]; aa5 - PMHx: 14:23 Hypertensive disorder; COPD; aa5 - Immunization history:: Adult Immunizations unknown. - Social history:: Smoking status: Patient reports the use of cigarette tobacco products. ROS: 14:17 Constitutional: Negative for fever, chills, and weight loss, Eyes: Negative for injury, jh7 pain, redness, and discharge, Neck: Negative for injury, pain, and swelling, Abdomen/GI: Negative for abdominal pain, nausea, vomiting, diarrhea, and constipation, Back: Negative for injury and pain, Skin: Negative for injury, rash, and discoloration, Neuro: Negative for headache, weakness, numbness, tingling, and seizure. 14:17 Cardiovascular: Positive for edema, Negative for chest pain. 14:17 Respiratory: Positive for shortness of breath, Negative for cough, wheezing. 14:17 MS/extremity: 14:17 All other systems are negative. Exam: 14:17 Constitutional: This is a well developed, well nourished patient who is awake, alert, jh7 and in no acute distress. Head/Face: Normocephalic, atraumatic. Eyes: Pupils equal round and reactive to light, extra-ocular motions intact. Lids and lashes normal. Conjunctiva and sclera are non-icteric and not injected. Cornea within normal limits. Periorbital areas with no swelling, redness, or edema. Cardiovascular: Regular rate and rhythm with a normal S1 and S2. No gallops, murmurs, or rubs. Normal PMI, no JVD. No pulse deficits. Respiratory: Lungs have equal breath sounds bilaterally, clear to auscultation and percussion. No rales, rhonchi or wheezes noted. No increased work of breathing, no retractions or nasal flaring. Abdomen/GI: Soft, non-tender, with normal bowel sounds. No distension or tympany. No guarding or rebound. No evidence of tenderness throughout. Skin: Warm, dry with normal turgor. Normal color with no rashes, no lesions, and no evidence of cellulitis. MS/ Extremity: Pulses equal, no cyanosis. Neurovascular intact. Full, normal range of motion. Neuro: Awake and alert, GCS 15, oriented to person, place, time, and situation. Motor strength 5/5 in all extremities. Sensory grossly intact. Normal gait. 14:17 Cardiovascular: Edema: 2+ edema to level of left midcalf and right midcalf, pedal edema, that is moderate, ankle edema, that is moderate. Vital Signs: 14:16 BP 155 / 93; Pulse 100; Resp 18 S; Temp 97.6(TE); Pulse Ox 99% on R/A; Weight 122.47 kg aa5 (R); Height 5 ft. 11 in. (180.34 cm) (R); 19:07 BP 136 / 59; Pulse 87; Resp 16; Pulse Ox 96% on R/A; jb4 14:16 Body Mass Index 37.66 (122.47 kg, 180.34 cm) aa5 MDM: 14:01 Patient medically screened. [facility] 16:35 Differential diagnosis: Acute CHF exacerbation, DVT, pneumonia, cellulitis. Data [facility] reviewed: vital signs, nurses notes, lab test result(s), EKG, radiologic studies, plain films. Management of patient was discussed with the following: Hospitalist: Dr. Sahni. Independent interpretation of the following test(s) in the Emergency Department EKG: See my EKG interpretation above. Care significantly affected by the following chronic conditions: Hypertension, Chronic Obstructive Pulmonary Disease. Counseling: I had a detailed discussion with the patient and/or guardian regarding: the historical points, exam findings, and any diagnostic results supporting the discharge/admit diagnosis, the need for further work-up and treatment in the hospital. 10/04 14:22 Order name: Basic Metabolic Panel [facility] 10/04 14:22 Order name: CBC with Diff [facility] 10/04 14:22 Order name: LFT's [facility] 10/04 14:22 Order name: NT PRO-BNP [facility] 10/04 14:22 Order name: PT-INR [facility] 10/04 14:22 Order name: Troponin HS [facility] 10/04 15:06 Order name: CBC with Automated Diff; Complete Time: 15:25 EDNJ 10/04 15:06 Order name: Protime (+INR); Complete Time: 15:25 [facility] 10/04 15:22 Order name: Basic Metabolic Panel; Complete Time: 15:25 [facility] 10/04 15:22 Order name: Liver (Hepatic) Function; Complete Time: 15:25 [facility] 10/04 15:22 Order name: Troponin High Sensitivity; Complete Time: 15:25 [facility] 10/04 15:22 Order name: NT PRO-BNP; Complete Time: 15:25 [facility] 10/04 17:46 Order name: SARS RAPID 10/04 18:12 Order name: SARS-COV-2 Antigen Rapid [facility] 10/04 14:22 Order name: XRAY Chest (1 view) [facility] 10/04 14:22 Order name: EKG; Complete Time: 14:22 [facility] 10/04 14:22 Order name: Cardiac monitoring; Complete Time: 16:36 [facility] 10/04 14:22 Order name: EKG - Nurse/Tech; Complete Time: 16:32 [facility] 10/04 14:22 Order name: IV Saline Lock; Complete Time: 14:50 [facility] 10/04 14:22 Order name: Labs collected and sent; Complete Time: 14:50 [facility] 10/04 14:22 Order name: O2 Per Protocol; Complete Time: 16:32 [facility] 10/04 14:22 Order name: O2 Sat Monitoring; Complete Time: 16:32 [facility] 10/04 14:22 Order name: US Extremity Venous W Compression Parvez [facility] 10/04 16:23 Order name: RAD; Complete Time: 16:25 EDMS 10/04 16:26 Order name: US; Complete Time: 16:30 EDMS 10/04 18:43 Order name: Troponin High Sensitivity EDNJ EC:04 Rate is 80 beats/min. Rhythm is regular. QRS [place] is Normal. DE interval is normal at [facility] 150 msec. QRS interval is normal at 96 msec. QT interval is prolonged at 416 msec. No Q waves. T waves are Normal. No ST changes noted. Clinical impression: Normal sinus rhythm with prolonged QT. Administered Medications: 17:55 Drug: Nicotine Patch 21 mg/24 hr 1 patches {Note: Right upper arm.} Route: Transdermal; vg1 Site: affected area; Disposition Summary: 10/04/22 16:41 Hospitalization Ordered Hospitalization Status: Inpatient Admission [facility] Provider: Rigo Sahni [facility] Location: Telemetry/MedSurg (Inpatient) [facility] Condition: Stable [facility] Problem: new [facility] Symptoms: have worsened [facility] Bed/Room Type: Standard [facility] Room Assignment: [facility](10/04/22 18:43) Diagnosis - New Onset Congestive Heart Failure [facility] - Elevated Troponin [facility] Forms: - Medication Reconciliation Form [facility] - SBAR form [facility] Signatures: Dispatcher [employer] [facility] Maria G Huang RN RN aa5 Holly Jacinto Victoria, RN RN vg1 Antonette Chávez FNP [employer]LECT[employer] [facility] Corrections: (The following items were deleted from the chart) 18:43 16:41 [facility]
[2022-10-04] MEDS: NICOTINE 21 MG/PAT TD SCH (17:31)
[2022-10-04] MEDS ORDERED: FUROSEMIDE 20 MG/ 2ML VIAL IV ONE (17:31)
--- NOTE | 2022-10-04 17:33 | P.HP ---
Certification for Inpatient Patient admitted to: Inpatient With expected LOS: >2 Midnights Practitioner: I am a practitioner with admitting privileges, knowledge of patient current condition, hospital course, and medical plan of care. Services: Services provided to patient in accordance with Admission requirements found in Title 42 Section 412.3 of the Code of Federal Regulations Patient History Date of Service: 10/04/22 Reason for admission: Lower extremity edema History of Present Illness: Patient is 52 years of age with a history of COPD sleep apnea admitted with lower extremity edema for the past month he also has blisters on both his feet he is a heavy smoker 1-1/2 packs a day disabled not take any medications at home does not see a doctor no bronchodilators at home - Past Medical/Surgical History -: COPD -: Sleep apnea Review of Systems 10-point ROS is otherwise unremarkable Respiratory: Shortness of Breath Cardiovascular: Edema Physical Examination - Vital Signs Temperature: 97.6 F Blood Pressure: 155/93 Pulse: 100 Respirations: 18 Pulse Ox (%): 99 - Physical Exam General: Alert, Oriented x3 Neck: Supple Respiratory: Diminished Cardiovascular: Normal S1 S2, Edema (2+ edema has calluses both his feet) Gastrointestinal: Normal bowel sounds, Soft and benign Musculoskeletal: No clubbing, Swelling Integumentary: No rashes, No breakdown - Studies Laboratory Data (last 24 hrs) 10/04/22 14:50: PT 11.1, INR 1.01 10/04/22 14:50: WBC 11.40 H, Hgb 15.6, Hct 48.0, Plt Count 171 10/04/22 14:50: Sodium 135 L, Potassium 4.8, BUN 15, Creatinine 0.97, Glucose 107 H, Total Bilirubin 0.3, AST 18, ALT 22, Alkaline Phosphatase 89 Assessment and Plan - Problems (Diagnosis) (1) Peripheral edema Current Visit: Yes Status: Acute Plan: Patient is 52 years of age admitted with lower extremity edema for the past month heavy smoker history of obstructive sleep apnea presumed cor pulmonale chest x-ray shows interstitial changes mild cardiomegaly elevated BNP at count is mildly elevated admit to the hospital diuresis bronchodilators echocardiogram need an outpatient sleep study pulmonary function test blood pressure is elevated he may have underlying diastolic dysfunction or cor pulmonale add bronchodilators Dulera diuretics echocardiogram troponin is also elevated stable non-STEMI (2) Non-STEMI (non-ST elevated myocardial infarction) Current Visit: Yes Status: Acute Plan: Opponent is elevated probably due to underlying demand ischemia - Advance Directives Does patient have a Living Will: No Does patient have a Durable POA for Healthcare: No
[2022-10-04 18:12] LABS: SARS-CoV-2 Antigen Rapid Res Negative (Negative)
[2022-10-04] MEDS: IPRATROPIUM BROM 0.5MG/2.5ML NEB SCH (20:20)
[2022-10-04] MEDS: DULERA 200/5 (MOMETASONE/FORMOTEROL) INHALER IH SCH (21:22)
[2022-10-04] MEDS: SPIRONOLACTONE 25 MG TABLET PO SCH (21:23)
[2022-10-04] MEDS: ASPIRIN EC 81 MG TAB PO SCH (21:24)
[2022-10-05 00:19] VITALS: O2SAT 94; BMI 37.1
[2022-10-05] MEDS: MELATONIN 5 MG TABLET PO PRN ×2 (00:32→23:28)
[2022-10-05] MEDS: IPRATROPIUM BROM 0.5MG/2.5ML NEB SCH ×4 (01:10→19:30)
[2022-10-05 04:26] LABS: Absolute Lymphocytes (CBC) 1.9 K/uL (0.7-4.9); Hematocrit 48.4 % (39.6-49.0); Lymphocytes % 17.6 % (15.3-44.8); MCV 84.9 fL (80-100); MPV 8.2 fL (7.6-11.3)
[2022-10-05 04:37] LABS: Albumin 3.4 g/dL (3.4-5.0); Bilirubin Total 0.5 mg/dL (0.2-1.0); Protein, Total 7.2 g/dL (6.4-8.2)
[2022-10-05] MEDS: DULERA 200/5 (MOMETASONE/FORMOTEROL) INHALER IH SCH ×2 (09:00→21:00)
[2022-10-05] MEDS: ASPIRIN EC 81 MG TAB PO SCH (09:15)
[2022-10-05] MEDS: SPIRONOLACTONE 25 MG TABLET PO SCH ×2 (09:16→22:05)
[2022-10-05] MEDS: NICOTINE 21 MG/PAT TD SCH (09:16)
[2022-10-05] MEDS: Enoxaparin 120 MG/0.8 ML SYR SQ SCH ×2 (09:22→22:06)
--- NOTE | 2022-10-05 12:37 | EKG ---
Test Date: 2022-10-04 Test Time: 16:04:02 Tubular Stock Glass Bulb Machine Former: MARLI MEASUREMENT RESULTS: Intervals: Rate: 80 CT: 150 QRSD: 96 QT: 416 QTc: 479 [place]: P: 39 CT: 150 QRS: -20 T: 80 INTERPRETIVE STATEMENTS: Normal sinus rhythm Prolonged QT Abnormal ECG No previous ECG available for comparison Electronically Signed On 10-05-22 12:35:24 [employer] ARCHITECT by Sushant De Los Santos
--- NOTE | 2022-10-05 16:31 | P.PN ---
Date of Service: 10/05/22 Subjective: some improvement in swelling denies chest pain +Dyspnea on exertion ROS: 10 point ROS as noted above, otherwise negative Physical exam GEN: Alert, oriented, NAD HEENT: Normal conjunctiva, sclera anicteric CV: Regular rate and rhythm, 2+ b/l edema Pulm: mild labored respirations on room air, crackles and wheeze bilaterally ABD: Soft, nontender, nondistended Integumentary: No rashes Neuro: Normal speech, normal affect Problem List Bilateral lower extremity edema, concerning for new onset CHF exacerbation Obstructive sleep apnea, untreated Nicotine dependence NSTEMI chronic COPD Patient with progressively worsening lower extremity edema over the last month Significant cardiac risk factors -heavy smoking history, untreated JAH, COPD cardiology consulted acs protocol echo ordered stress test in AM VTE: Lovenox Code: Full Dispo: Home, 1-2 days pending further cardiac evaluation
[2022-10-05] MEDS: FUROSEMIDE 40 MG/4 ML VIAL IV SCH (17:30)
--- NOTE | 2022-10-05 20:26 | CON ---
Date of Consultation: 10/05/2022 Reason For Consultation: CHF symptoms. History Of Present Illness: A 52-year-old male with history of COPD, obstructive sleep apnea, presen domitila with worsening shortness of breath and lower extremity edema. Denies having any chest pain. He is a smoker about 1-1/2 pack per day. Has been doing so for a long time and no plans to quit. Past Medical History: COPD and obstructive sleep apnea. Medications: Refer reconciliation sheet for detailed list. Allergies: PENICILLIN. Family History: No premature coronary artery disease or cancer. Social History: He is an active smoker. Does not drink, use any drugs. Review of Systems: All systems reviewed. They are negative except as mentioned in HPI. Physical Examination: Vital Signs: Reviewed. Head and Neck: Pupils are equal, reactive to light. Intact eye movements. No JVD. No cervical lym phadenopathy. Neck: Supple. Thyroid is not enlarged. Lungs: Clear to auscultation bilaterally. No rhonchi, rales, or crackles. No accessory muscle use. Heart: Regular rate and rhythm. No extra sounds. Abdomen: Soft, nontender. Bowel sounds positive. No organomegaly. No masses or hernia. No rigidi ty or rebound. Extremities: No clubbing, cyanosis. 2 to 3+ pitting edema. Neurologic: Alert, awake, oriented x3. No acute focal deficits appreciated. Investigations: BUN 13, creatinine 0.95, and troponin is 112. Assessment And Recommendation: 1.Lower extremity edema and shortness of breath, and his NT-proBNP is elevated suggestive of congest rachael heart failure. The patient is not on any diuretics. Start him on Lasix 40 mg q.12 hours. Monit or BUN, creatinine, electrolyte, and obtain an echo. 2.Elevated troponin. Obtain exercise nuclear stress test while in the hospital. The patient has ma shawn risk factors including heavy smoking, ruling out coronary artery disease. SR/MODL Voice ID: [id number] Report ID: [id number]
[2022-10-06] MEDS: IPRATROPIUM BROM 0.5MG/2.5ML NEB SCH ×4 (01:05→19:10)
--- NOTE | 2022-10-06 07:07 | ECHO ---
HEIGHT: 5 ft 11 in WEIGHT: 266 lb 3.2 oz DATE OF STUDY: 10/05/[address]: Rigo Sahni MD 2-DIMENSIONAL: YES M.MODE: YES DOPPLER: YES COLOR FLOW: YES TDS: YES PORTABLE: YES DEFINITY: NO BUBBLE STUDY: NO DIAGNOSIS: CONGESTIVE HEART FAILURE CARDIAC HISTORY: CATHERIZATION: NO SURGERY: NO PROSTHETIC VALVE: NO PACEMAKER: NO MEASUREMENTS (cm) DIASTOLIC (NORMALS) SYSTOLIC (NORMALS) IVSd 1.2 (0.6-1.2) LA Diam 4.3 (1.9-4.0) LVEF 50% LVIDd 6.9 (3.5-5.7) LVIDs 5.7 (2.0-3.5) %FS % LVPWd 1.3 (0.6-1.2) Ao Diam 3.1 (2.0-3.7) 2 DIMENSIONAL ASSESSMENT: RIGHT ATRIUM: LEFT ATRIUM: RIGHT VENTRICLE: LEFT VENTRICLE: TRICUSPID VALVE: MITRAL VALVE: PULMONIC VALVE: AORTIC VALVE: PERICARDIAL EFFUSION: AORTIC ROOT: LEFT VENTRICULAR WALL MOTION: DOPPLER/COLOR FLOW: COMMENTS: 1. EXTREMELY LIMITED EXAM, VERY POOR WINDOWS. 2. LEFT VENTRICULAR EJECTION FRACTION APPEARS LOW NORMAL 50% BUT UNABLE TO ACCURATELY EVALUATE THAT DUE TO POOR WINDOWS. RECOMMEND CONTRAST STUDY. TECHNOLOGIST: Sada HADLEY
[2022-10-06] MEDS ORDERED: REGADENOSON 0.4 MG/5 ML SYR IV ONE (08:57)
[2022-10-06] MEDS: DULERA 200/5 (MOMETASONE/FORMOTEROL) INHALER IH SCH ×2 (09:00→21:00)
[2022-10-06] MEDS: NICOTINE 21 MG/PAT TD SCH ×2 (09:00→16:02)
[2022-10-06] MEDS: ASPIRIN EC 81 MG TAB PO SCH (09:00)
[2022-10-06] MEDS: Enoxaparin 120 MG/0.8 ML SYR SQ SCH ×2 (09:00→20:47)
[2022-10-06] MEDS: FUROSEMIDE 40 MG/4 ML VIAL IV SCH ×2 (09:00→16:02)
[2022-10-06] MEDS: SPIRONOLACTONE 25 MG TABLET PO SCH ×2 (09:00→20:46)
--- NOTE | 2022-10-06 13:50 | RAD REPORT ---
EXAM DESCRIPTION: NM - Rest Stress Cardiac Imaging - 10/06/2022 1:21 pm CLINICAL HISTORY: ELEVATED TROPONIN COMPARISON: Chest Single View dated 10/04/2022 TECHNIQUE: The patient was administered approximately 10.6 mCi of Tc 99m Sestamibi prior to resting SPECT imaging of the heart. The patient was then administered approximately 30.0 mCi of Tc 99m Sestam ibi following exercise or pharmacologic stress. Multiplanar SPECT images were reviewed. FINDINGS: Splanchnic uptake on the rest images results and some artifactual degradation near the bas e. No stress induced ischemic defect is seen to suggest stress induced myocardial ischemia. A fixed defe ct involving the inferior wall, extending from the apical to the basal segments is present, compatibl e with a region of myocardial infarction. The end diastolic volume is 408 ml, the end systolic volume is 285 ml, and the ejection fraction is 3 0 %. No subjective transient ischemic dilation. IMPRESSION: No evidence of stress-induced myocardial ischemia. Large fixed defect involving the inferior wall, apical to basal segments, compatible with a region of myocardial infarction. Elevated end-diastolic and end systolic volumes, suggesting left ventricular dilation. Decreased left ventricular ejection fraction, 30%. Please correlate with echocardiographic findings.
--- NOTE | 2022-10-06 16:42 | P.PN ---
Subjective Date of Service: 10/06/22 Chief Complaint: Lower extremity edema Patient denies any shortness of breath. He still has significant bilateral feet swelling. Physical Examination - Vital Signs Temperature: 97.4 F Blood Pressure: 137/63 Pulse: 85 Respirations: 16 Pulse Ox (%): 91 Assessment And Plan - Plan Physical exam GEN: Alert, oriented, NAD HEENT: Normal conjunctiva, sclera anicteric CV: Regular rate and rhythm, 2+ b/l pedal edema Pulm: Clear to auscultation bilaterally, adequate breath sounds bilaterally. ABD: Soft, nontender, nondistended Integumentary: No rashes Neuro: Normal speech, normal affect, no focal motor deficit. Problem List Bilateral lower extremity edema, concerning for new onset CHF exacerbation Obstructive sleep apnea, untreated Nicotine dependence NSTEMI chronic COPD Plan: Nuclear stress test results reviewed and reports fixed defect in the inferior portion of the heart. EF of 30% on NST.. Echocardiogram demonstrated poor windows which possibly EF of 50% Case discussed with cardiology who recommended to continue IV Lasix. Cardiology is following. Continue aspirin, continue Aldactone. Monitor renal function. VTE: Lovenox Code: Full Dispo: Home possibly in a.m.
--- NOTE | 2022-10-06 17:11 | PN ---
Date of Progress Note: 10/06/2022 Subjective: Seen at bedside. He is improving. Shortness of breath is better. Lower extremity tuan a is better. Had a stress test today that was negative. Physical Examination: Vital Signs: Reviewed. Head and Neck: Pupils are equal, reactive to light. Intact eye movements. No cervical lymphadenopa thy. Neck: Supple. Thyroid is not enlarged. Lungs: Clear to auscultation bilaterally. No rhonchi, wheezing, or crackles. No accessory muscle u se. Heart: Regular rate and rhythm. No extra sounds. Abdomen: Soft, nontender. Bowel sounds positive. No organomegaly. No masses or hernia. No rigidit y or rebound. Extremities: No clubbing, no cyanosis. 2+ pitting edema still present. Neurologic: Alert, awake, oriented x3. No acute focal deficits appreciated. Lymph Nodes: No cervical or axillary lymphadenopathy. Investigations: BUN 15, creatinine 0.87. Troponin is 112. Assessment/recommendations: 1.Acute diastolic congestive heart failure exacerbation. Continue Lasix. Patient is diuresing well . 2.Elevated troponin. Stress test is negative. This is demand ischemia. I recommend diuresis with intravenous Lasix for 1 more day and tomorrow he can be released on oral Lasix and he can follow up with me in the office in 4 weeks post discharge to follow a low sodium diet. Cardiology will sign off. SR/MODL Voice ID: [id number] Report ID: [id number]
[2022-10-06] MEDS: MELATONIN 5 MG TABLET PO PRN (23:37)
[2022-10-07] MEDS: IPRATROPIUM BROM 0.5MG/2.5ML NEB SCH ×2 (01:30→07:43)
[2022-10-07 05:48] LABS: Potassium 4.2 mmol/L (3.5-5.1)
--- NOTE | 2022-10-07 06:49 | TREADPHA ---
DX: ELEVATED TROPONIN Date of Study: 10/06/2022 Ht: 5' 11 " Wt: 266 lb 3.2 oz Consulting Physician: RODERICK MEDICATIONS: ASPIRIN, LOVENOX, LASIX, MELATONIN, NICODERM, ALDACTONE HISTORY: 52 YEAR OLD MALE WITH COMPLIANTS OF CHEST PAIN. HISTORY OF CHRONIC OBSTRUCTIVE PULMONARY DISEASE, HYPERTENSION, SMOKES ONE PACK PER DAY, DENIES ALCOHOL OR DRUG USE. NO PREVIOUS HEART SURGERIES. PHYSICIAL EXAMINATION: RESTING B.P.: 140/76 RESTING H.R.: 75 RESTING EKG: NORMAL SINUS RHYHTM, Q WAVE IN V1 AND V2 PROTOCOL: PHARMACOLOGIC EXERCISE TIME: 3:30 B.P. AT PEAK STRESS: 140/58 IMPRESSION: LEXISCAN INJECTED, CARDIOLITE GIVEN PER PROTOCOL. SEE NUCLEAR MEDICINE REPORT. PATIENT DENIES SHORTNESS OF BREATH OR CHEST PAIN. NO PREMATURE VENTRICULAR COMPLEXES, PREMATURE ATRIAL COMPLEXES, SUPRAVENTRICULAR TACHYCARDIA, OR VENTRICULAR TACHYCARDIA NOTED. NO ELECTROCARDIOGRAM CHANGES WITH LEXISCAN.
[2022-10-07] MEDS: SPIRONOLACTONE 25 MG TABLET PO SCH (07:43)
[2022-10-07] MEDS: NICOTINE 21 MG/PAT TD SCH (07:43)
[2022-10-07] MEDS: ASPIRIN EC 81 MG TAB PO SCH (07:43)
[2022-10-07] MEDS: FUROSEMIDE 40 MG/4 ML VIAL IV SCH (07:43)
[2022-10-07] MEDS: Enoxaparin 120 MG/0.8 ML SYR SQ SCH (07:43)
[2022-10-07] MEDS: DULERA 200/5 (MOMETASONE/FORMOTEROL) INHALER IH SCH (07:43)
--- NOTE | 2022-10-07 08:55 | P.DS ---
Admission Date: 10/04/22 Discharge Date: 10/07/22 Disposition: ROUTINE DISCHARGE Discharge Condition: FAIR Reason for Admission: Lower extremity edema Brief History of Present Illness: 52-year-old gentleman with a history of COPD presented to the ED with a complaint of progressive bilateral lower extremity swelling and shortness of breath of 1 months duration. Patient noted to have significant edema of both legs in the ED. Chest x-ray in the ED demonstrated cardiomegaly. Troponin was mildly elevated at 113, venous Doppler of lower extremities negative for DVT. Patient was diagnosed with new onset heart failure and hospitalized for further management. Hospital Course: Diagnosis Bilateral lower extremity edema, concerning for new onset CHF exacerbation Obstructive sleep apnea, untreated Nicotine dependence NSTEMI chronic COPD Patient was admitted to the medical floor, troponin trended flat, echocardiogram was done which demonstrated normal EF due to very poor acoustic windows. He was seen and evaluated by cardiology who recommended nuclear stress test to further evaluate for new onset CHF. Nuclear stress test result reviewed and reports fixed defect in the inferior portion of the heart and EF of 30%. Cardiology followed up with the patient and recommended diuresis with Lasix. Patient also started on Aldactone and aspirin. He was also treated for COPD with scheduled bronchodilators. His lower extremity edema improved significantly. Patient has no dyspnea at rest or with exertion and feels he has improved to baseline. His vitals have been stable. He is discharged with maintenance Lasix. Renal function was stable with diuresis. Vital Signs/Physical Exam: Temp Pulse Resp BP Pulse Ox 98.1 F 85 16 145/65 H 94 10/07/22 04:00 10/07/22 07:43 10/07/22 04:00 10/07/22 07:43 10/07/22 04:00 General: Alert, In no apparent distress HEENT: Mucous membr. moist/pink Neck: JVD not distended Respiratory: Clear to auscultation bilaterally, Normal air movement Cardiovascular: Regular rate/rhythm, Normal S1 S2, Edema (Complains bilateral lower extremity edema.) Gastrointestinal: Soft and benign, Non-distended Integumentary: No cyanosis Neurological: Normal strength at 5/5 x4 extr Laboratory Data at Discharge: WBC 10.90 K/uL (4.3-10.9) 10/05/22 03:38 Hgb 15.7 g/dL (13.6-17.9) 10/05/22 03:38 Hct 48.4 % (39.6-49.0) 10/05/22 03:38 Plt Count 184 K/uL (152-406) 10/05/22 03:38 PT 11.1 SECONDS (9.5-12.5) 10/04/22 14:50 INR 1.01 10/04/22 14:50 Sodium 134 mmol/L (136-145) L 10/07/22 05:16 Potassium 4.2 mmol/L (3.5-5.1) 10/07/22 05:16 BUN 18 mg/dL (7-18) 10/07/22 05:16 Creatinine 0.98 mg/dL (0.70-1.30) 10/07/22 05:16 Glucose 153 mg/dL (74-106) H 10/07/22 05:16 Total Bilirubin 0.5 mg/dL (0.2-1.0) 10/05/22 03:38 AST 18 U/L (15-37) 10/05/22 03:38 ALT 22 U/L (16-61) 10/05/22 03:38 Alkaline Phosphatase 89 U/L (45-117) 10/05/22 03:38 Triglycerides 167 mg/dL (<150) H 10/05/22 03:38 Cholesterol 153 mg/dL (<200) 10/05/22 03:38 HDL Cholesterol 36 mg/dL (40-60) L 10/05/22 03:38 Cholesterol/HDL Ratio 4.25 10/05/22 03:38 Home Medications: Furosemide [Lasix] 40 mg PO BIDL #44 tab 10/07/22 Spironolactone [Aldactone*] 25 mg PO BID #60 tab 10/07/22 lisinopriL [Lisinopril] 10 mg PO DAILY #30 tab 10/07/22 New Medications: Spironolactone [Aldactone*] 25 mg PO BID #60 tab Furosemide [Lasix] 40 mg PO BIDL #44 tab lisinopriL [Lisinopril] 10 mg PO DAILY #30 tab Diet: AHA Activity: Ad quang Followup: Lorne Cheng, ELISHA [Primary Care Provider] - 1 Week Sushant De Los Santos MD [ACTIVE - CAN ADMIT] - (within 2 - 4 weeks) Time spent managing pt's care (in minutes): 33
[2022-10-07 08:59] VITALS: BP 151/63; TEMP 97.9
== END 2022-10-07 10:18 | disposition home or self-care (01) | DRG 292 ==
LOC: ER 13:44 → ERHOLD 17:28 → 2ND 19:27
PROVIDERS: ADMIT Internal Medicine Sleep Medicine; ATTEND Internal Medicine
DX: I50.33 Acute on chronic diastolic (congestive) heart failure (principal); I24.8 Other forms of acute ischemic heart disease; J44.9 Chronic obstructive pulmonary disease, unspecified; G47.33 Obstructive sleep apnea (adult) (pediatric); F17.210 Nicotine dependence, cigarettes, uncomplicated; R77.8 Other specified abnormalities of plasma proteins; Z88.0 Allergy status to penicillin; Z20.822 Contact with and (suspected) exposure to COVID-19
CPT/HCPCS: 36415; 71045; 78452; 80048; 80053; 80061; 80076; 83880; 84484; 85025; 85610; 87811; 93005; 93017; 93306; 93970; 99285; A9502; J1650; J1940; J2785; J3535; J7644